=== PATIENT | female | born 1960 | race Caucasian/White ===

== ENCOUNTER 2020-07-03 08:28 | Outpatient (REF) | payer OTHER, SELFPAY ==
[2020-07-03 11:59] LABS: Alanine Aminotransferase 15 U/L (0-31); Albumin Level 4.5 g/dL (3.5-5.0); Alkaline Phosphatase 75 U/L (39-117); Anion Gap 15 (12-20); Aspartate Amino Transferase 17 U/L (5-31); Bilirubin Total 0.6 mg/dL (0.0-1.0); Blood Urea Nitrogen 16 mg/dL (9-16); Calcium 9.4 mg/dL (8.4-10.2); Carbon Dioxide 24 mmol/L (22-29); Chloride 107 mmol/L (96-108); Estimated Glomerular Filt Rate > 60; Glucose Random 138 mg/dL (60-115); Potassium 4.5 mmol/l (3.3-5.1); Sodium 141 mmol/L (135-145); Total Protein 6.8 g/dL (6.5-8.0)
[2020-07-03 12:03] LABS: Estimated Average Glucose 126 mg/dL
== END 2020-07-03 08:29 | disposition home or self-care (01) ==
LOC: HO.HMGCLDS 08:28
PROVIDERS: PCP Internal Medicine; Visit Provider Internal Medicine
DX: E78.5 Hyperlipidemia, unspecified (principal); E11.9 Type 2 diabetes mellitus without complications; I10 Essential (primary) hypertension; F41.9 Anxiety disorder, unspecified; R10.13 Epigastric pain
CPT/HCPCS: 80053; 83036

== ENCOUNTER 2020-07-06 10:01 | Outpatient (REF) | payer OTHER, SELFPAY ==
--- NOTE | 2020-07-06 11:17 | MHC.AU.P13 ---
Hearing Aid Evaluation- Binaural Date of Visit: 07/06/20 Description of Hearing: Right Ear - Mild to moderate low frequency, dropping to severe high frequency mixed hearing loss with a perforated tympanic membrane following removal of a pressure equalization tube. Left Ear - Mild sloping to moderately-severe high frequency sensorineural hearing loss. Summary: Lorraine had previously been to this office to discuss hearing aids in May 2020; however, her medical insurance shields snot cover hearing aids. She is now going through [facility] to obtain amplification. 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 The most water resistant hearing aid is recommended for her. Hearing Instrument Selection: Right Ear: Cco & President: Adept Cloud Model: AB [employer] M 70-R Battery Size: Rechargeable Color: Sand Beige Nurses' Registry Director: #1 Medium Type of Dome: Power or vented dome Left Ear: Cco & President: Phonak Model: AB [employer] M 70-R Battery Size: Rechargeable Color: Sand Beige Nurses' Registry Director: #1 Medium Type of Dome: Open Recommendations: Recommendations: Fitting will be scheduled when all materials have arrived. Quote will be sent to [facility]. Diagnosis Code(s): Primary Diagnosis: H90.3 Bilateral Sensorineural Hearing Loss Secondary Diagnosis: H69.91 Unspecified Eustachian Tube Dysfunction, Right Ear Services Performed: Hearing Aid Evaluation and Earmold: Hearing Aid Evaluation- Binaural Signature: Provider: Christopher Richardson, [facility]
== END 2020-07-06 10:02 | disposition home or self-care (01) ==
LOC: HO.HAP 10:01
PROVIDERS: PCP Internal Medicine; Referring Provider Internal Medicine; Visit Provider Internal Medicine
DX: Z46.1 Encounter for fitting and adjustment of hearing aid (principal)
CPT/HCPCS: 92591

== ENCOUNTER → 2020-08-09 12:02 | Outpatient (BNVA) | payer OTHER, SELFPAY | PROVIDERS: PCP Internal Medicine; Visit Provider Nurse Practitioner Family | DX: Z76.89 Persons encountering health services in other specified circumstances (principal) ==

== ENCOUNTER 2020-08-17 09:02 | Outpatient (REF) | payer OTHER, SELFPAY | END 2020-08-17 09:03 | disposition home or self-care (01) | LOC: HO.HAP 09:02 | PROVIDERS: PCP Internal Medicine; Referring Provider Internal Medicine; Visit Provider Internal Medicine | DX: Z46.1 Encounter for fitting and adjustment of hearing aid (principal); H90.3 Sensorineural hearing loss, bilateral; H69.91 Unspecified Eustachian tube disorder, right ear | CPT/HCPCS: 92595; V5011; V5020; V5160; V5261 ==

== ENCOUNTER 2020-09-12 15:28 | Outpatient (REF) | payer OTHER, SELFPAY | END 2020-09-12 15:29 | disposition home or self-care (01) | LOC: HO.LAB 15:28 | PROVIDERS: PCP Internal Medicine; Visit Provider Internal Medicine | DX: Z20.828 Contact with and (suspected) exposure to other viral communicable diseases (principal) | CPT/HCPCS: 36415; C9803; U0003 ==

== ENCOUNTER 2020-09-14 13:14 | Outpatient (REF) | payer OTHER, SELFPAY | END 2020-09-14 13:15 | disposition home or self-care (01) | LOC: HO.HAP 13:14 | PROVIDERS: Visit Provider Internal Medicine | DX: Z13.89 Encounter for screening for other disorder (principal) ==

== ENCOUNTER 2020-10-03 08:45 | Day surgery (SDC) | payer OTHER, SELFPAY ==
[2020-09-27 14:56] VITALS: BMI 35.0
--- NOTE | 2020-10-02 09:26 | P.CONAN_ITS ---
Documented by User: Shonna Ny 10/02/20 09:27 HPI - Anesthesia Eval Consult details Narrative: 60yo F for Colonoscopy PMFSH Past Medical History Medical History Anxiety, generalized Chronic otitis media of right ear Diabetes 1.5, managed as type 2 Difficulty sleeping Dyspepsia Hard of hearing Hypertension, essential Lipid disorder Obesity Family History Family History Father No problems noted. Mother Family history of high blood pressure Surgical History Surgical History History of appendectomy History of back surgery History of colonoscopy History of surgery History of tubal ligation Hx of endoscopy Social History Social History Alcohol intake: current Alcohol intake frequency: holidays/special occasions only Smoking Status: Never smoker Use of substances other than those prescribed or required for medical reasons: No Advance Directives: No Advance Directives Information Provided: No Advance Directives on File: No Meds Allergies Allergy/AdvReac Type Severity Reaction Status Date / Time No Known Allergies Allergy Verified 07/11/20 11:04 Home Medications Medication Instructions Recorded Confirmed Type amlodipine 5 mg tablet 5 mg PO DAILY 07/03/20 09/27/20 History flu vac [id number] 36mos up(PF) ml IM 07/03/20 07/11/20 History metoprolol succinate 50 mg 50 mg PO DAILY 07/03/20 09/27/20 History tablet,extended release 24 hr pneumococcal 23-kumar ps vaccine 25 IM 07/03/20 07/11/20 History mcg/0.5 mL injection syringe varicella-zoster glycoE [id number] IM 07/03/20 07/11/20 History adj(PF) 50 mcg/0.5 mL IM susp, kit Exam Exam Date and Time: October 02, 2020 0926 Height,Weight and Vital Signs: Height 5 ft 7 in Weight 101.605 kg Pertinent Lab Results Pertinent Lab Results: Laboratory Tests 01/11/19 07/03/20 10:09 08:35 WBC 6.8 Hgb 13.8 Hct 40.4 Plt Count 229 Sodium 141 Potassium 4.5 Chloride 107 Carbon Dioxide 24 BUN 16 Creatinine 0.82 Assessment and Plan Assessment Anesthesia Assessment: Chart Reviewed Documented by User: Chel Anderson 10/03/20 10:03 [facility] Past Medical History Medical History Anxiety, generalized Chronic otitis media of right ear Diabetes 1.5, managed as type 2 Difficulty sleeping Dyspepsia Hard of hearing Hypertension, essential Lipid disorder Obesity Family History Family History Father No problems noted. Mother Family history of high blood pressure Surgical History Surgical History History of appendectomy History of back surgery History of colonoscopy History of surgery History of tubal ligation Hx of endoscopy Social History Social History Alcohol intake: current Alcohol intake frequency: holidays/special occasions only Smoking Status: Never smoker Use of substances other than those prescribed or required for medical reasons: No Advance Directives: No Advance Directives Information Provided: No Advance Directives on File: No Meds Allergies Allergy/AdvReac Type Severity Reaction Status Date / Time No Known Allergies Allergy Verified 07/11/20 11:04 Home Medications Medication Instructions Recorded Confirmed Type amlodipine 5 mg tablet 5 mg PO DAILY 07/03/20 09/27/20 History flu vac [id number] 36mos up(PF) ml IM 07/03/20 07/11/20 History metoprolol succinate 50 mg 50 mg PO DAILY 07/03/20 09/27/20 History tablet,extended release 24 hr pneumococcal 23-kumar ps vaccine 25 IM 07/03/20 07/11/20 History mcg/0.5 mL injection syringe varicella-zoster glycoE [id number] IM 07/03/20 07/11/20 History adj(PF) 50 mcg/0.5 mL IM susp, kit Exam Airway Mallampati Class: I TM Dist: >3cm Heart: RRR Lungs: CTA Assessment and Plan Assessment Anesthesia Assessment: Anesthesia Plan Discussed and Chart Reviewed Final Anesthetic Review NPO: Yes ASA Class: II Final Preanesthetic Review: Meds/Allgs Chart Reviewed, Consent Obtained/Reviewed and Anes Risks/Benef Reviewed Patient Risk: Intermediate Procedure Risk: Low Anesthetic Plan Anesthetic Plan: MAC: Disposition: Standard PACU
--- NOTE | 2020-10-03 09:57 | MHC.SHP ---
Pre-Procedural Eval Section B Chief Complaint: screening Relevant Family History (Specify if Yes): No Relevant Social History: None Present Medications: see Short Stay Collaborative assessment Medical History: Significant History (Anxiety, generalized Chronic otitis media of right ear Diabetes 1.5, managed as type 2 Difficulty sleeping Dyspepsia Hard of hearing Hypertension, essential Lipid disorder Obesity) History of Previous Operations: Relevant previous surgery/procedure and date(s) (History of appendectomy History of back surgery History of colonoscopy History of surgery History of tubal ligation Hx of endoscopy) Allergies: Allergies Allergy/AdvReac Type Severity Reaction Status Date / Time No Known Allergies Allergy Verified 07/11/20 11:04 Review of Systems Sugical H&P ROS: Negative: Constitution, Cardiovascular, Respiratory, Neurological, Psychiatric, Hem-Onc, Allergic/Immunologic, Gastrointestinal, Genitourinary, Musculoskeletal, Integumentary, Endocrine and Eyes/Ears/Nose/Throat Exam Surgical H&P Exam: Normal: HEENT, Normal: Heart, Normal: Lungs, Normal: Extremities, Normal: Abdomen, Normal: Skin and Normal: Neurological Plan Diagnosis/Plan: Unchanged I have reviewed the history and physical and performed a pertinent physical examination on my patient. No changes have occurred unless specified.
--- NOTE | 2020-10-03 09:58 | PM.OP ---
Brief Operative Note Date of Service: 10/03/20 Pre-op diagnosis: colon screen Post-op diagnosis: same Procedure: see op note Surgeon: Gregorio Becker MD Anesthesia: MAC Estimated blood loss (mL): 0 Condition: stable Disposition: PACU
--- NOTE | 2020-10-03 09:58 | W.PM.OPN ---
Operative Note Operative Note Date of Service: 10/03/20 Narrative: Operative Information Procedure Description: Colonoscopy COLONOSCOPY Instrument: Olympus variable stiffness pediatric scope 190L Colonoscopy Monitoring: Vital signs and clinical assessment, continuous EKG monitoring, Pulse oximetry, Carbon Dioxide monitoring and blood pressure monitoring were done throughout the procedure. Colon withdrawal time was 20 minutes. Procedure: The patient was placed in the left lateral decubitis position and pre-procedure medications were administered. After a digital rectal examination of the ano-rectum, the video colonoscope was inserted into the rectum and advanced through the colon to the cecum/TI. The colonoscope was slowly withdrawn in a retrograde panoramic fashion and the colon mucosa was carefully examined including a retroflexed view of the rectum. Findings and interventions are described below. Procedure Difficulty: moderate Findings: Scattered diverticula in the colon Terminal Ileum-normal Over the ileocecal valve there was 1 8-10 mm sessile polyp removed with cold snare Cecum: prior tattoo michelle noted, there were x 2 sessile polyps measuring 5-10 mm, removed with cold snare. There was an adjacent sessile polyp 5 mm removed with forceps. In retroflexion another sessile polyp measuring 7-10 mm removed with cold snare Ascending Colon: normal Transverse Colon -normal Descending Colon:normal Sigmoid Colon: normal Rectum: Retroflexion with small internal hemorrhoids, grade I Anorectum - normal Colon preparation: [place] Bowel Preparation Scale Right colon; 3 Transverse colon: 3 Left colon; 3 (0 = Unprepared colon segment with mucosa not seen due to solid stool that cannot be cleared. 1 = Portion of mucosa of the colon segment seen, but other areas of the colon segment not well seen due to staining, residual stool and/or opaque liquid. 2 = Minor amount of residual staining, small fragments of stool and/or opaque liquid, but mucosa of colon segment seen well. 3 = Entire mucosa of colon segment seen well with no residual staining, small fragments of stool or opaque liquid) Impression and Post Procedure Diagnosis: polyps internal hemorrhoids diverticular disease Plan: High fiber diet leaflet Avoid straining at stool, epsom salts and sitz bath, anusol supps or cream Repeat Colonoscopy in 3-4 years or earlier if clinically indicated Above findings were reviewed with the patient and relevant handouts were provided if indicated.
[2020-10-03 10:00] VITALS: BP 136/62; PULSE 86; RESP 18; TEMP 36.6; O2SAT 95
[2020-10-03 10:26] LABS: Glucose, Whole Blood 145 mg/dL (60-115)
[2020-10-03 11:18] VITALS: BP 120/69; PULSE 86; RESP 16; TEMP 36.4; O2SAT 96
[2020-10-03 11:33] VITALS: BP 127/62; PULSE 92; RESP 16; TEMP 36.4; O2SAT 97
--- NOTE | 2020-10-03 11:46 | HO.POSTANES ---
Post Anesthesia Evaluation Post Anesthesia Evaluation Vital Signs: Vital Signs Temp Pulse Resp BP Pulse Ox 10/03/20 11:33 97.6 F 92 16 127/62 97 10/03/20 11:18 97.6 F 86 16 120/69 96 10/03/20 10:00 97.8 F 86 18 136/62 95 Anesthesia: Monitored Mental Status: Awake Pain Control: Satisfactory Nausea/Vomiting: None Hydration: Adequate Anesthesia-Related Issues: No Anes. Related Issues
== END 2020-10-03 11:54 | disposition home or self-care (01) ==
PROVIDERS: PCP Internal Medicine; Visit Provider Internal Medicine Gastroenterology
PROC: 0DJD8ZZ Inspection of Lower Intestinal Tract, Via Natural or Artificial Opening Endoscopic (ICD-10-PCS; CPT 45378; principal; 2020-10-03 10:20)
DX: Z12.11 Encounter for screening for malignant neoplasm of colon (principal); D12.0 Benign neoplasm of cecum; K57.30 Diverticulosis of large intestine without perforation or abscess without bleeding; K64.0 First degree hemorrhoids; E13.9 Other specified diabetes mellitus without complications; Z79.84 Long term (current) use of oral hypoglycemic drugs; Z79.899 Other long term (current) drug therapy
CPT/HCPCS: 45385; 45380; 82947; 88305

== ENCOUNTER → 2020-10-30 13:44 | Outpatient (BNVA) | payer OTHER, SELFPAY | PROVIDERS: PCP Internal Medicine; Visit Provider Nurse Practitioner Family ==

== ENCOUNTER → 2020-11-20 13:39 | Outpatient (BNVA) | payer OTHER, SELFPAY | PROVIDERS: PCP Internal Medicine; Visit Provider Advanced Practice Midwife | DX: Z01.419 Encounter for gynecological examination (general) (routine) without abnormal findings (principal); R82.90 Unspecified abnormal findings in urine | CPT/HCPCS: 81003 ==

== ENCOUNTER 2020-11-24 10:48 | Outpatient (REF) | payer OTHER, SELFPAY ==
--- NOTE | ~2020-11-24 | MM_ITS ---
EXAMINATION: MM SCREENING DIGITAL BREAST TOMOSYNTHESIS, BILATERAL CLINICAL INFORMATION: Screening. Asymptomatic. The lifetime risk of breast cancer based on the Tyrer-Cuzick Model is 5%. COMPARISON: Mammography: 03/07/2019, 01/14/2019, 12/29/2017 TECHNIQUE: Digital breast tomosynthesis is performed in both the craniocaudal and mediolateral oblique views along with computer-aided detection (CAD). Synthesized 2D images are generated from the tomosynthesis. FINDINGS: There are scattered areas of fibroglandular density (ACR BI-RADS breast composition Category b). There are no significant masses, abnormal calcifications, or other abnormalities. No developing density. Parenchymal pattern is similar to prior exams. The axilla and skin contours are unremarkable. MM/MM tomosynthesis screening BI IMPRESSION: No mammographic evidence of malignancy. ASSESSMENT: BI-RADS 1: Negative RECOMMENDATION: Routine annual mammography screening. This patient's information was entered into a reminder system with a target due date for their next mammogram.
== END 2020-11-24 10:49 | disposition home or self-care (01) ==
LOC: HO.MAMMO 10:48
PROVIDERS: PCP Internal Medicine; Visit Provider Internal Medicine
DX: Z12.31 Encounter for screening mammogram for malignant neoplasm of breast (principal)
CPT/HCPCS: 77063; 77067

== ENCOUNTER 2020-11-29 09:29 | Outpatient (REF) | payer OTHER, SELFPAY ==
[2020-11-29 11:32] LABS: Estimated Average Glucose 128 mg/dL; Hemoglobin A1c % 6.1 %
[2020-11-29 11:52] LABS: Creatinine Urine 128.39 mg/dL; Microalbum/Creatinine Ratio Ur 10.9 ug/mg cr
[2020-11-29 12:06] LABS: Alanine Aminotransferase 24 U/L (0-31); Albumin Level 4.4 g/dL (3.5-5.0); Alkaline Phosphatase 78 U/L (39-117); Anion Gap 17 (12-20); Aspartate Amino Transferase 23 U/L (5-31); Bilirubin Direct 0.2 mg/dL (0.0-0.5); Bilirubin Total 0.6 mg/dL (0.0-1.0); Blood Urea Nitrogen 16 mg/dL (9-16); Calcium 9.9 mg/dL (8.4-10.2); Carbon Dioxide 24 mmol/L (22-29); Chloride 106 mmol/L (96-108); Cholesterol 171 mg/dL; Estimated Glomerular Filt Rate > 60; Glucose Fasting 128 mg/dL (60-99); HDL Cholesterol 55 mg/dL; LDL Cholesterol Calculated 94 mg/dl; Sodium 142 mmol/L (135-145); Total Protein 6.8 g/dL (6.5-8.0); Triglycerides 114 mg/dL
== END 2020-11-29 09:30 | disposition home or self-care (01) ==
LOC: HO.HMGCLDS 09:29
PROVIDERS: PCP Internal Medicine; Visit Provider Internal Medicine
DX: E13.9 Other specified diabetes mellitus without complications (principal); R78.9 Finding of unspecified substance, not normally found in blood; R10.13 Epigastric pain; I10 Essential (primary) hypertension; F41.1 Generalized anxiety disorder; G47.9 Sleep disorder, unspecified
CPT/HCPCS: 36415; 80048; 80061; 80076; 82043; 83036

== ENCOUNTER 2021-04-26 15:08 | Outpatient (REF) | payer OTHER, SELFPAY ==
--- NOTE | ~2021-04-26 | XR_ITS ---
EXAMINATION: XR HAND, LEFT CLINICAL INFORMATION: Pain COMPARISON: None TECHNIQUE: PA, lateral, and oblique views of the left hand. FINDINGS: The bones and soft tissues are notable for an old appearing unfused ulnar styloid fracture. No definite acute fracture. Alignment is anatomic. Joint spaces are maintained. No erosions or soft tissue calcifications. XR/XR hand LT min 3V IMPRESSION: Older appearing ulnar styloid fracture. No definite acute deformity. No arthritic changes.
== END 2021-04-26 15:09 | disposition home or self-care (01) ==
LOC: HO.HMGCX 15:08
PROVIDERS: PCP Internal Medicine; Visit Provider Hospitalist
DX: M79.642 Pain in left hand (principal)
CPT/HCPCS: 73130

== ENCOUNTER 2021-05-21 10:07 | Outpatient (REF) | payer OTHER, SELFPAY ==
[2021-05-21 11:35] LABS: Hemoglobin 12.8 g/dl (12.0-16.0); Mean Corpuscular Hemoglobin 27.8 pg (27.0-33.0); Platelet Count 234 X10*3/uL (160-400); White Blood Count 5.8 X10*3/uL (4.8-10.8)
[2021-05-21 11:39] LABS: Alanine Aminotransferase 21 U/L (0-31); Albumin Level 4.4 g/dL (3.5-5.0); Alkaline Phosphatase 85 U/L (39-117); Anion Gap 13 (12-20); Aspartate Amino Transferase 20 U/L (5-31); Bilirubin Total 0.7 mg/dL (0.0-1.0); Blood Urea Nitrogen 13 mg/dL (9-16); Carbon Dioxide 25 mmol/L (22-29); Chloride 109 mmol/L (96-108); Estimated Glomerular Filt Rate > 60; Glucose Random 138 mg/dL (60-115); Sodium 142 mmol/L (135-145); Total Protein 6.7 g/dL (6.5-8.0)
[2021-05-21 11:42] LABS: Creatinine Urine 200.22 mg/dL; Microalbum/Creatinine Ratio Ur 6.9 ug/mg cr
[2021-05-21 11:56] LABS: Estimated Average Glucose 134 mg/dL; Hemoglobin A1c % 6.3 %
[2021-05-22 14:01] LABS: LDL Cholesterol Direct 97 mg/dL (<100)
== END 2021-05-21 10:08 | disposition home or self-care (01) ==
LOC: HO.HMGCLDS 10:07
PROVIDERS: Nurse Practitioner Family; PCP Internal Medicine; Visit Provider Internal Medicine
DX: R10.13 Epigastric pain (principal); I10 Essential (primary) hypertension; G47.9 Sleep disorder, unspecified; F41.1 Generalized anxiety disorder; E78.9 Disorder of lipoprotein metabolism, unspecified; E13.9 Other specified diabetes mellitus without complications
CPT/HCPCS: 36415; 80053; 82043; 83036; 83721; 85027

== ENCOUNTER 2021-08-21 09:29 | Outpatient (REF) | payer OTHER, SELFPAY ==
[2021-08-21 11:41] LABS: Hematocrit 40.3 % (37.0-47.0); Hemoglobin 12.9 g/dl (12.0-16.0)
[2021-08-21 11:55] LABS: Estimated Average Glucose 131 mg/dL; Hemoglobin A1c % 6.2 %
[2021-08-21 12:18] LABS: Alanine Aminotransferase 20 U/L (0-31); Albumin Level 4.4 g/dL (3.5-5.0); Alkaline Phosphatase 83 U/L (39-117); Anion Gap 13 (12-20); Aspartate Amino Transferase 22 U/L (5-31); Bilirubin Total 0.3 mg/dL (0.0-1.0); Blood Urea Nitrogen 16 mg/dL (9-16); Calcium 9.4 mg/dL (8.4-10.2); Carbon Dioxide 23 mmol/L (22-29); Chloride 110 mmol/L (96-108); Estimated Glomerular Filt Rate > 60; Glucose Random 144 mg/dL (60-115); Potassium 4.8 mmol/L (3.3-5.1); Sodium 141 mmol/L (135-145); Total Protein 6.8 g/dL (6.5-8.0)
[2021-08-23 04:36] LABS: LDL Cholesterol Direct 86 mg/dL (<100)
== END 2021-08-21 09:30 | disposition home or self-care (01) ==
LOC: HO.HMGCLDS 09:29
PROVIDERS: PCP Internal Medicine; Visit Provider Internal Medicine
DX: E13.9 Other specified diabetes mellitus without complications (principal); E78.9 Disorder of lipoprotein metabolism, unspecified; I10 Essential (primary) hypertension
CPT/HCPCS: 36415; 80053; 83036; 83721; 85014; 85018

== ENCOUNTER → 2021-11-06 15:49 | Outpatient (BNVA) | payer OTHER, SELFPAY | PROVIDERS: PCP Internal Medicine; Visit Provider Nurse Practitioner Family | DX: Z12.11 Encounter for screening for malignant neoplasm of colon (principal) | CPT/HCPCS: 99212 ==

== ENCOUNTER 2021-11-22 13:14 | Outpatient (REF) | payer OTHER, SELFPAY ==
[2021-11-27 01:27] LABS: HPV mRNA E6/E7 rflx Not Detected (Not Detected)
== END 2021-11-22 13:15 | disposition home or self-care (01) ==
LOC: HO.LAB 13:14
PROVIDERS: PCP Internal Medicine; Visit Provider Advanced Practice Midwife
DX: Z01.411 Encounter for gynecological examination (general) (routine) with abnormal findings (principal); Z11.51 Encounter for screening for human papillomavirus (HPV); N88.9 Noninflammatory disorder of cervix uteri, unspecified; D22.9 Melanocytic nevi, unspecified
CPT/HCPCS: 87624; 88142

== ENCOUNTER 2021-12-03 14:03 | Outpatient (REF) | payer OTHER, SELFPAY | END 2021-12-03 14:04 | disposition home or self-care (01) | LOC: HO.LAB 14:03 | PROVIDERS: PCP Internal Medicine; Visit Provider Obstetrics & Gynecology | DX: N84.1 Polyp of cervix uteri (principal) | CPT/HCPCS: 57500; 88305 ==

== ENCOUNTER 2021-12-14 09:53 | Outpatient (REF) | payer OTHER, SELFPAY ==
--- NOTE | ~2021-12-14 | MM_ITS ---
EXAMINATION: MM SCREENING DIGITAL BREAST TOMOSYNTHESIS, BILATERAL CLINICAL INFORMATION: Screening. Asymptomatic. The lifetime risk of breast cancer based on the Tyrer-Cuzick Model is 4%. COMPARISON: Mammography: 11/24/2020, 03/07/2019, 01/14/2019, 12/29/2017 TECHNIQUE: Digital breast tomosynthesis is performed in both the craniocaudal and mediolateral oblique views along with computer-aided detection (CAD). Synthesized 2D images are generated from the tomosynthesis. Additional right CC view is provided. FINDINGS: There are scattered areas of fibroglandular density (ACR BI-RADS breast composition Category b). There are no significant masses, abnormal calcifications, or other abnormalities. No significant change from prior studies. The axilla and skin contours are unremarkable. MM/MM tomosynthesis screening BI IMPRESSION: No mammographic evidence of malignancy. ASSESSMENT: BI-RADS 1: Negative RECOMMENDATION: Routine annual mammography screening. This patient's information was entered into a reminder system with a target due date for their next mammogram.
== END 2021-12-14 09:54 | disposition home or self-care (01) ==
LOC: HO.MAMMO 09:53
PROVIDERS: Visit Provider Internal Medicine
DX: Z12.31 Encounter for screening mammogram for malignant neoplasm of breast (principal)
CPT/HCPCS: 77063; 77067

== ENCOUNTER → 2021-12-17 16:17 | Outpatient (BNVA) | payer OTHER, SELFPAY | PROVIDERS: PCP Internal Medicine; Visit Provider Obstetrics & Gynecology | DX: Z13.89 Encounter for screening for other disorder (principal) ==

== ENCOUNTER 2021-12-25 09:05 | Outpatient (REF) | payer OTHER, SELFPAY ==
[2021-12-25 11:55] LABS: Estimated Average Glucose 134 mg/dL; Hemoglobin A1c % 6.3 %
[2021-12-25 12:06] LABS: Alanine Aminotransferase 21 U/L (0-31); Albumin Level 4.4 g/dL (3.5-5.0); Alkaline Phosphatase 79 U/L (39-117); Anion Gap 12 (12-20); Aspartate Amino Transferase 21 U/L (5-31); Bilirubin Total 0.3 mg/dL (0.0-1.0); Blood Urea Nitrogen 16 mg/dL (9-16); Calcium 10.3 mg/dL (8.4-10.2); Carbon Dioxide 28 mmol/L (22-29); Chloride 105 mmol/L (96-108); Estimated Glomerular Filt Rate > 60; Glucose Random 148 mg/dL (60-115); Potassium 5.2 mmol/L (3.3-5.1); Sodium 140 mmol/L (135-145); Total Protein 6.8 g/dL (6.5-8.0)
== END 2021-12-25 09:06 | disposition home or self-care (01) ==
LOC: HO.HMGCLDS 09:05
PROVIDERS: PCP Internal Medicine; Visit Provider Internal Medicine
DX: E13.9 Other specified diabetes mellitus without complications (principal); E78.9 Disorder of lipoprotein metabolism, unspecified; F41.1 Generalized anxiety disorder
CPT/HCPCS: 36415; 80053; 83036

== ENCOUNTER 2022-03-07 13:43 | Outpatient (REF) | payer SELFPAY | END 2022-03-07 13:44 | disposition home or self-care (01) | LOC: HO.HAP 13:43 | PROVIDERS: Visit Provider Internal Medicine | DX: Z46.1 Encounter for fitting and adjustment of hearing aid (principal); H90.3 Sensorineural hearing loss, bilateral | CPT/HCPCS: V5014; V5267 ==

== ENCOUNTER 2022-03-17 14:21 | Outpatient (REF) | payer OTHER, SELFPAY ==
[2022-03-20 06:42] LABS: HPV mRNA E6/E7 rflx Not Detected (Not Detected)
== END 2022-03-17 14:22 | disposition home or self-care (01) ==
LOC: HO.LAB 14:21
PROVIDERS: Visit Provider Advanced Practice Midwife
DX: Z01.419 Encounter for gynecological examination (general) (routine) without abnormal findings (principal); Z11.51 Encounter for screening for human papillomavirus (HPV); R87.615 Unsatisfactory cytologic smear of cervix
CPT/HCPCS: 87624; 88142; 99212

== ENCOUNTER 2022-05-08 07:57 | Outpatient (REF) | payer OTHER, SELFPAY ==
[2022-05-08 11:52] LABS: Estimated Average Glucose 134 mg/dL; Hemoglobin A1c % 6.3 %
[2022-05-08 12:02] LABS: Alanine Aminotransferase 21 U/L (0-31); Albumin Level 4.3 g/dL (3.5-5.0); Alkaline Phosphatase 81 U/L (39-117); Anion Gap 16 (12-20); Aspartate Amino Transferase 20 U/L (5-31); Bilirubin Total 0.4 mg/dL (0.0-1.0); Blood Urea Nitrogen 12 mg/dL (9-16); Calcium 9.3 mg/dL (8.4-10.2); Carbon Dioxide 24 mmol/L (22-29); Chloride 107 mmol/L (96-108); Cholesterol 192 mg/dL; Estimated Glomerular Filt Rate > 60; Glucose Fasting 151 mg/dL (60-99); HDL Cholesterol 52 mg/dL; LDL Cholesterol Calculated 97 mg/dl; Potassium 4.9 mmol/L (3.3-5.1); Sodium 142 mmol/L (135-145); Total Protein 6.6 g/dL (6.5-8.0); Triglycerides 216 mg/dL
[2022-05-08 12:41] LABS: Creatinine Urine 179.19 mg/dL; Microalbum/Creatinine Ratio Ur 16.7 ug/mg cr
== END 2022-05-08 07:58 | disposition home or self-care (01) ==
LOC: HO.HMGCLDS 07:57
PROVIDERS: PCP Internal Medicine; Visit Provider Internal Medicine
DX: E13.9 Other specified diabetes mellitus without complications (principal); I10 Essential (primary) hypertension; E78.9 Disorder of lipoprotein metabolism, unspecified; G47.9 Sleep disorder, unspecified; R10.13 Epigastric pain; F41.1 Generalized anxiety disorder
CPT/HCPCS: 36415; 80053; 80061; 82043; 83036

== ENCOUNTER 2022-07-18 14:00 | Outpatient (RCR) | payer OTHER, SELFPAY ==
--- NOTE | 2022-06-23 15:10 | MHC.PT.EP ---
[facility] [place] Office [place] Office [place] Office [address] [phone] F: [phone] F: [phone] F: [phone] F: [phone] Physical Therapy Plan of Care Date of Evaluation: Date of Surgery: Diagnosis: Pain in thoracic spine. Assessment: Pt is a 62 y/o female referred to PT for eval and treat of thoracic spine pain who presents with lumbopelvic dysfunction resulting in decreased tolerance and ability to perform ambulatory, standing and sitting tasks for duration as well as lifting objects of weight, and performing heavy HH and work tasks secondary to decreased hip and core strength, decreased trunk ROM as well as increased lumbar tissue tension, L LE referred symptoms, and pain. Pt is deemed an appropriate candidate to receive skilled PT in order to address her physical limitations to improve her functional ability. Frequency and Duration: The patient will be seen 2 x/ wk x 5 wks. Short Term Goals: initiate HEP. Improve baseline pain to < 3/10; initial 4-7/10. Religion Teacher Goals: I with HEP. Pt will be able to walk long distances with managed pain. Pt will be able to sit > 1 hour with managed Sx; initial: < 10 min. Referred L LE Sx abolished. Treatment Plan: Modalities to reduce pain, spasms and effusion. Manual therapy to restore motion and function. Therapeutic exercise to improve strength and flexibility. Neuromuscular re-education for posture and balance. Therapeutic activities to return to functional activities of daily living. Electronically signed by: Herbie Peralta PT. Please sign and return to therapist. Thank you for your referral.
--- NOTE | 2022-07-18 15:31 | MHC.PT.DC ---
[facility] [place] Office [place] Office [place] Office [address] [phone] F: [phone] F: [phone] F: [phone] F: [phone] Physical Therapy Discharge Report Diagnosis: Pain in thoracic spine. Date of Surgery: Date of Evaluation: 06/23/22 Date of Discharge: 07/18/22 Treatments to Date: 4 Cancellations to Date: No Shows to Date: Discharge Status: Achieved Goals Improved Function Independent with HEP Discharge Summary: Gemma has been an active participant in the clinic reporting resolution of her back pain after just a couple of visits, she is I with a gentle HEP and PT is in agreement with her request for DC today. Paulette outcome measure improved from 48% to 10%. Electronically signed by: Herbie Peralta PT. Please sign and return to therapist. Thank you for your referral.
== END 2022-07-18 15:32 | disposition home or self-care (01) ==
LOC: HO.PTCHIC 14:00
PROVIDERS: PCP Internal Medicine; Visit Provider Internal Medicine
DX: M54.6 Pain in thoracic spine (principal)
CPT/HCPCS: 97110; 97161

== ENCOUNTER 2022-08-02 15:18 | Outpatient (REF) | payer OTHER, SELFPAY ==
[2022-08-02 15:59] LABS: Influenza A PCR NEGATIVE (Negative); Influenza B PCR NEGATIVE (Negative); Resp Syncy Virus RNA Qual PCR NEGATIVE (Negative); SARS COV2 PCR INHOUSE POSITIVE (Negative)
== END 2022-08-02 15:19 | disposition home or self-care (01) ==
LOC: HO.LNP 15:18
PROVIDERS: Visit Provider Physician Assistant Medical
DX: R05.9 Cough, unspecified (principal); Z20.822 Contact with and (suspected) exposure to COVID-19
CPT/HCPCS: 0241U

== ENCOUNTER 2022-08-16 09:18 | Outpatient (REF) | payer OTHER, SELFPAY ==
[2022-08-16 11:48] LABS: Alanine Aminotransferase 20 U/L (0-31); Albumin Level 4.3 g/dL (3.5-5.0); Alkaline Phosphatase 76 U/L (39-117); Anion Gap 13 (12-20); Aspartate Amino Transferase 22 U/L (5-31); Bilirubin Total 0.3 mg/dL (0.0-1.0); Blood Urea Nitrogen 15 mg/dL (9-16); Calcium 9.6 mg/dL (8.4-10.2); Carbon Dioxide 27 mmol/L (22-29); Chloride 108 mmol/L (96-108); Estimated Glomerular Filt Rate > 60; Glucose Random 138 mg/dL (60-115); Potassium 4.8 mmol/L (3.3-5.1); Sodium 143 mmol/L (135-145); Total Protein 6.4 g/dL (6.5-8.0)
[2022-08-16 12:02] LABS: Estimated Average Glucose 148 mg/dL; Hemoglobin A1c % 6.8 %
== END 2022-08-16 09:19 | disposition home or self-care (01) ==
LOC: HO.HMGCLDS 09:18
PROVIDERS: PCP Internal Medicine; Visit Provider Internal Medicine
DX: E13.9 Other specified diabetes mellitus without complications (principal); E78.9 Disorder of lipoprotein metabolism, unspecified; I10 Essential (primary) hypertension
CPT/HCPCS: 36415; 80053; 83036

== ENCOUNTER 2022-09-30 08:17 | Day surgery (SDC) | payer OTHER, SELFPAY ==
[2022-09-24 14:46] VITALS: BMI 36.0
--- NOTE | 2022-09-29 12:01 | HO.ANESPROP2 ---
Documented by User: Shonna Ny NP 09/29/22 12:02 HPI - Anesthesia Eval Consult details Narrative: 62yo F for Colonoscopy PMFSH Active Problems Active Problems: All Active Problems (Updated 09/24/22 @ 14:44 by Vielka De Santiago, RN) Otitis media (Acute) Ruptured tympanic membrane (Acute) Neck pain (Acute) Left otitis media (Acute) Encounter for annual routine gynecological examination (Acute) Abnormal urine odor (Acute) Left hand pain (Acute) Obesity due to excess calories (Acute) Encounter for general adult medical examination with abnormal findings (Acute) Acute pain associated with herpes zoster (Acute) Shingles rash (Acute) Endocervical polyp (Acute) Post herpetic neuralgia (Acute) Sensation of fullness in right ear (Acute) Environmental allergies (Acute) Environmental allergies (Acute) Eustachian tube disorder (Acute) Lower thoracic back pain (Acute) Upper respiratory tract infection (Acute) Leg cramps (Acute) Tubular adenoma (Acute) Hard of hearing (Acute) Chronic otitis media of right ear (Acute) Lipid disorder (Acute) Dyspepsia (Acute) Hypertension, essential (Acute) Anxiety, generalized (Acute) Diabetes 1.5, managed as type 2 (Acute) Difficulty sleeping (Acute) Past Medical History Medical History (Updated 09/24/22 @ 14:44 by Vielka De Santiago, RN) Anxiety, generalized Chronic otitis media of right ear Diabetes 1.5, managed as type 2 Difficulty sleeping Dyspepsia GERD (gastroesophageal reflux disease) Hard of hearing Hypertension, essential Lipid disorder Obesity On beta michael at home Tubular adenoma Family History Family History Father No problems noted. 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 Cognitive needs: No Hearing needs: No Vision needs: Yes Meds Allergies Allergy/AdvReac Type Severity Reaction Status Date / Time No Known Allergies Allergy Verified 09/24/22 14:45 Home Medications Medication Instructions Recorded Confirmed Last Taken Type aspirin 81 mg tablet,delayed 81 mg PO DAILY 02/27/21 09/24/22 Unknown History release (Adult Low Dose Aspirin) Exam Exam Date and Time: September 29, 2022 1201 Height,Weight and Vital Signs: Height 5 ft 7 in Weight 104.326 kg Pertinent Lab Results Pertinent Lab Results: Laboratory Tests 08/16/22 09:22 Sodium 143 Potassium 4.8 Chloride 108 Carbon Dioxide 27 BUN 15 Creatinine 0.89 Assessment and Plan Assessment Anesthesia Assessment: Chart Reviewed Documented by User: Ankush Saenz MD 09/30/22 16:40 HPI - Anesthesia Eval Consult details Narrative: 62yo F for Colonoscopy bells palsy , right side PMFSH Past Medical History Medical History (Updated 09/24/22 @ 14:44 by Vielka De Santiago RN) Anxiety, generalized Chronic otitis media of right ear Diabetes 1.5, managed as type 2 Difficulty sleeping Dyspepsia GERD (gastroesophageal reflux disease) Hard of hearing Hypertension, essential Lipid disorder Obesity On beta michael at home Tubular adenoma Functional capacity: independent ambulation Family History Family History Father No problems noted. Mother Family history of high blood pressure Maternal Grandfather Colon cancer Family history of problems with anesthesia: No Surgical History Surgical History History of appendectomy History of back surgery History of colonoscopy History of surgery History of tubal ligation Hx of endoscopy History of Problems with Anesthesia: No Social History Social History Household Members: Children Housing: Apartment Alcohol intake: current Alcohol intake frequency: holidays/special occasions only Patient Tobacco Use Status: Former Tobacco user Quit Date: 1999 e-Cigarette/Vaping Use: Never Used Second Hand Smoke Exposure: No Current occupational status: employed 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 Cognitive needs: No Hearing needs: No Vision needs: Yes Meds Allergies Allergy/AdvReac Type Severity Reaction Status Date / Time No Known Allergies Allergy Verified 09/24/22 14:45 Home Medications Medication Instructions Recorded Confirmed Last Taken Type aspirin 81 mg tablet,delayed 81 mg PO DAILY 02/27/21 09/24/22 Unknown History release (Adult Low Dose Aspirin) Exam Airway Mallampati Class: III TM Dist: >3cm Loose/Missing/Broken Teeth: Yes Heart: S1,S2 Lungs: b/l breath sounds Assessment and Plan Assessment Anesthesia Assessment: Anesthesia Plan Discussed Final Anesthetic Review Family History of Problems with Anesthesia: No History of Problems with Anesthesia: No NPO: Yes ASA Class: III Final Preanesthetic Review: Meds/Allgs Chart Reviewed, Consent Obtained/Reviewed and Anes Risks/Benef Reviewed Patient Risk: Intermediate Procedure Risk: Intermediate Anesthetic Plan Anesthetic Plan: MAC: Disposition: Standard PACU
[2022-09-30 08:29] VITALS: BP 169/74; PULSE 71; RESP 16; TEMP 36.5; O2SAT 96; BMI 34.4
[2022-09-30 08:42] LABS: Glucose, Whole Blood 146 mg/dL (60-115)
[2022-09-30] MEDS: Lactated Ringers 1,000 ML 100 ML IVCONT (08:48)
--- NOTE | 2022-09-30 09:29 | MHC.SHP ---
Pre-Procedural Eval Section A Date of Service: 09/30/22 The patient is an INPATIENT: No The History & Physical has been completed within 30 days and I have reviewed it.: No Section B Chief Complaint: screening Details of Present Illness: Colon cancer screening Relevant Family History (Specify if Yes): Yes Relevant Social History: Tobacco Use (Past smoker) Present Medications: see Short Stay Collaborative assessment Medical History: Significant History (Anxiety, generalized Chronic otitis media of right ear Diabetes 1.5, managed as type 2 Difficulty sleeping Dyspepsia Hard of hearing Hypertension, essential Lipid disorder Obesity Tubular adenoma) History of Previous Operations: Relevant previous surgery/procedure and date(s) (History of appendectomy History of back surgery History of colonoscopy History of surgery History of tubal ligation Hx of endoscopy) Allergies: Allergies Allergy/AdvReac Type Severity Reaction Status Date / Time No Known Allergies Allergy Verified 09/24/22 14:45 Review of Systems Sugical H&P ROS: Negative: Constitution, Cardiovascular, Respiratory and Gastrointestinal Exam Surgical H&P Exam: Normal: Heart, Normal: Lungs, Normal: Extremities and Normal: Abdomen Plan Diagnosis/Plan: Unchanged I have reviewed the history and physical and performed a pertinent physical examination on my patient. No changes have occurred unless specified. Time Spent With Patient Time: Total time managing care of this patient today ____ minutes.
--- NOTE | 2022-09-30 09:36 | P.OP_ITS ---
Operative Note Operative Note Date of Service: 09/30/22 Narrative: Pre-op diagnosis: Colon cancer screening, follow-up of multiple colon polyps Post-op diagnosis:?other (Colon polyps, diverticulosis, hemorrhoids) Surgeon: Nona Yao MD Anesthesia:?MAC COLONOSCOPY TILL CECUM WITH BIOPSIES, SNARE POLYPECTOMY AND SUBMUCOSAL INJECTION Consent: Indications for the procedure and potential complications of bleeding, perforation, reaction to medications and missed diagnosis were discussed with the patient and informed consent was obtained. Instrument: Olympus PCF H 190 L variable stiffness pediatric colonoscope Monitoring: Vital signs and clinical assessment, intermittent blood pressure monitoring, continuous EKG monitoring, Pulse oximetry and Carbon Dioxide monitoring were done throughout the procedure. Colon withdrawl time was 23 minutes. Procedure: The patient was placed in the left lateral decubitis position and pre-procedure medications were administered. After a digital rectal examination of the ano-rectum, the video colonoscope was inserted into the rectum and advanced through the colon to the cecum. The colonoscope was slowly withdrawn in a retrograde panoramic fashion and the colon mucosa was carefully examined including a retroflexed view of the rectum. Findings and interventions are described below. Procedure Difficulty: Without difficulty Findings: Terminal Ileum: Not evaluated Cecum: A 10-12 mm sessile polyp removed with a cold snare. Presence of umberto ink noted in the cecum without recurrent polyp in the area of umberto ink Ascending Colon: A 12-15 mm flat polyp raised with 2 cc of normal saline and removed with a hot snare. 4-5 mm sessile polyp removed with a cold biopsy Transverse Colon: Normal Descending Colon: Moderate diverticulosis Sigmoid Colon: Moderate diverticulosis Rectum: Normal Ano-rectum: Small internal hemorrhoids Colon preparation: Good after some irrigation Impression and Post Procedure Diagnosis: Colonoscopy Findings: Three small to medium sized polyps removed Moderate diverticulosis seen in the left colon Small hemorrhoids on retroflexed exam. Plan: Await pathology results Patient has an appointment on 10/14/22 in the [facility] with Mera Smith FNP- BC . Repeat Colonoscopy interval based on path results - in 3 years if polyps are adenomatous and 5 years if polyps are hyperplastic. Above findings were reviewed with the patient and colon polyps and diverticulosis handouts were given in the discharge area
--- NOTE | 2022-09-30 09:36 | PM.OP ---
Brief Operative Note Date of Service: 09/30/22 Pre-op diagnosis: Colon cancer screening, follow-up of multiple colon polyps Post-op diagnosis: other (Colon polyps, diverticulosis, hemorrhoids) Procedure: COLONOSCOPY TO CECUM WITH BIOPSIES, SNARE POLYPECTOMY AND SUBMUCOSAL INJECTION Surgeon: Nona Yao MD Anesthesia: MAC Was an Calender Roll Operator used for this Procedure?: Yes Calender Roll Operator: Mallika Hi Estimated blood loss (mL): 0 Pathology: other (A: polyp cecum B: ascending colon polyp) Condition: stable Disposition: PACU
[2022-09-30 10:19] VITALS: BP 111/49; PULSE 63; RESP 16; TEMP 36.4; O2SAT 100
[2022-09-30 10:34] VITALS: BP 138/58; PULSE 65; RESP 16; TEMP 36.6; O2SAT 95
== END 2022-09-30 11:29 | disposition home or self-care (01) ==
PROVIDERS: PCP Internal Medicine; Visit Provider Internal Medicine Gastroenterology
PROC: 0DJD8ZZ Inspection of Lower Intestinal Tract, Via Natural or Artificial Opening Endoscopic (ICD-10-PCS; CPT 45378; principal; 2022-09-30 09:30)
DX: Z12.11 Encounter for screening for malignant neoplasm of colon (principal); Z86.010 Personal history of colon polyps; D12.0 Benign neoplasm of cecum; D12.2 Benign neoplasm of ascending colon; K57.30 Diverticulosis of large intestine without perforation or abscess without bleeding; K64.8 Other hemorrhoids; I10 Essential (primary) hypertension; E75.6 Lipid storage disorder, unspecified; E13.8 Other specified diabetes mellitus with unspecified complications; E66.9 Obesity, unspecified; Z68.36 Body mass index [BMI] 36.0-36.9, adult; Z79.84 Long term (current) use of oral hypoglycemic drugs; Z79.899 Other long term (current) drug therapy; Z87.891 Personal history of nicotine dependence
CPT/HCPCS: 45385; 45380; 45381; 82947; 88305

== ENCOUNTER → 2022-10-17 15:00 | Outpatient (BNVA) | payer OTHER, SELFPAY | PROVIDERS: PCP Internal Medicine; Visit Provider Nurse Practitioner Family | DX: K58.2 Mixed irritable bowel syndrome (principal); K57.90 Diverticulosis of intestine, part unspecified, without perforation or abscess without bleeding; D36.9 Benign neoplasm, unspecified site | CPT/HCPCS: 99212 ==

== ENCOUNTER 2022-12-04 09:26 | Outpatient (REF) | payer OTHER, SELFPAY ==
[2022-12-04 11:14] LABS: MANUAL DIFF FLAG NO
[2022-12-04 11:24] LABS: Basophils Absolute Auto 0.1 X10*3/uL (0.0-0.2); Eosinophils Absolute Auto 0.1 X10*3/uL (0.0-0.4); Eosinophils Percent Auto 1.7 % (0-4); Hematocrit 40.9 % (37.0-47.0); Hemoglobin 12.9 g/dl (12.0-16.0); Imm Gran Abs Auto 0.02 X10*3/uL (0.00-0.03); Imm Gran Pct Auto 0.3 % (0.0-0.4); Lymphocytes Absolute Auto 1.8 X10*3/uL (1.2-4.9); Lymphocytes Percent Auto 29.7 % (20-40); Mean Corpuscular HGB Conc 31.5 g/dl (31.0-35.0); Mean Corpuscular Hemoglobin 27.4 pg (27.0-33.0); Monocytes Absolute Auto 0.5 X10*3/uL (0.1-1.2); Monocytes Percent Auto 7.6 % (2-11); Neutrophils Absolute Auto 3.6 x10*3/uL (2.0-8.3); Neutrophils Percent Auto 59.7 % (45-73); Platelet Count 241 X10*3/uL (160-400); Red Cell Distribution Width 13.1 % (11.0-16.0)
[2022-12-04 11:27] LABS: Estimated Average Glucose 143 mg/dL; Hemoglobin A1c % 6.6 %
[2022-12-04 11:55] LABS: Alanine Aminotransferase 18 U/L (0-31); Albumin Level 4.1 g/dL (3.5-5.0); Alkaline Phosphatase 76 U/L (39-117); Anion Gap 13 (12-20); Aspartate Amino Transferase 17 U/L (5-31); Bilirubin Total 0.7 mg/dL (0.0-1.0); Blood Urea Nitrogen 16 mg/dL (9-16); Calcium 9.2 mg/dL (8.4-10.2); Carbon Dioxide 26 mmol/L (22-29); Chloride 110 mmol/L (96-108); Cholesterol 179 mg/dL; Estimated Glomerular Filt Rate > 60; Glucose Fasting 131 mg/dL (60-99); HDL Cholesterol 46 mg/dL; LDL Cholesterol Calculated 100 mg/dl; Sodium 144 mmol/L (135-145); Total Protein 6.3 g/dL (6.5-8.0); Triglycerides 169 mg/dL
[2022-12-04 11:57] LABS: TSH reflex Free T4 3.46 uIU/mL (0.32-4.0)
== END 2022-12-04 09:27 | disposition home or self-care (01) ==
LOC: HO.HMGCLDS 09:26
PROVIDERS: PCP Internal Medicine; Visit Provider Internal Medicine
DX: E13.9 Other specified diabetes mellitus without complications (principal); G47.9 Sleep disorder, unspecified; I10 Essential (primary) hypertension; E78.9 Disorder of lipoprotein metabolism, unspecified
CPT/HCPCS: 36415; 80053; 80061; 83036; 84443; 85025

== ENCOUNTER → 2023-01-09 13:53 | Outpatient (BNVA) | payer OTHER, SELFPAY | PROVIDERS: PCP Internal Medicine; Visit Provider Advanced Practice Midwife ==

== ENCOUNTER 2023-01-10 10:27 | Outpatient (REF) | payer OTHER, SELFPAY ==
--- NOTE | ~2023-01-10 | MM_ITS ---
EXAMINATION: MM SCREENING DIGITAL BREAST TOMOSYNTHESIS, BILATERAL CLINICAL INFORMATION: Screening. Asymptomatic. The lifetime risk of breast cancer based on the Tyrer-Cuzick Model is 4%. COMPARISON: Mammography: 12/14/2021, 11/24/2020, 03/07/2019, 01/14/2019, 12/29/2017 TECHNIQUE: Digital breast tomosynthesis is performed in both the craniocaudal and mediolateral oblique views along with computer-aided detection (CAD). Synthesized 2D images are generated from the tomosynthesis. FINDINGS: There are scattered areas of fibroglandular density (ACR BI-RADS breast composition Category b). Parenchymal pattern is similar to prior exams and there is no developing density or architectural abnormality. There are no significant masses, abnormal calcifications, or other abnormalities. The axilla and skin contours are unremarkable. No significant changes. MM/MM tomosynthesis screening BI IMPRESSION: No mammographic evidence of malignancy. ASSESSMENT: BI-RADS 1: Negative RECOMMENDATION: Routine annual mammography screening. This patient's information was entered into a reminder system with a target due date for their next mammogram.
== END 2023-01-10 10:28 | disposition home or self-care (01) ==
LOC: HO.MAMMO 10:27
PROVIDERS: PCP Internal Medicine; Visit Provider Internal Medicine
DX: Z12.31 Encounter for screening mammogram for malignant neoplasm of breast (principal)
CPT/HCPCS: 77063; 77067

== ENCOUNTER 2023-04-17 14:53 | Outpatient (AMB) | payer OTHER, SELFPAY ==
[2023-04-17 15:02] VITALS: BP 139/64; PULSE 73; BMI 36.0
--- NOTE | 2023-04-17 15:02 | A.OFFVIS_ITS ---
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 Patient should go for colorectal screening in 2 years. Previously to this colonoscopy patient had a colonoscopy in September of 2020 she had 3 large polyps removed from cecum. Patient has a very strong family history of colorectal cancer. Patient's father had colon cancer and her paternal uncle also had colon cancer. Diverticulosis Diverticulosis to left side of her colon. Discussed with patient high-fiber diet. Patient also reports occasional postprandial risk stools. Will give her Citrucel rib patient was encouraged to increase fluid intake and activity to promote better bowel motility. IBS (irritable bowel syndrome) Patient reports to have postprandial loose stools than constipation. Occasional abdominal bloating and discomfort. Will put patient on Citrucel to help her bulk her stools. Patient will also be given script for Senokot for her eliminate her bowels better. I will see her in 6 months, sooner on as needed basis. Patient is agreeable to this plan and verbalizes understanding of instructions. She was given the opportunity to ask questions and all questions answered. ? Thank you for allowing me to participate in her care Plan Medications New methylcellulose (laxative) (Citrucel) take it with full glass of water 500 mg PO DAILY 90 tabs 2RF K59.00 sennosides (Natural Senna Laxative) 8.6 mg PO BEDTIME 90 tabs 3RF constipation K59.00 TODAY'S VISIT: Patient is here today for follow-up. Patient reports that she has been feeling well, moving her bowels without any issues. Patient denies any melena, hematochezia, unintentional weight loss or ribbon like stools. Patient denies any dyspepsia, dysphagia or odynophagia. Patient reports that she has been feeling well. Denies any GI concerning symptoms. Patient states that she is eating plenty fiber. Patient had colonoscopy in September of 2022 tubular adenoma found and patient was recommended to repeat colonoscopy in 3 years. [facility] Medical History Anxiety, generalized Chronic otitis media of right ear Diabetes 1.5, managed as type 2 Difficulty sleeping Diverticulosis Dyspepsia GERD (gastroesophageal reflux disease) Hard of hearing Hypertension, essential Lipid disorder Obesity On beta michael at home Tubular adenoma Tubular adenoma Surgical History History of appendectomy History of back surgery History of colonoscopy History of surgery History of tubal ligation Hx of endoscopy Family History Father No problems noted. 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 Cognitive needs: No Hearing needs: No Vision needs: Yes Female Reproductive History Menstrual Age of Menarche: 15 Review of Systems Const Denies weight gain and Denies weight loss ENT Reports no additional complaints, Denies dysphagia and Denies odynophagia Card Reports no additional complaints Resp Reports no additional complaints GI Denies abdominal pain, Denies belching, Denies melena, Denies bloating, Denies change in bowel habits, Denies dysphagia, Denies excessive flatus, Denies dyspepsia, Denies heartburn, Denies diarrhea, Denies loose stools, Denies nausea, Denies odynophagia and Denies vomiting Musc Reports no additional complaints Neuro Reports no additional complaints Psych Reports no additional complaints Endo Reports no additional complaints Physical Exam Vital Signs: Last Vital Signs Pulse 73 04/17/23 15:02 BP 139/64 04/17/23 15:02 BMI result Body Mass Index 36.0 Const General: healthy appearing, no acute distress and well developed Nutritional Appearance: obese Orientation/consciousness: patient oriented x3 HEENT Head: Yes normal to inspection, Yes normocephalic and Yes atraumatic Face and sinus: Yes normal facial exam Mouth: Normal oral and palatal mucosa present Throat: Yes posterior oropharynx normal, Yes tonsils normal and Yes uvula midline Eyes General: appearance normal, both eyes and all related structures Neck Neck: Yes normal visual inspection, Yes full ROM and Yes trachea midline Thyroid: Thyroid normal Resp Effort & Inspection: normal respiratory effort, able to speak in complete sentences, no tracheal deviation and symmetric chest movement Auscultation: clear to auscultation bilaterally Cardio Rate: regular rate Heart sounds: S1 normal heart sound present and S2 normal heart sound present GI Inspection: Yes normal to inspection, No distended and Yes obesity Palpation (GI): Soft to palpation, not firm, nontender and No hepatosplenomegaly present Auscultation: normal bowel sounds General: Yes no CVA tenderness Back/Spine/Pelvis Back: no CVA tenderness Skin General skin exam: elasticity normal, turgor normal and dry skin Neuro General: patient oriented x3 Psych Appearance: grossly normal Mental Status: mental status grossly normal Speech and movement: Normal speech and movement present Assessment & Plan Assessment & Plan (1) Diverticulosis: Code(s): K57.90 - Diverticulosis of intestine, part unspecified, without perforation or abscess without bleeding Plan: Continue high-fiber diet. Patient may take probiotic. She will follow-up with us in 1 year, sooner on as needed basis. Patient is agreeable to this plan and verbalizes understanding of instructions. She was given the opportunity to ask questions and all questions answered. Thank you for allowing me to participate in her care Coding Level of Care Code Est Pt Level 3 (26603) Diagnoses Diverticulosis K57.90 Time Spent (min) 25 Comment 15 minutes spent with patient and additional 10 minutes spent reviewing her records
== END 2023-04-17 15:41 | disposition home or self-care (01) ==
PROVIDERS: Visit Provider Nurse Practitioner Family
DX: K57.90 Diverticulosis of intestine, part unspecified, without perforation or abscess without bleeding (principal)
CPT/HCPCS: 99213

== ENCOUNTER → 2023-04-17 14:53 | Outpatient (BNVA) | payer OTHER, SELFPAY | PROVIDERS: Visit Provider Nurse Practitioner Family | DX: K57.90 Diverticulosis of intestine, part unspecified, without perforation or abscess without bleeding (principal); Z86.010 Personal history of colon polyps | CPT/HCPCS: 99212 ==

== ENCOUNTER 2023-05-29 15:01 | Outpatient (AMB) | payer OTHER, SELFPAY ==
[2023-05-29 15:02] VITALS: BP 136/82; PULSE 76; O2SAT 96; BMI 35.9
--- NOTE | 2023-05-29 15:02 | A.OFFPC_ITS ---
Vital Signs 05/29/23 15:02 Height 5 ft 7 in Weight 229 lb 2 oz BMI 35.9 BP 136/82 Blood Pressure Location Rt brachial Position Sitting Pulse 76 Pulse Source Pulse Oximeter Pulse Oximetry (%) 96 Oxygen Delivery Method Room Air Intake Visit Reasons: 3 month follow up Allergies No Known Allergies Allergy (Verified 05/29/23 15:03) Medication List - Last Reconciled 05/29/23 by Florence Leonardo MD aspirin (Adult Low Dose Aspirin) 81 mg PO DAILY fluticasone propionate 50 mcg/actuation (Allergy Relief (fluticasone)) 1 spray intranasal DAILY 30 days lorazepam 1 mg PO DAILY PRN 30 days losartan 50 mg PO DAILY 90 days metformin 500 mg PO BID metoprolol succinate ER 50 mg PO DAILY omeprazole 20 mg PO QAM 90 days pravastatin 80 mg PO DAILY 90 days Tobacco use date assessed: 05/29/23 Last assessed Fall Risk: 05/29/23 Dental Screening Dental Screen Date: 05/29/23 Did you have a dental visit in the last 12 months?: Yes Did you have a dental problem in the last 6 months where you did not have access to dental care?: No Was dental information given to patient?: Patient has dentist HPI 3 month follow up HPI Details Patient is a 63-year-old female came in today for her regular follow-up appointment. Patient is having lot of guests over feeling tired She is stable offered no new complaints today Allergies: Controlled with Flonase nasal spray . cetirizine and montelukast Diabetes: patient is on metformin b.i.d. hemoglobin A1c stable, she is due for labs next month order is already in the system patient was reminded Hypertension: Patient is on losartan 50 mg blood pressure is stable no side effects Continue metoprolol 50 mg as well. Blood pressure is stable Lipids controlled with pravastatin 80 mg daily GERD stable with omeprazole and diet-controlled. Patient takes lorazepam 1 mg at bedtime complying with the treatment plan no signs of abuse medications sent for another 3 month. BMI is elevated need to lose weight. Follow-up 3 months [facility] Medical History Diverticulosis Tubular adenoma GERD (gastroesophageal reflux disease) On beta michael at home Tubular adenoma Obesity Hard of hearing Chronic otitis media of right ear Lipid disorder Dyspepsia Hypertension, essential Anxiety, generalized Diabetes 1.5, managed as type 2 Difficulty sleeping Surgical History Hx of endoscopy History of surgery History of back surgery History of colonoscopy History of appendectomy History of tubal ligation Family History Father No problems noted. 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 1. Little interest or pleasure in doing things: several days 2. Feeling down, depressed, or hopeless: several days 3. Trouble falling or staying asleep, or sleeping too much: not at all 4. Feeling tired or having little energy: several days 5. Poor appetite or overeating: several days 6. Feeling bad about yourself - or that you are a failure or have let yourself or your family down: not at all 7. Trouble concentrating on things, such as reading the newspaper or watching television: not at all 8. Moving or speaking so slowly that other people could have noticed. Or the opposite - being so fidgety or restless that you have been moving around a lot more than usual: not at all 9. Thoughts that you would be better off or of hurting yourself in some way: not at all Total score: 4 Depression Screening Interpretation: Negative 47929 - PHQ-9 Billing: Yes Source: Developed by Drs. Bethel Caceres, Paige Russ, Kye Foy and colleagues, with an educational shaunna from [employer]. Thrive Questionnaire Date Thrive assessed: 10/04/21 AUDIT C Alcohol Use Questionnaire (AUDIT-C) 1. How often do you have a drink containing alcohol?: Never 3. How often do you have six or more drinks on one occasion?: Never Total Score: 0 Score Reviewed/Action Taken: Yes YISEL-7 AMB Questionnaire YISEL-7 Date YISEL - 7 assessed: 10/04/21 Source: Developed by Drs. Bethel Caceres, Paige Russ, Kye Foy and colleagues, with an educational shaunna from [employer]. Review of Systems Const Denies chills and Denies fever(s) ENT Denies epistaxis and Denies nasal discharge Card Denies chest pain Resp Denies chest congestion, Denies cough and Denies hemoptysis GI Denies diarrhea and Denies nausea Skin/Breast Denies rash Neuro Reports no additional complaints Psych Reports no additional complaints Endo Reports no additional complaints Physical exam (Primary Care) Vital Signs: Last Vital Signs Pulse 76 05/29/23 15:02 BP 136/82 05/29/23 15:02 Pulse Ox 96 05/29/23 15:02 Oxygen Delivery Method Room Air 05/29/23 15:02 BMI result Body Mass Index 35.9 Tobacco/Smoking Status: Tobacco use Status Tobacco use date assessed 05/29/23 05/29/23 15:03 Patient Tobacco Use Status Former Tobacco user 05/29/23 15:03 e-Cigarette/Vaping Use Never Used 05/29/23 15:03 Depression Screening Interpretation: Negative Thrive Assessment: Date of Thrive Assessment Date Thrive assessed 10/04/21 05/29/23 15:03 Const General: cooperative, comfortable and no acute distress Orientation/consciousness: patient oriented x3 HENMT Head: Yes normocephalic Eyes General: appearance normal, both eyes and all related structures Neck Neck: Yes supple Resp Effort & Inspection: normal respiratory effort, no cough and no stridor Cardio Rhythm: regular rhythm Heart sounds: S1 normal heart sound present and S2 normal heart sound present Skin General skin exam: turgor normal Neuro General: patient oriented x3, tone normal and moves all extremities Extrem Right lower extremity: no edema Left lower extremity: no edema Assessment and Plan Assessment & Plan (1) Hypertension, essential: Code(s): I10 - Essential (primary) hypertension (2) Diabetes 1.5, managed as type 2: Code(s): E13.9 - Other specified diabetes mellitus without complications (3) Anxiety, generalized: Code(s): F41.1 - Generalized anxiety disorder (4) Difficulty sleeping: Code(s): G47.9 - Sleep disorder, unspecified (5) Dyspepsia: Code(s): R10.13 - Epigastric pain (6) Lipid disorder: Code(s): E78.9 - Disorder of lipoprotein metabolism, unspecified (7) Environmental allergies: Code(s): Z91.09 - Other allergy status, other than to drugs and biological substances Plan Patient is a 63-year-old female came in today for her regular follow-up appointment. Patient is having lot of guests over feeling tired She is stable offered no new complaints today Allergies: Controlled with Flonase nasal spray . cetirizine and montelukast Diabetes: patient is on metformin b.i.d. hemoglobin A1c stable, she is due for labs next month order is already in the system patient was reminded Hypertension: Patient is on losartan 50 mg blood pressure is stable no side effects Continue metoprolol 50 mg as well. Blood pressure is stable Lipids controlled with pravastatin 80 mg daily GERD stable with omeprazole and diet-controlled. Patient takes lorazepam 1 mg at bedtime complying with the treatment plan no signs of abuse medications sent for another 3 month. BMI is elevated need to lose weight. Follow-up 3 months Medications: Refilled lorazepam 1 mg PO DAILY PRN 30 tabs 2RF anxiety 30 days F41.1 - Generalized anxiety disorder, G47.9 - Sleep disorder, unspecified Coding Level of Care Code Est Pt Level 4 (57924) Diagnoses Hypertension, essential I10 Diabetes 1.5, managed as type 2 E13.9 Anxiety, generalized F41.1 Difficulty sleeping G47.9 Dyspepsia R10.13 Lipid disorder E78.9 Environmental allergies Z91.09
== END 2023-05-29 16:43 | disposition home or self-care (01) ==
PROVIDERS: PCP Internal Medicine; Visit Provider Internal Medicine
DX: I10 Essential (primary) hypertension (principal); E13.9 Other specified diabetes mellitus without complications; Z91.09 Other allergy status, other than to drugs and biological substances; F41.1 Generalized anxiety disorder; G47.9 Sleep disorder, unspecified; R10.13 Epigastric pain; E78.9 Disorder of lipoprotein metabolism, unspecified
CPT/HCPCS: 99214

== ENCOUNTER → 2023-07-28 09:04 | Outpatient (BNVA) | payer OTHER, SELFPAY | PROVIDERS: PCP Internal Medicine; Visit Provider Physician Assistant | DX: S39.012A Strain of muscle, fascia and tendon of lower back, initial encounter (principal); X50.1XXA Overexertion from prolonged static or awkward postures, initial encounter | CPT/HCPCS: 99203 ==

== ENCOUNTER → 2023-08-03 09:43 | Outpatient (BNVA) | payer OTHER, SELFPAY | PROVIDERS: PCP Internal Medicine; Visit Provider Physician Assistant Medical | DX: S39.012A Strain of muscle, fascia and tendon of lower back, initial encounter (principal); X50.1XXA Overexertion from prolonged static or awkward postures, initial encounter | CPT/HCPCS: 99213 ==

== ENCOUNTER 2023-08-05 10:26 | Outpatient (AMB) | payer OTHER, SELFPAY ==
[2023-08-05 10:27] VITALS: BP 140/80; PULSE 88; TEMP 36.3; O2SAT 98; BMI 35.9
--- NOTE | 2023-08-05 10:27 | MHC.OFFWIV ---
Intake Vital Signs 08/05/23 10:27 Height 5 ft 7 in Weight 229 lb BMI 35.9 BP 140/80 H Blood Pressure Location Rt brachial Position Sitting Pulse 88 Pulse Source Pulse Oximeter Temp 97.3 F Temp Source Temporal Artery Scan Pulse Oximetry (%) 98 Intake Visit Reasons: EP twisted Lft ankle Intake Note: pt is here for c.o left ankle pain due to twisting it last night at home stepping off couch Patient Tobacco Use Status: Former Tobacco user Quit Date: 1999 Allergies No Known Allergies Allergy (Verified 08/05/23 10:44) Medication List - Last Reconciled 08/05/23 by Alex Vee MD aspirin (Adult Low Dose Aspirin) 81 mg PO DAILY dexamethasone 4 mg PO TID 6 days fluticasone propionate 50 mcg/actuation (Allergy Relief (fluticasone)) 1 spray intranasal DAILY 30 days lorazepam 1 mg PO DAILY PRN 30 days losartan 50 mg PO DAILY 90 days metformin 500 mg PO BID metoprolol succinate ER 50 mg PO DAILY omeprazole 20 mg PO QAM 90 days pravastatin 80 mg PO DAILY 90 days Do you need a note to return to daycare/school/sports/work: Yes HPI EP twisted Lft ankle HPI Details 63-year-old female presents to the office for a sick visit. Patient twisted her ankle yesterday while walking to the kitchen. The ankle swelled up. She has difficulty walking. [facility] Medical History (Updated 08/05/23 @ 10:47 by Alex Vee MD) Sprain of left ankle Diverticulosis Tubular adenoma GERD (gastroesophageal reflux disease) On beta michael at home Tubular adenoma Obesity Hard of hearing Chronic otitis media of right ear Lipid disorder Dyspepsia Hypertension, essential Anxiety, generalized Diabetes 1.5, managed as type 2 Difficulty sleeping Surgical History Hx of endoscopy History of surgery History of back surgery History of colonoscopy History of appendectomy History of tubal ligation Family History Father No problems noted. 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 Pain on flexion and extension. She is not able to bear complete weight on her left lower extremity. Assessment & Plan Assessment & Plan (1) Sprain of left ankle: Code(s): S93.402A - Sprain of unspecified ligament of left ankle, initial encounter Plan: X-ray images personally reviewed by me. No fractures seen. Anti-inflammatories called in. Aircast provided. If symptoms not better to follow-up here. Orders: Orders XR ankle LT min 3V Today S93.402A - Sprain of unspecified ligament of left ankle, initial encounter Coding Level of Care Code Est Pt Level 4 (61229) Diagnoses Sprain of left ankle S93.402A
== END 2023-08-05 11:01 | disposition home or self-care (01) ==
PROVIDERS: PCP Internal Medicine; Visit Provider Internal Medicine
DX: S93.402A Sprain of unspecified ligament of left ankle, initial encounter (principal); Z90.49 Acquired absence of other specified parts of digestive tract
CPT/HCPCS: 99214

== ENCOUNTER 2023-08-05 10:37 | Outpatient (REF) | payer OTHER, SELFPAY ==
--- NOTE | ~2023-08-05 | XR_ITS ---
EXAMINATION: XR ANKLE, LEFT CLINICAL INFORMATION: Left ankle sprain COMPARISON: None available. TECHNIQUE: AP, lateral, and mortise views of the left ankle. FINDINGS: Moderate soft tissue swelling is present laterally. No fracture. Alignment is anatomic. No erosions. Joint spaces are maintained. XR/XR ankle LT min 3V IMPRESSION: Soft tissue swelling without fracture.
== END 2023-08-05 10:38 | disposition home or self-care (01) ==
LOC: HO.HMGCX 10:37
PROVIDERS: PCP Internal Medicine; Visit Provider Internal Medicine
DX: S93.402A Sprain of unspecified ligament of left ankle, initial encounter (principal)
CPT/HCPCS: 73610

== ENCOUNTER → 2023-08-06 13:17 | Outpatient (BNVA) | payer OTHER, SELFPAY | PROVIDERS: PCP Internal Medicine; Visit Provider Physician Assistant Medical | DX: S39.012A Strain of muscle, fascia and tendon of lower back, initial encounter (principal); X50.1XXA Overexertion from prolonged static or awkward postures, initial encounter | CPT/HCPCS: 99213 ==

== ENCOUNTER → 2023-08-20 12:52 | Outpatient (BNVA) | payer OTHER, SELFPAY | PROVIDERS: PCP Internal Medicine; Visit Provider Physician Assistant Medical | DX: S39.012D Strain of muscle, fascia and tendon of lower back, subsequent encounter (principal); X50.1XXD Overexertion from prolonged static or awkward postures, subsequent encounter | CPT/HCPCS: 99213 ==

== ENCOUNTER 2023-08-24 08:59 | Outpatient (REF) | payer OTHER, SELFPAY ==
[2023-08-24 11:32] LABS: MANUAL DIFF FLAG NO
[2023-08-24 11:43] LABS: Basophils Absolute Auto 0.1 X10*3/uL (0.0-0.2); Basophils Percent Auto 0.8 % (0-2); Eosinophils Absolute Auto 0.1 X10*3/uL (0.0-0.4); Eosinophils Percent Auto 1.5 % (0-4); Hemoglobin 11.8 g/dl (12.0-16.0); Imm Gran Abs Auto 0.02 X10*3/uL (0.00-0.03); Imm Gran Pct Auto 0.3 % (0.0-0.4); Lymphocytes Absolute Auto 1.5 X10*3/uL (1.2-4.9); Lymphocytes Percent Auto 23.3 % (20-40); Mean Corpuscular HGB Conc 31.1 g/dl (31.0-35.0); Mean Corpuscular Hemoglobin 27.3 pg (27.0-33.0); Mean Corpuscular Volume 87.8 fL (80.0-98.0); Mean Platelet Volume 10.9 fL (9.4-12.3); Monocytes Absolute Auto 0.5 X10*3/uL (0.1-1.2); Neutrophils Absolute Auto 4.3 x10*3/uL (2.0-8.3); Neutrophils Percent Auto 66.1 % (45-73); Platelet Count 249 X10*3/uL (160-400); Red Blood Count 4.33 X10*6/uL (4.20-5.50); Red Cell Distribution Width 13.5 % (11.0-16.0); White Blood Count 6.5 X10*3/uL (4.8-10.8)
[2023-08-24 11:55] LABS: Estimated Average Glucose 146 mg/dL; Hemoglobin A1c % 6.7 % (<6.0); Total Hemoglobin (HGBA1C) 3126.9727 umol/L
[2023-08-24 12:08] LABS: Creatinine Urine 289.59 mg/dL; Microalbum/Creatinine Ratio Ur 9.3 ug/mg cr (<30)
[2023-08-24 12:15] LABS: Cholesterol 167 mg/dL (<200); HDL Cholesterol 50 mg/dL (>40); LDL Cholesterol Calculated 89 mg/dL (<100); Triglycerides 144 mg/dL (<150)
== END 2023-08-24 09:00 | disposition home or self-care (01) ==
LOC: HO.HMGCLDS 08:59
PROVIDERS: PCP Internal Medicine; Visit Provider Internal Medicine
DX: E13.9 Other specified diabetes mellitus without complications (principal); F41.1 Generalized anxiety disorder; I10 Essential (primary) hypertension; E78.9 Disorder of lipoprotein metabolism, unspecified; H66.91 Otitis media, unspecified, right ear; R10.13 Epigastric pain
CPT/HCPCS: 36415; 80061; 82043; 82570; 83036; 85025

== ENCOUNTER 2023-08-26 14:01 | Outpatient (AMB) | payer OTHER, SELFPAY ==
--- NOTE | 2023-08-26 14:07 | MHC.PC.OV ---
Vital Signs 08/26/23 14:08 Height 5 ft 7 in Weight 230 lb BMI 36.0 BP 132/78 Blood Pressure Location Rt brachial Position Sitting Pulse 75 Pulse Source Pulse Oximeter Pulse Oximetry (%) 99 Oxygen Delivery Method Room Air Intake Visit Reasons: 3 month follow up Allergies No Known Allergies Allergy (Verified 08/26/23 14:09) Medication List - Last Reconciled 08/26/23 by Florence Leonardo MD aspirin (Adult Low Dose Aspirin) 81 mg PO DAILY fluticasone propionate 50 mcg/actuation (Allergy Relief (fluticasone)) 1 spray intranasal DAILY 30 days lorazepam 1 mg PO DAILY PRN 30 days losartan 50 mg PO DAILY 90 days metformin 500 mg PO BID metoprolol succinate ER 50 mg PO DAILY montelukast 10 mg PO DAILY 90 days omeprazole 20 mg PO QAM 90 days pravastatin 80 mg PO DAILY 90 days Tobacco use date assessed: 08/26/23 Fall risk assessment: No Falls in past year Last assessed Fall Risk: 08/26/23 Dental Screening Dental Screen Date: 08/26/23 Did you have a dental visit in the last 12 months?: Yes Did you have a dental problem in the last 6 months where you did not have access to dental care?: No Was dental information given to patient?: Patient has dentist HPI 3 month follow up HPI Details Patient is a 63-year-old female came in today for her regular follow-up appointment. August 05 patient has sprained her left ankle which is still painful and swollen Patient says that she stand 8-10 hours at work which is not helping I have placed a referral for her to be evaluated by Orthopedic Allergies: Controlled with Flonase nasal spray . cetirizine and montelukast Diabetes: patient is on metformin b.i.d. hemoglobin A1c stable, Hypertension: Patient is on losartan 50 mg blood pressure is stable no side effects Continue metoprolol 50 mg as well. Blood pressure is stable Lipids controlled with pravastatin 80 mg daily GERD stable with omeprazole and diet-controlled. Patient takes lorazepam 1 mg at bedtime complying with the treatment plan no signs of abuse medications sent for another 3 month. BMI is elevated need to lose weight. Follow-up 3 months [facility] Medical History (Updated 08/26/23 @ 15:32 by Florence Leonardo MD) Sprain of left ankle Diverticulosis Tubular adenoma GERD (gastroesophageal reflux disease) On beta michael at home Tubular adenoma Obesity Hard of hearing Chronic otitis media of right ear Lipid disorder Dyspepsia Hypertension, essential Anxiety, generalized Diabetes 1.5, managed as type 2 Difficulty sleeping Surgical History Hx of endoscopy History of surgery History of back surgery History of colonoscopy History of appendectomy History of tubal ligation Family History Father No problems noted. 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 How often do you have a drink containing alcohol?: Never 3. How often do you have six or more drinks on one occasion?: Never Total Score: 0 Score Reviewed/Action Taken: Yes YISEL-7 AMB Questionnaire YISEL-7 Date YISEL - 7 assessed: 10/04/21 Source: Developed by Drs. Bethel Caceres, Paige Russ, Kye Foy and colleagues, with an educational shaunna from [employer]. Review of Systems Const Denies chills and Denies fever(s) ENT Denies epistaxis and Denies nasal discharge Card Denies chest pain Resp Denies chest congestion, Denies cough and Denies hemoptysis GI Denies diarrhea and Denies nausea Skin/Breast Denies rash Neuro Reports no additional complaints Psych Reports no additional complaints Endo Reports no additional complaints Physical exam (Primary Care) Vital Signs: Last Vital Signs Pulse 75 08/26/23 14:08 BP 132/78 08/26/23 14:08 Pulse Ox 99 08/26/23 14:08 Oxygen Delivery Method Room Air 08/26/23 14:08 BMI result Body Mass Index 20.4 Tobacco/Smoking Status: Tobacco use Status Tobacco use date assessed 08/26/23 08/26/23 14:10 Patient Tobacco Use Status Former Tobacco user 08/26/23 14:10 e-Cigarette/Vaping Use Never Used 08/26/23 14:10 Thrive Assessment: Date of Thrive Assessment Date Thrive assessed 10/04/21 08/26/23 14:10 Const General: cooperative, comfortable and no acute distress Orientation/consciousness: patient oriented x3 HENMT Head: Yes normocephalic Eyes General: appearance normal, both eyes and all related structures Neck Neck: Yes supple Resp Effort & Inspection: normal respiratory effort, no cough and no stridor Cardio Rhythm: regular rhythm Heart sounds: S1 normal heart sound present and S2 normal heart sound present Skin General skin exam: turgor normal Neuro General: patient oriented x3, tone normal and moves all extremities Extrem Ankle/foot/toe images: 1. Swollen with limited range of motion in plantar flexion and internal rotation, tender anterior to lateral malleolus left side Assessment and Plan Assessment & Plan (1) Sprain of left ankle: Code(s): S93.402A - Sprain of unspecified ligament of left ankle, initial encounter Qualifiers: Encounter type: initial encounter Involved ligament of ankle: other ligament Qualified Code(s): S93.492A - Sprain of other ligament of left ankle, initial encounter (2) Difficulty sleeping: Code(s): G47.9 - Sleep disorder, unspecified (3) Diabetes 1.5, managed as type 2: Code(s): E13.9 - Other specified diabetes mellitus without complications (4) Anxiety, generalized: Code(s): F41.1 - Generalized anxiety disorder (5) Hypertension, essential: Code(s): I10 - Essential (primary) hypertension (6) Lipid disorder: Code(s): E78.9 - Disorder of lipoprotein metabolism, unspecified (7) Dyspepsia: Code(s): R10.13 - Epigastric pain (8) Environmental allergies: Code(s): Z91.09 - Other allergy status, other than to drugs and biological substances Plan Patient is a 63-year-old female came in today for her regular follow-up appointment. August 05 patient has sprained her left ankle which is still painful and swollen Patient says that she stand 8-10 hours at work which is not helping I have placed a referral for her to be evaluated by Orthopedic Allergies: Controlled with Flonase nasal spray . cetirizine and montelukast Diabetes: patient is on metformin b.i.d. hemoglobin A1c stable, Hypertension: Patient is on losartan 50 mg blood pressure is stable no side effects Continue metoprolol 50 mg as well. Blood pressure is stable Lipids controlled with pravastatin 80 mg daily GERD stable with omeprazole and diet-controlled. Patient takes lorazepam 1 mg at bedtime complying with the treatment plan no signs of abuse medications sent for another 3 month. BMI is elevated need to lose weight. Follow-up 3 months Orders: Orders LDL Cholesterol Direct 3 Months E13.9 - Other specified diabetes mellitus without complications, E78.9 - Disorder of lipoprotein metabolism, unspecified, F41.1 - Generalized anxiety disorder, G47.9 - Sleep disorder, unspecified, I10 - Essential (primary) hypertension Hemoglobin A1c 3 Months E13.9 - Other specified diabetes mellitus without complications, E78.9 - Disorder of lipoprotein metabolism, unspecified, F41.1 - Generalized anxiety disorder, G47.9 - Sleep disorder, unspecified, I10 - Essential (primary) hypertension Complete Blood Count Auto Diff 3 Months E13.9 - Other specified diabetes mellitus without complications, E78.9 - Disorder of lipoprotein metabolism, unspecified, F41.1 - Generalized anxiety disorder, G47.9 - Sleep disorder, unspecified, I10 - Essential (primary) hypertension Comprehensive Jackson. Panel Fast 3 Months E13.9 - Other specified diabetes mellitus without complications, E78.9 - Disorder of lipoprotein metabolism, unspecified, F41.1 - Generalized anxiety disorder, G47.9 - Sleep disorder, unspecified, I10 - Essential (primary) hypertension Microalbumin, Random (w Creat) 3 Months E13.9 - Other specified diabetes mellitus without complications, E78.9 - Disorder of lipoprotein metabolism, unspecified, F41.1 - Generalized anxiety disorder, G47.9 - Sleep disorder, unspecified, I10 - Essential (primary) hypertension Referrals Orthopedics Referral S93.402A - Sprain of unspecified ligament of left ankle, initial encounter Medications: Refilled lorazepam 1 mg PO DAILY PRN 30 tabs 2RF anxiety 30 days F41.1 - Generalized anxiety disorder, G47.9 - Sleep disorder, unspecified Coding Level of Care Code Est Pt Level 4 (47670) Diagnoses Sprain of other ligament of left ankle, initial encounter S93.492A Encounter type: initial encounter Involved ligament of ankle: other ligament Difficulty sleeping G47.9 Diabetes 1.5, managed as type 2 E13.9 Anxiety, generalized F41.1 Hypertension, essential I10 Lipid disorder E78.9 Dyspepsia R10.13 Environmental allergies Z91.09
[2023-08-26 14:08] VITALS: BP 132/78; PULSE 75; O2SAT 99; BMI 36.0
== END 2023-08-26 17:00 | disposition home or self-care (01) ==
PROVIDERS: PCP Internal Medicine; Visit Provider Internal Medicine
DX: S93.492A Sprain of other ligament of left ankle, initial encounter (principal); G47.9 Sleep disorder, unspecified; E13.9 Other specified diabetes mellitus without complications; F41.1 Generalized anxiety disorder; I10 Essential (primary) hypertension; E78.9 Disorder of lipoprotein metabolism, unspecified; R10.13 Epigastric pain; Z91.09 Other allergy status, other than to drugs and biological substances
CPT/HCPCS: 99214

== ENCOUNTER 2023-09-02 14:00 | Outpatient (RCR) | payer OTHER, SELFPAY ==
--- NOTE | 2023-08-19 11:54 | MHC.PT.EP ---
[facility] [place] [facility] [place] [facility] [place] [facility] [address] [phone] F: [phone] F: [phone] F: [phone] F: [phone] Physical Therapy Plan of Care Date of Evaluation: 08/19/23 Date of Surgery: Diagnosis: lumbar strain Assessment: Patient is a 63 year old R handed female who presents with s/s consistent with lumbar strain, low back pain. 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 Patient past medical history includes bordering DM, HTN and high cholesterol, all controlled. Current impairments include pain, posture, ROM, strength, activity tolerance and functional mobility. 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 Patient is motivated with good rehab potential. Skilled PT will address impairments and functional limitations in order to achieve goals. Frequency and Duration: The patient will be seen 2x/week for 5 weeks Short Term Goals: I with HEP - 2 weeks AROM rotation 75% and pain free - 3 weeks Flexion 75% and pain free - 3 weeks Avionics Systems Technician Goals: Pain free return to work - 5 weeks Resolved radicular s/s - 4 weeks Oswestry 10% or better - 5 weeks Treatment Plan: Modalities to reduce pain, spasms and effusion. Manual therapy to restore motion and function. Therapeutic exercise to improve strength and flexibility. Neuromuscular re-education for posture and balance. Therapeutic activities to return to functional activities of daily living. Electronically signed by: Sourav Oliva, PT Please sign and return to therapist. Thank you for your referral.
--- NOTE | 2024-05-19 10:54 | MHC.PT.DC ---
[facility] Office [place] Office [place] Office [address] Reynaldo Aelxandre [address] [phone] F: [phone] F: [phone] F: [phone] F: [phone] Physical Therapy Discharge Report Diagnosis: lumbar strain Date of Surgery: Date of Evaluation: 08/19/23 Date of Discharge: 11/02/23 Treatments to Date: 3 Cancellations to Date: No Shows to Date: Discharge Status: Patient Elected to Stop Discharge Summary: 08/27/23: continued to attempt to reduce tissue tension of piriformis. good results after last visit. pt complaining of ankle > back. 09/02/23: pt has been feeling better overall with skilled PT for back. ankle limiting at times. follow up 09/18/23 with MD about ankle. continue to progress as tolerated with core strength and body mechanics. 08/21/23: pt progressing well with skilled PT. added manual intervention. going back to work today. assess response to manual intervention and return to work and progress as tolerated. Patient is a 63 year old R handed female who presents with s/s consistent with lumbar strain, low back pain. 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 Patient past medical history includes bordering DM, HTN and high cholesterol, all controlled. Current impairments include pain, posture, ROM, strength, activity tolerance and functional mobility. 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 Patient is motivated with good rehab potential. Skilled PT will address impairments and functional limitations in order to achieve goals. Electronically signed by: Sourav Oliva, PT Please sign and return to therapist. Thank you for your referral.
== END 2024-05-19 10:54 | disposition home or self-care (01) ==
LOC: HO.PTCHIC 14:00
PROVIDERS: PCP Internal Medicine; Visit Provider Physician Assistant Medical
DX: S39.012D Strain of muscle, fascia and tendon of lower back, subsequent encounter (principal)
CPT/HCPCS: 97110; 97140; 97162

== ENCOUNTER 2023-09-25 09:21 | Outpatient (AMB) | payer OTHER, SELFPAY ==
[2023-09-25 10:11] VITALS: BP 138/80; PULSE 73; O2SAT 96; BMI 36.4
--- NOTE | 2023-09-25 10:11 | MHC.OFFWIV ---
Intake Vital Signs 09/25/23 10:11 Height 5 ft 7 in Weight 232 lb 8 oz BMI 36.4 BP 138/80 Blood Pressure Location Rt brachial Position Sitting Pulse 73 Pulse Source Pulse Oximeter Pulse Oximetry (%) 96 Oxygen Delivery Method Room Air Intake Visit Reasons: Est/congestion and ear pain ([phone]) Intake Note: Pt is here today for congestion and Rt ear pain, started wk and half ago Patient Tobacco Use Status: Former Tobacco user Quit Date: 1999 Allergies No Known Allergies Allergy (Verified 08/26/23 14:09) Do you need a note to return to daycare/school/sports/work: No HPI HPI Comments History of Present Illness Details This is a 63-year-old female who presented to the walk-in clinic complaining of persistent/worsening sinus/nasal congestion with green yellow rhinorrhea and bilateral otalgia (right greater than left). She denies any fevers or chills. She states her symptoms have been ongoing for approximately 10 days. 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 She tested negative for COVID at home. ON LICENSE OF [facility] Medical History (Updated 08/26/23 @ 15:32 by Florence Leonardo MD) Sprain of left ankle Diverticulosis Tubular adenoma GERD (gastroesophageal reflux disease) On beta michael at home Tubular adenoma Obesity Hard of hearing Chronic otitis media of right ear Lipid disorder Dyspepsia Hypertension, essential Anxiety, generalized Diabetes 1.5, managed as type 2 Difficulty sleeping Surgical History Hx of endoscopy History of surgery History of back surgery History of colonoscopy History of appendectomy History of tubal ligation Family History Father No problems noted. 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 Cognitive needs: No Hearing needs: No Vision needs: Yes Female Reproductive History Menstrual Age of Menarche: 15 Review of Systems Const All systems reviewed & are unremarkable except as noted in HPI and below Reports no additional complaints Eyes Reports no additional complaints ENT Reports no additional complaints Card Reports no additional complaints Resp Reports no additional complaints GI Reports no additional complaints Reports no additional complaints Musc Reports no additional complaints Skin/Breast Reports system reviewed and no additional complaints, except as documented Neuro Reports no additional complaints Psych Reports no additional complaints Endo Reports no additional complaints Herberth/Lymph Reports no additional complaints Aller/Immun Reports no additional complaints Physical Exam Vital Signs: Last Vital Signs Pulse 73 09/25/23 10:11 BP 138/80 09/25/23 10:11 Pulse Ox 96 09/25/23 10:11 Oxygen Delivery Method Room Air 09/25/23 10:11 BMI result Body Mass Index 36.4 Const Other: Vital signs reviewed. Constitutional: Non-toxic appearing. No acute distress. Well-developed and well-nourished. HEENT: There is bulging, erythema, and edema of her bilateral tympanic membranes. There is mild tenderness to palpation of her maxillary sinuses. Skin: Warm and dry. No rashes or lesions noted. Neck: Full and painless range of motion. No cervical lymphadenopathy. Cardio: Regular rate and rhythm. No murmurs, gallops, or rubs. No lower extremity edema. No JVD. Pulmonary: No respiratory distress. No accessory muscle usage. Clear to auscultation bilaterally without wheezing, crackles, or rhonchi. Gastrointestinal: Soft, nontender, and nondistended in all 4 quadrants. Musculoskeletal: Normal range of motion in joints throughout the body. No deformity or other signs of injury. Neuro: Alert and oriented x4. Cranial nerves 2-12 grossly intact. No focal deficits appreciated. Psych: Normal mood and affect. Assessment & Plan Assessment & Plan (1) Acute otitis media, bilateral: Code(s): H66.93 - Otitis media, unspecified, bilateral (2) Acute bacterial rhinosinusitis: Code(s): J01.90 - Acute sinusitis, unspecified; B96.89 - Other specified bacterial agents as the cause of diseases classified elsewhere Plan This is a 63-year-old female presenting to the office complaining of persistent/worsening congestion/rhinorrhea and bilateral otalgia times 10 days. On physical examination, the patient has erythema, bulging, and edema bilateral tympanic membranes. Patient very likely has acute bacterial rhinosinusitis as well as bilateral acute otitis media. Patient was discharged home on p.o. amoxicillin/clavulanate 875/125 mg twice daily x7 days. Recommended symptomatic management including rest, increased fluids, advil/tylenol for pain/fever, and over the counter throat lozenges/decongestants. Patient advised to follow up here or go to the emergency room for worsening/persistent symptoms. Patient verbalized understanding and is agreeable with the plan. Medications: New amoxicillin-pot clavulanate 875-125 mg 1 tab PO BID 14 tabs 0RF Coding Level of Care Code Est Pt Level 3 (67302) Diagnoses Acute otitis media, bilateral H66.93 Acute bacterial rhinosinusitis J01.90; B96.89
== END 2023-09-25 10:39 | disposition home or self-care (01) ==
PROVIDERS: PCP Internal Medicine; Visit Provider Physician Assistant Medical
DX: H66.93 Otitis media, unspecified, bilateral (principal); J01.90 Acute sinusitis, unspecified; B96.89 Other specified bacterial agents as the cause of diseases classified elsewhere
CPT/HCPCS: 99213

== ENCOUNTER 2023-10-05 09:46 | Outpatient (AMB) | payer OTHER, SELFPAY ==
--- NOTE | 2023-10-05 09:47 | A.OFFVIS_ITS ---
Intake Vital Signs 10/05/23 09:48 Height 5 ft 7 in Weight 232 lb BMI 36.3 Intake Visit Reasons: obstetrician/gynecologist- Sprain of unspecified ligament of left ankle Intake Note: Lorraine is a 63 year old female who presents today as a new patient for a evaluation for her left ankle pain, DOI 08/04/23. Patient reports twisting her ankle at home stepping off couch. At the times she had severe swelling and was seen wit her PP who ordered Xrays. Explains she was told it was a sprain. She missed her 1st appt with Orthopedic due to conflict with timing. Currently sta jeanette she still has mild swelling and pain with plantar extension. Reports numbness and tingling in toes also on lateral aspect of ankle. Hx of DM. Allergies No Known Allergies Allergy (Verified 10/05/23 09:48) HPI obstetrician/gynecologist- Sprain of unspecified ligament of left ankle HPI Details 63-year-old female who presents to the o ffice today for evaluation of left ankle pain s/p twisting her ankle while stepping off the couch at home, 1 10/04/22. She was seen with her PCP for her severe pain who ordered x-rays of her foot. She currently states she has mild swelling and pain in her ankle with plantar extension. She also c/o numbness and tingling in her toes and lateral aspect of her ankle. She also experiences difficulty with standing for prolonged time at work. She has a history of diabetes. [facility] Medical History (Updated 08/26/23 @ 15:32 by Florence Leonardo MD) Sprain of left ankle Diverticulosis Tubular adenoma GERD (gastroesophageal reflux disease) On beta michael at home Tubular adenoma Obesity Hard of hearing Chronic otitis media of right ear Lipid disorder Dyspepsia Hypertension, essential Anxiety, generalized Diabetes 1.5, managed as type 2 Difficulty sleeping Surgical History Hx of endoscopy History of surgery History of back surgery History of colonoscopy History of appendectomy History of tubal ligation Family History Father No problems noted. 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[employer] Cognitive needs: No Hearing needs: No Vision needs: Yes Female Reproductive History Menstrual Age of Menarche: 15 Review of Systems Const All systems reviewed & are unremarkable except as noted in HPI and below Physical Exam Vital Signs: BMI result Body Mass Index 36.3 Const General: cooperative, healthy appearing, comfortable, no acute distress, well developed and alert Orientation/consciousness: patient oriented x3 HEENT Head: Yes normal to inspection, Yes normocephalic and Yes atraumatic Eyes General: appearance normal, both eyes and all related structures Resp Effort & Inspection: normal respiratory effort and able to speak in complete sentences Cardio Rate: regular rate Peripheral pulses: Peripheral pulses 2+ throughout GI Palpation (GI): Soft to palpation Skin Lesions: no lesions Rashes: no rashes Neuro General: patient oriented x3 Extrem Other: Left ankle: Normal to inspection with trace swelling over the medial and lateral malleolus with tenderness along the soft tissues. No tenderness to palpation along the posterior aspect of the ankle, no deformity along the Achilles tendon, negative So?s. No pain along the syndesmosis or anterior tibia. No laxity, NVI. Results Reviewed Results Reviewed: xrays of the left ankle obtained on 08/05/23 are negative for acute fracture or dislocations Assessment & Plan Assessment & Plan (1) Sprain of left ankle: Code(s): S93.402A - Sprain of unspecified ligament of left ankle, initial encounter Qualifiers: Encounter type: initial encounter Involved ligament of ankle: other ligament Qualified Code(s): S93.492A - Sprain of other ligament of left ankle, initial encounter Plan We discussed options which include PT, NSAIDs and bracing. The patient was fit for a lace up ankle brace and will proceed with PT. She cannot take NSAIDs due to her HTN, I did offer her a compound cream which she declined at this time. If symptoms persist, the patient will contact me, otherwise, PRN. Orders: Orders PT Evaluation and Treatment Today S93.402A - Sprain of unspecified ligament of left ankle, initial encounter Patient Instructions: Scribed for Lea Bravo PA-C, by Dong Smith, medical observer, on 10/05/2023 at 9:45 AM EST. I, Lea Bravo PA-C, have personally reviewed and agree with the information entered by the scribe. Coding Level of Care Code New Pt Level 3 (81018) Diagnoses Sprain of other ligament of left ankle, initial encounter S93.492A Encounter type: initial encounter Involved ligament of ankle: other ligament
[2023-10-05 09:48] VITALS: BMI 36.3
== END 2023-10-05 10:22 | disposition home or self-care (01) ==
PROVIDERS: PCP Internal Medicine; Visit Provider Physician Assistant
DX: S93.492A Sprain of other ligament of left ankle, initial encounter (principal)
CPT/HCPCS: 99203

== ENCOUNTER → 2023-10-05 09:46 | Outpatient (BNVA) | payer OTHER, SELFPAY | PROVIDERS: PCP Internal Medicine; Visit Provider Physician Assistant | DX: S93.492A Sprain of other ligament of left ankle, initial encounter (principal) | CPT/HCPCS: 99202 ==

== ENCOUNTER 2023-10-12 10:03 | Outpatient (AMB) | payer OTHER, SELFPAY ==
--- NOTE | 2023-10-12 11:43 | MHC.OFFWIV ---
Intake Vital Signs 10/12/23 11:44 Height 5 ft 7 in Weight 230 lb BMI 36.0 BP 120/74 Blood Pressure Location Lt brachial Position Sitting Pulse 70 Pulse Source Pulse Oximeter Temp 97.6 F Temp Source Temporal Artery Scan Pulse Oximetry (%) 98 Oxygen Delivery Method Room Air Intake Visit Reasons: EP congestion tight chest pain [id number] Intake Note: pt is here today for congestion tight chest pain started thursday Patient Tobacco Use Status: Former Tobacco user Quit Date: 1999 Allergies No Known Allergies Allergy (Verified 10/12/23 11:45) Do you need a note to return to daycare/school/sports/work: No HPI HPI Comments History of Present Illness Details Patient presents to the walk in for 3 days of cough Cough is dry, nonproductive. Denies sinus congestion, fevers, body aches, chills, nausea, vomiting, diarrhea. 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 Patient recently treated with one-week course of antibiotics for ear infection sinusitis. Completed the antibiotics approximately 1 week ago. Patient requesting to be tested for viral illness panel, concern for transmission to her patients. [facility] Medical History (Updated 08/26/23 @ 15:32 by Florence Leonardo MD) Sprain of left ankle Diverticulosis Tubular adenoma GERD (gastroesophageal reflux disease) On beta michael at home Tubular adenoma Obesity Hard of hearing Chronic otitis media of right ear Lipid disorder Dyspepsia Hypertension, essential Anxiety, generalized Diabetes 1.5, managed as type 2 Difficulty sleeping Surgical History Hx of endoscopy History of surgery History of back surgery History of colonoscopy History of appendectomy History of tubal ligation Family History Father No problems noted. 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 Answers questions appropriately. Fully engaged in examination. Skin: warm, dry, intact HEENT: TMs intact bilaterally, without erythema or exudate. Posterior pharynx without erythema or exudate. Sclera without icterus or injection. Cardiac: External chest normal in appearance. RRR Respiratory: + dry, nonproductive cough. LSCTAB. Abdomen: without gross distension. Neurological: Oriented to person, place, time and situation. Thought process intact. Psychiatric: Appropriate mood and affect. Good judgment and insight. Assessment & Plan Assessment & Plan (1) Upper respiratory tract infection: Code(s): J06.9 - Acute upper respiratory infection, unspecified Plan URI, no abx warranted. SARS-CoV2/FLU/RSV swab collected, results pending. Patient aware she will be called with results. She declines a work note today Benzonatate 100mg po bid as needed Prednisone 40 mg p.o. daily x5 days Rest, drink plenty of fluids, tylenol or motrin as needed. Follow up with pcp or in clinic for any new or worsening symptoms. Go to ER for shortness of breath, chest pain, palpitations, weakness, dizziness. Orders: Orders SARS-CoV2/FLU/RSV Today J06.9 - Acute upper respiratory infection, unspecified Medications: New benzonatate 100 mg PO BID PRN 20 caps 0RF cough prednisone 40 mg (2 x 20 mg) PO DAILY 5 days 10 tabs 0RF Coding Level of Care Code Est Pt Level 4 (88251) Diagnoses Upper respiratory tract infection J06.9
[2023-10-12 11:44] VITALS: BP 120/74; PULSE 70; TEMP 36.4; O2SAT 98; BMI 36.0
== END 2023-10-12 12:44 | disposition home or self-care (01) ==
PROVIDERS: PCP Internal Medicine; Visit Provider Registered Nurse Emergency
DX: J06.9 Acute upper respiratory infection, unspecified (principal)
CPT/HCPCS: 99213

== ENCOUNTER 2023-10-12 12:39 | Outpatient (REF) | payer OTHER, SELFPAY ==
[2023-10-12 20:42] LABS: Influenza A PCR NEGATIVE (Negative); Influenza B PCR NEGATIVE (Negative); Resp Syncy Virus RNA Qual PCR NEGATIVE (Negative); SARS COV2 PCR INHOUSE NEGATIVE (Negative)
== END 2023-10-12 12:40 | disposition home or self-care (01) ==
LOC: HO.LAB 12:39
PROVIDERS: Visit Provider Registered Nurse Emergency
DX: J06.9 Acute upper respiratory infection, unspecified (principal); Z11.52 Encounter for screening for COVID-19; Z20.828 Contact with and (suspected) exposure to other viral communicable diseases
CPT/HCPCS: 0241U

== ENCOUNTER 2023-11-25 09:21 | Outpatient (REF) | payer OTHER, SELFPAY ==
[2023-11-25 11:11] LABS: MANUAL DIFF FLAG NO
[2023-11-25 11:42] LABS: Basophils Absolute Auto 0.1 X10*3/uL (0.0-0.2); Eosinophils Absolute Auto 0.1 X10*3/uL (0.0-0.4); Eosinophils Percent Auto 1.6 % (0-4); Hematocrit 39.9 % (37.0-47.0); Hemoglobin 12.7 g/dl (12.0-16.0); Imm Gran Abs Auto 0.02 X10*3/uL (0.00-0.03); Imm Gran Pct Auto 0.3 % (0.0-0.4); Lymphocytes Absolute Auto 1.6 X10*3/uL (1.2-4.9); Lymphocytes Percent Auto 27.3 % (20-40); Mean Corpuscular HGB Conc 31.8 g/dl (31.0-35.0); Mean Corpuscular Hemoglobin 27.2 pg (27.0-33.0); Mean Corpuscular Volume 85.4 fL (80.0-98.0); Monocytes Absolute Auto 0.4 X10*3/uL (0.1-1.2); Monocytes Percent Auto 7.1 % (2-11); Neutrophils Absolute Auto 3.6 x10*3/uL (2.0-8.3); Neutrophils Percent Auto 62.7 % (45-73); Platelet Count 222 X10*3/uL (160-400); Red Blood Count 4.67 X10*6/uL (4.20-5.50); Red Cell Distribution Width 13.1 % (11.0-16.0); White Blood Count 5.8 X10*3/uL (4.8-10.8)
[2023-11-25 11:51] LABS: Estimated Average Glucose 140 mg/dL; Hemoglobin A1C 152.7035 umol/L; Hemoglobin A1c % 6.5 % (<6.0)
[2023-11-25 12:05] LABS: Alanine Aminotransferase 13 U/L (0-31); Albumin Level 4.1 g/dL (3.5-5.0); Alkaline Phosphatase 70 U/L (39-117); Anion Gap 11 (12-20); Aspartate Amino Transferase 15 U/L (5-31); Bilirubin Total 0.6 mg/dL (0.0-1.0); Blood Urea Nitrogen 16 mg/dL (9-16); Calcium 9.5 mg/dL (8.4-10.2); Carbon Dioxide 27 mmol/L (22-29); Chloride 109 mmol/L (96-108); Estimated Glomerular Filt Rate > 60; Glucose Fasting 158 mg/dL (60-99); Potassium 4.8 mmol/L (3.3-5.1); Sodium 142 mmol/L (135-145); Total Protein 6.7 g/dL (6.5-8.0)
[2023-11-25 12:34] LABS: Creatinine Urine 212.75 mg/dL; Microalbum/Creatinine Ratio Ur 21.1 ug/mg cr (<30)
[2023-11-27 13:48] LABS: LDL Cholesterol Direct 101 mg/dL (<100)
== END 2023-11-25 09:22 | disposition home or self-care (01) ==
LOC: HO.HMGCLDS 09:21
PROVIDERS: PCP Internal Medicine; Visit Provider Internal Medicine
DX: E13.9 Other specified diabetes mellitus without complications (principal); G47.9 Sleep disorder, unspecified; F41.1 Generalized anxiety disorder; E78.9 Disorder of lipoprotein metabolism, unspecified; I10 Essential (primary) hypertension
CPT/HCPCS: 36415; 80053; 82043; 82570; 83036; 83721; 85025

== ENCOUNTER 2023-11-27 15:02 | Outpatient (AMB) | payer MEDICAID, SELFPAY ==
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
[2023-11-27 15:19] VITALS: BP 130/86; PULSE 71; O2SAT 98; BMI 37.3
== END 2023-11-27 16:40 | disposition home or self-care (01) ==
PROVIDERS: PCP Internal Medicine; Visit Provider Internal Medicine
DX: E13.9 Other specified diabetes mellitus without complications (principal); G47.9 Sleep disorder, unspecified; F41.1 Generalized anxiety disorder; I10 Essential (primary) hypertension; E78.9 Disorder of lipoprotein metabolism, unspecified; R10.13 Epigastric pain; Z91.09 Other allergy status, other than to drugs and biological substances
CPT/HCPCS: 99214

== ENCOUNTER 2024-01-15 15:01 | Outpatient (REF) | payer OTHER, SELFPAY ==
[2024-01-16 14:34] LABS: BV Int Neg Control Negative (Negative); BV Int Pos Control Positive (Positive)
== END 2024-01-15 15:02 | disposition home or self-care (01) ==
LOC: HO.LNP 15:01
PROVIDERS: PCP Internal Medicine; Visit Provider Advanced Practice Midwife
DX: Z01.419 Encounter for gynecological examination (general) (routine) without abnormal findings (principal); N89.8 Other specified noninflammatory disorders of vagina
CPT/HCPCS: 87480; 87510; 87660; 99396

== ENCOUNTER 2024-01-15 15:01 | Outpatient (AMB) | payer OTHER, SELFPAY ==
[2024-01-15 15:04] VITALS: BP 126/80; BMI 36.2
--- NOTE | 2024-01-15 15:04 | MHC.OFFVIS ---
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 She is doing well with no concerns. Sees derm for her skin eval yearly. Attempting to eat a healthy diet with calcium, and stays active with exercise. Currently not sexually active. Reports an occasional odor. No itching or irritation, declines STD screening. Last pap smear; 2021 Last mammogram; 2022. Colonoscopy follow up this year. Denies any family history of breast or ovarian. FH colon cancer. [facility] Medical History Sprain of left ankle Diverticulosis Tubular adenoma GERD (gastroesophageal reflux disease) On beta michael at home Tubular adenoma Obesity Hard of hearing Chronic otitis media of right ear Lipid disorder Dyspepsia Hypertension, essential Anxiety, generalized Diabetes 1.5, managed as type 2 Difficulty sleeping Surgical History Hx of endoscopy History of surgery History of back surgery History of colonoscopy History of appendectomy History of tubal ligation Family History (Updated 01/15/24 @ 15:07 by CARMEL Rosenberg) Father No problems noted. 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 Cognitive needs: No Hearing needs: No Vision needs: Yes Female Reproductive History Menstrual Age of Menarche: 15 control method: permanent sterilization Total pregnancies: 6 Full term: 3 Number of Living Children: 3 Ab induced: 3 Date of last pap smear: 03/18/22 (negative) History of abnormal pap smear: No Date of Mammogram: 01/10/23 Review of Systems Const All systems reviewed & are unremarkable except as noted in HPI and below Reports as per HPI Eyes Reports no additional complaints ENT Reports no additional complaints Card Reports no additional complaints Resp Reports no additional complaints GI Reports as per HPI and Reports no additional complaints Reports as per HPI Musc Reports no additional complaints Skin/Breast Reports as per HPI Neuro Reports no additional complaints Psych Reports no additional complaints Endo Reports no additional complaints Herberth/Lymph Reports no additional complaints Aller/Immun Reports no additional complaints Physical Exam Vital Signs: Last Vital Signs BP 126/80 01/15/24 15:04 BMI result Body Mass Index 36.2 Const General: cooperative, healthy appearing, no acute distress, well developed and alert Orientation/consciousness: patient oriented x3 HEENT Head: Yes normal to inspection Eyes General: appearance normal, both eyes and all related structures Neck Neck: Yes normal visual inspection Thyroid: Thyroid normal Chest Chest palpation & inspection: normal inspection of the chest and other (no puckering, dimpling, peau de orange, retraction, discharge, masses) Breast/axilla inspection: normal inspection of the breasts Breast/axilla palpation: normal palpation of the breasts Resp Effort & Inspection: normal respiratory effort GI Inspection: Yes normal to inspection Palpation (GI): Soft to palpation Rectal Exam - Female: deferred General: Yes bladder normal to palpation External Female Exam: normal external appearance and normal appearance of the urethra Speculum Exam - Vagina: normal appearance of the vagina, normal palpation, normal vaginal discharge and vagina atrophic Speculum Exam - Cervix: normal appearance of the cervix and normal palpation Bimanual exam- vagina & uterus: normal bimanual exam, normal palpation, uterine size normal, bladder normal to palpation, normal palpation and non-tender Bimanual Exam- Adnexa, other: no masses Skin General skin exam: no rashes or lesions noted Rashes: no rashes Neuro General: patient oriented x3 Cognition (Neuro): normal cognition Extrem General: Yes normal to inspection Psych Attitude: cooperative Thought process: Normal thought process present Assessment & Plan Assessment & Plan (1) Encounter for well woman exam with routine gynecological exam: Code(s): Z01.419 - Encounter for gynecological examination (general) (routine) without abnormal findings Plan Discussed: Current recommendations for pap smears per ASCCP guidelines. Breast awareness, periodic self breast exams and yearly mammogram. Maintain a healthy lifestyle, well balanced diet including Calcium 1,200 mg and Vitamin D 600 IU daily, and routine exercise. Use of condoms for STI if indicated. Contact the office with any postmenopausal bleeding. Patient verbalizes understanding and agrees to the plan of care. She was given opportunity to ask questions and all questions were answered to the best of my ability. 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 This note is constructed using voice recognition software. While every effort has been made to ensure accuracy, consultant errors may have been included. Coding Level of Care Code Est Pt Prev Care 40-64y(43185) Diagnoses Encounter for well woman exam with routine gynecological exam Z01.419
== END 2024-01-15 15:42 | disposition home or self-care (01) ==
LOC: HO.HWS 15:01
PROVIDERS: PCP Internal Medicine; Visit Provider Advanced Practice Midwife
DX: Z01.419 Encounter for gynecological examination (general) (routine) without abnormal findings (principal)
CPT/HCPCS: 99396

== ENCOUNTER 2024-01-16 10:23 | Outpatient (REF) | payer OTHER, SELFPAY ==
--- NOTE | ~2024-01-16 | MM_ITS ---
EXAMINATION: MM SCREENING DIGITAL BREAST TOMOSYNTHESIS, BILATERAL CLINICAL INFORMATION: Screening. Asymptomatic. COMPARISON: Mammography: This study is compared with prior exams dating back to 2019. TECHNIQUE: Digital breast tomosynthesis is performed in both the craniocaudal and mediolateral oblique views along with computer-aided detection (CAD). Synthesized 2D images are generated from the tomosynthesis. FINDINGS: There are scattered areas of fibroglandular density (ACR BI-RADS breast composition Category b). There is a focal asymmetry in the subareolar 9:00 position of the right breast for which additional mammographic and targeted sonographic imaging is advised. In the left breast, there are no significant masses, abnormal calcifications, or other abnormalities. MM/MM tomosynthesis screening BI IMPRESSION: Focal asymmetry of the right breast warrants additional mammographic and targeted sonographic imaging. No mammographic signs of malignancy left breast. ASSESSMENT: BI-RADS BI-RADS 0 - Incomplete: Needs additional Imaging. RECOMMENDATION: 1. Additional views of the right breast. 2. Targeted ultrasound if warranted after review of the additional views. 3. Radiology department staff will contact the patient for additional imaging. Additional Imaging required This examination should not preclude the clinical evaluation of a suspicious palpable abnormality. This patient's information was entered into a reminder system with a target due date for their next mammogram.
== END 2024-01-16 10:24 | disposition home or self-care (01) ==
LOC: HO.MAMMO 10:23
PROVIDERS: PCP Internal Medicine; Visit Provider Internal Medicine
DX: Z12.31 Encounter for screening mammogram for malignant neoplasm of breast (principal)
CPT/HCPCS: 77063; 77067

== ENCOUNTER → 2024-01-16 10:30 | Outpatient (BNV) | payer OTHER, SELFPAY | PROVIDERS: PCP Internal Medicine; Visit Provider Radiology Diagnostic Radiology | DX: Z12.31 Encounter for screening mammogram for malignant neoplasm of breast (principal) | CPT/HCPCS: 77063; 77067 ==

== ENCOUNTER 2024-02-10 10:43 | Outpatient (AMB) | payer OTHER, SELFPAY ==
--- NOTE | 2024-02-10 11:05 | MHC.PC.OV ---
Intake Visit Reasons: 3M F/U Allergies No Known Allergies Allergy (Verified 02/10/24 11:05) Medication List - Last Reconciled 02/10/24 by Florence Leonardo MD aspirin (Adult Low Dose Aspirin) 81 mg PO DAILY lorazepam 1 mg PO DAILY PRN 30 days losartan 50 mg PO DAILY 90 days metformin 500 mg PO BID metoprolol succinate ER 50 mg PO DAILY montelukast 10 mg PO DAILY 90 days omeprazole 20 mg PO QAM 90 days pravastatin 80 mg PO DAILY 90 days Tobacco use date assessed: 02/10/24 Fall risk assessment: No Falls in past year Last assessed Fall Risk: 02/10/24 Dental Screening Dental Screen Date: 02/10/24 Did you have a dental visit in the last 12 months?: Yes Did you have a dental problem in the last 6 months where you did not have access to dental care?: No Was dental information given to patient?: Patient has dentist HPI 3M F/U HPI Details Patient is a 63-year-old female this is telemed visit she had mammogram and now need extra views which is causing some anxiety Allergies: Controlled with Flonase nasal spray . cetirizine and montelukast Diabetes: patient is on metformin b.i.d. hemoglobin A1c stable, Hypertension: Patient is on losartan 50 mg blood pressure is stable no side effects Continue metoprolol 50 mg as well. Blood pressure is stable Lipids controlled with pravastatin 80 mg daily GERD stable with omeprazole and diet-controlled. Patient takes lorazepam 1 mg at bedtime complying with the treatment plan no signs of abuse medications sent for another 3 month. BMI is elevated need to lose weight. Follow-up 3 months PENDING SALE TO [facility] Medical History Sprain of left ankle Diverticulosis Tubular adenoma GERD (gastroesophageal reflux disease) On beta michael at home Tubular adenoma Obesity Hard of hearing Chronic otitis media of right ear Lipid disorder Dyspepsia Hypertension, essential Anxiety, generalized Diabetes 1.5, managed as type 2 Difficulty sleeping Surgical History Hx of endoscopy History of surgery History of back surgery History of colonoscopy History of appendectomy History of tubal ligation Family History Father No problems noted. 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 How often do you have a drink containing alcohol?: Monthly or less 2. How many drinks containing alcohol do you have on a typical day when you are drinking?: 1 or 2 3. How often do you have six or more drinks on one occasion?: Never Total Score: 1 Score Reviewed/Action Taken: Yes YISEL-7 AMB Questionnaire YISEL-7 Date YISEL - 7 assessed: 10/04/21 Source: Developed by Drs. Bethel Caceres, Paige Russ, Kye Foy and colleagues, with an educational shaunna from [employer]. Review of Systems Const Denies chills and Denies fever(s) ENT Denies epistaxis and Denies nasal discharge Card Denies chest pain Resp Denies chest congestion, Denies cough and Denies hemoptysis GI Denies diarrhea and Denies nausea Skin/Breast Denies rash Neuro Reports no additional complaints Psych Reports no additional complaints Endo Reports no additional complaints Physical exam (Primary Care) Tobacco/Smoking Status: Tobacco use Status Tobacco use date assessed 02/10/24 02/10/24 11:06 Patient Tobacco Use Status Former Tobacco user 02/10/24 11:06 e-Cigarette/Vaping Use Never Used 02/10/24 11:06 Thrive Assessment: Date of Thrive Assessment Date Thrive assessed 11/27/23 02/10/24 11:06 Const General: cooperative, comfortable and no acute distress Orientation/consciousness: patient oriented x3 HENMT Head: Yes normocephalic Eyes General: appearance normal, both eyes and all related structures Neck Neck: Yes supple Resp Effort & Inspection: normal respiratory effort, no cough and no stridor Cardio Rhythm: regular rhythm Heart sounds: S1 normal heart sound present and S2 normal heart sound present Skin General skin exam: turgor normal Neuro General: patient oriented x3, tone normal and moves all extremities Extrem Right lower extremity: no edema Left lower extremity: no edema Telehealth Telehealth Telehealth Platform: [employer] Location of provider rendering services: practice address Location of patient: address on file Patient Identification confirmed using: Name, : Yes Telehealth method: video (attempted) Patient verbally consented to treatment: Yes Patient verbally consented to billing insurance company: Yes Patient informed of any privacy concerns related to visit: Yes Assessment and Plan Assessment & Plan (1) Diabetes 1.5, managed as type 2: Code(s): E13.9 - Other specified diabetes mellitus without complications (2) Difficulty sleeping: Code(s): G47.9 - Sleep disorder, unspecified (3) Hypertension, essential: Code(s): I10 - Essential (primary) hypertension (4) Anxiety, generalized: Code(s): F41.1 - Generalized anxiety disorder (5) Dyspepsia: Code(s): R10.13 - Epigastric pain (6) Lipid disorder: Code(s): E78.9 - Disorder of lipoprotein metabolism, unspecified (7) Environmental allergies: Code(s): Z91.09 - Other allergy status, other than to drugs and biological substances Plan Patient is a 63-year-old female this is telemed visit she had mammogram and now need extra views which is causing some anxiety Allergies: Controlled with Flonase nasal spray . cetirizine and montelukast Diabetes: patient is on metformin b.i.d. hemoglobin A1c stable, Hypertension: Patient is on losartan 50 mg blood pressure is stable no side effects Continue metoprolol 50 mg as well. Blood pressure is stable Lipids controlled with pravastatin 80 mg daily GERD stable with omeprazole and diet-controlled. Patient takes lorazepam 1 mg at bedtime complying with the treatment plan no signs of abuse medications sent for another 3 month. BMI is elevated need to lose weight. Follow-up 3 months Orders: Orders Complete Blood Count Auto Diff 2 Months E13.9 - Other specified diabetes mellitus without complications, E78.9 - Disorder of lipoprotein metabolism, unspecified, F41.1 - Generalized anxiety disorder, G47.9 - Sleep disorder, unspecified, I10 - Essential (primary) hypertension, R10.13 - Epigastric pain Hemoglobin A1c 2 Months E13.9 - Other specified diabetes mellitus without complications, E78.9 - Disorder of lipoprotein metabolism, unspecified, F41.1 - Generalized anxiety disorder, G47.9 - Sleep disorder, unspecified, I10 - Essential (primary) hypertension, R10.13 - Epigastric pain Comprehensive Met. Panel 2 Months E13.9 - Other specified diabetes mellitus without complications, E78.9 - Disorder of lipoprotein metabolism, unspecified, F41.1 - Generalized anxiety disorder, G47.9 - Sleep disorder, unspecified, I10 - Essential (primary) hypertension, R10.13 - Epigastric pain LDL Cholesterol Direct 2 Months E13.9 - Other specified diabetes mellitus without complications, E78.9 - Disorder of lipoprotein metabolism, unspecified, F41.1 - Generalized anxiety disorder, G47.9 - Sleep disorder, unspecified, I10 - Essential (primary) hypertension, R10.13 - Epigastric pain Medications: Refilled omeprazole 20 mg PO QAM 90 days 90 caps 1RF lorazepam 1 mg PO DAILY 30 days PRN 30 tabs 2RF anxiety F41.1 - Generalized anxiety disorder, G47.9 - Sleep disorder, unspecified Coding Level of Care Code Tele Est Pt Level 4 (53713) Complex EM visit Add On G2211 Diagnoses Diabetes 1.5, managed as type 2 E13.9 Difficulty sleeping G47.9 Hypertension, essential I10 Anxiety, generalized F41.1 Dyspepsia R10.13 Lipid disorder E78.9 Environmental allergies Z91.09 Time Spent (min) 30
== END 2024-02-10 12:17 | disposition home or self-care (01) ==
LOC: HO.HMGC 10:43
PROVIDERS: PCP Internal Medicine; Visit Provider Internal Medicine
DX: I10 Essential (primary) hypertension (principal); E13.9 Other specified diabetes mellitus without complications; G47.9 Sleep disorder, unspecified; F41.1 Generalized anxiety disorder; R10.13 Epigastric pain; E78.9 Disorder of lipoprotein metabolism, unspecified; Z91.09 Other allergy status, other than to drugs and biological substances
CPT/HCPCS: 99214; G2211

== ENCOUNTER 2024-02-18 14:16 | Outpatient (REF) | payer OTHER, SELFPAY ==
--- NOTE | ~2024-02-18 | MM_ITS ---
EXAMINATION: MM DIAGNOSTIC DIGITAL BREAST TOMOSYNTHESIS, RIGHT CLINICAL INFORMATION: Callback from screening for focal asymmetry in the subareolar 9:00 position of the right breast. COMPARISON: Mammography: Screening mammography 01/16/2024, and dating back to 07/21/2009. TECHNIQUE: Digital breast tomosynthesis is performed. 2D images are generated from the tomosynthesis. The following views are obtained: Full-field 3-D right mediolateral view, as well as 3-D spot compression right CC views x2, and right MLO view x1. FINDINGS: There are scattered areas of fibroglandular density (ACR BI-RADS breast composition Category b). Additional views demonstrate no persistent suspicious mass or focal asymmetry in the retroareolar region. Abnormality appears related to superimposition artifact of focally dense overlapping tissues. In comparison with more remote exams, the appearance of this asymmetry has not significantly changed in either view since 2008. This finding is benign and no further follow-up is necessary. Otherwise, no additional abnormalities are noted in the right breast. No skin or axillary abnormality. MM/MM tomosynthesis added views R IMPRESSION: No persistent findings right breast suspicious for malignancy. Recommend the patient return to routine annual screening to include both breasts. ASSESSMENT: BI-RADS BI-RADS 2 - Benign Findings RECOMMENDATION: 1 year F/U Results were provided to the patient at time of visit by the technologist. This patient's information was entered into a reminder system with a target due date for their next mammogram.
== END 2024-02-18 14:17 | disposition home or self-care (01) ==
LOC: HO.MAMMO 14:16
PROVIDERS: PCP Internal Medicine; Visit Provider Internal Medicine
DX: N64.89 Other specified disorders of breast (principal)
CPT/HCPCS: 77061; 77065

== ENCOUNTER → 2024-02-18 14:30 | Outpatient (BNV) | payer OTHER, SELFPAY | PROVIDERS: PCP Internal Medicine; Visit Provider Radiology Diagnostic Radiology | DX: R92.8 Other abnormal and inconclusive findings on diagnostic imaging of breast (principal) | CPT/HCPCS: 77061; 77065 ==

== ENCOUNTER 2024-04-15 14:54 | Outpatient (AMB) | payer MEDICARE, MEDICAID, SELFPAY ==
--- NOTE | 2024-04-15 14:57 | A.OFFVIS_ITS ---
Vital Signs 04/15/24 14:58 Height 5 ft 7 in Weight 229 lb 11.547 oz BMI 36.0 BP 134/62 Blood Pressure Location Lt brachial Position Sitting Pulse 68 Pulse Source Pulse Oximeter Pulse Oximetry (%) 96 Oxygen Delivery Method Room Air Intake Visit Reasons: 1 yr follow up Intake Note: Lorraine presents in office today for a scheduled 1 year FUV. CC; Pt denies any new concerns or sx since their previous visit. Pt is still compliant with the care plan and reports a positive therapeutic response. Pot[employer] Required: No Allergies No Known Allergies Allergy (Verified 04/15/24 14:57) HPI HPI 1 yr follow up: Details: LAST VISIT: Diverticulosis Continue high-fiber diet. Patient may take probiotic. She will follow-up with us in 1 year, sooner on as needed basis. Patient is agreeable to this plan and verbalizes understanding of instructions. She was given the opportunity to ask questions and all questions answered. TODAY'S VISIT Patient is here today for follow-up. Patient reports that she has been feeling well. Denies any abdominal pain or discomfort. Patient is trying to eat healthy. Denies any GI concerning symptoms today. Colonoscopy due in September of 2025. Patient denies any melena, hematochezia, unintentional weight loss or ribbon like stools. Patient denies any dyspepsia, dysphagia or odynophagia. [facility] Medical History Sprain of left ankle Diverticulosis Tubular adenoma GERD (gastroesophageal reflux disease) On beta michael at home Tubular adenoma Obesity Hard of hearing Chronic otitis media of right ear Lipid disorder Dyspepsia Hypertension, essential Anxiety, generalized Diabetes 1.5, managed as type 2 Difficulty sleeping Surgical History Hx of endoscopy History of surgery History of back surgery History of colonoscopy History of appendectomy History of tubal ligation Family History Father No problems noted. 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 Cognitive needs: No Hearing needs: No Vision needs: Yes Female Reproductive History Menstrual Age of Menarche: 15 Review of Systems Const Denies weight gain and Denies weight loss ENT Reports no additional complaints, Denies dysphagia and Denies odynophagia Card Reports no additional complaints Resp Reports no additional complaints GI Denies abdominal pain, Denies belching, Denies melena, Denies bloating, Denies change in bowel habits, Denies dysphagia, Denies excessive flatus, Denies dyspepsia, Denies heartburn, Denies diarrhea, Denies loose stools, Denies nausea, Denies odynophagia and Denies vomiting Reports no additional complaints Musc Reports no additional complaints Neuro Reports no additional complaints Psych Reports no additional complaints Endo Reports no additional complaints Physical Exam Vital Signs: Last Vital Signs Pulse 68 04/15/24 14:58 BP 134/62 04/15/24 14:58 Pulse Ox 96 04/15/24 14:58 Oxygen Delivery Method Room Air 04/15/24 14:58 BMI result Body Mass Index 36.0 Const General: healthy appearing and no acute distress Nutritional Appearance: obese Orientation/consciousness: patient oriented x3 Resp Effort & Inspection: normal respiratory effort, able to speak in complete sentences, no tracheal deviation and symmetric chest movement Auscultation: clear to auscultation bilaterally Cardio Rate: regular rate GI Inspection: Yes normal to inspection, No distended and Yes obesity Palpation (GI): Soft to palpation, not firm, nontender and No hepatosplenomegaly present Auscultation: normal bowel sounds General: Yes no CVA tenderness Back/Spine/Pelvis Back: no CVA tenderness Skin General skin exam: elasticity normal, turgor normal and dry skin Neuro General: patient oriented x3 Psych Appearance: grossly normal Mental Status: mental status grossly normal Assessment & Plan Assessment & Plan (1) Diverticulosis: Code(s): K57.90 - Diverticulosis of intestine, part unspecified, without perforation or abscess without bleeding Category: Medical Plan Continue high-fiber diet. Increase fluid intake and activity to promote better bowel motility. Colonoscopy will be due in September of 2025. Patient will follow-up with us on as-needed basis. She is agreeable to this plan and verbalizes understanding of instructions. She was given the opportunity to ask questions and all questions answered. Thank you for allowing me to participate in her care Coding Level of Care Code Est Pt Level 2 (37685) Diagnoses Diverticulosis K57.90 Time Spent (min) 25 Comment 15 minutes spent with patient and additional 10 minutes spent reviewing her records
[2024-04-15 14:58] VITALS: BP 134/62; PULSE 68; O2SAT 96; BMI 36.0
== END 2024-04-15 15:27 | disposition home or self-care (01) ==
PROVIDERS: PCP Internal Medicine; Visit Provider Nurse Practitioner Family
DX: K57.90 Diverticulosis of intestine, part unspecified, without perforation or abscess without bleeding (principal)
CPT/HCPCS: 99212

== ENCOUNTER → 2024-04-15 14:54 | Outpatient (BNVA) | payer MEDICARE, MEDICAID, SELFPAY | PROVIDERS: PCP Internal Medicine; Visit Provider Nurse Practitioner Family | DX: K57.90 Diverticulosis of intestine, part unspecified, without perforation or abscess without bleeding (principal) | CPT/HCPCS: 99212 ==

== ENCOUNTER 2024-04-27 08:55 | Outpatient (REF) | payer MEDICARE, MEDICAID, SELFPAY ==
[2024-04-27 11:09] LABS: MANUAL DIFF FLAG NO
[2024-04-27 11:15] LABS: Basophils Absolute Auto 0.1 X10*3/uL (0.0-0.2); Basophils Percent Auto 1.3 % (0-2); Eosinophils Absolute Auto 0.1 X10*3/uL (0.0-0.4); Eosinophils Percent Auto 1.6 % (0-4); Hematocrit 39.6 % (37.0-47.0); Hemoglobin 12.2 g/dl (12.0-16.0); Imm Gran Abs Auto 0.02 X10*3/uL (0.00-0.03); Imm Gran Pct Auto 0.3 % (0.0-0.4); Lymphocytes Absolute Auto 1.7 X10*3/uL (1.2-4.9); Mean Corpuscular HGB Conc 30.8 g/dl (31.0-35.0); Mean Corpuscular Volume 87.6 fL (80.0-98.0); Monocytes Absolute Auto 0.4 X10*3/uL (0.1-1.2); Monocytes Percent Auto 7.1 % (2-11); Neutrophils Absolute Auto 3.7 x10*3/uL (2.0-8.3); Neutrophils Percent Auto 61.7 % (45-73); Platelet Count 232 X10*3/uL (160-400); Red Blood Count 4.52 X10*6/uL (4.20-5.50); Red Cell Distribution Width 13.2 % (11.0-16.0); White Blood Count 6.1 X10*3/uL (4.8-10.8)
[2024-04-27 11:31] LABS: Estimated Average Glucose 140 mg/dL; Hemoglobin A1C 152.3027 umol/L; Hemoglobin A1c % 6.5 % (<6.0)
[2024-04-27 11:42] LABS: Alanine Aminotransferase 15 U/L (0-31); Albumin Level 4.2 g/dL (3.5-5.0); Alkaline Phosphatase 64 U/L (39-117); Anion Gap 9 (12-20); Aspartate Amino Transferase 17 U/L (5-31); Bilirubin Total 0.4 mg/dL (0.0-1.0); Blood Urea Nitrogen 15 mg/dL (9-16); Calcium 9.4 mg/dL (8.4-10.2); Carbon Dioxide 27 mmol/L (22-29); Chloride 110 mmol/L (96-108); Estimated Glomerular Filt Rate > 60; Glucose Random 135 mg/dL (60-115); Potassium 5.1 mmol/L (3.3-5.1); Sodium 141 mmol/L (135-145); Total Protein 6.5 g/dL (6.5-8.0)
[2024-04-28 09:58] LABS: LDL Cholesterol Direct 88 mg/dL (<100)
== END 2024-04-27 08:56 | disposition home or self-care (01) ==
LOC: HO.HMGCLDS 08:55
PROVIDERS: PCP Internal Medicine; Visit Provider Internal Medicine
DX: E13.9 Other specified diabetes mellitus without complications (principal); F41.1 Generalized anxiety disorder; I10 Essential (primary) hypertension; R10.13 Epigastric pain; E78.9 Disorder of lipoprotein metabolism, unspecified; G47.9 Sleep disorder, unspecified
CPT/HCPCS: 36415; 80053; 83036; 83721; 85025

== ENCOUNTER 2024-04-29 15:03 | Outpatient (AMB) | payer MEDICARE, MEDICAID, SELFPAY ==
[2024-04-29 15:05] VITALS: BP 130/82; PULSE 74; O2SAT 95; BMI 36.2
--- NOTE | 2024-04-29 15:05 | A.OFFPC_ITS ---
Vital Signs 04/29/24 15:05 Height 5 ft 7 in Weight 231 lb BMI 36.2 BP 130/82 Blood Pressure Location Lt brachial Position Sitting Pulse 74 Pulse Source Pulse Oximeter Pulse Oximetry (%) 95 Oxygen Delivery Method Room Air Intake Visit Reasons: 11Wk F/u~ Allergies No Known Allergies Allergy (Verified 04/29/24 15:05) Medication List - Last Reconciled 04/29/24 by Florence Leonardo MD aspirin (Adult Low Dose Aspirin) 81 mg PO DAILY lorazepam 1 mg PO DAILY PRN 30 days losartan 50 mg PO DAILY 90 days metformin 500 mg PO BID metoprolol succinate ER 50 mg PO DAILY montelukast 10 mg PO DAILY 90 days omeprazole 20 mg PO QAM 90 days pravastatin 80 mg PO DAILY 90 days Tobacco use date assessed: 04/29/24 Fall risk assessment: No Falls in past year Last assessed Fall Risk: 04/29/24 Dental Screening Dental Screen Date: 04/29/24 Did you have a dental visit in the last 12 months?: Yes Did you have a dental problem in the last 6 months where you did not have access to dental care?: No Was dental information given to patient?: Patient has dentist HPI 11Wk F/u~ HPI Details Patient is a 63-year-old female came in for her three-month follow-up appointment and medication refill She is in her usual state of health Left foot continued to cause pain, she has appointment coming up with logistics assistant We briefly talked about proper foot wear Allergies: Controlled with Flonase nasal spray . cetirizine and montelukast Diabetes: patient is on metformin b.i.d. hemoglobin A1c stable, Hypertension: Patient is on losartan 50 mg blood pressure is stable no side effects Continue metoprolol 50 mg as well. Blood pressure is stable Lipids controlled with pravastatin 80 mg daily GERD stable with omeprazole and diet-controlled. Patient takes lorazepam 1 mg at bedtime complying with the treatment plan no signs of abuse medications sent for another 3 month. BMI is elevated need to lose weight. Follow-up 3 months [facility] Medical History Sprain of left ankle Diverticulosis Tubular adenoma GERD (gastroesophageal reflux disease) On beta michael at home Tubular adenoma Obesity Hard of hearing Chronic otitis media of right ear Lipid disorder Dyspepsia Hypertension, essential Anxiety, generalized Diabetes 1.5, managed as type 2 Difficulty sleeping Surgical History Hx of endoscopy History of surgery History of back surgery History of colonoscopy History of appendectomy History of tubal ligation Family History Father No problems noted. 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 1. Little interest or pleasure in doing things: not at all 2. Feeling down, depressed, or hopeless: not at all 3. Trouble falling or staying asleep, or sleeping too much: not at all 4. Feeling tired or having little energy: several days 5. Poor appetite or overeating: several days 6. Feeling bad about yourself - or that you are a failure or have let yourself or your family down: several days 7. Trouble concentrating on things, such as reading the newspaper or watching television: not at all 8. Moving or speaking so slowly that other people could have noticed. Or the opposite - being so fidgety or restless that you have been moving around a lot more than usual: not at all 9. Thoughts that you would be better off or of hurting yourself in some way: not at all Total score: 3 Depression Screening Interpretation: Negative Depression Screening Done: Yes 48868 - PHQ-9 Billing: Yes Source: Developed by Drs. Bethel Caceres, Paige Russ, Kye Foy and colleagues, with an educational shaunna from [email or web address]. Thrive Questionnaire Date Thrive assessed: 04/29/24 I am a: Patient What is your living situation today?: I have a steady place to live Within the past 12 months, did the food you bought not last and you didn't have the money to get more?: Never true Within the past 12 months, did you worry whether your food would run out before you got money to buy more?: Never true Do you have trouble paying for medicines?: No Do you have trouble getting transportation to medical appointments?: No Do you have trouble paying your heating and electricity bill?: No Do you have trouble taking care of your child, family member or friend?: No Do you have trouble with day-to-day activities such as bathing, preparing meals, shopping, managing finances, etc.?: No Are you currently unemployed and looking for a job?: No Are you interested in more education?: No Please select the resources that you would like help with: None Currently or been in a relationship where the following occur: No concerns reported THRIVE Score: 0 AUDIT C Alcohol Use Questionnaire (AUDIT-C) 1. How often do you have a drink containing alcohol?: 2-4 times a month 2. How many drinks containing alcohol do you have on a typical day when you are drinking?: 1 or 2 3. How often do you have six or more drinks on one occasion?: Never Total Score: 2 Score Reviewed/Action Taken: Yes YISEL-7 AMB Questionnaire YISEL-7 Date YISEL - 7 assessed: 04/29/24 Feeling nervous, anxious, or on edge: 0 = Not at all Not being able to stop or control worryin = Not at all Worrying too much about different things: 1 = Several days Trouble relaxin = Not at all Being so restless that it is hard to sit still: 0 = Not at all Becoming easily annoyed or irritable: 1 = Several days Feeling afraid as if something awful might happen: 0 = Not at all Total YISEL-7 score (0-4 normal; 5-9 mild; 10-14 moderate; 15-21 severe): 2 Source: Developed by Drs. Bethel Caceres, Paige Russ, Kye Foy and colleagues, with an educational shaunna from [email or web address]. YISEL-7 Assessment Billing YISEL-7 Assessment Tool: YISEL-7 Assessment 25074 Review of Systems Const Denies chills and Denies fever(s) ENT Denies epistaxis and Denies nasal discharge Card Denies chest pain Resp Denies chest congestion, Denies cough and Denies hemoptysis GI Denies diarrhea and Denies nausea Skin/Breast Denies rash Neuro Reports no additional complaints Psych Reports no additional complaints Endo Reports no additional complaints Physical exam (Primary Care) Vital Signs: Last Vital Signs Pulse 74 04/29/24 15:05 BP 130/82 04/29/24 15:05 Pulse Ox 95 04/29/24 15:05 Oxygen Delivery Method Room Air 04/29/24 15:05 BMI result Body Mass Index 36.2 Tobacco/Smoking Status: Tobacco use Status Tobacco use date assessed 04/29/24 04/29/24 15:09 Patient Tobacco Use Status Former Tobacco user 04/29/24 15:09 e-Cigarette/Vaping Use Never Used 04/29/24 15:09 PHQ-9: PHQ-9 Score PHQ-9: Total score 3 04/29/24 15:09 Depression Screening Interpretation: Negative Thrive Assessment: Date of Thrive Assessment Date Thrive assessed 04/29/24 04/29/24 15:09 Currently or been in a relationship where the following occur: No concerns reported Const General: cooperative, comfortable and no acute distress Orientation/consciousness: patient oriented x3 HENMT Head: Yes normocephalic Eyes General: appearance normal, both eyes and all related structures Neck Neck: Yes supple Resp Effort & Inspection: normal respiratory effort, no cough and no stridor Cardio Rhythm: regular rhythm Heart sounds: S1 normal heart sound present and S2 normal heart sound present Skin General skin exam: turgor normal Neuro General: patient oriented x3, tone normal and moves all extremities Extrem Right lower extremity: no edema Left lower extremity: no edema Assessment and Plan Assessment & Plan (1) Diabetes 1.5, managed as type 2: Code(s): E13.9 - Other specified diabetes mellitus without complications (2) Difficulty sleeping: Code(s): G47.9 - Sleep disorder, unspecified (3) Hypertension, essential: Code(s): I10 - Essential (primary) hypertension (4) Anxiety, generalized: Code(s): F41.1 - Generalized anxiety disorder (5) Dyspepsia: Code(s): R10.13 - Epigastric pain (6) Lipid disorder: Code(s): E78.9 - Disorder of lipoprotein metabolism, unspecified (7) Environmental allergies: Code(s): Z91.09 - Other allergy status, other than to drugs and biological substances Plan Patient is a 63-year-old female came in for her three-month follow-up appointment and medication refill She is in her usual state of health Left foot continued to cause pain, she has appointment coming up with logistics assistant We briefly talked about proper foot wear Allergies: Controlled with Flonase nasal spray . cetirizine and montelukast Diabetes: patient is on metformin b.i.d. hemoglobin A1c stable, Hypertension: Patient is on losartan 50 mg blood pressure is stable no side effects Continue metoprolol 50 mg as well. Blood pressure is stable Lipids controlled with pravastatin 80 mg daily GERD stable with omeprazole and diet-controlled. Patient takes lorazepam 1 mg at bedtime complying with the treatment plan no signs of abuse medications sent for another 3 month. BMI is elevated need to lose weight. Follow-up 3 months Medications: Refilled lorazepam 1 mg PO DAILY PRN 30 tabs 2RF anxiety 30 days F41.1 - Generalized anxiety disorder, G47.9 - Sleep disorder, unspecified Coding Level of Care Code Est Pt Level 4 (15424) Complex EM visit Add On G2211 Diagnoses Diabetes 1.5, managed as type 2 E13.9 Difficulty sleeping G47.9 Hypertension, essential I10 Anxiety, generalized F41.1 Dyspepsia R10.13 Lipid disorder E78.9 Environmental allergies Z91.09 Additional Codes YISEL-7 Assessment Billing - YISEL-7 Assessment Tool: YISEL-7 Assessment 30972 ([id number])
== END 2024-04-29 15:26 | disposition home or self-care (01) ==
PROVIDERS: PCP Internal Medicine; Visit Provider Internal Medicine
DX: E13.9 Other specified diabetes mellitus without complications (principal); G47.9 Sleep disorder, unspecified; I10 Essential (primary) hypertension; F41.1 Generalized anxiety disorder; R10.13 Epigastric pain; E78.9 Disorder of lipoprotein metabolism, unspecified; Z91.09 Other allergy status, other than to drugs and biological substances
CPT/HCPCS: 99214; G2211

== ENCOUNTER 2024-08-10 09:51 | Outpatient (AMB) | payer MEDICARE, MEDICAID, SELFPAY ==
--- NOTE | 2024-08-10 09:52 | A.OFFPC_ITS ---
Vital Signs 08/10/24 09:53 Height 5 ft 7 in Weight 235 lb 4 oz BMI 36.8 BP 134/76 Blood Pressure Location Rt brachial Position Sitting Pulse 88 Pulse Source Pulse Oximeter Pulse Oximetry (%) 96 Oxygen Delivery Method Room Air Intake Visit Reasons: Med Review Follow Up Allergies No Known Allergies Allergy (Verified 08/10/24 09:53) Medication List - Last Reconciled 08/10/24 by Florence Leonardo MD aspirin (Adult Low Dose Aspirin) 81 mg PO DAILY lorazepam 1 mg PO DAILY PRN 30 days losartan 50 mg PO DAILY 90 days metformin 500 mg PO BID metoprolol succinate ER 50 mg PO DAILY montelukast 10 mg PO DAILY 90 days omeprazole 20 mg PO QAM 90 days pravastatin 80 mg PO DAILY 90 days Tobacco use date assessed: 08/10/24 Fall risk assessment: No Falls in past year Last assessed Fall Risk: 08/10/24 Dental Screening Dental Screen Date: 08/10/24 Did you have a dental visit in the last 12 months?: Yes Did you have a dental problem in the last 6 months where you did not have access to dental care?: No Was dental information given to patient?: Patient has dentist HPI Med Review Follow Up HPI Details Chief Complaint Patient experiencing sinus congestion and headaches. due for regular follow-up Assessment and Plan 64-year-old female with a history of anx iety, essential hypertension, type 2 diabetes mellitus, allergic rhinitis, GERD, and hyperlipidemia presenting with sinus congestion causing headaches. The patient's blood pressure is well- controlled, and recent laboratory results indicated stable kidney function, appropriate diabetes management with hemoglobin A1c at 6.5%, and well-managed lipid levels with LDL at 88. The patient reports ongoing sinus congestion potentially due to allergic rhinitis, exacerbated by the incorrect use of diphenhydramine during daytime, which is leading to drowsiness and fatigue. The conversation suggests that switching to loratadine or cetirizine and the use of a nasal spray may provide better symptom control and prevent persistent headaches. 1. Essential Hypertension Continue with current antihypertensive regimen including losartan and metoprolol. Recent blood pressure readings show adequate control, requiring no alterations. 2. Allergic Rhinitis Discontinue daytime use of diphenhydramine due to its sedative effects. Initiate cetirizine 10 mg for every night. Recommend using a nasal spray (such as Flonase) at bedtime for better management of symptoms. 3. Type 2 Diabetes Mellitus Maintain the current regimen of metformin. Recent hemoglobin A1c is at 6.5%, indicating satisfactory glycemic control. No adjustments are required in current management. 4. Gastroesophageal Reflux Disease Gerd Continue current regimen with omeprazole. No current adjustments noted or required. 5. Hyperlipidemia Continue with current use of pravastatin 80 mg. Lipid levels are within target range based on LDL reading of 88. 6. Anxiety Continue current prescription of lorazepam. No notable changes in anxiety management needed at this time. 7- obesity, patient is trying to lose we ight Problem List - Anxiety - Essential Hypertension - Type 2 Diabetes Mellitus - Allergic Rhinitis - Gastroesophageal Reflux Disease (GERD) - Hyperlipidemia Patient Instructions - Discontinue the use of Benadryl during the day to prevent drowsiness; begin taking cetirizine 10 mg nightly for allergy symptoms. - Utilize a nasal spray, like Flonase, e ach night to alleviate sinus congestion. - Continue current medication regimen fo r hypertension, diabetes, and hyperlipidemia. - Monitor sinus and allergy symptoms, an d adjust as necessary following instructions provided. - Schedule routine labs before the next visit to monitor ongoing conditions. - Contact the office if you experience a new or worsening of current symptoms. Follow-up 3 months Lorazepam prescription sent [facility] Medical History Sprain of left ankle Diverticulosis Tubular adenoma GERD (gastroesophageal reflux disease) On beta michael at home Tubular adenoma Obesity Hard of hearing Chronic otitis media of right ear Lipid disorder Dyspepsia Hypertension, essential Anxiety, generalized Diabetes 1.5, managed as type 2 Difficulty sleeping Surgical History Hx of endoscopy History of surgery History of back surgery History of colonoscopy History of appendectomy History of tubal ligation Family History Father No problems noted. 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 1. Little interest or pleasure in doing things: several days 2. Feeling down, depressed, or hopeless: not at all Source: Developed by Drs. Bethel Caceres, Paige Russ, Kye Foy and colleagues, with an educational shaunna from [employer]. Thrive Questionnaire Date Thrive assessed: 04/29/24 I am a: Patient What is your living situation today?: I have a steady place to live Within the past 12 months, did the food you bought not last and you didn't have the money to get more?: Never true Within the past 12 months, did you worry whether your food would run out before you got money to buy more?: Never true Do you have trouble paying for medicines?: No Do you have trouble getting transportation to medical appointments?: No Do you have trouble paying your heating and electricity bill?: No Do you have trouble taking care of your child, family member or friend?: No Do you have trouble with day-to-day activities such as bathing, preparing meals, shopping, managing finances, etc.?: No Are you currently unemployed and looking for a job?: No Are you interested in more education?: No Please select the resources that you would like help with: None Currently or been in a relationship where the following occur: No concerns reported THRIVE Score: 0 AUDIT C Alcohol Use Questionnaire (AUDIT-C) 1. How often do you have a drink containing alcohol?: 2-4 times a month 2. How many drinks containing alcohol do you have on a typical day when you are drinking?: 1 or 2 3. How often do you have six or more drinks on one occasion?: Never Total Score: 2 Score Reviewed/Action Taken: Yes YISEL-7 AMB Questionnaire YISEL-7 Date YISEL - 7 assessed: 04/29/24 Source: Developed by Drs. Bethel Caceres, Paige Russ, Kye Foy and colleagues, with an educational shaunna from [employer]. Review of Systems Const Denies chills and Denies fever(s) ENT Denies epistaxis Card Denies chest pain Resp Denies chest congestion, Denies cough and Denies hemoptysis GI Denies diarrhea and Denies nausea Skin/Breast Denies rash Neuro Reports no additional complaints Psych Reports no additional complaints Endo Reports no additional complaints Physical exam (Primary Care) Vital Signs: Last Vital Signs Pulse 88 08/10/24 09:53 BP 134/76 08/10/24 09:53 Pulse Ox 96 08/10/24 09:53 Oxygen Delivery Method Room Air 08/10/24 09:53 BMI result Body Mass Index 36.8 Tobacco/Smoking Status: Tobacco use Status Tobacco use date assessed 08/10/24 08/10/24 09:56 Patient Tobacco Use Status Former Tobacco user 08/10/24 09:56 e-Cigarette/Vaping Use Never Used 08/10/24 09:56 Thrive Assessment: Date of Thrive Assessment Date Thrive assessed 04/29/24 08/10/24 09:56 Currently or been in a relationship where the following occur: No concerns reported Const General: cooperative, comfortable and no acute distress Orientation/consciousness: patient oriented x3 HENMT Head: Yes normocephalic Eyes General: appearance normal, both eyes and all related structures Neck Neck: Yes supple Resp Effort & Inspection: normal respiratory effort, no cough and no stridor Cardio Rhythm: regular rhythm Heart sounds: S1 normal heart sound present and S2 normal heart sound present Skin General skin exam: turgor normal Neuro General: patient oriented x3, tone normal and moves all extremities Extrem Right lower extremity: no edema Left lower extremity: no edema Coding Level of Care Code Est Pt Level 5 (03524) Complex EM visit Add On G2211 Diagnoses Diabetes 1.5, managed as type 2 E13.9 Anxiety, generalized F41.1 Chronic nasal congestion R09.81 Hypertension, essential I10 Stress F43.9 Lipid disorder E78.9 Dyspepsia R10.13 Environmental allergies Z91.09 Disorder of Eustachian tube, unspecified laterality H69.90 Laterality: unspecified laterality Class 2 severe obesity due to excess calories with serious comorbidity and body mass index (BMI) of 36.0 to 36.9 in adult E66.812; E66.01; Z68.36 Body mass index: BMI 36.0-36.9 Obesity classification: adult class 2 (BMI 35 - 39.9) Serious obesity comorbidity presence: with serious comorbidity Assessment & Plan Assessment & Plan (1) Diabetes 1.5, managed as type 2: Code(s): E13.9 - Other specified diabetes mellitus without complications Category: Medical (2) Anxiety, generalized: Code(s): F41.1 - Generalized anxiety disorder Category: Medical (3) Chronic nasal congestion: Code(s): R09.81 - Nasal congestion Category: Medical (4) Hypertension, essential: Code(s): I10 - Essential (primary) hypertension Category: Medical (5) Stress: Code(s): F43.9 - Reaction to severe stress, unspecified Category: Medical (6) Lipid disorder: Code(s): E78.9 - Disorder of lipoprotein metabolism, unspecified Category: Medical (7) Dyspepsia: Code(s): R10.13 - Epigastric pain Category: Medical (8) Environmental allergies: Code(s): Z91.09 - Other allergy status, other than to drugs and biological substances Category: Medical (9) Eustachian tube disorder: Code(s): H69.90 - Unspecified Eustachian tube disorder, unspecified ear Category: Medical Qualifiers: Laterality: unspecified laterality Qualified Code(s): H69.90 - Unspecified Eustachian tube disorder, unspecified ear (10) Obesity due to excess calories: Code(s): E66.09 - Other obesity due to excess calories Category: Medical Qualifiers: Body mass index: BMI 36.0-36.9 Obesity classification: adult class 2 (BMI 35 - 39.9) Serious obesity comorbidity presence: with serious comorbidity Qualified Code(s): E66.812 - Obesity, class 2; E66.01 - Morbid (severe) obesity due to excess calories; Z68.36 - Body mass index [BMI] 36.0-36.9, adult Plan Chief Complaint Patient experiencing sinus congestion and headaches. due for regular follow-up Assessment and Plan 64-year-old female with a history of anxiety, essential hypertension, type 2 diabetes mellitus, allergic rhinitis, GERD, and hyperlipidemia presenting with sinus congestion causing headaches. The patient's blood pressure is well- controlled, and recent laboratory results indicated stable kidney function, appropriate diabetes management with hemoglobin A1c at 6.5%, and well-managed lipid levels with LDL at 88. The patient reports ongoing sinus congestion poten tially due to allergic rhinitis, exacerbated by the incorrect use of diphenhydramine during daytime, which is leading to drowsiness and fatigue. The conversation suggests that switching to loratadine or cetirizine and the use of a nasal spray may provide better symptom control and prevent persistent headaches. 1. Essential Hypertension Continue with current antihypertensive regimen including losartan and metoprolol. Recent blood pressure readings show adequate control, requiring no alterations. 2. Allergic Rhinitis Discontinue daytime use of diphenhydramine due to its sedative effects. Initiate cetirizine 10 mg for every night. Recommend using a nasal spray (such as Flonase) at bedtime for better management of symptoms. 3. Type 2 Diabetes Mellitus Maintain the current regimen of metformin. Recent hemoglobin A1c is at 6.5%, indicating satisfactory glycemic control. No adjustments are required in current management. 4. Gastroesophageal Reflux Disease Gerd Continue current regimen with omeprazole. No current adjustments noted or required. 5. Hyperlipidemia Continue with current use of pravastatin 80 mg. Lipid levels are within target range based on LDL reading of 88. 6. Anxiety Continue current prescription of lorazepam. No notable changes in anxiety management needed at this time. 7- obesity, patient is trying to lose weight Problem List - Anxiety - Essential Hypertension - Type 2 Diabetes Mellitus - Allergic Rhinitis - Gastroesophageal Reflux Disease (GERD) - Hyperlipidemia Patient Instructions - Discontinue the use of Benadryl during the day to prevent drowsiness; begin taking cetirizine 10 mg nightly for allergy symptoms. - Utilize a nasal spray, like Flonase, each night to alleviate sinus congestion. - Continue current medication regimen for hypertension, diabetes, and hyperlipidemia. - Monitor sinus and allergy symptoms, and adjust as necessary following instructions provided. - Schedule routine labs before the next visit to monitor ongoing conditions. - Contact the office if you experience a new or worsening of current symptoms. Follow-up 3 months Lorazepam prescription sent 45 minutes spent in care of this patient Orders: Orders Microalbumin, Random (w Creat) Today E13.9 - Other specified diabetes mellitus without complications, E66.09 - Other obesity due to excess calories, E78.9 - Disorder of lipoprotein metabolism, unspecified, F41.1 - Generalized anxiety disorder, F43.9 - Reaction to severe stress, unspecified, H69.90 - Unspecified Eustachian tube disorder, unspecified ear, I10 - Essential (primary) hypertension, R09.81 - Nasal congestion, R10.13 - Epigastric pain, Z91.09 - Oth er allergy status, other than to drugs and biological substances Comprehensive [place]. Panel Fast Today E13.9 - Other specified diabetes mellitus without complications, E66.09 - Other obesity due to excess calories, E78.9 - Disorder of lipoprotein metabolism, unspecified, F41.1 - Generalized anxiety disorder, F43.9 - Reaction to severe stress, unspecified, H69.90 - Unspecified Eustachian tube disorder, unspecified ear, I10 - Essential (primary) hypertension, R09.81 - Nasal congestion, R10.13 - Epigastric pain, Z91.09 - Other allergy status, other than to drugs and biological substances Hemoglobin A1c Today E13.9 - Other specified diabetes mellitus without complications, E66.09 - Other obesity due to excess calories, E78.9 - Disorder of lipoprotein metabolism, unspecified, F41.1 - Generalized anxiety disorder, F43.9 - Reaction to severe stress, unspecified, H69.90 - Unspecified Eustachian tube disorder, unspecified ear, I10 - Essential (primary) hypertension, R09.81 - Nasal congestion, R10.13 - Epigastric pain, Z91.09 - Other allergy status, other than to drugs and biological substances Complete Blood Count Auto Diff Today E13.9 - Other specified diabetes mellitus without complications, E66.09 - Other obesity due to excess calories, E78.9 - Disorder of lipoprotein metabolism, unspecified, F41.1 - Generalized anxiety disorder, F43.9 - Reaction to severe stress, unspecified, H69.90 - Unspecified Eustachian tube disorder, unspecified ear, I10 - Essential (primary) hypertension, R09.81 - Nasal congestion, R10.13 - Epigastric pain, Z91.09 - Other allergy status, other than to drugs and biological substances Lipid Panel Today E13.9 - Other specified diabetes mellitus without complications, E66.09 - Other obesity due to excess calories, E78.9 - Disorder of lipoprotein metabolism, unspecified, F41.1 - Generalized anxiety disorder, F43.9 - Reaction to severe stress, unspecified, H69.90 - Unspecified Eustachian tube disorder, unspecified ear, I10 - Essential (primary) hypertension, R09.81 - Nasal congestion, R10.13 - Epigastric pain, Z91.09 - Other allergy status, othe r than to drugs and biological substances Medications: Refilled lorazepam 1 mg PO DAILY PRN 30 tabs 2RF anxiety 30 days F41.1 - Generalized anxiety disorder, G47.9 - Sleep disorder, unspecified
[2024-08-10 09:53] VITALS: BP 134/76; PULSE 88; O2SAT 96; BMI 36.8
--- OUTSIDE RECORDS SUMMARY | 2024-08-16 17:20 | XMS_ITS | Data Portability ---
Author Organization [facility] [address] Address [address] [place] [address] Assessment No assessment recorded. Plan of Treatment Reminders Order Date Submit Date Provider Last Modified By Organization Details Last Modified Time Details Appointments None recorded. Lab rapid strep group A, throat 2022 023 [email or web address] [facility], [address] [place] [address], [place], [address], 12:58:02 streptococc us group A, culture, throat 2022 023 JARRELL [facility], [address] [place] [address], [place], [address], 06:08:10 Referral None recorded. Procedures None recorded. Surgeries None recorded. Imaging None recorded. Medication Orders amoxicillin 875 mg-potassiu m clavulanate 125 mg tablet 2022 023 [facility]/Pharmacy #[id number], [address] [facility], [place], [address], 3 12:58:05 Patient TargetsNo targets recorded. Patient Instructions Encounter Date Encounter Id Patient Instructions Last Modified By Organization Details Last Modified Time 02/11/2023 [id number] cough: care instructions [email or web address] Not available 02/11/2023 12:58:02 Sinusitis is an infection of the lining of the sinus cavities in your head. Sinusitis often follows a cold. It causes pain and pressure in your head and face. In most cases, sinusitis gets better on its own in 1 to 2 weeks. But some mild symptoms may last for several weeks. Sometimes antibiotics are needed. if you are having problems. It's also a good idea to know your test results and keep a list of the medicines you take. How can you care for yourself at home? Take an agea-jqu-kcygsmb pain medicine. Avoid Ibuprofen, Aleve and Aspirin if . If the doctor prescribed antibiotics, take them as directed. Do not stop taking them just because you feel better. You need to take the full course of antibiotics. Be careful when taking huni-qkx-zajmgvl cold or influenza (flu) medicines and Tylenol at the same time. Many of these medicines have acetaminophen, which is Tylenol. Read the labels to make sure that you are not taking more than the recommended dose. Too much acetaminophen (Tylenol) can be harmful. Breathe warm, moist air from a steamy shower, a hot bath, or a sink filled with hot water. Avoid cold, dry air. Using a humidifier in your home may help. Follow the directions for cleaning the machine. Use saline (saltwater) nasal washes. This can help keep your nasal passages open and wash out mucus and bacteria. You can buy saline nose drops at a grocery store or drugstore. Or you can make your own at home by adding 1 teaspoon (5 millilitres) of salt and 1 teaspoon (5 millilitres) of baking soda to 2 cups (500 mL) of distilled water. If you make your own, fill a bulb syringe with the solution, insert the tip into your nostril, and squeeze gently. Blow your nose. Put a hot, wet towel or a warm gel pack on your face 3 or 4 times a day for 5 to 10 minutes each time. Try a decongestant nasal spray like oxymetazoline (Drixoral). Do not use it for more than 3 days in a row. Using it for more than 3 days can make your congestion worse. [email or web address] Not available 02/11/2023 12:57:52 Reason for Referral None Reported. Results Created Date Observation Date Name Description Value Unit Range Abnormal Flag Note LastModifiedBy Organization Detail LastModifiedTime 02/12/20 23 02/14/2023 BETA STREP GP A CULTU RE beta strep gp A culture NEGATI VE Refer ence Range : Negat mari Not Available [facility] ([facility]) [address] [facility], [place], [address], 02/14/2023 06:08:10 02/12/2002/11/2023 rapid strep group A, throa t Unknown Analyte Normal = Negati ve Not Available [address] [facility] [address] [place], [address], 02/11/2023 12:46:41 02/12/2002/11/2023 rapid strep group A, throa t Unknown Analyte negati ve Not Available [address] [address] [facility], [place], [address], 02/11/2023 12:46:41 Result Notes None recorded. Problems Name Problem SNOMED Code Status Onset Date Resolution Date Notes Provider Name and Address Organization Details Recorded Time Hyperlipidemia 84529614 Active 2022 JUDY grey PA - [facility] 3 12:16:38 Hypertensive disorder 57576224 Active 2022 JUDY grey, PA - [facility] 3 12:16:45 Diabetes mellitus 86092126 Active 2022 JUDY grey, PA - [facility] 3 12:16:50 Gastroesophage al reflux disease 764296127 Active 2022 JUDY grey, PA - [facility] 3 12:16:55 Problem Notes None recorded. Procedures Surgical History Date Name Laterality Status Provider Name and Address Organization Details Recorded Time Appendectomy completed JUDY CARREON PA - [facility] 02/11/2023 12:17:34 procedure on back completed JUDY CARREON PA - [facility] 02/11/2023 12:17:48 excision of varicose vein completed JUDY CARREON PA - [facility] 02/11/2023 12:17:54 ligation of fallopian tube completed JUDY CARREON PA - [facility] 02/11/2023 12:18:18 Imaging Results None recorded. Procedure Notes None recorded. Medical Equipment None Reported. Allergies No known drug allergies Medications Name Sig Start Date Stop Date Status Note LastModified by Organization Details LastModified Time amoxicillin 875 mg-potassium clavulanate 125 mg tablet Take 1 tablet every 12 hours by oral route with meals for 10 days. 023 active Not Available Not Available Not Avai lable lorazepam active Not Available Not Tricia ilable Not Available losartan active Not Available Not Avai lable Not Available pravastatin active Not Available Not A vailable Not Available metoprolol succinate active Not Available Not Available No t Available metformin active Not Available Not Tricia ilable Not Available Vitals Date Recorded Body height Body mass index (BMI) Body weight Oxygen saturation Oxygen saturation in Arterial blood by Pulse oximetry Heart rate Respiratory rate Body temperature Systolic blood pressure Diastolic blood pressure Provider Name and Address Organization Details Last Updated DateTime 170.18 cm 34.5 kg/m2 76668.3 2 g 97 % 97 % 85 /min 18 /min 97.7 [degF] 166 mm[Hg] 97 mm[Hg] JUDY DIANE [employer] 12:20:05 Social History Question Answer Notes LastModified by Organizat ion Details LastModified Time Tobacco Smoking Status Never Smoker JUDY grey [employer] 02/11/2023 12:17:17 What Is Your Level Of Alcohol Consumption? Occasional Information not available 02/11/2023 Are You Currently Employed? No Information not available 02/11/2023 Have You Had Direct Contact, Or Contact During Intimacy, With Monkeypox Rash, Scabs, Or Body Fluids From A Person With Monkeypox? No Information not available 02/11/2023 Do You Use Any Illicit Or Recreational Drugs? No Information not available 02/11/2023 Have You Recently Traveled Abroad? No Information not available 02/11/2023 Are You Currently In School? No Information not available 02/11/2023 Do You Or Have You Ever Used Any Other Forms Of Tobacco Or Nicotine? No Information not available 02/11/2023 Sex: Unknown Functional Status None recorded. Mental Status None recorded. Family History Relationship Description Onset Age of this Age Resolved Age Notes LastModified by Organization Details LastModified Time Father No current problems or disability Not available 03/2023 12:17:04 Mother No current problems or disability Not available 03/2023 12:17:04 Medical History No medical history recorded. Gynecological HistoryNo gynecological history recorded. Obstetrics History GPAL:G 0 P 0 0 0 0 Immunizations Vaccine Type Date Status Provider Name and Address Organization Details Recorded Time Influenza, MDCK, quadrivalent, PF 05/18/2019 completed JUDY GOODHIND null, PA - [facility] 02/11/2023 12:13:28 Influenza, MDCK, quadrivalent, PF 05/28/2018 completed JUDY GOODHIND null, PA - [facility] 02/11/2023 12:13:28 Influenza, MDCK, quadrivalent, PF 05/28/2022 completed JUDY GOODHIND null, PA - [facility] 02/11/2023 12:13:28 zoster recombinant 06/06/2020 completed JUDY GOODHIND null, PA - [facility] 02/11/2023 12:13:28 zoster recombinant 07/11/2019 completed JUYD GOODHIND null, PA - [facility] 02/11/2023 12:13:28 COVID-19, mRNA, LNP-S, PF, 30 mcg/0.3 mL dose 10/06/2020 completed JUDY GOODHIND null, PA - [facility] 02/11/2023 12:13:28 COVID-19, mRNA, LNP-S, PF, 30 mcg/0.3 mL dose 10/27/2020 completed JUDY GOODHIND null, PA - [facility] 02/11/2023 12:13:28 COVID-19, mRNA, LNP-S, PF, 30 mcg/0.3 mL dose 07/10/2021 completed JUDY GOODHIND null, PA - [facility] 02/11/2023 12:13:28 COVID-19, mRNA, LNP-S, PF, 30 mcg/0.3 mL dose, flori-sucrose 03/24/2022 completed JUDY GOODHIND null, PA - [facility] 02/11/2023 12:13:28 COVID-19, mRNA, LNP-S, bivalent, PF, 30 mcg/0.3 mL dose 05/28/2022 completed JUDY CARREON null, PA - [facility] 02/11/2023 12:13:28 pneumococcal polysaccharide PPV23 04/30/2012 completed JUDY CARREON null, PA - [facility] 02/11/2023 12:13:28 pneumococcal polysaccharide PPV23 07/11/2019 completed JUDY CARREON null, PA - [facility] 02/11/2023 12:13:28 Influenza, split virus, trivalent, preservative 05/24/2011 completed JUDY CARREON null, PA - [facility] 02/11/2023 12:13:28 Influenza, split virus, trivalent, preservative 06/15/2013 completed JUDY CARREON null, PA - [facility] 02/11/2023 12:13:28 Influenza, split virus, trivalent, PF 05/08/2015 completed JUDY CARREON null, PA - [facility] 02/11/2023 12:13:28 Influenza, split virus, quadrivalent, PF 04/18/2017 completed JUDY CARREON null, PA - [facility] 02/11/2023 12:13:28 Influenza, split virus, quadrivalent, PF 05/09/2020 completed JUDY CARREON null, PA - [facility] 02/11/2023 12:13:28 Influenza, split virus, quadrivalent, PF 06/07/2021 completed JUDY CARREON null, PA - [facility] 02/11/2023 12:13:28 Influenza, split virus, quadrivalent, PF 06/13/2016 completed JUDY CARREON null, PA - [facility] 02/11/2023 12:13:28 Past Encounters Encounter ID Performer Location Encounter Start Date Encounter Closed Date Diagnosis/Indication Diagnosis SNOMED-CT Code Diagnosis ICD10 Code [id number] [address] [address] 08/28/2017 13:58:11 08/28/2017 14:19:59 [id number] [address] [place] [address] 08/24/2015 11:15:16 08/24/2015 12:01:26 [id number] [address] [place] [address] 01/11/2018 17:22:59 01/11/2018 18:40:48 [id number] Teddy Lockhart NP [address] [place] [address] 02/11/2023 09:58:10 02/11/2023 13:02:23 Acute sinusitis 82297360 J01.90 Health Concerns Section Related Observation LastModified by Organization Detai ls LastModified Time None Recorded Concern Status LastModified by Organization Details LastModified Time None Recorded Advance Directives Directive None Recorded Payers Encounter Date Sequence Insurance Name Policy Number Policy Melton Covered Member ID Melton Member ID Guarantor Name 08/28/2017 1 [place] Lorraine E Eleonora [id number] Lorraine E Eleonora 01/11/2018 1 [place] Lorraine E Eleonora [id number] Lorraine E Eleonora 02/11/2023 1 [facility] NET PLAN (MEDICAID HMO) [place] Lorraine E Eleonora [id number] Lorraine E Eleonora Notes Date Note Type Note Provider Name and Address Organization Details Recorded Time 3 text/html Sore throatReported bypatient.Source of patient informationInformation obtained from patient; Patient arrived at Urgent Care ambulatory; learning styles: auditory Location:throat Severity:mild Quality:sharp; burning Onset/Timin days Associated Symptoms:no sputum production; no shortness of breath; no wheezing; no vomiting; no nausea;sore throat;hoarseness;coughing; sinus pain/ congestion Context:no foreign travel; non-smoker;sick contact Modifying Factors:exposed to Strep non household Teddy Lockhart NP [address] [place], [address], PA - [facility] 02/11/2023 12:58:40 OBGyn Episode No OBEpisode recorded.
== END 2024-08-10 13:55 | disposition home or self-care (01) ==
PROVIDERS: PCP Internal Medicine; Visit Provider Internal Medicine
DX: E13.9 Other specified diabetes mellitus without complications (principal); F41.1 Generalized anxiety disorder; E66.01 Morbid (severe) obesity due to excess calories; Z68.36 Body mass index [BMI] 36.0-36.9, adult; R09.81 Nasal congestion; I10 Essential (primary) hypertension; Z91.09 Other allergy status, other than to drugs and biological substances; F43.9 Reaction to severe stress, unspecified; E78.9 Disorder of lipoprotein metabolism, unspecified; R10.13 Epigastric pain; H69.91 Unspecified Eustachian tube disorder, right ear

== ENCOUNTER → 2024-08-10 09:51 | Outpatient (BNVA) | payer MEDICARE, MEDICAID, SELFPAY | PROVIDERS: PCP Internal Medicine; Visit Provider Internal Medicine | DX: E13.9 Other specified diabetes mellitus without complications (principal); F41.1 Generalized anxiety disorder; R09.81 Nasal congestion; I10 Essential (primary) hypertension; F43.9 Reaction to severe stress, unspecified; E78.9 Disorder of lipoprotein metabolism, unspecified; R10.13 Epigastric pain; H69.90 Unspecified Eustachian tube disorder, unspecified ear; E66.01 Morbid (severe) obesity due to excess calories; Z68.36 Body mass index [BMI] 36.0-36.9, adult; Z91.09 Other allergy status, other than to drugs and biological substances; Z71.3 Dietary counseling and surveillance | CPT/HCPCS: 99212 ==

== ENCOUNTER → 2024-09-21 15:09 | Outpatient (BNVA) | payer MEDICARE, MEDICAID, SELFPAY | PROVIDERS: PCP Internal Medicine | DX: M75.51 Bursitis of right shoulder (principal) | CPT/HCPCS: 99212 ==

== ENCOUNTER → 2024-09-21 15:09 | Outpatient (AMB) | payer MEDICARE, MEDICAID, SELFPAY ==
[2024-09-21 15:16] VITALS: BP 126/88; PULSE 77; O2SAT 97
--- NOTE | 2024-09-21 15:16 | MHC.OFFWIV ---
Intake Vital Signs 09/21/24 15:16 Weight 232 lb BP 126/88 Blood Pressure Location Lt brachial Position Sitting Pulse 77 Pulse Source Pulse Oximeter Pulse Oximetry (%) 97 Oxygen Delivery Method Room Air Intake Visit Reasons: EP-rt arm pain Intake Note: Patient here for right arm pain, limited ROM that started about 1 week ago. no known injuries. Patient Tobacco Use Status: Former Tobacco user Allergies No Known Allergies Allergy (Verified 09/21/24 15:22) Do you need a note to return to daycare/school/sports/work: No HPI HPI Comments History of Present Illness Details She presents to office with R arm pain Biceps muscle pain into R shoulder Ongoing x 1.5 weeks and getting worse No direct trauma or injury; thought due to groceries Pain only with abducting arm away from body R hand dominant Pain at rest is noticible, 2/10 She hasnt tried anything for it No CP or SOB No parethesias PFSH Medical History Sprain of left ankle Diverticulosis Tubular adenoma GERD (gastroesophageal reflux disease) On beta michael at home Tubular adenoma Obesity Hard of hearing Chronic otitis media of right ear Lipid disorder Dyspepsia Hypertension, essential Anxiety, generalized Diabetes 1.5, managed as type 2 Difficulty sleeping Surgical History Hx of endoscopy History of surgery History of back surgery History of colonoscopy History of appendectomy History of tubal ligation Family History Father No problems noted. 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 Speaking full sentences. Skin: Warm dry throughout Arms equal in size and shape bilaterally. No skin discoloration along clavicular region RUE Eye: EOMI Respiratory: CTA bilaterally. No wheezes, rales or rhonchi Cardiac: RRR. No murmur MSK: No R clavicular ttp. No pain to palpation R biceps tendon, elbow or AC joint + full ROM in directions aside from abduction of arm from body when elbow held in 90 degree flexion. Pain to palpation during this movement to R subacromial region. Full ROM Left upper extremity.. Neurology: Alert. No aphasia or facial droop. Gait without abnormality Psych: Good mood and affect Assessment & Plan Assessment & Plan (1) Subacromial bursitis: Code(s): M75.50 - Bursitis of unspecified shoulder Qualifiers: Laterality: right Qualified Code(s): M75.51 - Bursitis of right shoulder Plan: Pt declined xray at this time No concern for fx or dislocation Discussed MLD of subacromial busritis Discussed ice, Naproxen and tylenol PT referral given Any CP or SOB go to ER Pt expressed verbal understanding and had no questions at time of discharge Orders: Orders PT Evaluation and Treatment Today M75.50 - Bursitis of unspecified shoulder Medications: New naproxen 500 mg PO BID PRN 14 tabs 0RF pain Coding Level of Care Code Est Pt Level 3 (29303) Diagnoses Subacromial bursitis of right shoulder joint M75.51 Laterality: right
--- OUTSIDE RECORDS SUMMARY | 2024-09-21 17:52 | XMS_ITS | Data Portability ---
Author Organization [facility] [address] Address [address] [place] [address] Assessment No assessment recorded. Plan of Treatment Reminders Order Date Submit Date Provider Last Modified By Organization Details Last Modified Time Details Appointments None recorded. Lab rapid strep group A, throat 2022 023 [email or web address] [facility], [address] [place] [address], [place], [address], 12:58:02 streptococc us group A, culture, throat 2022 023 [place] [facility], [address] [place] [address], [place], [address], 06:08:10 Referral None recorded. Procedures None recorded. Surgeries None recorded. Imaging None recorded. Medication Orders amoxicillin 875 mg-potassiu m clavulanate 125 mg tablet 2022 023 [facility]/Pharmacy #[id number], [address] [facility], [place], [address], 12:58:05 Patient TargetsNo targets recorded. Patient Instructions Encounter Date Encounter Id Patient Instructions Last Modified By Organization Details Last Modified Time 02/11/2023 [id number] cough: care instructions [email or web address] Not available 02/11/2023 [...] care for yourself at home? Take an oerw-qia-vpkqfhe pain medicine. Avoid Ibuprofen, Aleve and Aspirin if . If the doctor prescribed antibiotics, take them as directed. Do not stop taking them just because you feel better. You need to take the full course of antibiotics. Be careful when taking aljp-zez-yvpzdjh cold or influenza (flu) medicines and Tylenol [...] Range : Negat mari Not Available [facility] ([facility]) [address] [facility], [place], [address], 02/14/2023 06:08:10 02/12/2002/11/2023 rapid strep group A, throa t Unknown Analyte Normal = Negati ve Not Available [address] [facility] [address] [place], [address], 02/11/2023 12:46:41 02/12/2002/11/2023 rapid strep group A, throa t Unknown Analyte negati ve Not Available [facility] [address] [facility], [place], [address], 02/11/2023 12:46:41 Result Notes None recorded. Problems Name Problem SNOMED Code Status Onset Date Resolution Date Notes Provider Name and Address Organization Details Recorded Time Hyperlipidemia 68073906 Active 2022 JUDY grey PA - [facility] 3 12:16:38 Hypertensive disorder 76075107 Active 2022 JUDY grey, PA - [facility] 3 12:16:45 Diabetes mellitus 71486143 Active 2022 JUDY grey, PA - [facility] 3 12:16:50 Gastroesophage al reflux disease 895928595 Active 2022 JUDY grey, [facility] - [facility] [...] Last Updated DateTime 170.18 cm 34.5 kg/m2 15738.3 2 g 97 % 97 % 85 /min 18 /min 97.7 [degF] 166 mm[Hg] 97 mm[Hg] JUDY DIANE [employer] 12:20:05 Social History Question Answer Notes LastModified by Organizat ion Details LastModified Time Tobacco Smoking Status Never Smoker JUDY grey [employer] 02/11/2023 12:17:17 What Is Your Level Of [...] 0 0 Immunizations Vaccine Type Date Status Note Provider Nam e and Address Organization Details Recorded Time Influenza, MDCK, quadrivalent, PF 9 completed JUDY GOODHIND null, PA - [facility] 02/11/2023 12:13:28 Influenza, MDCK, quadrivalent, PF 8 completed JUDY GOODHIND null, PA - [facility] 02/11/2023 12:13:28 Influenza, MDCK, quadrivalent, PF 2 completed JUDY GOODHIND null, PA - [facility] 02/11/2023 12:13:28 zoster recombinant 0 completed JUDY GOODHIND null, PA - [facility] 02/11/2023 12:13:28 zoster recombinant 9 completed JUDY JAINHIND null, PA - [facility] 02/11/2023 12:13:28 COVID-19, mRNA, LNP-S, PF, 30 mcg/0.3 mL dose 1 completed JUDY ROBBINSND null, PA - [facility] 02/11/2023 12:13:28 COVID-19, mRNA, LNP-S, PF, 30 mcg/0.3 mL dose 1 completed JUDYMARIA TERESA JAINHIND null, PA - [facility] 02/11/2023 12:13:28 COVID-19, mRNA, LNP-S, PF, 30 mcg/0.3 mL dose 1 completed JUDY ROBBINSND null, PA - [facility] 02/11/2023 12:13:28 COVID-19, mRNA, LNP-S, PF, 30 mcg/0.3 mL dose, flori-sucrose 2 completed JUDY GOODHIND null, PA - [facility] 02/11/2023 12:13:28 COVID-19, mRNA, LNP-S, bivalent, PF, 30 mcg/0.3 mL dose 2 completed JUDY GOODHIND null, PA - [facility] 02/11/2023 12:13:28 pneumococcal polysaccharide PPV23 2 completed JUDY GOODHIND null, PA - [facility] 02/11/2023 12:13:28 pneumococcal polysaccharide PPV23 9 completed JUDY GOODHIND null, PA - [facility] 02/11/2023 12:13:28 Influenza, split virus, trivalent, preservative 1 completed JUDYMARIA TERESA JAINHIND null, PA - [facility] 02/11/2023 12:13:28 Influenza, split virus, trivalent, preservative 3 completed JUDY GOODHIND null, PA - [facility] 02/11/2023 12:13:28 Influenza, split virus, trivalent, PF 5 completed JUDY GOODHIND null, PA - [facility] 02/11/2023 12:13:28 Influenza, split virus, quadrivalent, PF 7 completed JUDY GOODHIND null, PA - [facility] 02/11/2023 12:13:28 Influenza, split virus, quadrivalent, PF 0 completed JUDY GOODHIND null, PA - [facility] 02/11/2023 12:13:28 Influenza, split virus, quadrivalent, PF 1 completed JUDY GOODHIND null, PA - [facility] 02/11/2023 12:13:28 Influenza, split virus, quadrivalent, PF 6 completed JUDY GOODHIND null, PA - [facility] 02/11/2023 12:13:28 Past Encounters Encounter ID Performer Location Encounter Start Date Encounter Closed Date Diagnosis/Indication Diagnosis SNOMED-CT Code Diagnosis ICD10 Code Diagnosis Note [id number] [address] [address] 08/28/2017 13:58:11 08/28/2017 14:19:59 [id number] [address] [address] [facility] [place] [address] 08/24/2015 11:15:16 08/24/2015 12:01:26 [id number] [address] [facility] [address] [facility] [place] [address] 01/11/2018 17:22:59 01/11/2018 18:40:48 [id number] Teddy Lockhart NP [address] [facility] [place] [address] 02/11/2023 09:58:10 02/11/2023 13:02:23 Acute sinusitis 68418104 J01.90 Health Concerns Section Related Observation LastModified by Organization Detai ls LastModified Time None Recorded Concern Status LastModified by Organization Details LastModified Time None Recorded Advance Directives Directive None Recorded Payers Encounter Date Sequence Insurance Name Policy Number Policy Melton Covered Member ID Melton Member ID Guarantor Name 08/28/2017 1 [place] Lorraine E Eleonora [id number] Lorraine E Eleonora 01/11/2018 1 [place] Lorraine E Eleonora [id number] Lorraine E Eleonora 02/11/2023 1 [facility] NET PLAN (MEDICAID HMO) [place] Lorraine E Eleonora [id number] Lorraine E Eleonora Notes Date Note Type [...] Modifying Factors:exposed to Strep non household Teddy Lockhrat NP [address] [place], [address], [place] - [facility] 02/11/2023 12:58:40 OBGyn Episode No OBEpisode recorded.
== END ==
PROVIDERS: PCP Internal Medicine; Visit Provider Physician Assistant
DX: M75.51 Bursitis of right shoulder (principal)

== ENCOUNTER 2024-10-11 09:32 | Outpatient (AMB) | payer MEDICARE, MEDICAID, SELFPAY ==
--- OUTSIDE RECORDS SUMMARY | 2024-10-11 10:04 | XMS_ITS | Data Portability ---
Author Organization [facility] [address] Address [address] [place] [address] Assessment No assessment recorded. Plan of Treatment Reminders Order Date Submit Date Provider Last Modified By Organization Details Last Modified Time Details Appointments None recorded. Lab rapid strep group A, throat 2022 023 [email or web address] [facility], [address] [place] [address], [place], [address], 12:58:02 streptococc us group A, culture, throat 2022 023 [place] [facility], [address] [place] [address], [place], [address], 06:08:10 Referral None recorded. Procedures None recorded. Surgeries None recorded. Imaging None recorded. Medication Orders amoxicillin 875 mg-potassiu m clavulanate 125 mg tablet 2022 023 [facility] #[id number], [address] [facility], [place], [address], 12:58:05 Patient TargetsNo targets recorded. Patient Instructions Encounter Date Encounter Id Patient Instructions Last Modified By Organization Details Last Modified Time 02/11/2023 [id number] cough: care instructions [email or web address] Not available 02/11/2023 [...] care for yourself at home? Take an ubvw-jca-mzvuhkw pain medicine. Avoid Ibuprofen, Aleve and Aspirin if . If the doctor prescribed antibiotics, take them as directed. Do not stop taking them just because you feel better. You need to take the full course of antibiotics. Be careful when taking aags-bkl-rhxthzm cold or influenza (flu) medicines and Tylenol [...] Range : Negat mari Not Available [facility] ([place] [facility]) [address] [facility], [place], [address], 02/14/2023 06:08:10 02/12/2002/11/2023 rapid strep group A, throa t Unknown Analyte Normal = Negati ve Not Available [address] [facility] [address] [place], [address], 02/11/2023 12:46:41 02/12/2002/11/2023 rapid strep group A, throa t Unknown Analyte negati ve Not Available [facility] [address] [facility], [place], [address], 02/11/2023 12:46:41 Result Notes None recorded. Problems Name Problem SNOMED Code Status Onset Date Resolution Date Notes Provider Name and Address Organization Details Recorded Time Hyperlipidemia 52460047 Active 2022 JUDY grey PA - [facility] 3 12:16:38 Hypertensive disorder 69162614 Active 2022 JUDY grey, PA - [facility] 12:16:45 Diabetes mellitus 47662951 Active 2022 JUDY grey, PA - [facility] 3 12:16:50 Gastroesophage al reflux disease 852850519 Active 2022 JUDY grey, [facility] - [facility] [...] Last Updated DateTime 170.18 cm 34.5 kg/m2 48384.3 2 g 97 % 97 % 85 /min 18 /min 97.7 [degF] 166 mm[Hg] 97 mm[Hg] JUDY DIANE [employer] 12:20:05 Social History Question Answer Notes LastModified by Organizat ion Details LastModified Time Tobacco Smoking Status Never Smoker JUDY grey [facility] 02/11/2023 12:17:17 What Is Your Level Of [...] SNOMED-CT Code Diagnosis ICD10 Code Diagnosis Note [id number] [address] [address] 08/28/2017 13:58:11 08/28/2017 14:19:59 [id number] [address] [address] [place] [address] 08/24/2015 11:15:16 08/24/2015 12:01:26 [id number] [address] Josh [address] [place] [address] 01/11/2018 17:22:59 01/11/2018 18:40:48 [id number] Teddy Lockhart NP [address] [place] [address] 02/11/2023 09:58:10 02/11/2023 13:02:23 Acute sinusitis 24577855 J01.90 Health Concerns Section Related Observation LastModified by Organization Detai ls LastModified Time None Recorded Concern Status LastModified by Organization Details LastModified Time None Recorded Advance Directives Directive None Recorded Payers Encounter Date Sequence Insurance Name Policy Number Policy Melton Covered Member ID Melton Member ID Guarantor Name 08/28/2017 1 [place] Lorraine E Eleonora [id number] Lorraine E Eleonora 01/11/2018 1 [place] Lorraine E Eleonora [id number] Lorraine E Eleonora 02/11/2023 1 [facility] NET PLAN (MEDICAID HMO) [place] Lorraine E Eleonora [id number] Lorraine E Eleonora Notes Date Note Type [...] Lockhart NP [address] [place], [address], [place] - [facility] 02/11/2023 12:58:40 OBGyn Episode No OBEpisode recorded.
--- NOTE | 2024-10-11 10:44 | MHC.OFFWIV ---
Intake Vital Signs 10/11/24 10:46 Weight 235 lb BP 140/90 H Blood Pressure Location Rt brachial Position Sitting Pulse 76 Pulse Source Pulse Oximeter Temp 97.9 F Temp Source Oral Pulse Oximetry (%) 99 Oxygen Delivery Method Room Air Intake Visit Reasons: EP-sore throat, b/l ear pain Intake Note: Patient here for sore throat and bilat ear pain that started Thursday night. Patient Tobacco Use Status: Former Tobacco user Allergies No Known Allergies Allergy (Verified 10/11/24 10:46) Do you need a note to return to daycare/school/sports/work: No HPI HPI Comments History of Present Illness Details This is a 64-year-old female with a past medical history of oon-okznlgt-awfschaop diabetes, hypertension and anxiety presenting for evaluation of a sore throat and ear pain that she has had since Thursday. Patient reports having a ?scratchy throat? for which she has not taken any yxhi-jnf-kjflfkf medications. She denies having any fevers, chills, cough or shortness for breath. 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 [facility] Medical History Sprain of left ankle Diverticulosis Tubular adenoma GERD (gastroesophageal reflux disease) On beta michael at home Tubular adenoma Obesity Hard of hearing Chronic otitis media of right ear Lipid disorder Dyspepsia Hypertension, essential Anxiety, generalized Diabetes 1.5, managed as type 2 Difficulty sleeping Surgical History Hx of endoscopy History of surgery History of back surgery History of colonoscopy History of appendectomy History of tubal ligation Family History Father No problems noted. 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 Cognitive needs: No Hearing needs: No Vision needs: Yes Female Reproductive History Menstrual Age of Menarche: 15 Review of Systems Const All systems reviewed & are unremarkable except as noted in HPI and below Denies chills, Denies fatigue and Denies fever(s) Eyes Reports no additional complaints ENT Reports no additional complaints, Reports otalgia, Denies post nasal drip, Denies sinus pain and Reports sore throat Card Reports no additional complaints Resp Reports no additional complaints, Denies cough, Denies stridor and Denies wheezing GI Reports as per HPI Reports as per HPI Musc Reports as per HPI Skin/Breast Reports system reviewed and no additional complaints, except as documented Neuro Reports no additional complaints Psych Reports no additional complaints Endo Reports no additional complaints and Denies fatigue Aller/Immun Reports no additional complaints and Denies wheezing Physical Exam Const General: cooperative, comfortable, no acute distress, alert and awake Nutritional Appearance: overweight Orientation/consciousness: patient oriented x3 Limitations: no limitations HEENT Head: Yes normal to inspection and Yes normocephalic Ears: hearing grossly normal bilaterally, external ears normal, TM's normal bilaterally and EAC's normal General nose exam: Normal external nose present Face and sinus: Yes normal facial exam and Yes sinuses nontender Mouth: Normal oral and palatal mucosa present and moist mucous membranes Throat: Yes posterior oropharynx normal (There is no edema, erythema or exudates of the posterior oropharynx) and Yes postnasal drainage Neck Lymphatic: no lymphadenopathy noted Resp Effort & Inspection: normal respiratory effort and able to speak in complete sentences Auscultation: clear to auscultation bilaterally Cardio Rate: regular rate Rhythm: regular rhythm Neuro General: patient oriented x3 Extrem General: Yes normal to inspection Psych Appearance: grossly normal Mental Status: mental status grossly normal Insight: Good insight present (Psych) Judgement: Good judgement present (Psych) Results Reviewed Results Reviewed: Rapid strep is negative Assessment & Plan Assessment & Plan (1) Acute pharyngitis: Comment: Rapid strep test is negative. SARS panel is ordered and results are pending. Code(s): J02.9 - Acute pharyngitis, unspecified Qualifiers: Pharyngitis/tonsillitis etiology: unspecified etiology Qualified Code(s): J02.9 - Acute pharyngitis, unspecified Plan: Alternate ibuprofen and Tylenol as needed for pharyngitis. Increase clear fluids daily. (2) RSV exposure: Code(s): Z20.828 - Contact with and (suspected) exposure to other viral communicable diseases Plan: RSV tesing is pending. Work note is provided. Orders: Orders SARS-CoV2/FLU/RSV Today J06.9 - Acute upper respiratory infection, unspecified Coding Level of Care Code Est Pt Level 3 (62768) Diagnoses Acute pharyngitis, unspecified etiology J02.9 Pharyngitis/tonsillitis etiology: unspecified etiology RSV exposure Z20.828 Time Spent (min) 20
[2024-10-11 10:46] VITALS: BP 140/90; PULSE 76; TEMP 36.6; O2SAT 99
== END 2024-10-11 11:01 | disposition home or self-care (01) ==
PROVIDERS: PCP Internal Medicine; Visit Provider Physician Assistant
DX: J02.9 Acute pharyngitis, unspecified (principal); Z20.828 Contact with and (suspected) exposure to other viral communicable diseases; Z13.9 Encounter for screening, unspecified

== ENCOUNTER 2024-10-11 09:32 | Outpatient (REF) | payer MEDICARE, MEDICAID, SELFPAY ==
[2024-10-11 15:01] LABS: Influenza A PCR NEGATIVE (Negative); Influenza B PCR NEGATIVE (Negative); Resp Syncy Virus RNA Qual PCR NEGATIVE (Negative); SARS COV2 PCR INHOUSE NEGATIVE (Negative)
== END 2024-10-11 09:33 | disposition home or self-care (01) ==
LOC: HO.LNP 09:32
PROVIDERS: PCP Internal Medicine; Visit Provider Physician Assistant
DX: J06.9 Acute upper respiratory infection, unspecified (principal); J02.9 Acute pharyngitis, unspecified; Z20.828 Contact with and (suspected) exposure to other viral communicable diseases
CPT/HCPCS: 0241U; 87880; 99212

== ENCOUNTER 2024-10-25 08:46 | Outpatient (REF) | payer MEDICARE, MEDICAID, SELFPAY ==
--- OUTSIDE RECORDS SUMMARY | 2024-10-25 09:16 | XMS_ITS | Data Portability ---
Author Organization [facility] [address] Address [address] [place] [address] Assessment No assessment recorded. Plan of Treatment Reminders Order Date Submit Date Provider Last Modified By Organization Details Last Modified Time Details Appointments None recorded. Lab rapid strep group A, throat 2022 023 [email or web address] [facility], [address] [place] [address], [place], [address], 12:58:02 streptococc us group A, culture, throat 2022 023 [place] [facility], [address] [place] [address], [place], [address], 06:08:10 Referral None recorded. Procedures None recorded. Surgeries None recorded. Imaging None recorded. Medication Orders amoxicillin 875 mg-potassiu m clavulanate [address] [facility] #[id number], [address] [facility], [place], [address], 12:58:05 Patient TargetsNo targets recorded. Patient Instructions Encounter Date Encounter Id Patient Instructions Last Modified By Organization Details Last Modified Time 02/11/2023 [id number] cough: care instructions [email or web address] Not available 02/11/2023 [...] care for yourself at home? Take an nvyj-phr-pyjmdgk pain medicine. Avoid Ibuprofen, Aleve and Aspirin if . If the doctor prescribed antibiotics, take them as directed. Do not stop taking them just because you feel better. You need to take the full course of antibiotics. Be careful when taking mgew-pir-daaezlw cold or influenza (flu) medicines and Tylenol [...] Range : Negat mari Not Available [facility] ([facility]) [address] [facility], [place], [address], 02/14/2023 06:08:10 02/12/2002/11/2023 rapid strep group A, throa t Unknown Analyte Normal = Negati ve Not Available [address] [facility] [address] [place], [address], 02/11/2023 12:46:41 02/12/2002/11/2023 rapid strep group A, throa t Unknown Analyte negati ve Not Available [facility] [address] [facility], [place], [address], 02/11/2023 12:46:41 Result Notes None recorded. Problems Name Problem SNOMED Code Status Onset Date Resolution Date Notes Provider Name and Address Organization Details Recorded Time Hyperlipidemia 49215828 Active 2022 JUDY grey PA - [facility] 3 12:16:38 Hypertensive disorder 45559904 Active 2022 JUDY grey, PA - [facility] 12:16:45 Diabetes mellitus 50593328 Active 2022 JUDY grey, PA - [facility] 3 12:16:50 Gastroesophage al reflux disease 046504483 Active 2022 JUDY grey, [facility] - [facility] [...] Last Updated DateTime 170.18 cm 34.5 kg/m2 42400.3 2 g 97 % 97 % 85 /min 18 /min 97.7 [degF] 166 mm[Hg] 97 mm[Hg] JUDY DIANE [employer] 12:20:05 Social History Question Answer Notes LastModified by Organizat ion Details LastModified Time Tobacco Smoking Status Never Smoker JUDY grey [facility] 02/11/2023 12:17:17 What Is Your Level Of [...] 12:13:28 Influenza, MDCK, quadrivalent, PF 8 completed JDUY GOODHIND null, PA - [facility] 02/11/2023 [...] Influenza, split virus, quadrivalent, PF 0 completed UJDY GOODHIND null, PA - [facility] 02/11/2023 12:13:28 Influenza, split virus, quadrivalent, PF 1 completed JUDY GOODHIND null, PA - [facility] 02/11/2023 12:13:28 Influenza, split virus, quadrivalent, PF 6 completed JUDY GOODHIND null, PA - [facility] 02/11/2023 12:13:28 Past Encounters Encounter ID Performer Location Encounter Start Date Encounter Closed Date Diagnosis/Indication Diagnosis SNOMED-CT Code Diagnosis ICD10 Code Diagnosis Note [id number] [address] [address] 08/28/2017 13:58:11 08/28/2017 14:19:59 [id number] [address] [address] [facility] [place] [address] 08/24/2015 11:15:16 08/24/2015 12:01:26 [id number] [address] Josh Pathak[address] [facility] [place] [address] 01/11/2018 17:22:59 01/11/2018 18:40:48 [id number] Teddy Lockhart NP [address] [facility] [place] [address] 02/11/2023 09:58:10 02/11/2023 13:02:23 Acute sinusitis 75849451 J01.90 Health Concerns Section Related Observation LastModified by Organization Detai ls LastModified Time None Recorded Concern Status LastModified by Organization Details LastModified Time None Recorded Advance Directives Directive None Recorded Payers Encounter Date Sequence Insurance Name Policy Number Policy Melton Covered Member ID Melton Member ID Guarantor Name 08/28/2017 1 [place] Lorraine E Eleonora [id number] Lorraine E Eleonora 01/11/2018 1 [place] Lorraine E Eleonora [id number] Lorraine E Eleonora 02/11/2023 1 [facility] NET PLAN (MEDICAID HMO) [place] Lorraine E Eleonora [id number] Lorraine E Eleonora Notes Date Note Type [...] Lockhart NP [address] [place], [address], [place] - [facility] 02/11/2023 12:58:40 OBGyn Episode No OBEpisode recorded.
[2024-10-25 09:54] LABS: MANUAL DIFF FLAG NO
[2024-10-25 09:57] LABS: Basophils Absolute Auto 0.1 X10*3/uL (0.0-0.2); Basophils Percent Auto 1.3 % (0-2); Eosinophils Absolute Auto 0.1 X10*3/uL (0.0-0.4); Eosinophils Percent Auto 2.2 % (0-4); Hemoglobin 12.6 g/dl (12.0-16.0); Imm Gran Abs Auto 0.02 X10*3/uL (0.00-0.03); Imm Gran Pct Auto 0.3 % (0.0-0.4); Lymphocytes Absolute Auto 1.9 X10*3/uL (1.2-4.9); Mean Corpuscular HGB Conc 31.5 g/dl (31.0-35.0); Mean Corpuscular Hemoglobin 27.3 pg (27.0-33.0); Mean Corpuscular Volume 86.6 fL (80.0-98.0); Monocytes Absolute Auto 0.5 X10*3/uL (0.1-1.2); Monocytes Percent Auto 7.8 % (2-11); Neutrophils Absolute Auto 3.5 x10*3/uL (2.0-8.3); Neutrophils Percent Auto 57.4 % (45-73); Platelet Count 228 X10*3/uL (160-400); Red Blood Count 4.62 X10*6/uL (4.20-5.50); Red Cell Distribution Width 13.1 % (11.0-16.0)
[2024-10-25 10:07] LABS: Estimated Average Glucose 154 mg/dL; Hemoglobin A1C 168.1992 umol/L; Total Hemoglobin (HGBA1C) 3206.0937 umol/L
[2024-10-25 10:23] LABS: Alanine Aminotransferase 19 U/L (0-31); Albumin Level 4.1 g/dL (3.5-5.0); Alkaline Phosphatase 64 U/L (39-117); Anion Gap 13 (12-20); Aspartate Amino Transferase 24 U/L (5-31); Bilirubin Total 0.4 mg/dL (0.0-1.0); Blood Urea Nitrogen 15 mg/dL (9-16); Calcium 9.6 mg/dL (8.4-10.2); Carbon Dioxide 24 mmol/L (22-29); Chloride 109 mmol/L (96-108); Cholesterol 181 mg/dL (<200); Estimated Glomerular Filt Rate > 60; Glucose Fasting 170 mg/dL (60-99); HDL Cholesterol 46 mg/dL (>40); LDL Cholesterol Calculated 89 mg/dL (<100); Potassium 4.8 mmol/L (3.3-5.1); Sodium 141 mmol/L (135-145); Total Protein 6.8 g/dL (6.5-8.0); Triglycerides 232 mg/dL (<150)
[2024-10-25 10:43] LABS: Creatinine Urine 381.38 mg/dL; Microalbum/Creatinine Ratio Ur 10.2 ug/mg cr (<30)
== END 2024-10-25 08:47 | disposition home or self-care (01) ==
LOC: HO.HMGCLDS 08:46
PROVIDERS: PCP Internal Medicine; Visit Provider Internal Medicine
DX: E13.9 Other specified diabetes mellitus without complications (principal); F41.1 Generalized anxiety disorder; I10 Essential (primary) hypertension; E78.9 Disorder of lipoprotein metabolism, unspecified; R10.13 Epigastric pain; Z91.09 Other allergy status, other than to drugs and biological substances; H66.90 Otitis media, unspecified, unspecified ear; E66.09 Other obesity due to excess calories; F43.9 Reaction to severe stress, unspecified; R09.81 Nasal congestion
CPT/HCPCS: 36415; 80053; 80061; 82043; 82570; 83036; 85025

== ENCOUNTER 2024-10-26 13:02 | Outpatient (AMB) | payer MEDICARE, MEDICAID, SELFPAY ==
--- NOTE | 2024-10-26 13:04 | MHC.PC.OV ---
Vital Signs 10/26/24 13:05 Height 5 ft 7 in Weight 236 lb 8 oz BMI 37.0 BP 126/72 Blood Pressure Location Lt brachial Position Sitting Respiration 16 Pulse 72 Pulse Source Pulse Oximeter Temp 98 F Temp Source Oral Pulse Oximetry (%) 96 Oxygen Delivery Method Room Air Intake Visit Reasons: 11 weeks f/u Allergies No Known Allergies Allergy (Verified 10/26/24 13:05) Medication List - Last Reconciled 10/26/24 by Florence Leonardo MD aspirin (Adult Low Dose Aspirin) 81 mg PO DAILY lorazepam 1 mg PO DAILY PRN 30 days losartan 50 mg PO DAILY 90 days metformin 500 mg PO BID metoprolol succinate ER 50 mg PO DAILY montelukast 10 mg PO DAILY 90 days naproxen 500 mg PO BID PRN omeprazole 20 mg PO QAM 90 days pravastatin 80 mg PO DAILY 90 days Tobacco use date assessed: 10/26/24 Fall risk assessment: No Falls in past year Last assessed Fall Risk: 10/26/24 Dental Screening Dental Screen Date: 10/26/24 Did you have a dental visit in the last 12 months?: Yes Did you have a dental problem in the last 6 months where you did not have access to dental care?: No Was dental information given to patient?: Patient has dentist HPI 11 weeks f/u HPI Details 64-year-old female with a history of anxiety, essential hypertension, type 2 diabetes mellitus, allergic rhinitis, GERD, and hyperlipidemia Came in today for regular follow-up appointment and medication refill - The patient?s HbA1c has increased from 6.5% to 7.0%, suggesting suboptimal glycemic control secondary to decreased adherence to Metformin dosage. Metformin 500 mg should be taken twice daily as originally prescribed. - Hypertension and gastroesophageal reflux are stable under current therapeutic management with Losartan, Metoprolol, and Omeprazole. - An episode of acute otitis media right side with notable hearing loss, exacerbated by recent upper respiratory infection, has prompted a prescription for Augmentin. - Chronic use of hearing aid has been noted to insufficiently improve hearing due to persistent inflammation and scarring seen on examination. - anxiety stable with lorazepam, script sent next three-month - we will repeat hemoglobin A1c when she will return in 3 months with increasing dose of metformin b.i.d. Problem List - Type 2 Diabetes Mellitus - Hypertension - Gastroesophageal Reflux Disease - Acute Otitis Media right - Hearing Loss - lipid disorder - chronic GERD - chronic allergies Patient Instructions - Increase Metformin intake to 500 mg twice daily to manage blood sugar levels better. - Begin the course of Augmentin as prescribed for resolution of ear infection, with potential discontinuation after 7 days if the condition improves. - Improve dietary management to aid in reaching target HbA1c levels. - Plan to follow up in three months for reevaluation of blood glucose control with an in-office fingerstick test. - Contact the office for any worsening symptoms or concerns with medication side effects. Review of Systems - General: No fever no chills - Neurological: No headaches no dizziness - Ear nose throat: No sore throat - Cardiovascular: No syncope, no chest pain, no palpitations - Gastrointestinal: No nausea vomiting or diarrhea - Endocrine: No polyuria polydipsia no heat intolerance - Genitourinary: No dysuria , no blood in urine Physical Exam General: No acute distress HEENT: Right ear with erythema around tympanic membrane compared to left Neck: Supple Respiratory system: Able to talk in full sentences, no audible wheeze cardiovascular: S1-S2 regular in rate and rhythm Gastrointestinal: No pain Extremities: No new findings 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: Alert awake oriented x3 motor sensory intact Skin: Normal turgor [facility] Medical History Sprain of left ankle Diverticulosis Tubular adenoma GERD (gastroesophageal reflux disease) On beta michael at home Tubular adenoma Obesity Hard of hearing Chronic otitis media of right ear Lipid disorder Dyspepsia Hypertension, essential Anxiety, generalized Diabetes 1.5, managed as type 2 Difficulty sleeping Surgical History Hx of endoscopy History of surgery History of back surgery History of colonoscopy History of appendectomy History of tubal ligation Family History Father No problems noted. 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 1. Little interest or pleasure in doing things: several days 2. Feeling down, depressed, or hopeless: several days 3. Trouble falling or staying asleep, or sleeping too much: not at all 4. Feeling tired or having little energy: several days 5. Poor appetite or overeating: several days 6. Feeling bad about yourself - or that you are a failure or have let yourself or your family down: several days 7. Trouble concentrating on things, such as reading the newspaper or watching television: not at all 8. Moving or speaking so slowly that other people could have noticed. Or the opposite - being so fidgety or restless that you have been moving around a lot more than usual: not at all 9. Thoughts that you would be better off or of hurting yourself in some way: not at all Total score: 5 Depression Screening Interpretation: Negative Depression Screening Done: Yes 37141 - PHQ-9 Billing: Yes Source: Developed by Drs. Bethel Caceres, Paige Russ, Kye Foy and colleagues, with an educational shaunna from [employer]. Thrive Questionnaire Date Thrive assessed: 10/26/24 I am a: Patient What is your living situation today?: I have a steady place to live Within the past 12 months, did the food you bought not last and you didn't have the money to get more?: Never true Within the past 12 months, did you worry whether your food would run out before you got money to buy more?: Never true Do you have trouble paying for medicines?: No Do you have trouble getting transportation to medical appointments?: No Do you have trouble paying your heating and electricity bill?: No Do you have trouble taking care of your child, family member or friend?: No Do you have trouble with day-to-day activities such as bathing, preparing meals, shopping, managing finances, etc.?: No Are you currently unemployed and looking for a job?: No Are you interested in more education?: No Please select the resources that you would like help with: None Currently or been in a relationship where the following occur: No concerns reported THRIVE Score: 0 AUDIT C Alcohol Use Questionnaire (AUDIT-C) 1. How often do you have a drink containing alcohol?: 2-4 times a month 2. How many drinks containing alcohol do you have on a typical day when you are drinking?: 1 or 2 3. How often do you have six or more drinks on one occasion?: Never Total Score: 2 Score Reviewed/Action Taken: Yes YISEL-7 AMB Questionnaire YISEL-7 Date YISEL - 7 assessed: 10/26/24 Feeling nervous, anxious, or on edge: 0 = Not at all Not being able to stop or control worryin = Not at all Worrying too much about different things: 1 = Several days Trouble relaxin = Not at all Being so restless that it is hard to sit still: 0 = Not at all Becoming easily annoyed or irritable: 1 = Several days Feeling afraid as if something awful might happen: 0 = Not at all Total YISEL-7 score (0-4 normal; 5-9 mild; 10-14 moderate; 15-21 severe): 2 Source: Developed by Drs. Bethel Caceres, Paige Russ, Kye Foy and colleagues, with an educational shaunna from [employer]. YISEL-7 Assessment Billing YISEL-7 Assessment Tool: YISEL-7 Assessment 09660 Physical exam (Primary Care) Vital Signs: Last Vital Signs Temp 98 F 10/26/24 13:05 Pulse 72 10/26/24 13:05 Resp 16 10/26/24 13:05 BP 126/72 10/26/24 13:05 Pulse Ox 96 10/26/24 13:05 Oxygen Delivery Method Room Air 10/26/24 13:05 BMI result Body Mass Index 37.0 Tobacco/Smoking Status: Tobacco use Status Tobacco use date assessed 10/26/24 10/26/24 13:08 Patient Tobacco Use Status Former Tobacco user 10/26/24 13:08 e-Cigarette/Vaping Use Never Used 10/26/24 13:08 PHQ-9: PHQ-9 Score PHQ-9: Total score 5 10/26/24 13:27 Depression Screening Interpretation: Negative Thrive Assessment: Date of Thrive Assessment Date Thrive assessed 10/26/24 10/26/24 13:08 Currently or been in a relationship where the following occur: No concerns reported Coding Level of Care Code Est Pt Level 4 (86246) Complex EM visit Add On G2211 Diagnoses Diabetes 1.5, managed as type 2 E13.9 Right otitis media, unspecified otitis media type H66.91 Otitis media type: unspecified Anxiety, generalized F41.1 Hypertension, essential I10 Lipid disorder E78.9 Dyspepsia R10.13 Environmental allergies Z91.09 Class 2 severe obesity due to excess calories with serious comorbidity and body mass index (BMI) of 36.0 to 36.9 in adult E66.812; E66.01; Z68.36 Obesity classification: adult class 2 (BMI 35 - 39.9) Serious obesity comorbidity presence: with serious comorbidity Body mass index: BMI 36.0-36.9 Additional Codes YISEL-7 Assessment Billing - YISEL-7 Assessment Tool: YISEL-7 Assessment 23050 ([id number]) PHQ-9 - 78203 - PHQ-9 Billing: Yes ([id number]) Assessment & Plan Assessment & Plan (1) Diabetes 1.5, managed as type 2: Code(s): E13.9 - Other specified diabetes mellitus without complications Category: Medical (2) Otitis media of right ear: Code(s): H66.91 - Otitis media, unspecified, right ear Category: Medical Qualifiers: Otitis media type: unspecified Qualified Code(s): H66.91 - Otitis media, unspecified, right ear (3) Anxiety, generalized: Code(s): F41.1 - Generalized anxiety disorder Category: Medical (4) Hypertension, essential: Code(s): I10 - Essential (primary) hypertension Category: Medical (5) Lipid disorder: Code(s): E78.9 - Disorder of lipoprotein metabolism, unspecified Category: Medical (6) Dyspepsia: Code(s): R10.13 - Epigastric pain Category: Medical (7) Environmental allergies: Code(s): Z91.09 - Other allergy status, other than to drugs and biological substances Category: Medical (8) Obesity due to excess calories: Code(s): E66.09 - Other obesity due to excess calories Category: Medical Qualifiers: Obesity classification: adult class 2 (BMI 35 - 39.9) Serious obesity comorbidity presence: with serious comorbidity Body mass index: BMI 36.0-36.9 Qualified Code(s): E66.812 - Obesity, class 2; E66.01 - Morbid (severe) obesity due to excess calories; Z68.36 - Body mass index [BMI] 36.0-36.9, adult Plan 64-year-old female with a history of anxiety, essential hypertension, type 2 diabetes mellitus, allergic rhinitis, GERD, and hyperlipidemia Came in today for regular follow-up appointment and medication refill - The patient?s HbA1c has increased from 6.5% to 7.0%, suggesting suboptimal glycemic control secondary to decreased adherence to Metformin dosage. Metformin 500 mg should be taken twice daily as originally prescribed. - Hypertension and gastroesophageal reflux are stable under current therapeutic management with Losartan, Metoprolol, and Omeprazole. - An episode of acute otitis media right side with notable hearing loss, exacerbated by recent upper respiratory infection, has prompted a prescription for Augmentin. - Chronic use of hearing aid has been noted to insufficiently improve hearing due to persistent inflammation and scarring seen on examination. - anxiety stable with lorazepam, script sent next three-month - we will repeat hemoglobin A1c when she will return in 3 months with increasing dose of metformin b.i.d. Problem List - Type 2 Diabetes Mellitus - Hypertension - Gastroesophageal Reflux Disease - Acute Otitis Media right - Hearing Loss - lipid disorder - chronic GERD - chronic allergies Patient Instructions - Increase Metformin intake to 500 mg twice daily to manage blood sugar levels better. - Begin the course of Augmentin as prescribed for resolution of ear infection, with potential discontinuation after 7 days if the condition improves. - Improve dietary management to aid in reaching target HbA1c levels. - Plan to follow up in three months for reevaluation of blood glucose control with an in-office fingerstick test. - Contact the office for any worsening symptoms or concerns with medication side effects. Medications: New amoxicillin-pot clavulanate 875-125 mg 1 tab PO BID 10 days 20 tabs 0RF Refilled lorazepam 1 mg PO DAILY 30 days PRN 30 tabs 2RF anxiety F41.1 - Generalized anxiety disorder, G47.9 - Sleep disorder, unspecified
[2024-10-26 13:05] VITALS: BP 126/72; PULSE 72; RESP 16; TEMP 36.6; O2SAT 96; BMI 37.0
--- OUTSIDE RECORDS SUMMARY | 2024-10-26 13:14 | XMS_ITS | Data Portability ---
Author Organization [facility] [address] Address [address] [place] [address] Assessment No assessment recorded. Plan of Treatment Reminders Order Date Submit Date Provider Last Modified By Organization Details Last Modified Time Details Appointments None recorded. Lab rapid strep group A, throat 2022 023 [email or web address] [facility], [address] [place] [address], [place], [address], 12:58:02 streptococc us group A, culture, throat 2022 023 [place] [facility], [address] [place] [address], [place], [address], 06:08:10 Referral None recorded. Procedures None recorded. Surgeries None recorded. Imaging None recorded. Medication Orders amoxicillin 875 mg-potassiu m clavulanate 125 mg tablet 2022 023 [id number], [address] [facility], [place], [address], 12:58:05 Patient TargetsNo targets recorded. Patient Instructions Encounter Date Encounter Id Patient Instructions Last Modified By Organization Details Last Modified Time 02/11/2023 [id number] cough: care instructions [email or web address] Not available 02/11/2023 [...] care for yourself at home? Take an rvjk-tbg-pltqoey pain medicine. Avoid Ibuprofen, Aleve and Aspirin if . If the doctor prescribed antibiotics, take them as directed. Do not stop taking them just because you feel better. You need to take the full course of antibiotics. Be careful when taking ykrn-lcs-uowolhz cold or influenza (flu) medicines and Tylenol [...] Range : Negat mari Not Available [facility] ([facility]) [address] [facility], [place], [address], 02/14/2023 06:08:10 02/12/2002/11/2023 rapid strep group A, throa t Unknown Analyte Normal = Negati ve Not Available [address] [facility] [address] [place], [address], 02/11/2023 12:46:41 02/12/2002/11/2023 rapid strep group A, throa t Unknown Analyte negati ve Not Available [address] [address] [facility], [place], [address], 02/11/2023 12:46:41 Result Notes None recorded. Problems Name Problem SNOMED Code Status Onset Date Resolution Date Notes Provider Name and Address Organization Details Recorded Time Hyperlipidemia 36359124 Active 2022 JUDY grey PA - [facility] 12:16:38 Hypertensive disorder 03213753 Active 2022 JUDY grey, PA - [facility] 12:16:45 Diabetes mellitus 54930728 Active 2022 JUDY grey, PA - [facility] 12:16:50 Gastroesophage al reflux disease 630708775 Active 2022 JUDY grey, [facility] - [facility] [...] Last Updated DateTime 170.18 cm 34.5 kg/m2 82044.3 2 g 97 % 97 % 85 /min 18 /min 97.7 [degF] 166 mm[Hg] 97 mm[Hg] JUDY DIANE [employer] 12:20:05 Social History Question Answer Notes LastModified by Organizat ion Details LastModified Time Tobacco Smoking Status Never Smoker JUDY grey [facility] 02/11/2023 12:17:17 What Is Your Level Of [...] SNOMED-CT Code Diagnosis ICD10 Code Diagnosis Note [id number] [address] [address] 08/28/2017 13:58:11 08/28/2017 14:19:59 [id number] [facility] [address] [facility] [place] [address] 08/24/2015 11:15:16 08/24/2015 12:01:26 [id number] [facility] Josh Pathakr [address] [facility] [place] [address] 01/11/2018 17:22:59 01/11/2018 18:40:48 [id number] Teddy Lockhart NP [address] [address] [facility] [place] [address] 02/11/2023 09:58:10 02/11/2023 13:02:23 Acute sinusitis 32164070 J01.90 Health Concerns Section Related Observation LastModified by Organization Detai ls LastModified Time None Recorded Concern Status LastModified by Organization Details LastModified Time None Recorded Advance Directives Directive None Recorded Payers Encounter Date Sequence Insurance Name Policy Number Policy Melton Covered Member ID Melton Member ID Guarantor Name 08/28/2017 1 [place] Lorraine E Eleonora [id number] Lorraine E Eleonora 01/11/2018 1 [place] Lorraine E Eleonora [id number] Lorraine E Eleonora 02/11/2023 1 [facility] NET PLAN (MEDICAID HMO) [place] Lorraine E Eleonora [id number] Lorraine E Eleonora Notes Date Note Type [...] Lockhart NP [address] [place], [address], [place] - [facility] 02/11/2023 12:58:40 OBGyn Episode No OBEpisode recorded.
== END 2024-10-26 13:31 | disposition home or self-care (01) ==
PROVIDERS: PCP Internal Medicine; Visit Provider Internal Medicine
DX: E13.9 Other specified diabetes mellitus without complications (principal); H66.91 Otitis media, unspecified, right ear; F41.1 Generalized anxiety disorder; I10 Essential (primary) hypertension; E78.9 Disorder of lipoprotein metabolism, unspecified; R10.13 Epigastric pain; Z91.09 Other allergy status, other than to drugs and biological substances; E66.812 Obesity, class 2; E66.01 Morbid (severe) obesity due to excess calories; Z68.36 Body mass index [BMI] 36.0-36.9, adult

== ENCOUNTER → 2024-10-26 13:02 | Outpatient (BNVA) | payer MEDICARE, MEDICAID, SELFPAY | PROVIDERS: PCP Internal Medicine; Visit Provider Internal Medicine | DX: E13.9 Other specified diabetes mellitus without complications (principal); H66.91 Otitis media, unspecified, right ear; F41.1 Generalized anxiety disorder; I10 Essential (primary) hypertension; E78.9 Disorder of lipoprotein metabolism, unspecified; R10.13 Epigastric pain; Z91.09 Other allergy status, other than to drugs and biological substances; E66.01 Morbid (severe) obesity due to excess calories; Z68.36 Body mass index [BMI] 36.0-36.9, adult; Z71.3 Dietary counseling and surveillance | CPT/HCPCS: 96127; 99212 ==

== ENCOUNTER 2024-11-04 14:00 | Outpatient (RCR) | payer MEDICARE, MEDICAID, SELFPAY ==
--- NOTE | 2024-09-30 14:53 | MHC.PT.EP ---
[facility] [place] [facility] [place] [facility] [place] [facility] [address] [phone] F: [phone] F: [phone] F: [phone] F: [phone] Physical Therapy Plan of Care Date of Evaluation: 09/30/24 Date of Surgery: Diagnosis: This is a 64 yo RHD female presenting to skilled PT with a script for subacromial bursitis (R). Assessment: This is a 64 yo RHD female presenting to skilled PT with a script for subacromial bursitis. Patient presents to office with R shoulder/bicep pain ongoing for about a month now without improvements, no injury or trauma noted but may be due to carrying groceries. Pain is located at the UT, ACJ, and into the bicep. Pain increases with abducting, reaching behind herself and her pain can be at rest and with movement. She has seen her PCP for his, denied x-ray, ice and was prescribed naproxen. Assessment reveals pain that ranges from up to a 8/10 at the worst. Patient demos decreased R shoulder and cervical ROM, strength of B shoulder's, TTP at the anterior GHJ joint line, ACJ, UT and impaired posture with forward head and rounded shoulders. Based on functional limitations, impaired QOL and pain tolerance patient is a good candidate for skilled PT 2x/wk for 4wks. Frequency and Duration: The patient will be seen 2x/wk for 4wks Short Term Goals: (In 2 weeks) Demo I with HEP Improve shoulder AROM by at least 10 degs Demo proper scapular recruitment with appropriate shoulder strengthening exercises Stock Control Supervisor Goals: (in 4 wks) Improve shoulder nonpainful AROM to almost near equal B Demo at least 1 grade improvement in MMT for shoulder Improve SPADI by at least 10 points Improve overall functional QOL by at least 50% Treatment Plan: Modalities to reduce pain, spasms and effusion. Manual therapy to restore motion and function. Therapeutic exercise to improve strength and flexibility. Neuromuscular re-education for posture and balance. Therapeutic activities to return to functional activities of daily living. Electronically signed by: Ashely Santiago PT Please sign and return to therapist. Thank you for your referral.
--- NOTE | 2024-12-05 11:03 | MHC.PT.DC ---
[facility] [place] Office [place] Office [place] Office [address] [phone] F: [phone] F: [phone] F: [phone] F: [phone] Physical Therapy Discharge Report Diagnosis: This is a 64 yo RHD female presenting to skilled PT with a script for subacromial bursitis (R). Date of Surgery: Date of Evaluation: 09/30/24 Date of Discharge: 12/05/24 Treatments to Date: 9 Cancellations to Date: 0 No Shows to Date: 0 Discharge Status: Achieved Goals Improved Function Independent with HEP Patient Elected to Stop Discharge Summary: 11/04: Pt has come to 9 sessions of PT with improvement in ROM, pain and strength, At this time she has met her PT goals and is appropriate for DC. Occasionally, she has a twinge in the bicep with certain movements however this is not all the time. Recommended continuing HEP and following back up with MD as needed if symptoms don't fully resolve or get worse. Close chart after 30 days of patient not being at the facility. Electronically signed by: Ashely Santiago PT Please sign and return to therapist. Thank you for your referral.
== END 2024-12-05 11:04 | disposition home or self-care (01) ==
LOC: HO.PTCHIC 14:00
PROVIDERS: PCP Internal Medicine; Visit Provider Physician Assistant
DX: M75.51 Bursitis of right shoulder (principal)
CPT/HCPCS: 97110; 97140; 97162

== ENCOUNTER 2025-01-21 10:40 | Outpatient (REF) | payer MEDICARE, MEDICAID, SELFPAY ==
--- OUTSIDE RECORDS SUMMARY | 2025-01-21 10:41 | XMS_ITS | Clinical Summary ---
Author Organization [address] [facility] Address [address] [place] [address] Phone Care Team Providers Care Finance Manager Name Role Phone Florence Leonardo MD Primary Care Provider [phone] Allergies No known active allergies Medications clotrimazole (LOTRIMIN) 1 % external solution Apply topically 2 (two) times a day. 30 mL 01/07/20 25 Encounters Date Type Department Care Team Description 12/07/2024 3:45 PM EDT Consult Orthopedic Surgery [facility] [address] [address] Yandel Pritchett DPM Dermatophytosis of nail (Primary Dx); Type 2 diabetes mellitus without complications (CMS/HCC V24, CMS/HCC V28); Pain in toe of right foot; Pain in toe of left foot; Diabetic mononeuropathy simplex (CMS/HCC V24, CMS/HCC V28); Type II diabetes mellitus with peripheral circulatory disorder (CMS/HCC V24, CMS/HCC V28); Metatarsalgia of both feet; Hammer toe of left foot; Acquired hammer toe of right foot 11/16/2024 Telephone Orthopedic Surgery [facility] [address] [address] Yandel Pritchett DPM 10/31/2024 Telephone Orthopedic Surgery [facility] [address] [address] Yandel Pritchett DPM from Last 3 Months Surgical History Surgery Date Site/Laterality Comments BACK SURGERY PROCEDURE: HISTORICAL BACK SURGERY APPENDECTOMY PROCEDURE: HISTORICAL APPENDECTOMY TUBAL LIGATION PROCEDURE: HISTORICAL TUBAL LIGATION Social History Tobacco Use Types Packs/Day Years Used Date Smoking Tobacco: Never Assessed Comments Unknown Sex and Gender Information Value Date Recorded Sex Assigned at Not on file Legal Sex Female 8:18 PM EST Gender Identity Not on file Sexual Orientation Not on file Obstetrics History Last Filed Vital Signs Vital Sign Reading Time Taken Comments Blood Pressure - - Pulse - - Temperature - - Respiratory Rate - - Oxygen Saturation - - Inhaled Oxygen Concentration - - Weight 105 kg (231 lb) 12/07/2024 3:55 PM EDT Height 170.2 cm (5' 7.01 ) 12/07/2024 3:55 PM ED T Body Mass Index 36.17 12/07/2024 3:55 PM EDT Plan of Treatment Health Maintenance Due Date Last Done Comments Breast Cancer Screening 1959 Diabetes: Annual GFR (Glomerular Filtration Rate) 1959 Diabetes: Annual Foot Exam 1969 Diabetes: Annual Retina Eye Exam 1969 DTaP,Tdap,and Td Vaccines (1 - Tdap) 1978 Cervical Cancer Screening: Pap Smear 1980 RSV Immunization Adult Patients (1 - Risk 60-74 years 1-dose series) 2019 Pneumococcal Vaccine: 50+ Years (2 of 2 - PCV) 07/11/2020 07/11/2019, 04/30/2012 Pneumococcal Vaccine: Pediatrics (0 to 5 Years) and At-Risk Patients (6 to 64 Years) (2 of 2 - PCV) 07/11/2020 07/11/2019, 04/30/2012 Cholesterol Screening (Lipid Panel) 10/01/2023 Colorectal Cancer Screening: Colonoscopy 10/01/2023 Depression Screening 10/01/2023 Hepatitis C Screening 10/01/2023 Medicare Annual Wellness Visit 10/01/2023 Osteoporosis Screening (Bone Density Screening) 10/01/2023 Social Influencers of Health Screening 10/01/2023 Falls Risk Assessment 2024 COVID-19 Vaccine ( season) 2024 06/05/2023, 05/28/2022, 03/24/2022, Additional history exists Diabetes: Annual Urine Albumin-Creatinine Ratio (uACR) 06/17/2024 Diabetes: Blood Sugar Control Test (HGBA1C) 06/17/2024 Hypertension/CHF/CAD Annual BMP Blood Test 06/17/2024 Zoster Vaccines Completed 06/06/2020, 07/11/2019 Influenza Vaccine Completed 05/14/2024, , 05/28/2022, Additional history exists HIB Vaccines Aged Out No longer eligi ble based on patient's age to complete this topic HPV Vaccines Aged Out No longer eligi ble based on patient's age to complete this topic Hepatitis A Vaccines Aged Out No long er eligible based on patient's age to complete this topic Hepatitis B Vaccines Aged Out No long er eligible based on patient's age to complete this topic IPV Vaccines Aged Out No longer eligi ble based on patient's age to complete this topic MMR Vaccines Aged Out No longer eligi ble based on patient's age to complete this topic Meningococcal ACWY Vaccine Aged Out N o longer eligible based on patient's age to complete this topic Meningococcal B Vaccine Aged Out No l onger eligible based on patient's age to complete this topic RSV Immunization Patients Under 20 months Aged Out No longer eligible based on patient's age to complete this topic Varicella Vaccines Aged Out No longer eligible based on patient's age to complete this topic Insurance MEDICARE MEDICAID - [place] Care Teams Finance Manager Relationship Specialty Start Date End Date Florence Leonardo MD [address] [place] [address] PCP - General 05/04/24
--- OUTSIDE RECORDS SUMMARY | 2025-01-21 10:41 | XMS_ITS | Data Portability ---
Author Organization ROXI Schmitt [facility] [address] Address [address] [place] [address] Assessment No assessment recorded. Plan of Treatment Reminders Order Date Submit Date Provider Last Modified By Organization Details Last Modified Time Details Appointments None recorded. Lab rapid strep group A, throat 2022 023 [email or web address] [facility], [address] [place] [address], [place], [address], 12:58:02 streptococc us group A, culture, throat [address] [facility], [address] [place] [address], [place], [address], 06:08:10 Referral None recorded. Procedures None recorded. Surgeries None recorded. Imaging None recorded. Medication Orders amoxicillin 875 mg-potassiu m clavulanate 125 mg tablet 2022 023 [facility] #[id number], [address] [facility], [place], [address], 12:58:05 Patient TargetsNo targets recorded. Patient Instructions Encounter Date Encounter Id Patient Instructions Last Modified By Organization Details Last Modified Time 02/11/2023 [id number] cough: care instructions [email or web address] Not available 02/11/2023 [...] care for yourself at home? Take an myfx-yzf-xperyyj pain medicine. Avoid Ibuprofen, Aleve and Aspirin if . If the doctor prescribed antibiotics, take them as directed. Do not stop taking them just because you feel better. You need to take the full course of antibiotics. Be careful when taking mshw-pqa-hoykqdh cold or influenza (flu) medicines and Tylenol [...] Range : Negat mari Not Available [facility] ([facility]) [address] [facility], , [address], 02/14/2023 06:08:10 02/12/2002/11/2023 rapid strep group A, throa t Unknown Analyte Normal = Negati ve Not Available [address] [facility] [address] [place], [address], 02/11/2023 12:46:41 02/12/2002/11/2023 rapid strep group A, throa t Unknown Analyte negati ve Not Available [address] [address] [facility], [place], [address], 02/11/2023 12:46:41 Result Notes None recorded. Problems Name Problem SNOMED Code Status Onset Date Resolution Date Notes Provider Name and Address Organization Details Recorded Time Hyperlipidemia 50735053 Active 2022 JUDY grey PA - [facility] 3 12:16:38 Hypertensive disorder 39066670 Active 2022 JUDY grey, PA - [facility] 3 12:16:45 Diabetes mellitus 79974735 Active 2022 JUDY grey, PA - [facility] 3 12:16:50 Gastroesophage al reflux disease 810914536 Active 2022 [facility], [facility] - [facility] [...] and Address Organization Details Last Updated DateTime 3 170.18 cm 34.5 kg/m2 42787.3 2 g 97 % 97 % 85 /min 18 /min 97.7 [degF] 166 mm[Hg] 97 mm[Hg] JUDY DIANE Sarbari 12:20:05 Social History Question Answer Notes LastModified by [employer] Details LastModified Time Tobacco Smoking Status Never Smoker JUDY grey [employer] 02/11/2023 12:17:17 Have You Had Direct Contact, Or Contact During Intimacy, With Monkeypox Rash, Scabs, Or Body Fluids From A Person With Monkeypox? No Information not available 02/11/2023 Have You Recently Traveled Abroad? No Information not available 02/11/2023 Are You Currently In School? No Information not available 02/11/2023 Sex: Unknown Functional Status Question Answer Note LastModified by [employer] Details LastModified Time Do you use any illicit or recreational drugs? No Information not available 02/11/2023 Do you or have you ever used any other forms of tobacco or nicotine? No Information not available 02/11/2023 What is your level of alcohol consumption? Occasional Information not available 02/11/2023 Are you currently employed? No Information not available 02/11/2023 Mental Status None recorded. Family History Relationship [...] 02/11/2023 12:13:28 zoster recombinant 9 completed JUDY GOODHIND null, PA - [facility] 02/11/2023 12:13:28 COVID-19, mRNA, LNP-S, PF, 30 mcg/0.3 mL dose 1 completed JUDY GOODHIND null, PA - [facility] 02/11/2023 12:13:28 COVID-19, mRNA, LNP-S, PF, 30 mcg/0.3 mL dose 1 completed JUDY GOODHIND null, PA - [facility] 02/11/2023 12:13:28 COVID-19, mRNA, LNP-S, PF, 30 mcg/0.3 mL dose 1 completed JUDY GOODHIND null, PA - [...] Influenza, split virus, trivalent, preservative 1 completed JUDY GOODHIND null, PA - [...] SNOMED-CT Code Diagnosis ICD10 Code Diagnosis Note [id number] [address] [place] [address] 08/28/2017 13:58:11 08/28/2017 14:19:59 [id number] [address] [place] [address] 08/24/2015 11:15:16 08/24/2015 12:01:26 [id number] [address] [place] [address] 01/11/2018 17:22:59 01/11/2018 18:40:48 [id number] Teddy Lockhart NP [address] [place] [address] 02/11/2023 09:58:10 02/11/2023 13:02:23 Acute sinusitis 30768439 J01.90 Health Concerns Section Related Observation LastModified by Organization Detai ls LastModified Time None Recorded Concern Status LastModified by Organization Details LastModified Time None Recorded Advance Directives Directive None Recorded Payers Insurance Date Sequence Insurance Name Policy Number Policy Melton Covered Member ID Melton Member ID Guarantor Name 02/11/2023 1 [place]: [facility] Lorraine Crews [id number] Lorraine Crews 02/18/2023 1 [facility] - HEALTH NET PLAN (MEDICAID HMO) CHENCHO Crews [id number] Lorraine Crews Notes Date Note Type Note Provider Name and Address Organization Details Recorded Time text/html Sore throatReported bypatient.Source of patient informationInformation obtained from patient; Patient arrived at Urgent Care ambulatory; learning styles: auditory Location:throat Severity:mild Quality:sharp; burning Onset/Timin days Associated Symptoms:no sputum production; no shortness of breath; no wheezing; no vomiting; no nausea;sore throat;hoarseness;coughing; sinus pain/ congestion Context:no foreign travel; non-smoker;sick contact Modifying Factors:exposed to Strep non household Teddy Lockhart NP [facility] [place], [address], PA - [facility] 02/11/2023 12:58:40 OBGyn Episode No OBEpisode recorded.
== END 2025-01-21 10:41 | disposition home or self-care (01) ==
LOC: HO.MAMMO 10:40
PROVIDERS: PCP Internal Medicine; Visit Provider Internal Medicine
DX: Z12.31 Encounter for screening mammogram for malignant neoplasm of breast (principal)
CPT/HCPCS: 77063; 77067

== ENCOUNTER → 2025-01-21 10:45 | Outpatient (BNV) | payer MEDICARE, MEDICAID, SELFPAY | PROVIDERS: PCP Internal Medicine; Visit Provider Internal Medicine | DX: Z12.31 Encounter for screening mammogram for malignant neoplasm of breast (principal) | CPT/HCPCS: 77063; 77067 ==

== ENCOUNTER 2025-01-27 15:13 | Outpatient (AMB) | payer MEDICARE, MEDICAID, SELFPAY ==
[2025-01-27 15:14] VITALS: BP 122/80; PULSE 78; O2SAT 98; BMI 37.0
--- NOTE | 2025-01-27 15:14 | A.OFFPC_ITS ---
Vital Signs 01/27/25 15:14 Height 5 ft 7 in Weight 236 lb BMI 37.0 BP 122/80 Blood Pressure Location Lt brachial Position Sitting Pulse 78 Pulse Source Pulse Oximeter Pulse Oximetry (%) 98 Oxygen Delivery Method Room Air Intake Visit Reasons: 3m follow up Induction Machine Setter Required: No Accompanied by: Self / Same As Patient Allergies No Known Allergies Allergy (Verified 10/26/24 13:05) Medication List - Last Reconciled 01/27/25 by Florence Leonardo MD aspirin (Adult Low Dose Aspirin) 81 mg PO DAILY lorazepam 1 mg PO DAILY PRN 30 days losartan 50 mg PO DAILY 90 days metformin 500 mg PO BID metoprolol succinate ER 50 mg PO DAILY montelukast 10 mg PO DAILY 90 days omeprazole 20 mg PO QAM 90 days pravastatin 80 mg PO DAILY 90 days Tobacco use date assessed: 10/26/24 Fall risk assessment: No Falls in past year Last assessed Fall Risk: 01/27/25 Dental Screening Dental Screen Date: 10/26/24 HPI 3m follow up HPI Details History - The patient is a 64-year-old female pr esenting with a follow-up for Type 2 Diabetes Mellitus and obesity management. - The patient reports her last A1c measu rement was 7.0, taken in October. And today it is 6.7 - Previous lab results indicated stable kidney function and normal liver enzyme levels. - She has been on metformin 500 mg twice daily for diabetes management. - The patient has expressed concerns abo ut obesity, noting discomfort and foot pain. - BMI is reported at 37, implicating sig nificant challenges with weight management. - She mentions emotional eating, particu larly when feeling bored or depressed, contributing to her weight management issues. - She has tried new sneakers to alleviat e foot discomfort but finds standing all day problematic. - The patient is considering medication assistance with weight loss and inquires about potential treatment options for obesity. - Current medications include metoprolol , montelukast, losartan 50 mg, and lorazepam. Problem List - Type 2 Diabetes Mellitus - Essential Hypertension - obesity with BMI of 37.0 - bilateral foot pain - lipid disorder - anxiety and depression awaiting therap ist appointment Patient Instructions - Continue taking metformin, metoprolol, montelukast, losartan, and lorazepam as prescribed. - Use Vizine allergy eye drops as needed for allergic symptoms. - If you medicinal plant picker the Wegovy prescription , contact our office to schedule a session with a nurse for injection instructions. - Monitor for nausea and report any unus ual symptoms, such as bloating or pancreatic symptoms. If injection started - Schedule labs in three months, labs ar e needed fasting before next visit. - Keep track of eating habits and attemp t to distinguish between hunger and emotional eating. - Consider lifestyle modifications, such as joining a gym to facilitate non- weight bearing activities. Review of Systems - General: No fever no chills - Neurological: No headaches no dizziness - Ear nose throat: No sore throat no hearing difficulty no ear pain - Cardiovascular: No syncope, no chest pain, no palpitations - Gastrointestinal: No nausea vomiting or diarrhea - Endocrine: No polyuria polydipsia no heat intolerance - Genitourinary: No dysuria , no blood in urine Physical Exam General: No acute distress HEENT: No acute findings Neck: Supple Respiratory system: Able to talk in full sentences, no audible wheeze Cardiovascular: S1-S2 regular in rate and rhythm Gastrointestinal: No pain Extremities: No new findings, patient reports foot discomfort WORM GROWER: Alert awake oriented x3 motor sensory intact Skin: Normal turgor [facility] Medical History Sprain of left ankle Diverticulosis Tubular adenoma GERD (gastroesophageal reflux disease) On beta michael at home Tubular adenoma Obesity Hard of hearing Chronic otitis media of right ear Lipid disorder Dyspepsia Hypertension, essential Anxiety, generalized Diabetes 1.5, managed as type 2 Difficulty sleeping Surgical History Hx of endoscopy History of surgery History of back surgery History of colonoscopy History of appendectomy History of tubal ligation Family History Father No problems noted. 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 Cognitive needs: No Hearing needs: No Vision needs: Yes Female Reproductive History Menstrual Age of Menarche: 15 Questionnaire Thrive Questionnaire Date Thrive assessed: 01/27/25 I am a: Patient What is your living situation today?: I have a steady place to live Within the past 12 months, did the food you bought not last and you didn't have the money to get more?: Never true Within the past 12 months, did you worry whether your food would run out before you got money to buy more?: Never true Do you have trouble paying for medicines?: No Do you have trouble getting transportation to medical appointments?: No Do you have trouble paying your heating and electricity bill?: No Do you have trouble taking care of your child, family member or friend?: No Do you have trouble with day-to-day activities such as bathing, preparing meals, shopping, managing finances, etc.?: No Are you currently unemployed and looking for a job?: No Are you interested in more education?: No Please select the resources that you would like help with: None Currently or been in a relationship where the following occur: No concerns reported THRIVE Score: 0 YISEL-7 AMB Questionnaire YISEL-7 Date YISEL - 7 assessed: 10/26/24 Source: Developed by Drs. Bethel Caceres, Paige Russ, Kye Foy and colleagues, with an educational shaunna from [employer]. Physical exam (Primary Care) Vital Signs: Last Vital Signs Pulse 78 01/27/25 15:14 BP 122/80 01/27/25 15:14 Pulse Ox 98 01/27/25 15:14 Oxygen Delivery Method Room Air 01/27/25 15:14 BMI result Body Mass Index 37.0 Tobacco/Smoking Status: Tobacco use Status Tobacco use date assessed 10/26/24 01/27/25 15:16 Patient Tobacco Use Status Former Tobacco user 01/27/25 15:16 e-Cigarette/Vaping Use Never Used 01/27/25 15:16 Thrive Assessment: Date of Thrive Assessment Date Thrive assessed 01/27/25 01/27/25 15:16 Currently or been in a relationship where the following occur: No concerns reported Results AMB Hemoglobin A1c AMB Hemoglobin A1c 6.7 % Last Edit by Sang Ribeiro CMA on 05/23/25 15: 28 Results Reviewed Results Reviewed: Laboratory Last Values Hgb A1c (Clinic) 6.7 % (4.0-6.0) H 01/27/25 15:21 Coding Level of Care Code Est Pt Level 4 (10068) Complex EM visit Add On G2211 Diagnoses Diabetes 1.5, managed as type 2 E13.9 Anxiety, generalized F41.1 Difficulty sleeping G47.9 Hypertension, essential I10 Lipid disorder E78.9 Dyspepsia R10.13 Class 2 severe obesity due to excess calories with serious comorbidity and body mass index (BMI) of 36.0 to 36.9 in adult E66.812; E66.01; Z68.36 Body mass index: BMI 36.0-36.9 Obesity classification: adult class 2 (BMI 35 - 39.9) Serious obesity comorbidity presence: with serious comorbidity Assessment & Plan Assessment & Plan (1) Diabetes 1.5, managed as type 2: Code(s): E13.9 - Other specified diabetes mellitus without complications Category: Medical (2) Anxiety, generalized: Code(s): F41.1 - Generalized anxiety disorder Category: Medical (3) Difficulty sleeping: Code(s): G47.9 - Sleep disorder, unspecified Category: Medical (4) Hypertension, essential: Code(s): I10 - Essential (primary) hypertension Category: Medical (5) Lipid disorder: Code(s): E78.9 - Disorder of lipoprotein metabolism, unspecified Category: Medical (6) Dyspepsia: Code(s): R10.13 - Epigastric pain Category: Medical (7) Obesity due to excess calories: Code(s): E66.09 - Other obesity due to excess calories Category: Medical Qualifiers: Body mass index: BMI 36.0-36.9 Obesity classification: adult class 2 (BMI 35 - 39.9) Serious obesity comorbidity presence: with serious comorbidity Qualified Code(s): E66.812 - Obesity, class 2; E66.01 - Morbid (severe) obesity due to excess calories; Z68.36 - Body mass index [BMI] 36.0-36.9, adult Plan History - The patient is a 64-year-old female presenting with a follow-up for Type 2 Diabetes Mellitus and obesity management. - The patient reports her last A1c measurement was 7.0, taken in October. And today it is 6.7 - Previous lab results indicated stable kidney function and normal liver enzyme levels. - She has been on metformin 500 mg twice daily for diabetes management. - The patient has expressed concerns about obesity, noting discomfort and foot pain. - BMI is reported at 37, implicating significant challenges with weight management. - She mentions emotional eating, particularly when feeling bored or depressed, contributing to her weight management issues. - She has tried new sneakers to alleviate foot discomfort but finds standing all day problematic. - The patient is considering medication assistance with weight loss and inquires about potential treatment options for obesity. - Current medications include metoprolol, montelukast, losartan 50 mg, and lorazepam. Problem List - Type 2 Diabetes Mellitus - Essential Hypertension - obesity with BMI of 37.0 - bilateral foot pain - lipid disorder - anxiety and depression awaiting therapist appointment Patient Instructions - Continue taking metformin, metoprolol, montelukast, losartan, and lorazepam as prescribed. - Use Vizine allergy eye drops as needed for allergic symptoms. - If you medicinal plant picker the Wegovy prescription, contact our office to schedule a session with a nurse for injection instructions. - Monitor for nausea and report any unusual symptoms, such as bloating or pancreatic symptoms. If injection started - Schedule labs in three months, labs are needed fasting before next visit. - Keep track of eating habits and attempt to distinguish between hunger and emotional eating. - Consider lifestyle modifications, such as joining a gym to facilitate non- weight bearing activities. Orders: Orders AMB Hemoglobin A1c Today Z13.9 - Encounter for screening, unspecified Hemoglobin A1c Today E13.9 - Other specified diabetes mellitus without complications, E66.01 - Morbid (severe) obesity due to excess calories, E66.812 - Obesity, class 2, E78.9 - Disorder of lipoprotein metabolism, unspecified, F41.1 - Generalized anxiety disorder, G47.9 - Sleep disorder, unspecified, I10 - Essential (primary) hypertension, R10.13 - Epigastric pain, Z68.36 - Body mass index [BMI] 36.0-36.9, adult Comprehensive Sasabe. Panel Fast Today E13.9 - Other specified diabetes mellitus without complications, E66.01 - Morbid (severe) obesity due to excess calories, E66.812 - Obesity, class 2, E78.9 - Disorder of lipoprotein metabolism, unspecified, F41.1 - Generalized anxiety disorder, G47.9 - Sleep disorder, unspecified, I10 - Essential (primary) hypertension, R10.13 - Epigastric pain, Z68.36 - Body mass index [BMI] 36.0-36.9, adult Lipid Panel Today E13.9 - Other specified diabetes mellitus without complications, E66.01 - Morbid (severe) obesity due to excess calories, E66.812 - Obesity, class 2, E78.9 - Disorder of lipoprotein metabolism, unspecified, F41.1 - Generalized anxiety disorder, G47.9 - Sleep disorder, unspecified, I10 - Essential (primary) hypertension, R10.13 - Epigastric pain, Z68.36 - Body mass index [BMI] 36.0-36.9, adult TSH reflex Free T4 Today E13.9 - Other specified diabetes mellitus without complications, E66.01 - Morbid (severe) obesity due to excess calories, E66.812 - Obesity, class 2, E78.9 - Disorder of lipoprotein metabolism, unspecified, F41.1 - Generalized anxiety disorder, G47.9 - Sleep disorder, unspecified, I10 - Essential (primary) hypertension, R10.13 - Epigastric pain, Z68.36 - Body mass index [BMI] 36.0-36.9, adult Complete Blood Count Auto Diff Today E13.9 - Other specified diabetes mellitus without complications, E66.01 - Morbid (severe) obesity due to excess calories, E66.812 - Obesity, class 2, E78.9 - Disorder of lipoprotein metabolism, unspecified, F41.1 - Generalized anxiety disorder, G47.9 - Sleep disorder, unspecified, I10 - Essential (primary) hypertension, R10.13 - Epigastric pain, Z68.36 - Body mass index [BMI] 36.0-36.9, adult Medications: New Abrahamgocece (semaglutide (weight loss)) administer weeks 1 through 4 of therapy 0.25 mg (0.5 mL) subcut QWEEK 2 mL 0RF NS Refilled lorazepam 1 mg PO DAILY 30 days PRN 30 tabs 2RF anxiety F41.1 - Generalized anxiety disorder, G47.9 - Sleep disorder, unspecified
--- OUTSIDE RECORDS SUMMARY | 2025-01-27 15:17 | XMS_ITS | Data Portability ---
Author Organization [facility]I [facility] [address] Address [address] [place] [address] Assessment No assessment recorded. Plan of Treatment Reminders Order Date Submit Date Provider Last Modified By Organization Details Last Modified Time Details Appointments None recorded. Lab rapid strep group A, throat 2022 023 [email or web address] [facility], [address] [place] [address], [place], [address], 12:58:02 streptococc us group A, culture, throat 2022 023 [facility], [address] [place] [address], [place], [address], 06:08:10 Referral None recorded. Procedures None recorded. Surgeries None recorded. Imaging None recorded. Medication Orders amoxicillin 875 mg-potassiu m clavulanate 125 mg tablet 2022 023 [facility] #[id number], [address] [facility], [place], [address], 12:58:05 Patient TargetsNo targets recorded. Patient Instructions Encounter Date Encounter Id Patient Instructions Last Modified By Organization Details Last Modified Time 02/11/2023 [id number] cough: care instructions [email or web address] Not available 02/11/2023 [...] care for yourself at home? Take an wfal-khm-ryartui pain medicine. Avoid Ibuprofen, Aleve and Aspirin if . If the doctor prescribed antibiotics, take them as directed. Do not stop taking them just because you feel better. You need to take the full course of antibiotics. Be careful when taking gzos-utx-nqrkvnd cold or influenza (flu) medicines and Tylenol [...] Range : Negat mari Not Available [facility] ([facility]) [address] [facility], [place], [address], 02/14/2023 06:08:10 02/12/2002/11/2023 rapid strep group A, throa t Unknown Analyte Normal = Negati ve Not Available [address] [facility] [address] [place], [address], 02/11/2023 12:46:41 02/12/2002/11/2023 rapid strep group A, throa t Unknown Analyte negati ve Not Available [address] [address] [facility], [place], [address], 02/11/2023 12:46:41 Result Notes None recorded. Problems Name Problem SNOMED Code Status Onset Date Resolution Date Notes Provider Name and Address Organization Details Recorded Time Hyperlipidemia 90335303 Active 2022 JUDY grey PA - [facility] 3 12:16:38 Hypertensive disorder 67259050 Active 2022 JUDY grey, PA - [facility] 12:16:45 Diabetes mellitus 09102035 Active 2022 JUDY grey, PA - [facility] 3 12:16:50 Gastroesophage al reflux disease 471645620 Active 2022 JUDY grey, [facility] - [facility] [...] Updated DateTime 3 170.18 cm 34.5 kg/m2 61914.3 2 g 97 % 97 % 85 /min 18 /min 97.7 [degF] 166 mm[Hg] 97 mm[Hg] JUDY DIANE [employer] 12:20:05 Social History Question Answer Notes LastModified by [employer] Details LastModified Time Tobacco Smoking Status Never Smoker JUDY grey [employer] 02/11/2023 12:17:17 Have You Had Direct Contact, Or Contact During Intimacy, With Monkeypox Rash, Scabs, Or Body Fluids From A Person With Monkeypox? No Information not available 02/11/2023 Have You Recently Traveled Abroad? No Information not available 02/11/2023 Are You Currently In School? No Information not available 02/11/2023 Sex: Unknown Functional Status Question Answer Note LastModified by [employer] Details LastModified Time Do you use any [...] SNOMED-CT Code Diagnosis ICD10 Code Diagnosis Note [id number] [address] [place] [address] 08/28/2017 13:58:11 08/28/2017 14:19:59 [id number] [address] [place] [address] 08/24/2015 11:15:16 08/24/2015 12:01:26 [id number] [address] [place] [address] 01/11/2018 17:22:59 01/11/2018 18:40:48 [id number] Teddy Lockhart NP [address] [place] [address] 02/11/2023 09:58:10 02/11/2023 13:02:23 Acute sinusitis 88862876 J01.90 Health Concerns Section Related Observation LastModified by Organization Detai ls LastModified Time None Recorded Concern Status LastModified by Organization Details LastModified Time None Recorded Advance Directives Directive None Recorded Payers Insurance Date Sequence Insurance Name Policy Number Policy Melton Covered Member ID Melton Member ID Guarantor Name 02/11/2023 1 [place]: [facility] Lorraine Crews [id number] Lorraine Crews 02/18/2023 1 [facility] - HEALTH NET PLAN (MEDICAID HMO) CHENCHO Crews [id number] Lorraine Crews Notes Date Note Type Note [...] to Strep non household Teddy Lockhart NP [facility] [place], [address], [place] - [facility] 02/11/2023 12:58:40 OBGyn Episode No OBEpisode recorded.
== END 2025-01-27 15:32 | disposition home or self-care (01) ==
LOC: HO.HMCC 15:14
PROVIDERS: PCP Internal Medicine; Visit Provider Internal Medicine
DX: E13.9 Other specified diabetes mellitus without complications (principal); E66.812 Obesity, class 2; E66.01 Morbid (severe) obesity due to excess calories; Z68.36 Body mass index [BMI] 36.0-36.9, adult; F41.1 Generalized anxiety disorder; G47.9 Sleep disorder, unspecified; I10 Essential (primary) hypertension; E78.9 Disorder of lipoprotein metabolism, unspecified; R10.13 Epigastric pain

== ENCOUNTER → 2025-01-27 15:13 | Outpatient (BNVA) | payer MEDICARE, MEDICAID, SELFPAY | PROVIDERS: PCP Internal Medicine; Visit Provider Internal Medicine | DX: E13.9 Other specified diabetes mellitus without complications (principal); F41.1 Generalized anxiety disorder; G47.9 Sleep disorder, unspecified; I10 Essential (primary) hypertension; E78.9 Disorder of lipoprotein metabolism, unspecified; R10.13 Epigastric pain; E66.812 Obesity, class 2; E66.01 Morbid (severe) obesity due to excess calories; Z68.36 Body mass index [BMI] 36.0-36.9, adult; Z71.3 Dietary counseling and surveillance | CPT/HCPCS: 83036; 99212 ==

== ENCOUNTER 2025-03-01 14:28 | Outpatient (AMB) | payer MEDICARE, MEDICAID, SELFPAY ==
--- NOTE | 2025-03-01 14:55 | MHC.OFFVIS ---
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 She is doing well with protective services case worker concerns: skin bumps external vulva left side. Currently sexually active. Denies any vaginal dryness or irritation. STI testing offered; she accepts. Attempting to eat a healthy diet with calcium and vitamin D and stays active limited exercise w/foot pain. Last pap smear; 2021, negative. Last mammogram; 2024. Colonoscopy is UTD. Denies any family history of breast or ovarian. FHcolon cancer. [facility] Medical History (Updated 03/01/25 @ 16:19 by Marcella Tovar CNM) Sprain of left ankle Diverticulosis Tubular adenoma GERD (gastroesophageal reflux disease) On beta michael at home Tubular adenoma Obesity Hard of hearing Chronic otitis media of right ear Lipid disorder Dyspepsia Hypertension, essential Anxiety, generalized Diabetes 1.5, managed as type 2 Difficulty sleeping Surgical History Hx of endoscopy History of surgery History of back surgery History of colonoscopy History of appendectomy History of tubal ligation Family History Father No problems noted. 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 Cognitive needs: No Hearing needs: No Vision needs: Yes Female Reproductive History Menstrual Age of Menarche: 15 control method: permanent sterilization Permanent Sterilization: BTL Menopause type: natural Total pregnancies: 6 Full term: 3 Number of Living Children: 3 Ab induced: 3 Date of last pap smear: 03/17/22 (neg pap and hpv) Date of Mammogram: 01/21/25 (Birad 1) Review of Systems Const All systems reviewed & are unremarkable except as noted in HPI and below Reports as per HPI Eyes Reports no additional complaints ENT Reports no additional complaints Card Reports no additional complaints Resp Reports no additional complaints GI Reports as per HPI and Reports no additional complaints Reports as per HPI Musc Reports no additional complaints Skin/Breast Reports as per HPI Neuro Reports no additional complaints Psych Reports no additional complaints Endo Reports no additional complaints Herberth/Lymph Reports no additional complaints Aller/Immun Reports no additional complaints Physical Exam Vital Signs: Last Vital Signs BP 150/78 H 03/01/25 14:58 BMI result Body Mass Index 37.1 Const General: cooperative, healthy appearing, no acute distress, well developed and alert Orientation/consciousness: patient oriented x3 HEENT Head: Yes normal to inspection Eyes General: appearance normal, both eyes and all related structures Neck Neck: Yes normal visual inspection Thyroid: Thyroid normal Chest Chest palpation & inspection: normal inspection of the chest and other (no puckering, dimpling, peau de orange, retraction, discharge, masses) Breast/axilla inspection: normal inspection of the breasts Breast/axilla palpation: normal palpation of the breasts Resp Effort & Inspection: normal respiratory effort GI Inspection: Yes normal to inspection Palpation (GI): Soft to palpation Rectal Exam - Female: deferred General: Yes bladder normal to palpation External Female Exam: normal external appearance and normal appearance of the urethra Speculum Exam - Vagina: normal appearance of the vagina, normal palpation and normal vaginal discharge Speculum Exam - Cervix: normal appearance of the cervix and normal palpation Bimanual exam- vagina & uterus: normal bimanual exam, normal palpation, uterine size normal, bladder normal to palpation, normal palpation and non-tender Bimanual Exam- Adnexa, other: no masses Female genitals images:  1. brown firm lesion 2. brown firm lesion Skin General skin exam: no rashes or lesions noted Rashes: no rashes Neuro General: patient oriented x3 Cognition (Neuro): normal cognition Extrem General: Yes normal to inspection Psych Attitude: cooperative Thought process: Normal thought process present Assessment & Plan Assessment & Plan (1) Encounter for annual routine gynecological examination: Code(s): Z01.419 - Encounter for gynecological examination (general) (routine) without abnormal findings Category: Medical Plan: Discussed: Current recommendations for pap smears per ASCCP guidelines. Breast awareness, periodic self breast exams and yearly mammogram. Maintain a healthy lifestyle, well balanced diet including Calcium 1,200 mg and Vitamin D 600 IU daily, and routine exercise. Contact the office with any postmenopausal bleeding. Patient verbalizes understanding and agrees to the plan of care. She was given opportunity to ask questions and all questions were answered to the best of my ability. RTO in 1 year for annual protective services case worker exam. This note is constructed using voice recognition software. While every effort has been made to ensure accuracy, home lighting adviser errors may have been included. (2) Vulvar lesion: Code(s): N90.89 - Other specified noninflammatory disorders of vulva and perineum Plan Counseled regarding findings of lesions and recommended a skin biopsy to evaluate further. The patient expressed understanding and agreement with the plan of care. All of her questions and concerns were addressed to the best of my ability. Patient agrees to schedule for a skin biopsy. Preprocedure anticipatory guidance reviewed. This note is constructed using voice recognition software. While every effort has been made to ensure accuracy, home lighting adviser errors may have been included. Coding Level of Care Code Est Pt Prev Care >65y(20557) Diagnoses Encounter for annual routine gynecological examination Z01.419 Vulvar lesion N90.89
[2025-03-01 14:58] VITALS: BP 150/78; BMI 37.1
--- OUTSIDE RECORDS SUMMARY | 2025-03-01 17:17 | XMS_ITS | Data Portability ---
Author Organization [facility], [address] Address [address] [place] [address] Assessment No assessment recorded. Plan of Treatment Reminders Order Date Submit Date Provider Last Modified By Organization Details Last Modified Time Details Appointments None recorded. Lab rapid strep group A, throat 2022 023 [email or web address] [facility], [address] [place] [address], [place], [address], 3 12:58:02 streptococc us group A, culture, throat 2022 023 [place] [facility], [address] [place] [address], [place], [address], 3 06:08:10 Referral None recorded. Procedures None recorded. Surgeries None recorded. Imaging None recorded. Medication Orders amoxicillin 875 mg-potassiu m clavulanate 125 mg tablet 2022 023 [facility][id number], [address] [facility], [place], [address], 3 12:58:05 Patient TargetsNo targets recorded. Patient Instructions Encounter Date Encounter Id Patient Instructions Last Modified By Organization Details Last Modified Time 02/11/2023 [id number] cough: care instructions [email or web address] Not available 02/11/2023 [...] care for yourself at home? Take an dqkn-vyl-ownfbqw pain medicine. Avoid Ibuprofen, Aleve and Aspirin if . If the doctor prescribed antibiotics, take them as directed. Do not stop taking them just because you feel better. You need to take the full course of antibiotics. Be careful when taking eqwo-wlc-zyyqppy cold or influenza (flu) medicines and Tylenol [...] Range : Negat mari Not Available [facility] ([facility]) [address] [facility], [place], [address], 02/14/2023 06:08:10 02/12/2002/11/2023 rapid strep group A, throa t Unknown Analyte Normal = Negati ve Not Available [address] [place], [address], 02/11/2023 12:46:41 02/12/2002/11/2023 rapid strep group A, throa t Unknown Analyte negati ve Not Available [address] [address] [facility], [place], [address], 02/11/2023 12:46:41 Result Notes None recorded. Problems Name Problem SNOMED Code Status Onset Date Resolution Date Notes Provider Name and Address Organization Details Recorded Time Hyperlipidemia 68426319 Active 2022 JUDY grey PA - [facility] 3 12:16:38 Hypertensive disorder 13201097 Active 2022 JUDY grey, PA - [facility] 3 12:16:45 Diabetes mellitus 30071262 Active 2022 JUDY grey, PA - [facility] 3 12:16:50 Gastroesophage al reflux disease 351451202 Active 2022 JUDY grey, [facility] - [facility] [...] Last Updated DateTime 170.18 cm 34.5 kg/m2 29431.3 2 g 97 % 97 % 85 /min 18 /min 97.7 [degF] 166 mm[Hg] 97 mm[Hg] JUDY DIANE [employer] 12:20:05 Social History Question Answer Notes LastModified by [employer] Details LastModified Time Tobacco Smoking Status Never Smoker JUDY grey [employer] 02/11/2023 12:17:17 Have You Had Direct Contact, Or Contact During Intimacy, With Monkeypox Rash, Scabs, Or Body Fluids From A Person With Monkeypox? No Information not available 02/11/2023 Have You Recently Traveled Abroad? No Information not available 02/11/2023 Are You Currently In School? No Information not available 02/11/2023 Sex: Unknown Functional Status Question Answer Note LastModified by [employer] Details LastModified Time Do you use any [...] SNOMED-CT Code Diagnosis ICD10 Code Diagnosis Note [id number] [address] [place] [address] 08/28/2017 13:58:11 08/28/2017 14:19:59 [id number] [address] [place] [address] 08/24/2015 11:15:16 08/24/2015 12:01:26 [id number] [address] [place] [address] 01/11/2018 17:22:59 01/11/2018 18:40:48 [id number] Teddy Lockhart NP [address] [place] [address] 02/11/2023 09:58:10 02/11/2023 13:02:23 Acute sinusitis 74560183 J01.90 Health Concerns Section Related Observation LastModified by Organization Detai ls LastModified Time None Recorded Concern Status LastModified by Organization Details LastModified Time None Recorded Advance Directives Directive None Recorded Payers Insurance Date Sequence Insurance Name Policy Number Policy Melton Covered Member ID Melton Member ID Guarantor Name 02/11/2023 1 [place]: [facility] Lorraine Crews [id number] Lorraine Crews 02/18/2023 1 [facility] NET PLAN (MEDICAID HMO) CHENCHO Crews [id number] Lorraine Crews Notes Date Note Type Note [...] Strep non household Teddy Lockhart NP [address] [place], [address], [place] - [facility] 02/11/2023 12:58:40 OBGyn Episode No OBEpisode recorded.
== END 2025-03-02 07:08 | disposition home or self-care (01) ==
LOC: HO.HWS 14:29
PROVIDERS: PCP Internal Medicine; Visit Provider Advanced Practice Midwife
DX: Z01.419 Encounter for gynecological examination (general) (routine) without abnormal findings (principal); N90.89 Other specified noninflammatory disorders of vulva and perineum
CPT/HCPCS: 99213; G0101

== ENCOUNTER → 2025-03-01 14:28 | Outpatient (BNVA) | payer MEDICARE, MEDICAID, SELFPAY | PROVIDERS: PCP Internal Medicine; Visit Provider Advanced Practice Midwife | DX: Z01.419 Encounter for gynecological examination (general) (routine) without abnormal findings (principal); N90.89 Other specified noninflammatory disorders of vulva and perineum | CPT/HCPCS: 99212; G0101 ==

== ENCOUNTER 2025-03-30 10:55 | Outpatient (REF) | payer MEDICARE, MEDICAID, SELFPAY | END 2025-03-30 10:56 | disposition home or self-care (01) | LOC: HO.LNP 10:55 | PROVIDERS: PCP Internal Medicine; Visit Provider Advanced Practice Midwife | DX: N90.89 Other specified noninflammatory disorders of vulva and perineum (principal); Z79.82 Long term (current) use of aspirin; Z79.899 Other long term (current) drug therapy | CPT/HCPCS: 56605; 56606; 88305; 88312 ==

== ENCOUNTER 2025-03-30 10:55 | Outpatient (AMB) | payer MEDICARE, MEDICAID, SELFPAY ==
[2025-03-30 11:33] VITALS: BP 144/84; BMI 37.1
--- NOTE | 2025-03-30 11:33 | MHC.OFFVIS ---
Vital Signs 03/30/25 11:33 Height 5 ft 7 in Weight 237 lb BMI 37.1 BP 144/84 H Blood Pressure Location Rt brachial Position Sitting Intake Visit Reasons: skin biopsy Intake Note: skin biopsy on vulva Global Marketing Manager Required: No Information Interpreted: non-clinical & clinical Circle Beveler: Circle Beveler Present (Citlaly) Accompanied by: Self / Same As Patient Allergies No Known Allergies Allergy (Verified 03/30/25 11:35) Medication List - Last Reconciled 03/30/25 by Lorena Salguero LPN aspirin (Adult Low Dose Aspirin) 81 mg PO DAILY lorazepam 1 mg PO DAILY PRN 30 days losartan 50 mg PO DAILY 90 days metformin 500 mg PO BID metoprolol succinate ER 50 mg PO DAILY montelukast 10 mg PO DAILY 90 days omeprazole 20 mg PO QAM 90 days pravastatin 80 mg PO DAILY 90 days Do you need a note to return to daycare/school/sports/work: No HPI Comments Details: Patient is here today for a skin biopsy of the vulva she reports 2 lesions that are itchy on the left side. [facility] Medical History Vulvar lesion Sprain of left ankle Diverticulosis Tubular adenoma GERD (gastroesophageal reflux disease) On beta michael at home Tubular adenoma Obesity Hard of hearing Chronic otitis media of right ear Lipid disorder Dyspepsia Hypertension, essential Anxiety, generalized Diabetes 1.5, managed as type 2 Difficulty sleeping Surgical History Hx of endoscopy History of surgery History of back surgery History of colonoscopy History of appendectomy History of tubal ligation Family History Father No problems noted. 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 lower lesion 2. Upper lesion Office Procedures Skin Biopsy Details: Vulvar Biopsy: Preop Diagnosis: Vulvar biopsy. The patient was consented for a vulvar skin biopsy procedure today. The purpose of the procedure is to rule out any skin abnormalities in the area of concern(s) including: PRIYA, or skin conditions such as lichen sclerosis. All the risks and benefits were reviewed. The risk of the procedure including: pain, bleeding, swelling, bruising, injury to nerves blood supply, and surrounding tissue, scarring, and permanent skin discoloration. All of her questions and concerns were addressed to the best of my ability and shared decision making. She is agreeable to the plan of care. The patient was placed in the dosal lithotomy position. Using aseptic technique for the procedure the biopsy area was cleansed and prepped with Betadine solution. The skin area was anesthetized with Lidocaine 1% using a 3cc syringe and a 25g needle, 0.5cc was injected perpendicular into the dermis at the biopsy site until elevation was noted. A Shave biopsy technique was utilized to both areas identified . The bleeding site was minimal and controlled by direct pressure for several seconds. Vaseline ointment and guaze dressing was applied to the biopsy site. The patient tolerated the procedure well and left the department in good condition. Post biopsies skin care: Keep the area clean and dry. Apply Vaseline to the area as directed for the 1st week. Wear loose clothing and avoid intimacy until well healed. Report any signs of infection: Fever flu-like symptom, increased pain, redness, any foul odor or pus discharge. Return to the office in 2 weeks for biopsy results. Call sooner if any concerns. All of her questions and concerns were addressed to the best of my ability and shared decision making. She is agreeable to the plan of care. This note is constructed using voice recognition software. While every effort has been made to ensure accuracy, manager outreach errors may have been included. Skin biopsy performed by: Marcella Tovar Informed consent given: Yes Consent signed: Yes Type of Biopsy: shave Anesthesia: local Hemostasis: pressure Wound closure: secondary intention Patient tolerated procedure: well Complications: No Assessment & Plan Assessment & Plan (1) Vulvar lesion: Code(s): N90.89 - Other specified noninflammatory disorders of vulva and perineum Category: Medical Plan Vulvar skin biopsy completed 2 samples obtained sent to pathology for processing. Patient to receive an appointment for 2 week follow up to discuss results. Complete instructions for skin care were reviewed and patient was given a care package with supplies to take home. The patient expressed understanding and agreement with the plan of care. All of her questions and concerns were addressed to the best of my ability. This note is constructed using voice recognition software. While every effort has been made to ensure accuracy, manager outreach errors may have been included. Orders: Orders Surgical Today N90.89 - Other specified noninflammatory disorders of vulva and perineum Coding Level of Care Code Procedure Only Diagnoses Vulvar lesion N90.89
--- OUTSIDE RECORDS SUMMARY | 2025-03-30 11:44 | XMS_ITS | Data Portability ---
Author Organization [facility], [address] Address [address] [place] [address] Assessment No assessment recorded. Plan of Treatment Reminders Order Date Submit Date Provider Last Modified By Organization Details Last Modified Time Details Appointments None recorded. Lab rapid strep group A, throat 2022 023 [email or web address] [facility], [address] [place] [address], [place], [address], 3 12:58:02 streptococc us group A, culture, throat 2022 023 [place] [facility], [address] [place] [address], [place], [address], 3 06:08:10 Referral None recorded. Procedures None recorded. Surgeries None recorded. Imaging None recorded. Medication Orders amoxicillin 875 mg-potassiu m clavulanate 125 mg tablet 2022 023 [facility] #[id number], [address] [facility], [place], [address], 3 12:58:05 Patient TargetsNo targets recorded. Patient Instructions Encounter Date Encounter Id Patient Instructions Last Modified By Organization Details Last Modified Time 02/11/2023 [id number] cough: care instructions [email or web address] Not available 02/11/2023 [...] care for yourself at home? Take an rylw-yii-soxliom pain medicine. Avoid Ibuprofen, Aleve and Aspirin if . If the doctor prescribed antibiotics, take them as directed. Do not stop taking them just because you feel better. You need to take the full course of antibiotics. Be careful when taking snyc-vzz-fnaleet cold or influenza (flu) medicines and Tylenol [...] Range : Negat mari Not Available [facility] ([facility]) [address] [facility], [place], [address], 02/14/2023 06:08:10 02/12/2002/11/2023 rapid strep group A, throa t Unknown Analyte Normal = Negati ve Not Available [address] [place], [address], 02/11/2023 12:46:41 02/12/2002/11/2023 rapid strep group A, throa t Unknown Analyte negati ve Not Available [address] [address] [facility], [place], [address], 02/11/2023 12:46:41 Result Notes None recorded. Problems Name Problem SNOMED Code Status Onset Date Resolution Date Notes Provider Name and Address Organization Details Recorded Time Hyperlipidemia 99242689 Active 2022 JUDY grey PA - [facility] 3 12:16:38 Hypertensive disorder 30399847 Active 2022 JUDY grey, PA - [facility] 3 12:16:45 Diabetes mellitus 70954652 Active 2022 JUDY grey, PA - [facility] 3 12:16:50 Gastroesophage al reflux disease 514210773 Active 2022 JUDY grey, [facility] - [facility] [...] Heart rate Respiratory rate Body temperature Systolic And Diastolic Provider Name and Address Organization Details Last Updated DateTime 3 170.18 cm 34.5 kg/m2 31032.3 2 g 97 % 97 % 85 /min 18 /min 97.7 [degF] 166/97 mm[Hg] JUDY DIANE [facility] 12:20:05 Social History Question Answer Notes LastModified by [employer] Details LastModified Time Tobacco Smoking Status Never Smoker [facility] [employer] 02/11/2023 12:17:17 Have You Had Direct Contact, Or Contact During Intimacy, With Monkeypox Rash, Scabs, Or Body Fluids From A Person With Monkeypox? No Information not available 02/11/2023 Have You Recently Traveled Abroad? No Information not available 02/11/2023 Are You Currently In School? No Information not available 02/11/2023 Sex: Unknown Functional Status Question Answer Note LastModified by [employer] Details LastModified Time Do you use any [...] SNOMED-CT Code Diagnosis ICD10 Code Diagnosis Note [id number] [address] [place] [address] 08/28/2017 13:58:11 08/28/2017 14:19:59 [id number] [address] [place] [address] 08/24/2015 11:15:16 08/24/2015 12:01:26 [id number] [address] [place] [address] 01/11/2018 17:22:59 01/11/2018 18:40:48 [id number] Teddy Lockhart NP [address] [place] [address] 02/11/2023 09:58:10 02/11/2023 13:02:23 Acute sinusitis 95979727 J01.90 Health Concerns Section Related Observation LastModified by Organization Detai ls LastModified Time None Recorded Concern Status LastModified by Organization Details LastModified Time None Recorded Advance Directives Directive None Recorded Payers Insurance Date Sequence Insurance Name Policy Number Policy Melton Covered Member ID Melton Member ID Guarantor Name 02/11/2023 1 MEDICAID-[place]: [facility] Lorraine Crews [id number] Lorraine Crews 02/18/2023 1 [facility] NET PLAN (MEDICAID HMO) CHENCHO Crews [id number] Lorraine Crews Notes Date Note Type Note Provider Name and Address Organization Details Recorded Time 02/11/2023 text/html Sore throatRepor yue by PatientSore ThroatFor associated symptoms, patient reportssore throat,hoarseness,cough ing, andsinus pain/ congestionbut reportsno sputum production,no shortness of breath,no wheezing,no vomiting, andno nausea. For context, patient reportssick contactbut reportsno foreign travelandnon-smoker. For modifying factors, patient reportsexposed to strep non household. For source of patient information, patient reportsinformation obtained from patient,patient arrived at urgent care ambulatory, andlearning styles: auditory. For location, patient reportsthroat. For severity, patient reportsmild. For quality, patient reportssharpandburning. For onset/timing, patient reports3 days. CoughReported by Patient Teddy Lockhart NP [address] [place], [address], PA - [facility] 02/11/2023 12:58:40 OBGyn Episode No OBEpisode recorded.
--- OUTSIDE RECORDS SUMMARY | 2025-03-30 11:44 | XMS_ITS | Clinical Summary ---
Author Organization [address] [facility] Address [address] [place] [address] Phone Care Team Providers Care Business Analyst Ecommerce Name Role Phone Florence Leonardo MD Primary Care Provider [phone] Allergies No known active allergies Medications No known medications Surgical History Surgery Date Site/Laterality Comments BACK [...] Panel) 10/01/2023 Colorectal Cancer Screening: Colonoscopy 10/01/2023 Hepatitis C Screening 10/01/2023 Medicare Annual Wellness Visit 10/01/2023 Osteoporosis Screening (Bone Density Screening) 10/01/2023 Social Influencers of Health Screening 10/01/2023 Falls Risk Assessment 2024 COVID-19 Vaccine ( season) 2024 06/05/2023, 05/28/2022, 03/24/2022, Additional history exists Diabetes: Annual Urine Albumin-Creatinine Ratio (uACR) 06/17/2024 Diabetes: Blood Sugar Control Test (HGBA1C) 06/17/2024 Hypertension/CHF/CAD Annual BMP Blood Test 06/17/2024 Depression Screening 09/07/2024 Influenza Vaccine (#1) 2025 , 07/14/2023, 05/28/2022, Additional history exists Zoster Vaccines Completed 06/06/2020, 07/11/2019 HIB Vaccines Aged Out No longer eligi [...] Insurance MEDICARE MEDICAID - [place] Care Teams Business Analyst Ecommerce Relationship Specialty Start Date End Date Florence Leonardo MD [address] [place] [id number] PCP - General 05/04/24
== END 2025-03-30 12:11 | disposition home or self-care (01) ==
LOC: HO.HWS 10:56
PROVIDERS: PCP Internal Medicine; Visit Provider Advanced Practice Midwife
DX: N90.89 Other specified noninflammatory disorders of vulva and perineum (principal)
CPT/HCPCS: 56605; 56606

== ENCOUNTER 2025-05-02 09:20 | Outpatient (REF) | payer MEDICARE, MEDICAID, SELFPAY ==
--- OUTSIDE RECORDS SUMMARY | 2025-05-02 09:46 | XMS_ITS | Clinical Summary ---
Author Organization 175 [facility] Address [address] [place] [address] Phone Care Team Providers Care Exhaust Machine Operator Name Role Phone Florence Leonardo MD Primary Care Provider [phone] Allergies No known active allergies Medications No [...] Insurance MEDICARE MEDICAID - [place] Care Teams Exhaust Machine Operator Relationship Specialty Start Date End Date Florence Leonardo MD [address] [place] [id number] PCP - General 05/04/24
[2025-05-02 13:26] LABS: MANUAL DIFF FLAG NO
[2025-05-02 13:39] LABS: Hematocrit 40.3 % (37.0-47.0); Hemoglobin 12.7 g/dl (12.0-16.0); Imm Gran Abs Auto 0.02 X10*3/uL (0.00-0.03); Imm Gran Pct Auto 0.3 % (0.0-0.4); Lymphocytes Absolute Auto 1.9 X10*3/uL (1.2-4.9); Mean Corpuscular HGB Conc 31.5 g/dl (31.0-35.0); Mean Corpuscular Hemoglobin 27.1 pg (27.0-33.0); Mean Corpuscular Volume 86.1 fL (80.0-98.0); NRBC Abs Auto 0.000 X10*3/uL (0.0-0.012); NRBC Pct Auto 0.0 /100WBC (0.0-0.2); Platelet Count 257 X10*3/uL (160-400); Red Blood Count 4.68 X10*6/uL (4.20-5.50); White Blood Count 6.5 X10*3/uL (4.8-10.8)
[2025-05-02 13:55] LABS: Hemoglobin A1C 176.6976 umol/L; Total Hemoglobin (HGBA1C) 3335.7832 umol/L
[2025-05-02 14:19] LABS: Alanine Aminotransferase 20 U/L (0-31); Albumin Level 4.6 g/dL (3.5-5.0); Alkaline Phosphatase 65 U/L (39-117); Anion Gap 13 (12-20); Aspartate Amino Transferase 26 U/L (5-31); Blood Urea Nitrogen 17 mg/dL (9-16); Calcium 9.6 mg/dL (8.4-10.2); Carbon Dioxide 25 mmol/L (22-29); Chloride 107 mmol/L (96-108); Cholesterol 190 mg/dL (<200); Estimated Glomerular Filt Rate > 60; HDL Cholesterol 47 mg/dL (>40); Potassium 4.7 mmol/L (3.3-5.1); Sodium 140 mmol/L (135-145); Total Protein 6.9 g/dL (6.5-8.0); Triglycerides 186 mg/dL (<150)
[2025-05-02 15:26] LABS: Free T4 (Free Thyroxine) 0.91 ng/dL (0.71-1.85)
== END 2025-05-02 09:21 | disposition home or self-care (01) ==
LOC: HO.HMGCLDS 09:20
PROVIDERS: PCP Internal Medicine; Visit Provider Internal Medicine
DX: E13.9 Other specified diabetes mellitus without complications (principal); F41.1 Generalized anxiety disorder; G47.9 Sleep disorder, unspecified; I10 Essential (primary) hypertension; E78.9 Disorder of lipoprotein metabolism, unspecified; R10.13 Epigastric pain; E66.01 Morbid (severe) obesity due to excess calories; E66.812 Obesity, class 2; Z68.36 Body mass index [BMI] 36.0-36.9, adult
CPT/HCPCS: 36415; 80053; 80061; 83036; 84439; 84443; 85025

== ENCOUNTER 2025-05-03 15:24 | Outpatient (AMB) | payer MEDICARE, MEDICAID, SELFPAY ==
--- NOTE | 2025-05-03 15:29 | A.OFFPC_ITS ---
Vital Signs 05/03/25 15:30 Height 5 ft 7 in Weight 236 lb BMI 37.0 BP 130/84 Blood Pressure Location Lt brachial Position Sitting Respiration 16 Pulse 79 Pulse Source Pulse Oximeter Pulse Oximetry (%) 95 Oxygen Delivery Method Room Air Intake Visit Reasons: 3 months f/up Pickle Pumper Required: No Accompanied by: Self / Same As Patient Allergies No Known Allergies Allergy (Verified 05/03/25 15:33) Medication List - Last Reconciled 05/03/25 by Florence Leonardo MD aspirin (Adult Low Dose Aspirin) 81 mg PO DAILY lorazepam 1 mg PO DAILY PRN 30 days losartan 50 mg PO DAILY 90 days metformin 500 mg PO BID metoprolol succinate ER 50 mg PO DAILY montelukast 10 mg PO DAILY 90 days omeprazole 20 mg PO QAM 90 days pravastatin 80 mg PO DAILY 90 days Tobacco use date assessed: 05/03/25 Fall risk assessment: No Falls in past year Last assessed Fall Risk: 05/03/25 Dental Screening Dental Screen Date: 05/03/25 Did you have a dental visit in the last 12 months?: Yes Did you have a dental problem in the last 6 months where you did not have access to dental care?: No Was dental information given to patient?: Patient has dentist HPI 3 months f/up HPI Details History The patient is a 64-year-old female presenting with chest pain. And regular follow-up Chest Pain: - Symptoms began approximately a week an d a half ago. - Described as substernal pain more pron ounced on the right side. - Episodes of pain occurred intermittent ly throughout the day, lasting several hours. - Aggravating factors such as deep breat maci or movement were not identified. - No correlation with food intake was re ported. - Pain spontaneously resolved two days p rior to the visit. - Associated with anxiety about potentia l cardiac issues. - Denies respiratory symptoms or changes in chest pain with activities. 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 - No reported tobacco, alcohol, or drug use Family History: - Family history of thyroid disorders re ported in siblings Problem List - Hypertension - Diabetes Mellitus - Generalized Anxiety Disorder - Dyspepsia - Lipid Disorder - Obesity - Possible Hypothyroidism (pending furth er evaluation) - abnormal EKG Diagnostic results - Labs: CBC normal, electrolytes normal, kidney function normal, liver enzymes normal - A1c: 17 (potential miscommunication or requires clarification as it seems unusually high) - Thyroid function abnormal (details not specified for extent of deviation) - Cholesterol: LDL levels good Patient Instructions - Undergo an EKG as ordered. - Follow up and repeat thyroid function tests in three months. - Continue with current medications and lifestyle routine. - Monitor for symptoms such as chest koffi n and seek care if symptoms recur. - undergo echocardiogram - see Cardiology for further workup Follow-up 3 months Review of Systems General: No fever no chills neurological: No headaches no dizziness ear nose throat: No sore throat no hearing difficulty no ear pain cardiovascular: No syncope no palpitations gastrointestinal: No nausea vomiting or diarrhea endocrine: No polyuria polydipsia no heat intolerance genitourinary: No dysuria skin: No new complaints Physical Exam general: No acute distress HEENT: No acute findings neck: Supple respiratory system: Able to talk in full sentences, no audible wheeze no stridor cardiovascular: S1-S2 RRR gastrointestinal: No pain extremities: No new findings SHOW CARD LETTERER: Alert awake oriented x3 motor sensory intact skin: Normal turgor PFSH Medical History Vulvar lesion Sprain of left ankle Diverticulosis Tubular adenoma GERD (gastroesophageal reflux disease) On beta michael at home Tubular adenoma Obesity Hard of hearing Chronic otitis media of right ear Lipid disorder Dyspepsia Hypertension, essential Anxiety, generalized Diabetes 1.5, managed as type 2 Difficulty sleeping Surgical History Hx of endoscopy History of surgery History of back surgery History of colonoscopy History of appendectomy History of tubal ligation Family History Father No problems noted. 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 1. Little interest or pleasure in doing things: not at all 2. Feeling down, depressed, or hopeless: not at all 3. Trouble falling or staying asleep, or sleeping too much: not at all 4. Feeling tired or having little energy: not at all 5. Poor appetite or overeating: not at all 6. Feeling bad about yourself - or that you are a failure or have let yourself or your family down: not at all 7. Trouble concentrating on things, such as reading the newspaper or watching television: not at all 8. Moving or speaking so slowly that other people could have noticed. Or the opposite - being so fidgety or restless that you have been moving around a lot more than usual: not at all 9. Thoughts that you would be better off or of hurting yourself in some way: not at all Total score: 0 Depression Screening Interpretation: Negative Depression Screening Done: Yes 92677 - PHQ-9 Billing: Yes Source: Developed by Drs. Bethel Caceres, Paige Russ, Kye Foy and colleagues, with an educational shaunna from [employer]. Thrive Questionnaire Date Thrive assessed: 10/26/24 I am a: Patient What is your living situation today?: I have a steady place to live Within the past 12 months, did the food you bought not last and you didn't have the money to get more?: Never true Within the past 12 months, did you worry whether your food would run out before you got money to buy more?: Never true Do you have trouble paying for medicines?: No Do you have trouble getting transportation to medical appointments?: No Do you have trouble paying your heating and electricity bill?: No Do you have trouble taking care of your child, family member or friend?: No Do you have trouble with day-to-day activities such as bathing, preparing meals, shopping, managing finances, etc.?: No Are you currently unemployed and looking for a job?: No Are you interested in more education?: No Please select the resources that you would like help with: None Currently or been in a relationship where the following occur: No concerns reported THRIVE Score: 0 YISEL-7 AMB Questionnaire YISEL-7 Date YISEL - 7 assessed: 05/03/25 Feeling nervous, anxious, or on edge: 0 = Not at all Not being able to stop or control worryin = Not at all Worrying too much about different things: 0 = Not at all Trouble relaxin = Not at all Being so restless that it is hard to sit still: 0 = Not at all Becoming easily annoyed or irritable: 0 = Not at all Feeling afraid as if something awful might happen: 0 = Not at all Total YISEL-7 score (0-4 normal; 5-9 mild; 10-14 moderate; 15-21 severe): 0 Source: Developed by Drs. Bethel Caceres, Paige Russ, Kye Foy and colleagues, with an educational shaunna from [employer]. YISEL-7 Assessment Billing YISEL-7 Assessment Tool: YISEL-7 Assessment 75506 Physical exam (Primary Care) Vital Signs: Last Vital Signs Pulse 79 05/03/25 15:30 Resp 16 05/03/25 15:30 BP 130/84 05/03/25 15:30 Pulse Ox 95 05/03/25 15:30 Oxygen Delivery Method Room Air 05/03/25 15:30 BMI result Body Mass Index 37.0 Tobacco/Smoking Status: Tobacco use Status Tobacco use date assessed 05/03/25 05/03/25 15:34 Patient Tobacco Use Status Former Tobacco user 05/03/25 15:33 e-Cigarette/Vaping Use Never Used 05/03/25 15:33 PHQ-9: PHQ-9 Score PHQ-9: Total score 0 05/03/25 16:01 Depression Screening Interpretation: Negative Thrive Assessment: Date of Thrive Assessment Date Thrive assessed 10/26/24 05/03/25 15:33 Currently or been in a relationship where the following occur: No concerns reported Office Procedures EKG 12540-Unmjrxsmflmzbnhty, Complete Coding Level of Care Code Est Pt Level 5 (97844) Diagnoses Other chest pain R07.89 Chest pain type: other chest pain Right bundle branch block I45.10 Hypertension, essential I10 Diabetes 1.5, managed as type 2 E13.9 Lipid disorder E78.9 Class 2 severe obesity due to excess calories with serious comorbidity and body mass index (BMI) of 36.0 to 36.9 in adult E66.812; E66.01; Z68.36 Body mass index: BMI 36.0-36.9 Obesity classification: adult class 2 (BMI 35 - 39.9) Serious obesity comorbidity presence: with serious comorbidity Gastroesophageal reflux disease without esophagitis K21.9 Esophagitis presence: without esophagitis CPT Codes EKG - CPT: 75389-Yvkjbeexxookzdzxs, Complete ([id number]) Additional Codes YISEL-7 Assessment Billing - YISEL-7 Assessment Tool: YISEL-7 Assessment 15208 ([id number]) PHQ-9 - 93562 - PHQ-9 Billing: Yes ([id number]) Time Spent (min) 40 Comment Reviewing chart/labs/oltl-ux-cxzq/EKG/coordination of care Assessment & Plan Assessment & Plan (1) Chest pain: Code(s): R07.9 - Chest pain, unspecified Category: Medical Qualifiers: Chest pain type: other chest pain Qualified Code(s): R07.89 - Other chest pain (2) Right bundle branch block: Code(s): I45.10 - Unspecified right bundle-branch block Category: Medical (3) Hypertension, essential: Code(s): I10 - Essential (primary) hypertension Category: Medical (4) Diabetes 1.5, managed as type 2: Code(s): E13.9 - Other specified diabetes mellitus without complications Category: Medical (5) Lipid disorder: Code(s): E78.9 - Disorder of lipoprotein metabolism, unspecified Category: Medical (6) Obesity due to excess calories: Code(s): E66.09 - Other obesity due to excess calories Category: Medical Qualifiers: Body mass index: BMI 36.0-36.9 Obesity classification: adult class 2 (BMI 35 - 39.9) Serious obesity comorbidity presence: with serious comorbidity Qualified Code(s): E66.812 - Obesity, class 2; E66.01 - Morbid (severe) obesity due to excess calories; Z68.36 - Body mass index [BMI] 36.0-36.9, adult (7) GERD (gastroesophageal reflux disease): Code(s): K21.9 - Gastro-esophageal reflux disease without esophagitis Category: Medical Qualifiers: Esophagitis presence: without esophagitis Qualified Code(s): K21.9 - Gastro-esophageal reflux disease without esophagitis Plan History The patient is a 64-year-old female presenting with chest pain. And regular follow-up Chest Pain: - Symptoms began approximately a week and a half ago. - Described as substernal pain more pronounced on the right side. - Episodes of pain occurred intermittently throughout the day, lasting several hours. - Aggravating factors such as deep breathing or movement were not identified. - No correlation with food intake was reported. - Pain spontaneously resolved two days prior to the visit. - Associated with anxiety about potential cardiac issues. - Denies respiratory symptoms or changes in chest pain with activities. 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 - No reported tobacco, alcohol, or drug use Family History: - Family history of thyroid disorders reported in siblings Problem List - Hypertension - Diabetes Mellitus - Generalized Anxiety Disorder - Dyspepsia - Lipid Disorder - Obesity - Possible Hypothyroidism (pending further evaluation) - abnormal EKG Diagnostic results - Labs: CBC normal, electrolytes normal, kidney function normal, liver enzymes normal - A1c: 17 (potential miscommunication or requires clarification as it seems un usually high) - Thyroid function abnormal (details not specified for extent of deviation) - Cholesterol: LDL levels good Patient Instructions - Undergo an EKG as ordered. - Follow up and repeat thyroid function tests in three months. - Continue with current medications and lifestyle routine. - Monitor for symptoms such as chest pain and seek care if symptoms recur. - undergo echocardiogram - see Cardiology for further workup Follow-up 3 months Orders: Orders TSH reflex Free T4 3 Months E13.9 - Other specified diabetes mellitus without complications, E66.01 - Morbid (severe) obesity due to excess calories, E66.812 - Obesity, class 2, E78.9 - Disorder of lipoprotein metabolism, unspecified, I10 - Essential (primary) hypertension, K21.9 - Gastro-esophageal reflux disease without esophagitis, R07.9 - Chest pain, unspecified, Z68.36 - Body mass index [BMI] 36.0-36.9, adult Comprehensive Met. Panel 3 Months E13.9 - Other specified diabetes mellitus without complications, E66.01 - Morbid (severe) obesity due to excess calories, E66.812 - Obesity, class 2, E78.9 - Disorder of lipoprotein metabolism, unspecified, I10 - Essential (primary) hypertension, K21.9 - Gastro-esophageal reflux disease without esophagitis, R07.9 - Chest pain, unspecified, Z68.36 - Body mass index [BMI] 36.0-36.9, adult Microalbumin, Random (w Creat) 3 Months E13.9 - Other specified diabetes mellitus without complications, E66.01 - Morbid (severe) obesity due to excess calories, E66.812 - Obesity, class 2, E78.9 - Disorder of lipoprotein metabolism, unspecified, I10 - Essential (primary) hypertension, K21.9 - Gastro- esophageal reflux disease without esophagitis, R07.9 - Chest pain, unspecified, Z68.36 - Body mass index [BMI] 36.0-36.9, adult Thyroglobulin Antibodies 3 Months E13.9 - Other specified diabetes mellitus without complications, E66.01 - Morbid (severe) obesity due to excess calories, E66.812 - Obesity, class 2, E78.9 - Disorder of lipoprotein metabolism, unspecified, I10 - Essential (primary) hypertension, K21.9 - Gastro-esophageal reflux disease without esophagitis, R07.9 - Chest pain, unspecified, Z68.36 - Body mass index [BMI] 36.0-36.9, adult Hemoglobin A1c 3 Months E13.9 - Other specified diabetes mellitus without complications, E66.01 - Morbid (severe) obesity due to excess calories, E66.812 - Obesity, class 2, E78.9 - Disorder of lipoprotein metabolism, unspecified, I10 - Essential (primary) hypertension, K21.9 - Gastro-esophageal reflux disease without esophagitis, R07.9 - Chest pain, unspecified, Z68.36 - Body mass index [BMI] 36.0-36.9, adult CA echo transthoracic complete 05/03/25 E78.9 - Disorder of lipoprotein metabolism, unspecified, I10 - Essential (primary) hypertension, I45.10 - Unspecified right bundle-branch block, R07.89 - Other chest pain Referrals Cardiology Referral E78.9 - Disorder of lipoprotein metabolism, unspecified, I10 - Essential (primary) hypertension, I45.10 - Unspecified right bundle-branch block, R07.89 - Other chest pain
[2025-05-03 15:30] VITALS: BP 130/84; PULSE 79; RESP 16; O2SAT 95; BMI 37.0
--- OUTSIDE RECORDS SUMMARY | 2025-05-03 16:38 | XMS_ITS | Clinical Summary ---
Author Organization 175 [facility] Address [address] [place] [address] Phone Care Team Providers Care Bulk Sealer Name Role Phone Florence Leonardo MD Primary Care Provider [phone] Allergies No known active allergies Medications No [...] Insurance MEDICARE MEDICAID - [place] Care Teams Bulk Sealer Relationship Specialty Start Date End Date Florence Leonardo MD [address] [place] [phone] PCP - General 05/04/24
== END 2025-05-03 15:58 | disposition home or self-care (01) ==
LOC: HO.HMCC 15:25
PROVIDERS: PCP Internal Medicine; Visit Provider Internal Medicine
DX: R07.89 Other chest pain (principal); E13.9 Other specified diabetes mellitus without complications; E66.01 Morbid (severe) obesity due to excess calories; Z68.36 Body mass index [BMI] 36.0-36.9, adult; I45.10 Unspecified right bundle-branch block; I10 Essential (primary) hypertension; E78.9 Disorder of lipoprotein metabolism, unspecified; E66.812 Obesity, class 2; K21.9 Gastro-esophageal reflux disease without esophagitis

== ENCOUNTER → 2025-05-03 15:24 | Outpatient (BNVA) | payer MEDICARE, MEDICAID, SELFPAY | PROVIDERS: PCP Internal Medicine; Visit Provider Internal Medicine | DX: R07.89 Other chest pain (principal); I45.10 Unspecified right bundle-branch block; I10 Essential (primary) hypertension; E78.9 Disorder of lipoprotein metabolism, unspecified; E13.9 Other specified diabetes mellitus without complications; E66.812 Obesity, class 2; E66.01 Morbid (severe) obesity due to excess calories; Z68.36 Body mass index [BMI] 36.0-36.9, adult; K21.9 Gastro-esophageal reflux disease without esophagitis; Z71.3 Dietary counseling and surveillance; Z87.891 Personal history of nicotine dependence | CPT/HCPCS: 93005; 96127; 99212 ==

== ENCOUNTER → 2025-06-16 14:41 | Outpatient (REF) | payer MEDICARE, MEDICAID, SELFPAY ==
--- NOTE | 2025-06-16 14:43 | CA_ITS ---
Transthoracic Echocardiogram Patient (Last, First, Middle): Lorraine Crews E Gender: F Date of : 1960 Age: 65 Procedure Date: 06/16/2025 Procedure Type: Transthoracic Echocardiogram Location: OP Height: 170.18 cm Weight: 104.33 kg BSA: 2.15 m2 Heart Rate: bpm BP: 128 / 70 mmHg Catering And Events Manager: TO Referring MD: Florence Leonardo MD Symptoms: I10 - Essential (primary) hypertension Study Quality: Fair/Contrast Conclusions: - 1. Normal LV ejection fraction of 60 65% 2. Mild calcific aortic valve changes noted with normal cardiac valvular Dopplers 3. No gross pericardial effusion Findings Procedure Information Contrast agent, definity, is being given per protocol without apparent complications. Left Ventricle Normal left ventricular size, thickness, and systolic function. The visually estimated ejection fraction is between 60-65%. Spectral Doppler is indicative of a normal filling pattern. Right Ventricle Normal right ventricular cavity size and systolic function. Atria Both atria are normal in size. There is no evidence of interatrial shunt. Aortic Valve There is mild calcification of the aortic valve. There is mild thickening of the aortic valve. There is no aortic valve stenosis. There is no aortic valve regurgitation. Mitral Valve Normal mitral valve structure and function. There is trace mitral valve regurgitation. There is no mitral valve stenosis. Pulmonic Valve The pulmonic valve is likely normal. Tricuspid Valve Normal tricuspid valve structure. There is trace tricuspid valve regurgitation. Great Vessels All visible segments of the aorta are normal in size. The pulmonary artery was not well visualized. Venous The inferior vena cava is normal in size and collapses greater than 50% with inspiration. Pericardium/Pleural There is no evidence of pericardial effusion. Prior Study Comparison No prior study available for comparison. Measurements 2D Linear Measurements IVSd: 1.01 0.6-0.9/0.6-1.0 cm LVIDd: 4.22 3.9-5.3/4.2-5.9 cm LVIDd Index: 1.96 2.4-3.2/2.2-3.1 cm/m2 LVIDs: 3.02 2.0-3.6 cm LVPWd: 0.81 0.7-1.1 cm LA Diam: 3.50 2.7-3.8/3.0-4.0 cm LAIDs Index: 1.63 1.5-2.3 cm/m2 LV Mass: 150.89 67-162/88-224 g LV Mass Index: 70.18 43-95/49-115 g/m2 LVOT Diam: 2.20 3.0+(-)1.3 cm 2D Systolic Function EF 4C: 63.50 >55% EF 2C: 61.40 >55% EF BiP: 61.50 >55% Mitral Valve MV Pk E: 0.76 MV PK A: 0.43 MV Decel Time: 239.00 E/A: 1.80 E'Lateral: 9.14 E'Medial: 6.20 E/E' Med: 12.30 E/E' Lat: 8.30 PHT: 70.00 MVA PHT: 3.14 Decel Gonzales: 3.19 Aortic Valve AoV Pk Conner: 1.26 AoV Mn Conner: 0.85 AoV VTI: 0.29 AoV Pk Grad: 6.00 Aov Mn Grad: 3.00 ROSI Cont.VTI: 2.53 LVOT LVOT Pk Conner: 0.85 LVOT Mn Conner: 0.58 LVOT VTI: 0.19 LVOT Pk Grad: 3.00 LVOT Mn Grad: 2.00 LVOT Diam: 2.20 LVOT Area: 3.80 Diastolic Function MV Pk E: 0.76 MV Pk A: 0.43 E/A: 1.80 E'Medial: 6.20 E/E' Med: 12.30 E' Laterial: 9.14 E/E' Lat: 8.30 Right Ventricle TAPSE (mm): 25.80 TVS' Conner: 11.20 Tricuspid Valve RA Press: 8.00 Great Vessels Aorta Sinus of Valsalva: 3.12 2.0-3.5 cm Ao Asc: 3.30 2.1-3.4 cm Ao Arch: 3.10 Updated in Other Vendor System with Status of Final Guilherme Rausch MD electronically signed on 06/16/2025 5:11:36 PM with status of Final
== END ==
LOC: HO.CARD 14:41
PROVIDERS: PCP Internal Medicine; Visit Provider Internal Medicine
DX: R07.89 Other chest pain (principal); I10 Essential (primary) hypertension; I45.10 Unspecified right bundle-branch block
CPT/HCPCS: 93306; Q9957

== ENCOUNTER → 2025-06-16 14:43 | Outpatient (BNV) | payer MEDICARE, MEDICAID, SELFPAY | PROVIDERS: PCP Internal Medicine; Visit Provider Internal Medicine Cardiovascular Disease | DX: I35.8 Other nonrheumatic aortic valve disorders (principal) | CPT/HCPCS: 93306 ==

== ENCOUNTER 2025-07-10 08:48 | Outpatient (AMB) | payer MEDICARE, MEDICAID, SELFPAY ==
--- OUTSIDE RECORDS SUMMARY | 2025-07-06 14:30 | XMS_ITS | Encounter Summary ---
Author Organization [facility] Address [id number] [place] [phone] Care Team Providers Care Music Promoter Name Role Phone Florence Leonardo MD Primary Care Provider [phone] Reason for Visit * Reason Comments DM Foot Care Encounter Details Date Type Department Care Team ([facility] st Contact Info) Description 07/06/2025 3:30 PM EDT Office Visit Orthopedic Surgery [address] [phone] Yandel Pritchett DPM [address] [place] [phone] Acquired hammer toe of right foot (Primary Dx); Dermatophytosis of nail; Metatarsalgia of both feet; Hammer toe of left foot; Diabetic mononeuropathy simplex (CMS/HCC V24, CMS/HCC V28); Pain in toe of left foot; Pain in toe of right foot; Type II diabetes mellitus with peripheral circulatory disorder (CMS/HCC V24, CMS/HCC V28); Ingrowing nail Social History Tobacco Use Types Packs/Day Years Used Date Smoking Tobacco: Never Assessed Comments Unknown Sex and Gender Information Value Date Recorded Sex Assigned at Not on file Legal Sex Female 8:18 PM EST Gender Identity Not on file Sexual Orientation Not on file documented as of this encounter Ordered Prescriptions Prescription Sig Dispense Quantity Refills Last Filled Start Date End Date clotrimazole (LOTRIMIN) 1 % cream Apply topically 2 (two) times a day. 30 g 3 07/06/2025 documented in this encounter Progress Notes * Yandel Pritchett DPM - 07/06/2025 3:30 PM EDT S Patient does have evaluation of patient as she is getting numbness burning tingling both feet is ongabapentin with some improvement notes her nails are long and painful thickened of both great toes and stenosed to grow in her skin she is wonder what her treatment options are for that this her toesbeen curling occasionally bother is a 5 out of 10 visual analog scale Last PCP visit Florence Leonardo MD 04/28/25 ROS: GENERAL: Pt denies nausea, fever, vomiting, chills, or shortness of breath. Pt in NAD. CARDIOLOGY: pt denies chest pain, palpitations LUNGS: pt denies shortness of breath MUSCULOSKELETAL: See HPI, otherwise no joint pain or swelling, back pain, or muscle pain. 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 ACTIVE MEDICATIONS: Current Outpatient Medications Medication Sig Dispense Refill Diclofenac Sodium 1 % Gel Apply 4 g topically 2 times daily. 100 g 2 aspirin 81 MG chewable tablet Take 1 Tablet by mouth daily. fluticasone 50 MCG/ACT nasal spray 2 Sprays by Each Nare route daily. lorazepam (ATIVAN) 1 MG tablet Take 1 Tablet by mouth every 6 hours as needed. losartan (COZAAR) 50 MG tablet Take 1 Tablet by mouth daily. metformin (GLUCOPHAGE) 500 MG tablet Take 1 Tablet by mouth 2 times daily (with meals). metoprolol (TOPROL-XL) 50 MG 24 hr tablet Take 1 Tablet by mouth daily. OMEPRAZOLE OR Take 20 mg by mouth daily. pravastatin (PRAVACHOL) 80 MG tablet Take 1 Tablet by mouth daily. No current facility-administered medications for this visit. ALLERGIES: Patient has no known allergies. PHYSICAL EXAM: Height 5' 7 (1.702 m), weight 231 lb (104.8 kg). Estimated body mass index is 36.18 kg/m?? as calculated from the following: Height as of this encounter: 5' 7 (1.702 m). Weight as of this encounter: 231 lb (104.8 kg). BMI PLAN PODIATRIC EXAMINATION: GENERAL: Patient appears well nourished, with NAD. VASCULAR: Dorsalis pedis pulses are 2/4 bilaterally and Posterior tibial pulses are 2/4 bilaterally. Capillary filling time within normal limits the digits. No pallor on elevation or rubor on dependency. Diminished hair growth. No varicosities. Denies rest pain or claudication pain. NEUROLOGICAL: Sharp/dull sensation diminished, protective sensation intact 10/10 with 5.07 semmes deena bilaterally, vibratory sensation with tuning fork intact to the tibial tuberosity. ORTHOPEDIC: Good muscle strength 5/5 of all flexors and extensors. Dorsi flexion of ankle ,10 degrees, plantar flexion WNL. No muscle atrophy. DERMATOLOGICAL:.Diffuse hyperkeratoses balls of both feet Toenails: Left Toenail(s) 1 subungual debris, discoloration, hypertrophic, elongation, mycotic appearance, onychomycosis, pain and thickening. Right Toenail(s) 1: subungual debris, discoloration, hypertrophic, elongation, mycotic appearance, onychomycosis, pain and thickening. BIOMECHANICS: STJ ROM wnl, MTJ ROM wnl, 1st MPJ ROM wnl. Fat pad atrophy bilateral fat pad with palpation of the first second third fourth and fifth metatarsals bilaterally mild hammertoe contractures reducible 2 through 5 bilateral IMAGING: IMPRESSION: 1. Dermatophytosis of nail 2. Metatarsalgia of both feet 3. Hammer toe of left foot 4. Acquired hammer toe of right foot 5. Diabetic mononeuropathy simplex (CMS/HCC V24, CMS/HCC V28) 6. Pain in toe of left foot 7. Pain in toe of right foot 8. Type II diabetes mellitus with peripheral circulatory disorder (CMS/HCC V24, CMS/HCC V28) PLAN: Pt was seen and examined, history reviewed. Treatment options for chronic recurring ingrowing nails were discussed reviewed include nail removal matrixectomy patient that she would like to hold off on my surgical procedure at this time - Discussed in detail anti-inflammatory medications, resting icing stretching, prefabricated insoles versus custom insoles, New rx sent for Clotrimazole prescribed Discussed and reviewed supportive shoe gear recommend patient follow-up with diabetic shoes insoles. Prescribed new prescription offered Discussed and reviewed silicone toe sleeve to because wider shoe gear for accommodative hammertoe contractural deformities progression of hammertoes were discussed and reviewed Discussed with patient regarding proper glucose control, exercise, and diet. Explained to patient proper shoe gear, and importance of daily foot checks. I reviewed neuropathy and why it occurs in diabetics. I educated the patient on proper blood sugar control and the importance of an HgBA1c of less than 7.0%. I reviewed the signs and symptoms of neuropathy with the patient Pt to return for another evaluation in 1-3 months. Debridement of mycotic toenails 2: Verbal informed consent was obtained from the patient. less than6 nails were aseptically debrided in thickness and length with nail nippers Yandel Pritchett DPM documented in this encounter Plan of Treatment Upcoming Encounters Date Type Department Care Team (Late st Contact Info) Description 10/09/2025 3:00 PM EST Office Visit Orthopedic Surgery - [address] [phone] Yandel Pritchett DPM [address] [place] [phone] documented as of this encounter Visit Diagnoses Diagnosis Acquired hammer toe of right foot- Primary Dermatophytosis of nail Metatarsalgia of both feet Hammer toe of left foot Diabetic mononeuropathy simplex (CMS/HCC V24, CMS/[facility] V28) Type II or unspecified type diabetes mellitus with neurological manifestations, not stated as uncontrolled Pain in toe of left foot Pain in soft tissues of limb Pain in toe of right foot Pain in soft tissues of limb Type II diabetes mellitus with peripheral circulatory disorder (CMS/HCC V24, CMS/HCC V28) Type II or unspecified type diabetes mellitus with peripheral circulatory disorders, not stated as uncontrolled Ingrowing nail documented in this encounter Historical Medications * This list may reflect changes made after this encounter. naproxen (NAPROSYN) 500 mg tablet Take 1 tablet (500 mg total) by mouth 2 (two) times a day if needed. for pain 09/21/2024 pravastatin (PRAVACHOL) 80 mg tablet Take 1 tablet (80 mg total) by mouth 1 (one) time each day. omeprazole (PriLOSEC) [address] capsule Take 1 capsule (20 mg total) by mouth 1 (one) time each day in the morning. 04/16/2025 montelukast (SINGULAIR) 10 mg tablet Take 1 tablet (10 mg total) by mouth 1 (one) time each day. 06/23/2025 metoprolol succinate (TOPROL-XL) 50 mg 24 hr tablet Take 1 tablet (50 mg total) by mouth 1 (one) time each day. metFORMIN (GLUCOPHAGE) 500 mg tablet Take 1 tablet (500 mg total) by mouth 2 (two) times a day. losartan (COZAAR) 50 mg tablet Take 1 tablet (50 mg total) by mouth 1 (one) time each day. LORazepam (ATIVAN) 1 mg tablet TAKE 1 TABLET BY MOUTH DAILY NEEDED FOR ANXIETY FOR 30 DAYS added in this encounter Care Teams Music Promoter Relationship Specialty Start Date End Date Florence Leonardo MD [address] [place] [phone] PCP - General 05/04/24 documented as of this encounter
--- NOTE | 2025-07-10 08:49 | MHC.OFFWIV ---
Intake Vital Signs 07/10/25 08:50 Height 5 ft 7 in Weight 234 lb BMI 36.6 BP 130/80 Blood Pressure Location Lt brachial Position Sitting Pulse 84 Pulse Source Pulse Oximeter Pulse Oximetry (%) 98 Oxygen Delivery Method Room Air Intake Visit Reasons: ep pain in lower back radiating down left leg Intake Note: Patient presents c/o left sided low back pain that radiates through left buttock & left lower leg (does not radiate into thigh) x3 weeks Patient Tobacco Use Status: Former Tobacco user Allergies No Known Allergies Allergy (Verified 07/10/25 08:53) HPI HPI Comments History of Present Illness Details History - The patient is a 65-year-old female presenting with worsening sciatica over the past three weeks. - The pain originates in the left buttock and hip and radiates to the left foot, with associated tingling and numbness in the left foot. - The patient has a history of back pain and underwent surgery for a herniated disc. - She has been cautious with her activities to avoid exacerbating the pain. - Current interventions include taking Tylenol for pain management. - The patient reports difficulty finding a comfortable position in bed due to the pain. - She has previously attended physical therapy and back school for her herniated disc. - She has no history of trauma or fall. - She denies back pain, saddle anesthesia, incontinence, numbness, or tingling. Physical Exam General: cooperative, healthy appearing and comfortable, patient oriented x3 Head: Normal to inspection, normocephalic/atraumatic Effort & Inspection: Normal respiratory effort and able to speak in complete sentences. Cardiac: RRR, no M/R/G noted. Normal S1 and S2. Respiratory: Clear to auscultation bilaterally. No w/r/r noted. Back/spine: No CVA tenderness bilaterally. Cervical, thoracic and lumbar spine normal to inspection. Cervical ROM normal, no midline spinous tenderness noted. Thoracic ROM normal, lumbar ROM normal. No midline vertebral spinous tenderness noted. No step offs noted. No TTP of the thoracic or lumbar paraspinous or paravertebral muscles.TTP of the left SI joint. DTR are 2+ on the lower extremities noted. Ambulates with a steady gait. Extremities: Straight leg raise test negative on right; Straight leg raise test negative on left; motor strength normal 5/5 bilaterally. Neuro: Sensation intact. Patient was informed and verbally consented to the use of an ambient scribe for clinic note documentation during this visit. [facility] Medical History Vulvar lesion Sprain of left ankle Diverticulosis Tubular adenoma GERD (gastroesophageal reflux disease) On beta michael at home Tubular adenoma Obesity Hard of hearing Chronic otitis media of right ear Lipid disorder Dyspepsia Hypertension, essential Anxiety, generalized Diabetes 1.5, managed as type 2 Difficulty sleeping Surgical History Hx of endoscopy History of surgery History of back surgery History of colonoscopy History of appendectomy History of tubal ligation Family History Father No problems noted. 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 Cognitive needs: No Hearing needs: No Vision needs: Yes Female Reproductive History Menstrual Age of Menarche: 15 Review of Systems Const All systems reviewed & are unremarkable except as noted in HPI and below Physical Exam Vital Signs: Last Vital Signs Pulse 84 07/10/25 08:50 BP 130/80 07/10/25 08:50 Pulse Ox 98 07/10/25 08:50 Oxygen Delivery Method Room Air 07/10/25 08:50 BMI result Body Mass Index 36.6 Assessment & Plan Assessment & Plan (1) Sciatica: Code(s): M54.30 - Sciatica, unspecified side Qualifiers: Laterality: left Qualified Code(s): M54.32 - Sciatica, left side Plan Most likely sciatica Plan - rest and heat to the area - activities as tolerated - Prescribe a muscle relaxant, Flexeril, to be taken three times a day as needed for pain. - Prescribe a short course of prednisone to reduce inflammation. - Continue current use of Tylenol for pain management. - Refer the patient to physical therapy for further management of sciatica. Orders: Orders PT Evaluation and Treatment Today M54.30 - Sciatica, unspecified side Medications: New prednisone 40 mg (2 x 20 mg) PO DAILY 10 tabs 0RF 5 days cyclobenzaprine 5 mg PO Q8H PRN 20 tabs 0RF Muscle Spasm Coding Level of Care Code Est Pt Level 3 (19503) Diagnoses Sciatica of left side M54.32 Laterality: left
[2025-07-10 08:50] VITALS: BP 130/80; PULSE 84; O2SAT 98; BMI 36.6
--- OUTSIDE RECORDS SUMMARY | 2025-07-10 09:25 | XMS_ITS | Clinical Summary ---
Author Organization [address] [facility] Address [address] [place] [address] Phone Care Team Providers Care Donation Worker Name Role Phone Florence Leonardo MD Primary Care Provider [phone] Allergies No known active allergies Medications LORazepam (ATIVAN) 1 mg tablet TAKE 1 TABLET BY MOUTH DAILY NEEDED FOR ANXIETY FOR 30 DAYS Active losartan (COZAAR) 50 mg tablet Take 1 tablet (50 mg total) by mouth 1 (one) time each day. Active metFORMIN (GLUCOPHAGE) 500 mg tablet Take 1 tablet (500 mg total) by mouth 2 (two) times a day. Active metoprolol succinate (TOPROL-XL) 50 mg 24 hr tablet Take 1 tablet (50 mg total) by mouth 1 (one) time each day. Active montelukast (SINGULAIR) 10 mg tablet Take 1 tablet (10 mg total) by mouth 1 (one) time each day. 5 Active omeprazole (PriLOSEC) [address] capsule Take 1 capsule (20 mg total) by mouth 1 (one) time each day in the morning. 5 Active pravastatin (PRAVACHOL) 80 mg tablet Take 1 tablet (80 mg total) by mouth 1 (one) time each day. Active naproxen (NAPROSYN) 500 mg tablet Take 1 tablet (500 mg total) by mouth 2 (two) times a day if needed. for pain 5 Active clotrimazole (LOTRIMIN) 1 % cream Apply topically 2 (two) times a day. 30 g 3 5 08/05/20 25 Active Encounters Date Type Department Care Team Description 07/06/2025 3:30 PM EDT Office Visit Orthopedic Surgery [facility] [address] [facility] [address] [place] [phone] Yandel Pritchett DPM Acquired hammer toe of right foot (Primary Dx); Dermatophytosis of nail; Metatarsalgia of both feet; Hammer toe of left foot; Diabetic mononeuropathy simplex ([facility] V24, [facility] V28); Pain in toe of left foot; Pain in toe of right foot; Type II diabetes mellitus with peripheral circulatory disorder ([facility] V24, [facility] V28); Ingrowing nail from Last 3 Months Surgical History Surgery [...] 12/07/2024 3:55 PM EDT Plan of Treatment Upcoming Encounters Date Type Department Care Team (Late st Contact Info) Description 10/09/2025 3:00 PM EST Office Visit Orthopedic Surgery [facility] [address] [phone] Yandel Pritchett DPM [address] [place] [phone] Health Maintenance Due Date Last Done Comments Breast Cancer Screening 1959 Colorectal Cancer Screening: Colonoscopy 1959 Diabetes: Annual GFR (Glomerular Filtration Rate) 1959 Diabetes: Annual Foot Exam 1969 Diabetes: Annual Retina Eye Exam 1969 Pneumococcal Vaccine: 50+ Years (2 of 2 - PCV) 07/11/2020 07/11/2019, 04/30/2012 Cholesterol Screening (Lipid Panel) 10/01/2023 Hepatitis C Screening 10/01/2023 Medicare Annual Wellness Visit 10/01/2023 Osteoporosis Screening (Bone Density Screening) 10/01/2023 Social Influencers of Health Screening 10/01/2023 Falls Risk Assessment 2024 Diabetes: Annual Urine Albumin-Creatinine Ratio (uACR) 06/17/2024 Diabetes: Blood Sugar Control Test (HGBA1C) 06/17/2024 Hypertension/CHF/CAD Annual BMP Blood Test 06/17/2024 Depression Screening 09/07/2024 COVID-19 Vaccine ( season) 2025 06/14/2025, 06/05/2023, 05/28/2022, Additional history exists DTaP,Tdap,and Td Vaccines (2 - Td or Tdap) 06/14/2035 06/14/2025 Zoster Vaccines Completed 06/06/2020, 07/11/2019 Influenza Vaccine Completed 06/14/2025, , 07/14/2023, Additional history exists RSV Immunization Adult Patients Completed 06/14/2025 HIB Vaccines Aged Out No longer eligi [...] Insurance MEDICARE MEDICAID - [place] Care Teams Donation Worker Relationship Specialty Start Date End Date Florence Leonardo MD [address] [place] [phone] PCP - General 05/04/24
== END 2025-07-10 09:22 | disposition home or self-care (01) ==
PROVIDERS: PCP Internal Medicine; Visit Provider Physician Assistant Medical
DX: M54.32 Sciatica, left side (principal)

== ENCOUNTER → 2025-07-10 08:48 | Outpatient (BNVA) | payer MEDICARE, MEDICAID, SELFPAY | PROVIDERS: PCP Internal Medicine; Visit Provider Physician Assistant Medical | DX: M54.32 Sciatica, left side (principal) | CPT/HCPCS: 99212 ==

== ENCOUNTER 2025-07-13 14:52 | Outpatient (AMB) | payer MEDICARE, MEDICAID, SELFPAY ==
[2025-07-13 14:58] VITALS: BP 120/80; PULSE 72; BMI 37.3
--- NOTE | 2025-07-13 14:58 | MHC.OFFVIS ---
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 Patient is 65 year female with prior history of hypertension, anxiety, diabetes, hyperlipidemia. Patient has been worked up many years ago in the past for coronary artery disease has been negative. Patient says about few weeks ago she developed precordial chest pain below her left arm. Radiating around her breast into the precordial area and the right side of the sternum. The pain felt like pressure-like symptoms. The pain was on and off. Pain happen throughout the day for about 4-5 days and since then has not a current again. She does not exercise much but she is concerned of the discomfort. She says she has not got any recurrent chest pain with her usual activity. She was referred here for further evaluation. EKGs done at that time had shown [facility] Medical History Vulvar lesion Sprain of left ankle Diverticulosis Tubular adenoma GERD (gastroesophageal reflux disease) On beta michael at home Tubular adenoma Obesity Hard of hearing Chronic otitis media of right ear Lipid disorder Dyspepsia Hypertension, essential Anxiety, generalized Diabetes 1.5, managed as type 2 Difficulty sleeping Surgical History Hx of endoscopy History of surgery History of back surgery History of colonoscopy History of appendectomy History of tubal ligation Family History Father No problems noted. 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 Cognitive needs: No Hearing needs: No Vision needs: Yes Female Reproductive History Menstrual Age of Menarche: 15 Review of Systems Const Denies chills, Denies daytime sleepiness, Denies fatigue, Denies fever(s), Denies frequent falls, Denies poor appetite, Denies snoring, Denies stops breathing during sleep, Denies weakness, Denies weight gain and Denies weight loss Eyes Denies loss of vision ENT Denies dizziness and Denies hearing loss Card Denies chest pain, Denies claudication, Denies leg edema, Denies lightheadedness, Denies palpitations, Denies dyspnea, Denies dyspnea on exertion and Denies orthopnea Resp Denies cough, Denies excessive phlegm production, Denies dyspnea, Denies dyspnea on exertion, Denies snoring and Denies wheezing GI Denies abdominal pain, Denies hematochezia, Denies change in bowel habits, Denies nausea and Denies vomiting Denies urinary frequency and Denies dysuria Musc Denies arthralgias, Denies muscle weakness and Denies numbness Skin/Breast Denies nail changes and Denies rash Neuro Denies Abnormal speech present, Denies dizziness, Denies frequent falls, Denies loss of vision, Denies memory loss, Denies numbness and Denies weakness Psych Denies depression and Denies memory loss Endo Denies fatigue and Denies palpitations Herberth/Lymph Reports easy bruising and Reports other (anemia) Aller/Immun Denies wheezing Physical Exam Vital Signs: Last Vital Signs Pulse 72 07/13/25 14:58 BP 120/80 07/13/25 14:58 BMI result Body Mass Index 37.3 Const General: cooperative, comfortable, no acute distress, alert and awake Nutritional Appearance: obese Orientation/consciousness: patient oriented x3 HEENT Head: Yes normocephalic and Yes atraumatic Neck Neck: Yes trachea midline, Yes supple and Yes no JVD Resp Effort & Inspection: normal respiratory effort Auscultation: clear to auscultation bilaterally Cardio Jugular venous distension: no JVD Rate: regular rate Rhythm: regular rhythm Heart sounds: S1 normal heart sound present, S2 normal heart sound present, no click, no gallops, no murmurs and no rubs GI Auscultation: normal bowel sounds Skin General skin exam: no rashes or lesions noted Neuro General: patient oriented x3 and no focal motor deficits Speech: No Abnormal speech present Extrem General: Yes no clubbing, cyanosis or edema Psych Appearance: grossly normal Office Procedures EKG Details: EKG shows normal sinus rhythm normal EKGs 47734-Zqdtojhbeosltadpp, Complete Assessment & Plan Assessment & Plan (1) Chest pain: Code(s): R07.9 - Chest pain, unspecified Category: Medical Qualifiers: Chest pain type: other chest pain Qualified Code(s): R07.89 - Other chest pain Plan: Atypical chest pain in his elderly woman with multiple risk factors for coronary artery disease. Symptoms have dissipated now. She had incomplete right bundle-branch block during the chest pain syndrome. Today's EKGs shows normal EKGs. She is not having any longer chest pain. However given her risk factors and age, myocardial ischemia needs to be ruled out. Will suggest exercise treadmill stress test to evaluate for myocardial ischemia given her baseline normal EKGs. Also suggest an echocardiogram to evaluate LV systolic and diastolic function to evaluate for hypertensive heart disease. Further treatment based on the findings. On today's exam her blood pressure is well optimized. He had an encouraged to continue current medical therapy to control blood pressure. Target goal blood pressure less than 130/84. Also aggressive management diabetes goal hemoglobin A1c less than 7%. She is on low intensity statin therapy. Consider more aggressive statin therapy with target goal LDL less than 70 mg/dL. She is encouraged once a stress testing is normal to participate in graduated aerobic physical exercise. Will follow up in the clinic if need be. Thank you for allowing me to partake in her care Orders: Orders CA stress test Today R07.89 - Other chest pain CA echo transthoracic complete Today R07.89 - Other chest pain Coding Level of Care Code New Pt Level 4 (06906) Complex EM visit Add On G2211 Diagnoses Other chest pain R07.89 Chest pain type: other chest pain CPT Codes EKG - CPT: 97479-Hqyrbcjghaxpqxdhw, Complete ([id number])
--- OUTSIDE RECORDS SUMMARY | 2025-07-13 17:58 | XMS_ITS | Data Portability ---
Author Organization [facility], [address] Address [address] [place] [address] Assessment No assessment recorded. Plan of Treatment Reminders Order Date Submit Date Provider Last Modified By Organization Details Last Modified Time Details Appointments None recorded. Lab rapid strep group A, throat 2022 023 [email or web address], [address] [place] [address], [place], [address], 3 12:58:02 streptococc us group A, culture, throat 2022 023 [place] [facility], [address] [place] [address], [place], [address], 3 06:08:10 Referral None recorded. Procedures None recorded. Surgeries None recorded. Imaging None recorded. Medication Orders amoxicillin 875 mg-potassiu m clavulanate 125 mg tablet 2022 023 [facility]/Pharmacy #[id number], [address] [facility], [place], [address], 3 12:58:05 Patient TargetsNo targets recorded. Patient Instructions Encounter Date Encounter Id Patient Instructions Last Modified By Organization Details Last Modified Time 02/11/2023 [id number] cough: care instructions [email or web address] Not available 02/11/2023 [...] care for yourself at home? Take an pwjy-szs-gfzsmqt pain medicine. Avoid Ibuprofen, Aleve and Aspirin if . If the doctor prescribed antibiotics, take them as directed. Do not stop taking them just because you feel better. You need to take the full course of antibiotics. Be careful when taking tnpa-cpw-kjgpapw cold or influenza (flu) medicines and Tylenol [...] : Negat mari Not Available [facility] ([facility]) [address] [facility], [place], [address], 02/14/2023 06:08:10 02/12/2002/11/2023 rapid strep group A, throa t Unknown Analyte Normal = Negati ve Not Available [address] [place], [address], 02/11/2023 12:46:41 02/12/2002/11/2023 rapid strep group A, throa t Unknown Analyte negati ve Not Available [address] [address] [facility], [place], [address], 02/11/2023 12:46:41 Result Notes None recorded. Problems Name Problem SNOMED Code Status Onset Date Resolution Date Notes Provider Name and Address Organization Details Recorded Time Hyperlipidemia 93061755 Active 2022 JUDY grey PA - [facility] 3 12:16:38 Hypertensive disorder 00193434 Active 2022 JUDY grey, PA - [facility] 3 12:16:45 Diabetes mellitus 03717240 Active 2022 JUDY grey, PA - [facility] 3 12:16:50 Gastroesophage al reflux disease 362199148 Active 2022 JUDY grey, [facility] - [facility] [...] Updated DateTime 3 170.18 cm 34.5 kg/m2 34368.3 2 g 97 % 97 % 85 /min 18 /min 97.7 [degF] 166/97 mm[Hg] JUDY DIANE [facility] 12:20:05 Social History Question Answer Notes LastModified by Nautal Details LastModified Time Tobacco Smoking Status Never Smoker [facility]I Duncan [facility] 02/11/2023 12:17:17 Have You Had Direct Contact, Or Contact During Intimacy, With Monkeypox Rash, Scabs, Or Body Fluids From A Person With Monkeypox? No Information not available 02/11/2023 Have You Recently Traveled Abroad? No Information not available 02/11/2023 Are You Currently In School? No Information not available 02/11/2023 Sex: Unknown Functional Status Question Answer Note LastModified by [facility] Details LastModified Time Do you use any [...] Diagnosis SNOMED-CT Code Diagnosis ICD10 Code Diagnosis IMO Codes Diagnosis Note [id number] [address] [place] [address] 08/28/2017 13:58:11 08/28/2017 14:19:59 [id number] [address] [place] [address] 08/24/2015 11:15:16 08/24/2015 12:01:26 [id number] [address] [place] [address] 01/11/2018 17:22:59 01/11/2018 18:40:48 [id number] Teddy Lockhart NP [address] [place] [address] 02/11/2023 09:58:10 02/11/2023 13:02:23 Acute sinusitis 23266853 J01.90 Health Concerns Section Related Observation LastModified by Organization Detai ls LastModified Time None Recorded Concern Status LastModified by Organization Details LastModified Time None Recorded Advance Directives Directive None Recorded Payers Insurance Date Sequence Insurance Name Policy Number Policy Melton Covered Member ID Melton Member ID Guarantor Name 02/11/2023 1 [place] [facility] Lorraine Crews [id number] Lorraine Crews 02/18/2023 1 [facility] - HEALTH NET PLAN (MEDICAID HMO) CHENCHO Crews [id number] Lorraine Crews Notes Date Note Type Note [...] Lockhart NP [address] [place], [address], [place] - [facility] 02/11/2023 12:58:40 OBGyn Episode No OBEpisode recorded.
--- OUTSIDE RECORDS SUMMARY | 2025-07-13 17:58 | XMS_ITS | Clinical Summary ---
Author Organization [address] [facility] Address [address] [place] [address] Phone Care Team Providers Care Professional Security Officer Name Role Phone Florence Leonardo MD Primary Care Provider [phone] Allergies No known active allergies Medications LORazepam [...] 3:30 PM EDT Office Visit Orthopedic Surgery [facility] [address] [address] Yandel Pritchett DPM Acquired hammer toe of right foot (Primary Dx); Dermatophytosis of nail; Metatarsalgia of both feet; Hammer toe of left foot; Diabetic mononeuropathy simplex ([facility] V24, [facility] V28); Pain in toe of left foot; Pain in toe of right foot; Type II diabetes mellitus with peripheral circulatory disorder ([facility] V24, [facility] V28); Ingrowing nail from Last [...] 3:00 PM EST Office Visit Orthopedic Surgery [place] [address] [address] Yandel Pritchett DPM [address] [address] Health Maintenance Due Date Last Done Comments [...] Insurance MEDICARE [place]ICAID - [place] Care Teams Professional Security Officer Relationship Specialty Start Date End Date Florence Leonardo MD [address] [place] [phone] PCP - General 05/04/24
== END 2025-07-13 15:22 | disposition home or self-care (01) ==
LOC: HO.HCS 14:52
PROVIDERS: PCP Internal Medicine; Visit Provider Internal Medicine Cardiovascular Disease
DX: R07.89 Other chest pain (principal)
CPT/HCPCS: 93010; 99214; G2211

== ENCOUNTER → 2025-07-13 14:52 | Outpatient (BNVA) | payer MEDICARE, MEDICAID, SELFPAY | PROVIDERS: PCP Internal Medicine; Visit Provider Internal Medicine Cardiovascular Disease | DX: E11.9 Type 2 diabetes mellitus without complications (principal); R07.89 Other chest pain | CPT/HCPCS: 93005; 99212 ==

== ENCOUNTER 2025-07-21 14:15 | Outpatient (AMB) | payer MEDICARE, MEDICAID, SELFPAY ==
--- NOTE | 2025-07-21 14:22 | AM.OFFWIN_ITS ---
Intake Vital Signs 07/21/25 14:23 Height 5 ft 7 in Weight 238 lb BMI 37.3 BP 144/80 H Blood Pressure Location Lt brachial Position Sitting Pulse 77 Pulse Source Pulse Oximeter Temp 98.2 F Temp Source Oral Pulse Oximetry (%) 97 Oxygen Delivery Method Room Air Intake Visit Reasons: eP left side pain Intake Note: EP complains of pain in her left leg in two points; the gluteus area and back of her knee (calf) to foot for almost a month. Patient Tobacco Use Status: Former Tobacco user Allergies No Known Allergies Allergy (Verified 07/21/25 14:33) Do you need a note to return to daycare/school/sports/work: No HPI HPI Comments History of Present Illness Details History of Present Illness - The patient is a 65-year-old female pr esenting with pain radiating from the buttock to the foot, suspected to be related to sciatica. - The pain started approximately one mon th ago and has been persistent. - The pain is described as sharp and tristen oting, particularly severe in the morning when attempting to get out of bed. - Previous interventions included predni sone 40mg x 5 days which was ineffective. Her ins co didn't cover the cyclobenzaprine so she did not pick it up. - it does feel better temporarily with m uscle relaxers - The patient has a history of back surg kenia in 1996 and has experienced similar symptoms in the past, which resolved with physical therapy and heating pads. - She did not go to PT yet Review of Systems - Musculoskeletal: Reports sharp, shooti ng pain from buttock to foot, denies pain in thigh. - Neurological: Denies worsening pain wi th foot flexion or leg lifting. - General: Denies leg swelling. All systems reviewed and are unremarkable except as noted in HPI Physical Exam General: Cooperative, healthy appearing, comfortable, no acute distress and well developed Orientation: Patient oriented x3 Limitations: No limitations Head: Normal to inspection Ears: Hearing grossly normal bilaterally Nose: Normal External nose present Face and sinus: Normal facial exam Eyes: Appearance normal, both eyes and all related structures Neck: Normal visual inspection and Yes full ROM Respiratory: Normal respiratory effort and able to speak in complete sentences. Skin: No rashes or lesions noted Neuro: Patient oriented x3 Extremities: Normal to inspection, left leg with no edema, full ROM, negative straight leg test. [facility] Medical History Vulvar lesion Sprain of left ankle Diverticulosis Tubular adenoma GERD (gastroesophageal reflux disease) On beta michael at home Tubular adenoma Obesity Hard of hearing Chronic otitis media of right ear Lipid disorder Dyspepsia Hypertension, essential Anxiety, generalized Diabetes 1.5, managed as type 2 Difficulty sleeping Surgical History Hx of endoscopy History of surgery History of back surgery History of colonoscopy History of appendectomy History of tubal ligation Family History Father No problems noted. 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 Cognitive needs: No Hearing needs: No Vision needs: Yes Female Reproductive History Menstrual Age of Menarche: 15 Physical Exam Vital Signs: Last Vital Signs Temp 98.2 F 07/21/25 14:23 Pulse 77 07/21/25 14:23 BP 144/80 H 07/21/25 14:23 Pulse Ox 97 07/21/25 14:23 Oxygen Delivery Method Room Air 07/21/25 14:23 BMI result Body Mass Index 36.2 Assessment & Plan Assessment & Plan (1) Sciatica: Code(s): M54.30 - Sciatica, unspecified side Qualifiers: Laterality: left Qualified Code(s): M54.32 - Sciatica, left side Plan: Plan Patient was informed and verbally consented to the use of an ambient scribe for clinic note documentation during this visit. Sciatica - Consider a stronger prednisone taper starting at 60 mg for 3 days, then tapering down, for a total of 10 days. - Recommend physical therapy for targeted exercises and stretching, gave her PT paper referral to go next door to schedule it. - Prescribe a different muscle relaxer to address muscle spasms as heat works so muscle relaxers may be beneficial. - Use heating pads as needed for symptomatic relief. Medications: New prednisone On days 1-3, take 3 tablets with breakfast, on days 4-6 take 2 tablets with breakfast, on days 7-10 take 1 tablet with breakfast 20 mg PO daily 19 tabs 0RF baclofen 20 mg PO BEDTIME PRN 10 tabs 0RF muscle spas M54.30 - Sciatica, unspecified side Coding Level of Care Code Est Pt Level 3 (72503) Diagnoses Sciatica of left side M54.32 Laterality: left
[2025-07-21 14:23] VITALS: BP 144/80; PULSE 77; TEMP 36.8; O2SAT 97; BMI 37.3
--- OUTSIDE RECORDS SUMMARY | 2025-07-21 21:12 | XMS_ITS | Data Portability ---
Author Organization [facility] Schmitt [facility], [address] Address [address] [place] [address] Assessment No assessment recorded. Plan of Treatment Reminders Order Date Submit Date Provider Last Modified By Organization Details Last Modified Time Details Appointments None recorded. Lab rapid strep group A, throat 2022 023 [email or web address] [facility], [address] [place] [address], [place], [address], 3 12:58:02 streptococc us group A, culture, throat 2022 023 [address] [facility], [address] [place] [address], [place], [address], 3 06:08:10 Referral None recorded. Procedures None recorded. Surgeries None recorded. Imaging None recorded. Medication Orders amoxicillin 875 mg-potassiu m clavulanate [address] [facility]/Pharmacy #[id number], [address] [facility], [place], [address], 3 12:58:05 Patient TargetsNo targets recorded. Patient Instructions Encounter Date Encounter Id Patient Instructions Last Modified By Organization Details Last Modified Time 02/11/2023 [id number] cough: care instructions [email or web address] Not available 02/11/2023 [...] care for yourself at home? Take an vnua-iax-zdkejde pain medicine. Avoid Ibuprofen, Aleve and Aspirin if . If the doctor prescribed antibiotics, take them as directed. Do not stop taking them just because you feel better. You need to take the full course of antibiotics. Be careful when taking pmtj-cer-tggwmpf cold or influenza (flu) medicines and Tylenol [...] : Negat mari Not Available [facility] ([facility]) [address] [facility], [place], [address], 02/14/2023 06:08:10 02/12/2002/11/2023 rapid strep group A, throa t Unknown Analyte Normal = Negati ve Not Available [address] [place], [address], 02/11/2023 12:46:41 02/12/2002/11/2023 rapid strep group A, throa t Unknown Analyte negati ve Not Available [facility] [address] [facility], [place], [address], 02/11/2023 12:46:41 Result Notes None recorded. Problems Name Problem SNOMED Code Status Onset Date Resolution Date Notes Provider Name and Address Organization Details Recorded Time Hyperlipidemia 33203893 Active 2022 JUDY grey PA - [facility] 3 12:16:38 Hypertensive disorder 89072932 Active 2022 JUDY grey, PA - [facility] 3 12:16:45 Diabetes mellitus 06606748 Active 2022 JUDY grey, PA - [facility] 3 12:16:50 Gastroesophage al reflux disease 407337065 Active 2022 JUDY grey, [facility] - [facility] [...] Updated DateTime 3 170.18 cm 34.5 kg/m2 49560.3 2 g 97 % 97 % 85 /min 18 /min 97.7 [degF] 166/97 mm[Hg] JUDY DIANE [facility] 12:20:05 Social History Question Answer Notes LastModified by [facility] Details LastModified Time Tobacco Smoking Status Never Smoker [facility]I Duncan [facility] 02/11/2023 12:17:17 Have You Had Direct Contact, Or Contact During Intimacy, With Monkeypox Rash, Scabs, Or Body Fluids From A Person With Monkeypox? No Information not available 02/11/2023 Have You Recently Traveled Abroad? No Information not available 02/11/2023 Are You Currently In School? No Information not available 02/11/2023 Sex: Unknown Functional Status Question Answer Note LastModified by [facility] Details LastModified Time Do you use any [...] ICD10 Code Diagnosis IMO Codes Diagnosis Note [id number] [address] [place] [address] 08/28/2017 13:58:11 08/28/2017 14:19:59 [id number] [address] [place] [address] 08/24/2015 11:15:16 08/24/2015 12:01:26 [id number] [address] [place] [address] 01/11/2018 17:22:59 01/11/2018 18:40:48 [id number] Teddy Lockhart NP [address] [place] [address] 02/11/2023 09:58:10 02/11/2023 13:02:23 Acute sinusitis 22229718 J01.90 Health Concerns Section Related Observation LastModified by Organization Detai ls LastModified Time None Recorded Concern Status LastModified by Organization Details LastModified Time None Recorded Advance Directives Directive None Recorded Payers Insurance Date Sequence Insurance Name Policy Number Policy Melton Covered Member ID Melton Member ID Guarantor Name 02/11/2023 1 [place] [facility] Lorraine Crews [id number] Lorraine Crews 02/18/2023 1 [facility] - HEALTH NET PLAN (MEDICAID HMO) CHENCHO Crews [id number] Lorraine Crews Notes Date Note Type Note [...] Lockhart NP [address] [place], [address], [place] - [facility] 02/11/2023 12:58:40 OBGyn Episode No OBEpisode recorded.
--- OUTSIDE RECORDS SUMMARY | 2025-07-21 21:12 | XMS_ITS | Clinical Summary ---
Author Organization 175 [facility] Address [address] [place] [address] Phone Care Team Providers Care Inspector And Clerk Name Role Phone Florence Leonardo MD Primary Care Provider [phone] Allergies No known active allergies Medications LORazepam [...] 3:30 PM EDT Office Visit Orthopedic Surgery [facility] [address] [address] Yandel Pritchett DPM Acquired hammer toe of right foot (Primary Dx); Dermatophytosis of nail; Metatarsalgia of both feet; Hammer toe of left foot; Diabetic mononeuropathy simplex ([facility] V24, [facility] V28); Pain in toe of left foot; Pain in toe of right foot; Type II diabetes mellitus with peripheral circulatory disorder ([facility] V24, [facility] V28); Ingrowing nail from Last [...] 3:00 PM EST Office Visit Orthopedic Surgery [place] [address] [address] Yandel Pritchett DPM [address] [phone] Health Maintenance Due Date Last Done Comments [...] Insurance MEDICARE MEDICAID - [place] Care Teams Inspector And Clerk Relationship Specialty Start Date End Date Florence Leonardo MD [address] [place] [phone] PCP - General 05/04/24
== END 2025-07-21 14:52 | disposition home or self-care (01) ==
PROVIDERS: PCP Internal Medicine; Visit Provider Physician Assistant
DX: M54.32 Sciatica, left side (principal)

== ENCOUNTER → 2025-07-21 14:15 | Outpatient (BNVA) | payer MEDICARE, MEDICAID, SELFPAY | PROVIDERS: PCP Internal Medicine; Visit Provider Physician Assistant | DX: M54.32 Sciatica, left side (principal) | CPT/HCPCS: 99212 ==

== ENCOUNTER 2025-07-28 09:09 | Outpatient (REF) | payer MEDICARE, MEDICAID, SELFPAY ==
--- OUTSIDE RECORDS SUMMARY | 2025-07-28 09:33 | XMS_ITS | Clinical Summary ---
Author Organization 175 [facility] Address [address] [place] [address] Phone Care Team Providers Care Solderer Electronic Name Role Phone Florence Leonardo MD Primary Care Provider [phone] Allergies No known active allergies Medications LORazepam [...] 3:30 PM EDT Office Visit Orthopedic Surgery [facility] [address] [address] Yandel Pritchett DPM Acquired hammer toe of right foot (Primary Dx); Dermatophytosis of nail; Metatarsalgia of both feet; Hammer toe of left foot; Diabetic mononeuropathy simplex ([facility] V24, [facility] V28); Pain in toe of left foot; Pain in toe of right foot; Type II diabetes mellitus with peripheral circulatory disorder ([facility] V24, [facility] V28); Ingrowing nail from Last 3 Months [...] 3:00 PM EST Office Visit Orthopedic Surgery [place] [address] [address] Yandel Pritchett DPM [address] [phone] Health Maintenance Due Date Last Done Comments [...] Insurance MEDICARE MEDICA[place] - [place] Care Teams Solderer Electronic Relationship Specialty Start Date End Date Florence Leonardo MD [address] [place] [phone] PCP - General 05/04/24
--- OUTSIDE RECORDS SUMMARY | 2025-07-28 09:33 | XMS_ITS | Data Portability ---
Author Organization [facility], [address] Address [address] [place] [address] Assessment No assessment recorded. Plan of Treatment Reminders Order Date Submit Date Provider Last Modified By Organization Details Last Modified Time Details Appointments None recorded. Lab rapid strep group A, throat [email or web address] [facility], [address] [place] [address], [place], [address], 3 12:58:02 streptococc us group A, culture, throat 2022 023 [place] [facility], [address] [place] [address], [place], [address], 3 06:08:10 Referral None recorded. Procedures None recorded. Surgeries None recorded. Imaging None recorded. Medication Orders amoxicillin 875 mg-potassiu m clavulanate 125 mg tablet 2022 023 [facility][id number], [address] [facility], [place], [address], 3 12:58:05 Patient TargetsNo targets recorded. Patient Instructions Encounter Date Encounter Id Patient Instructions Last Modified By Organization Details Last Modified Time 02/11/2023 [id number] cough: care instructions [email or web address] Not available 02/11/2023 [...] care for yourself at home? Take an bewl-fie-upmlesu pain medicine. Avoid Ibuprofen, Aleve and Aspirin if . If the doctor prescribed antibiotics, take them as directed. Do not stop taking them just because you feel better. You need to take the full course of antibiotics. Be careful when taking vbxv-dbo-bexgady cold or influenza (flu) medicines and Tylenol [...] Range : Negat mari Not Available [facility] ([facility]) [address] [facility], [place], [address], 02/14/2023 06:08:10 02/12/2002/11/2023 rapid strep group A, throa t Unknown Analyte Normal = Negati ve Not Available [address] [place], [address], 02/11/2023 12:46:41 02/12/2002/11/2023 rapid strep group A, throa t Unknown Analyte negati ve Not Available [address] [address] [facility], [place], [address], 02/11/2023 12:46:41 Result Notes None recorded. Problems Name Problem SNOMED Code Status Onset Date Resolution Date Notes Provider Name and Address Organization Details Recorded Time Hyperlipidemia 16743507 Active 2022 JUDY grey PA - [facility] 3 12:16:38 Hypertensive disorder 31960918 Active 2022 JUDY grey, PA - [facility] 3 12:16:45 Diabetes mellitus 31850473 Active 2022 JUDY grey, PA - [facility] 3 12:16:50 Gastroesophage al reflux disease 396925057 Active 2022 [facility] [...] mass index (BMI) Body weight Oxygen saturation Heart rate Respiratory rate Body temperature Systolic And Diastolic Provider Name and Address Organization Details Last Updated DateTime 170.18 cm 34.5 kg/m2 09063.3 2 g 97 % 85 /min 18 /min 97.7 [degF] 166/97 mm[Hg] JUDY DIANE Giveter 12:20:05 Social History Question Answer Notes LastModified by [employer] Details LastModified Time Tobacco Smoking Status Never Smoker [facility] [employer] 02/11/2023 12:17:17 Have You Had Direct Contact, Or Contact During Intimacy, With Monkeypox Rash, Scabs, Or Body Fluids From A Person With Monkeypox? No Information not available 02/11/2023 Have You Recently Traveled Abroad? No Information not available 02/11/2023 Are You Currently In School? No Information not available 02/11/2023 Sex: Unknown Functional Status Question Answer Note LastModified by [employer] Details LastModified Time Do you use any [...] 02/11/2023 12:13:28 zoster recombinant 9 completed JUDY ROBBINSND null, PA - [facility] 02/11/2023 12:13:28 COVID-19, mRNA, LNP-S, PF, 30 mcg/0.3 mL dose 1 completed JUDY ROBBINSND null, PA - [facility] 02/11/2023 12:13:28 COVID-19, mRNA, LNP-S, PF, 30 mcg/0.3 mL dose 1 completed JUDY JAINHIND null, PA - [facility] 02/11/2023 12:13:28 COVID-19, mRNA, LNP-S, PF, 30 mcg/0.3 mL dose 1 completed JUDY ROBBINSND null, PA - [facility] 02/11/2023 12:13:28 COVID-19, mRNA, LNP-S, PF, 30 mcg/0.3 mL dose, flori-sucrose 2 completed JUDY ROBBINSND null, PA - [facility] 02/11/2023 12:13:28 COVID-19, mRNA, LNP-S, bivalent, PF, 30 mcg/0.3 mL dose 2 completed JUDY GOODHIND null, PA - [facility] 02/11/2023 12:13:28 pneumococcal polysaccharide PPV23 2 completed JUDY ROBBINSND null, PA - [facility] 02/11/2023 12:13:28 pneumococcal polysaccharide PPV23 9 completed JUDY GOODCHERYLND null, PA - [facility] 02/11/2023 12:13:28 Influenza, split virus, trivalent, preservative 1 completed JUDYMARIA TERESA ROBBINSND null, PA - [facility] 02/11/2023 12:13:28 Influenza, split virus, trivalent, preservative 3 completed JUDY ROBBINSND null, PA - [facility] 02/11/2023 12:13:28 Influenza, split virus, trivalent, PF 5 completed JUDY GOODHIND null, PA - [facility] 02/11/2023 12:13:28 Influenza, split virus, quadrivalent, PF 7 completed JUDY GOODHIND null, PA - [facility] 02/11/2023 12:13:28 Influenza, split virus, quadrivalent, PF 0 completed JUDY ROBBINSND null, PA - [facility] 02/11/2023 12:13:28 Influenza, split virus, quadrivalent, PF 1 completed JUDY JAINHIND null, PA - [facility] 02/11/2023 12:13:28 Influenza, split virus, quadrivalent, PF 6 completed JUDY GOODHIND null, PA - [facility] 02/11/2023 12:13:28 Past Encounters Encounter ID Performer Location Encounter Start Date Encounter Closed Date Diagnosis/Indication Diagnosis SNOMED-CT Code Diagnosis ICD10 Code Diagnosis IMO Codes Diagnosis Note [id number] [facility] [address] [address] [place] [address] 08/28/2017 13:58:11 08/28/2017 14:19:59 [id number] [address] [facility] [place] [address] 08/24/2015 11:15:16 08/24/2015 12:01:26 [id number] [address] [place] [address] 01/11/2018 17:22:59 01/11/2018 18:40:48 [id number] Teddy Lockhart NP [address] [place] [address] 02/11/2023 09:58:10 02/11/2023 13:02:23 Acute sinusitis 87321675 J01.90 Health Concerns Section Related Observation LastModified by Organization Detai ls LastModified Time None Recorded Concern Status LastModified by Organization Details LastModified Time None Recorded Advance Directives Directive None Recorded Payers Insurance Date Sequence Insurance Name Policy Number Policy Melton Covered Member ID Melton Member ID Guarantor Name 02/11/2023 1 [place] [facility] Lorraine Crews [id number] Lorraine Crews 02/18/2023 1 [facility] HE[facility] NET PLAN (MEDICAID HMO) CHENCHO Crews [id number] Lorraine Crews Notes Date Note Type Note [...] Lockhart NP [address] [place], [address], [place] - [facility] 02/11/2023 12:58:40 OBGyn Episode No OBEpisode recorded.
[2025-07-28 10:43] LABS: Alanine Aminotransferase 17 U/L (0-31); Albumin Level 4.4 g/dL (3.5-5.0); Alkaline Phosphatase 57 U/L (39-117); Anion Gap 13 (12-20); Aspartate Amino Transferase 16 U/L (5-31); Blood Urea Nitrogen 20 mg/dL (9-16); Calcium 9.2 mg/dL (8.4-10.2); Carbon Dioxide 25 mmol/L (22-29); Chloride 107 mmol/L (96-108); Estimated Glomerular Filt Rate > 60; Potassium 4.4 mmol/L (3.3-5.1); Sodium 141 mmol/L (135-145); Total Protein 6.6 g/dL (6.5-8.0)
[2025-07-28 11:01] LABS: Microalbum/Creatinine Ratio Ur 12.3 ug/mg cr (<30)
[2025-07-28 11:55] LABS: Free T4 (Free Thyroxine) 0.83 ng/dL (0.71-1.85)
[2025-07-31 17:57] LABS: Thyroglobulin Antibodies <1 IU/mL (< or = 1)
== END 2025-07-28 09:10 | disposition home or self-care (01) ==
LOC: HO.HMGCLDS 09:09
PROVIDERS: PCP Internal Medicine; Visit Provider Internal Medicine
DX: I10 Essential (primary) hypertension (principal); E11.8 Type 2 diabetes mellitus with unspecified complications; E78.9 Disorder of lipoprotein metabolism, unspecified; K21.9 Gastro-esophageal reflux disease without esophagitis; R07.9 Chest pain, unspecified; E66.812 Obesity, class 2; Z68.36 Body mass index [BMI] 36.0-36.9, adult
CPT/HCPCS: 36415; 80053; 82043; 82570; 83036; 84439; 84443; 86800

== ENCOUNTER 2025-08-01 10:15 | Outpatient (AMB) | payer MEDICARE, MEDICAID, SELFPAY ==
[2025-08-01 10:18] VITALS: BP 132/80; PULSE 91; O2SAT 97; BMI 37.3
--- NOTE | 2025-08-01 10:18 | A.OFFPC_ITS ---
Vital Signs 08/01/25 10:18 Height 5 ft 7 in Weight 238 lb BMI 37.3 BP 132/80 Blood Pressure Location Lt brachial Position Sitting Pulse 91 Pulse Source Pulse Oximeter Pulse Oximetry (%) 97 Intake Visit Reasons: 3 month follow up Allergies No Known Allergies Allergy (Verified 08/01/25 10:18) Medication List - Last Reconciled 08/01/25 by Florence Leonardo MD aspirin (Adult Low Dose Aspirin) 81 mg PO DAILY baclofen 20 mg PO BEDTIME PRN lorazepam 1 mg PO DAILY PRN 30 days losartan 50 mg PO DAILY 90 days metformin 500 mg PO BID metoprolol succinate ER 50 mg PO DAILY montelukast 10 mg PO DAILY 90 days omeprazole 20 mg PO QAM 90 days pravastatin 80 mg PO DAILY 90 days Tobacco use date assessed: 05/03/25 Fall risk assessment: No Falls in past year Last assessed Fall Risk: 08/01/25 Dental Screening Dental Screen Date: 05/03/25 HPI HPI Comments History of Present Illness Details History of Present Illness The patient is a 65-year-old individual presenting for follow-up of left leg pain and review of lab results. Left leg pain / Sciatica: - The patient has been experiencing pain on the side of the left leg for about three weeks. - The pain is described as a burning sen sation. - The patient was seen at urgent care fo r this issue and was prescribed prednisone, which did not provide relief, and baclofen, which the patient did not take. - The patient has a history of back surg kenia around 1375-2339 and has had a steroid injection for the same side in the past. - The patient has previously tried physi laura therapy exercises without success for this recurring issue. Hypothyroidism: - Recent lab results indicate that the nereida lazo's thyroid function has worsened since April. - The patient is not currently taking an y medication for hypothyroidism. - The patient has a family history of hy pothyroidism, with a brother and sister both on medication, though the parents did not have the condition. Type 2 Diabetes Mellitus: - Recent lab work showed an A1c of 7.5, which is elevated. - The patient is currently taking Metfor min 500 mg twice daily. Weight Management: - The patient inquired about weight loss injections, specifically Wegovy, after hearing they might be covered by insurance. Anxiety: - The patient reports that seeing the re cent lab results caused the patient's anxiety to go agnes high. - The patient takes lorazepam at night a nd recently experienced confusion and delays when trying to refill the prescription at [facility]. Medical History: - Hypothyroidism, untreated - Type 2 diabetes mellitus - Essential hypertension - Hyperlipidemia - Gastroesophageal reflux disease (GERD) - Anxiety - Chronic low back pain with left-sided sciatica - Allergies - History of steroid injection for sciat ica Surgical History: - Back surgery around 8216-7528 - Eyelid surgery scheduled for September 15 Medications: - Losartan 50 mg for hypertension - Metformin 500 mg twice daily for diabe jeanette - Metoprolol 50 mg for hypertension - Montelukast for allergies - Omeprazole 20 mg for GERD - Pravastatin 80 mg for hyperlipidemia - Lorazepam at night for anxiety/sleep Social History: - The patient reports being [facility]-to-date w [facility] immunizations, including the flu vaccine. Family History: - Brother and sister have hypothyroidism . - Parents did not have hypothyroidism. - Brother has diabetes and is on insulin . - Mother had a hip replacement. Diagnostic Results: - Recent labs show Hemoglobin A1c of 7.5 %. - Recent thyroid test was abnormal and h as worsened since April. [facility] Medical History Vulvar lesion Sprain of left ankle Diverticulosis Tubular adenoma GERD (gastroesophageal reflux disease) On beta michael at home Tubular adenoma Obesity Hard of hearing Chronic otitis media of right ear Lipid disorder Dyspepsia Hypertension, essential Anxiety, generalized Diabetes 1.5, managed as type 2 Difficulty sleeping Surgical History Hx of endoscopy History of surgery History of back surgery History of colonoscopy History of appendectomy History of tubal ligation Family History Father No problems noted. 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 Cognitive needs: No Hearing needs: No Vision needs: Yes Female Reproductive History Menstrual Age of Menarche: 15 Questionnaire Thrive Questionnaire Date Thrive assessed: 10/26/24 I am a: Patient What is your living situation today?: I have a steady place to live Within the past 12 months, did the food you bought not last and you didn't have the money to get more?: Never true Within the past 12 months, did you worry whether your food would run out before you got money to buy more?: Never true Do you have trouble paying for medicines?: No Do you have trouble getting transportation to medical appointments?: No Do you have trouble paying your heating and electricity bill?: No Do you have trouble taking care of your child, family member or friend?: No Do you have trouble with day-to-day activities such as bathing, preparing meals, shopping, managing finances, etc.?: No Are you currently unemployed and looking for a job?: No Are you interested in more education?: No Please select the resources that you would like help with: None Currently or been in a relationship where the following occur: No concerns reported THRIVE Score: 0 YISEL-7 AMB Questionnaire YISEL-7 Date YISEL - 7 assessed: 05/03/25 Source: Developed by Drs. Bethel Caceres, Paige Russ, Kye Foy and colleagues, with an educational shaunna from [employer]. Review of Systems Narrative Review of Systems - General: No fever no chills - Neurological: No headaches no dizziness - Ear nose throat: No sore throat no hearing difficulty no ear pain - Cardiovascular: No syncope, no chest pain, no palpitations - Gastrointestinal: No nausea vomiting or diarrhea - Endocrine: No polyuria polydipsia no heat intolerance - Genitourinary: No dysuria , no blood in urine Physical exam (Primary Care) Vital Signs: Last Vital Signs Pulse 91 08/01/25 10:18 BP 132/80 08/01/25 10:18 Pulse Ox 97 08/01/25 10:18 BMI result Body Mass Index 37.3 Tobacco/Smoking Status: Tobacco use Status Tobacco use date assessed 05/03/25 08/01/25 10:19 Patient Tobacco Use Status Former Tobacco user 08/01/25 10:19 e-Cigarette/Vaping Use Never Used 08/01/25 10:19 Thrive Assessment: Date of Thrive Assessment Date Thrive assessed 10/26/24 08/01/25 10:19 Currently or been in a relationship where the following occur: No concerns reported Narrative Physical Exam General: No acute, distress HEENT: No acute findings Neck: Supple no thyromagaly Respiratory system: Able to talk in full sentences, no audible wheeze Cardiovascular: S1-S2 regular in rate and rhythm Gastrointestinal: No pain Extremities: 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 [employer]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: Alert awake oriented x3 motor intact Skin: Normal turgor Coding Level of Care Code Est Pt Level 5 (33800) Diagnoses Hypertension, essential I10 Diabetes 1.5, managed as type 2 E13.9 Left lumbar radiculitis M54.16 High thyroid stimulating hormone (TSH) level R79.89 Paresthesia of left leg R20.2 Lipid disorder E78.9 Class 2 severe obesity due to excess calories with serious comorbidity and body mass index (BMI) of 36.0 to 36.9 in adult E66.812; E66.01; Z68.36 Body mass index: BMI 36.0-36.9 Obesity classification: adult class 2 (BMI 35 - 39.9) Serious obesity comorbidity presence: with serious comorbidity Gastroesophageal reflux disease without esophagitis K21.9 Esophagitis presence: without esophagitis Time Spent (min) 40 Comment chart review/labs/ face to face/ coordination of care Assessment & Plan Assessment & Plan (1) Hypertension, essential: Code(s): I10 - Essential (primary) hypertension Category: Medical (2) Diabetes 1.5, managed as type 2: Code(s): E13.9 - Other specified diabetes mellitus without complications Category: Medical (3) Left lumbar radiculitis: Code(s): M54.16 - Radiculopathy, lumbar region Category: Medical (4) High thyroid stimulating hormone (TSH) level: Code(s): R79.89 - Other specified abnormal findings of blood chemistry Category: Medical (5) Paresthesia of left leg: Code(s): R20.2 - Paresthesia of skin Category: Medical (6) Lipid disorder: Code(s): E78.9 - Disorder of lipoprotein metabolism, unspecified Category: Medical (7) Obesity due to excess calories: Code(s): E66.09 - Other obesity due to excess calories Category: Medical Qualifiers: Body mass index: BMI 36.0-36.9 Obesity classification: adult class 2 (BMI 35 - 39.9) Serious obesity comorbidity presence: with serious comorbidity Qualified Code(s): E66.812 - Obesity, class 2; E66.01 - Morbid (severe) obesity due to excess calories; Z68.36 - Body mass index [BMI] 36.0-36.9, adult (8) GERD (gastroesophageal reflux disease): Code(s): K21.9 - Gastro-esophageal reflux disease without esophagitis Category: Medical Qualifiers: Esophagitis presence: without esophagitis Qualified Code(s): K21.9 - Gastro-esophageal reflux disease without esophagitis Plan Problem List - Left-sided sciatica - Type 2 diabetes mellitus with hyperglycemia - Hypothyroidism - Anxiety - Chronic low back pain - Paresthesia of left lower extremity - Obesity - Essential hypertension - Gastroesophageal reflux disease (GERD) - Hyperlipidemia - Allergies - Immunization status updated Plan - For hypothyroidism, start levothyroxine 50 mcg daily. - The patient was instructed to take levothyroxine on an empty stomach, at least one hour before breakfast, as it does not get absorbed well with other things. labs in 3 M - An order will be placed for a thyroid ultrasound. - Repeat labs, including A1c and thyroid panel, will be ordered for three months from now. - For weight management, a prescription for Wegovy will be sent to the pharmacy to assess for insurance coverage. - For left leg pain, a prescription for gabapentin will be sent, starting with 30 capsules, to be taken at night. - A prescription for lorazepam will also be sent, but the patient was explicitly instructed not to take gabapentin and lorazepam together due to the risk of excessive drowsiness and falls. - Orders will be placed for x-rays of the lumbar spine and hip, as well as a ne rve conduction study (EMG), to further evaluate the leg pain. - Awaiting paperwork from the surgeon's office for preoperative clearance for the patient's eyelid surgery scheduled on September 15. - Follow up in November. Orders: Orders Hemoglobin A1c 3 Months E13.9 - Other specified diabetes mellitus without complications, E66.01 - Morbid (severe) obesity due to excess calories, E66.812 - Obesity, class 2, E78.9 - Disorder of lipoprotein metabolism, unspecified, I10 - Essential (primary) hypertension, K21.9 - Gastro-esophageal reflux disease without esophagitis, Z68.36 - Body mass index [BMI] 36.0-36.9, adult Comprehensive Met. Panel 3 Months E13.9 - Other specified diabetes mellitus without complications, E66.01 - Morbid (severe) obesity due to excess calories, E66.812 - Obesity, class 2, E78.9 - Disorder of lipoprotein metabolism, unspecified, I10 - Essential (primary) hypertension, K21.9 - Gastro-esophageal reflux disease without esophagitis, Z68.36 - Body mass index [BMI] 36.0-36.9, adult XR lumbar spine 2-3V Today M54.16 - Radiculopathy, lumbar region TSH reflex Free T4 3 Months E13.9 - Other specified diabetes mellitus without complications, E66.01 - Morbid (severe) obesity due to excess calories, E66.812 - Obesity, class 2, E78.9 - Disorder of lipoprotein metabolism, unspecified, I10 - Essential (primary) hypertension, K21.9 - Gastro-esophageal reflux disease without esophagitis, Z68.36 - Body mass index [BMI] 36.0-36.9, adult NE nerve conduction velocity Today R20.2 - Paresthesia of skin NE electromyogram (EMG) Today R20.2 - Paresthesia of skin US thyroid Today R79.89 - Other specified abnormal findings of blood chemistry Medications: New Wegovy (semaglutide (weight loss)) administer weeks 1 through 4 of therapy 0.25 mg (0.5 mL) subcut QWEEK 2.5 mL 0RF 30 days NS levothyroxine (Synthroid) 50 mcg PO DAILY 90 tabs 0RF gabapentin 300 mg PO BEDTIME 30 caps 0RF Refilled lorazepam 1 mg PO DAILY PRN 30 tabs 2RF anxiety 30 days F41.1 - Generalized anxiety disorder, G47.9 - Sleep disorder, unspecified Discontinued baclofen Discontinued Reason: Doctor's Order 20 mg PO BEDTIME PRN 10 tabs 0RF muscle spas M54.30 - Sciatica, unspecified side
--- OUTSIDE RECORDS SUMMARY | 2025-08-01 12:32 | XMS_ITS | Clinical Summary ---
Author Organization 175 [facility] Address 175 [place] [address] Phone Care Team Providers Care Flooring Sales Manager Name Role Phone Florence Leonardo MD Primary Care Provider [phone] Allergies No known active allergies Medications LORazepam [...] 3:30 PM EDT Office Visit Orthopedic Surgery [facility] [address] [address] Yandel Pritchett DPM Acquired hammer toe of right foot (Primary Dx); Dermatophytosis of nail; Metatarsalgia of both feet; Hammer toe of left foot; Diabetic mononeuropathy simplex ([facility] V24, [facility] V28); Pain in toe of left foot; Pain in toe of right foot; Type II diabetes mellitus with peripheral circulatory disorder ([facility] V24, [facility] V28); Ingrowing nail from Last 3 Months [...] 3:00 PM EST Office Visit Orthopedic Surgery [place] [address] [address] Yandel Pritchett DPM [address] [address] Health Maintenance Due Date Last Done Comments [...] Insurance MEDICARE MEDICAID - [place] Care Teams Flooring Sales Manager Relationship Specialty Start Date End Date Florence Leonardo MD [address] [place] [phone] PCP - General 05/04/24
== END 2025-08-01 10:40 | disposition home or self-care (01) ==
LOC: HO.HMCC 10:16
PROVIDERS: PCP Internal Medicine; Visit Provider Internal Medicine
DX: I10 Essential (primary) hypertension (principal); E13.9 Other specified diabetes mellitus without complications; E66.01 Morbid (severe) obesity due to excess calories; Z68.36 Body mass index [BMI] 36.0-36.9, adult; E66.812 Obesity, class 2; R79.89 Other specified abnormal findings of blood chemistry; M54.16 Radiculopathy, lumbar region; R20.2 Paresthesia of skin; E78.9 Disorder of lipoprotein metabolism, unspecified; K21.9 Gastro-esophageal reflux disease without esophagitis

== ENCOUNTER → 2025-08-01 10:15 | Outpatient (BNVA) | payer MEDICARE, MEDICAID, SELFPAY | PROVIDERS: PCP Internal Medicine; Visit Provider Internal Medicine | DX: I10 Essential (primary) hypertension (principal); E13.9 Other specified diabetes mellitus without complications; M54.16 Radiculopathy, lumbar region; R20.2 Paresthesia of skin; E78.9 Disorder of lipoprotein metabolism, unspecified; E66.812 Obesity, class 2; E66.01 Morbid (severe) obesity due to excess calories; Z68.36 Body mass index [BMI] 36.0-36.9, adult; K21.9 Gastro-esophageal reflux disease without esophagitis | CPT/HCPCS: 99212 ==

== ENCOUNTER 2025-08-17 12:44 | Outpatient (REF) | payer MEDICARE, MEDICAID, SELFPAY ==
--- NOTE | 2025-08-17 13:28 | EMG_ITS ---
Chief complaint: Paresthesia of left leg Referred by:?Dr Florence Leonardo Procedure done: Left lower extremity NCS/EMG Left tibial and peroneal motor studies were performed with F responses and tibial H-reflex. Left superficial peroneal and sural sensory studies were performed. Needle examination was performed. Left median and lateral mixed plantars sensory studies were also performed. Findings: Left peroneal amplitude was moderately reduced at all 3 stimulation points. Superficial peroneal sensory studies did not reveal any significant abnormality. Plantars studies similarly did not reveal any significant abnormality. Tibial H-reflex was absent. Impression: Moderately severe left peroneal motor neuropathy, non entrapment type Codin 37063 1 extremity MTDD
--- OUTSIDE RECORDS SUMMARY | 2025-08-17 19:26 | XMS_ITS | Clinical Summary ---
Author Organization 175 [facility] Address 175 [place] [address] Phone Care Team Providers Care Grants Director Name Role Phone Florence Leonardo MD Primary Care Provider [phone] Allergies No known active allergies Medications LORazepam [...] day. 30 g 3 5 08/05/20 25 Encounters Date Type Department Care Team Description 07/06/2025 3:30 PM EDT Office Visit Orthopedic Surgery [facility] [address] [address] Yandel Pritchett DPM Acquired hammer toe of right foot (Primary Dx); Dermatophytosis of nail; Metatarsalgia of both feet; Hammer toe of left foot; Diabetic mononeuropathy simplex ([facility] V24, [facility] V28); Pain in toe of left foot; Pain in toe of right foot; Type II diabetes mellitus with peripheral circulatory disorder ([facility] V24, [facility] V28); Ingrowing nail from Last 3 [...] on file Sexual Orientation Not on file Last Filed Vital Signs Vital Sign Reading [...] 3:00 PM EST Office Visit Orthopedic Surgery [place] [address] [address] Yandel Pritchett DPM [address] [address] Health Maintenance Due Date Last Done Comments [...] Insurance MEDICARE [place] - [place] Care Teams Grants Director Relationship Specialty Start Date End Date Florence Leonardo MD [address] [place] [phone] PCP - General 05/04/24
== END 2025-08-17 12:45 | disposition home or self-care (01) ==
LOC: HO.NEURO 12:44
PROVIDERS: PCP Internal Medicine; Visit Provider Internal Medicine
DX: R20.2 Paresthesia of skin (principal)
CPT/HCPCS: 95886; 95910

== ENCOUNTER → 2025-08-17 13:28 | Outpatient (BNV) | payer MEDICARE, MEDICAID, SELFPAY | PROVIDERS: PCP Internal Medicine; Visit Provider Psychiatry & Neurology Neurology | DX: R20.2 Paresthesia of skin (principal); G57.32 Lesion of lateral popliteal nerve, left lower limb | CPT/HCPCS: 95886; 95909 ==

== ENCOUNTER 2025-08-18 13:35 | Outpatient (REF) | payer MEDICARE, MEDICAID, SELFPAY ==
--- NOTE | ~2025-08-18 | XR_ITS ---
EXAMINATION: XR LUMBOSACRAL SPINE CLINICAL INFORMATION: M54.16 - Radiculopathy, lumbar region COMPARISON: None available. TECHNIQUE: AP and lateral views. FINDINGS: Multilevel small marginal osteophyte formation and endplate sclerosis decreased intervertebral disc height throughout the axial skeleton pronounced at L5-S1. No acute cortical disruption or gross malalignment. Facet joint hypertrophy at L5-S1. No lytic or blastic lesions. Vascular calcifications. Loss of the physiologic lumbar lordosis which could be positional. XR/XR lumbar spine 2-3V IMPRESSION: Multilevel thoracolumbar spondylosis pronounced at L5-S1. Electronically signed by: Gary Caldwell MD 08/18/2025 01:50 PM EST
--- OUTSIDE RECORDS SUMMARY | 2025-08-18 19:02 | XMS_ITS | Data Portability ---
Author Organization [facility], [address] Address [address] [place] [address] Assessment No assessment recorded. Plan of Treatment Reminders Order Date Submit Date Provider Last Modified By Organization Details Last Modified Time Details Appointments None recorded. Lab rapid strep group A, throat 2022 023 [email or web address] [facility], [address] [place] [address], [place], [address], 3 12:58:02 streptococc us group A, culture, throat 2022 023 [place] [facility], [address] [place] [address], [place], [address], 3 06:08:10 Referral None recorded. Procedures None recorded. Surgeries None recorded. Imaging None recorded. Medication Orders amoxicillin 875 mg-potassiu m clavulanate 125 mg tablet 2022 023 [id number], [address] [facility], [place], [address], 3 12:58:05 Patient TargetsNo targets recorded. Patient Instructions Encounter Date Encounter Id Patient Instructions Last Modified By Organization Details Last Modified Time 02/11/2023 [id number] cough: care instructions [email or web address] Not available 02/11/2023 [...] care for yourself at home? Take an caqi-cnv-ifyxbzq pain medicine. Avoid Ibuprofen, Aleve and Aspirin if . If the doctor prescribed antibiotics, take them as directed. Do not stop taking them just because you feel better. You need to take the full course of antibiotics. Be careful when taking oueu-reh-ijevmoz cold or influenza (flu) medicines and Tylenol [...] Range : Negat mari Not Available [facility] ([facility]) [address] [facility], [place], [address], 02/14/2023 06:08:10 02/12/2002/11/2023 rapid strep group A, throa t Unknown Analyte Normal = Negati ve Not Available [address] [place], [address], 02/11/2023 12:46:41 02/12/2002/11/2023 rapid strep group A, throa t Unknown Analyte negati ve Not Available [address] [address] [facility], [place], [address], 02/11/2023 12:46:41 Result Notes None recorded. Problems Name Problem SNOMED Code Status Onset Date Resolution Date Notes Provider Name and Address Organization Details Recorded Time Hyperlipidemia 22482210 Active 2022 JUDY grey PA - [facility] 3 12:16:38 Hypertensive disorder 91894686 Active 2022 JUDY grey, PA - [facility] 3 12:16:45 Diabetes mellitus 65727261 Active 2022 JUDY grey, PA - [facility] 3 12:16:50 Gastroesophage al reflux disease 895575307 Active 2022 JUDY grey, PA - [facility] 3 12:16:55 Problem Notes None recorded. Procedures Surgical History Date Name Laterality Status Provider Name and Address Organization Details Recorded Time Appendectomy completed JUYD CARREON PA - [facility] 02/11/2023 12:17:34 [...] Last Updated DateTime 170.18 cm 34.5 kg/m2 91939.3 2 g 97 % 85 /min 18 /min 97.7 [degF] 166/97 mm[Hg] JUDY DIANE Adyoulike 12:20:05 Social History Question Answer Notes LastModified by Pony Zero Details LastModified Time Tobacco Smoking Status Never Smoker [facility] Duncan [facility]aya 02/11/2023 12:17:17 Have You Had Direct Contact, Or Contact During Intimacy, With Monkeypox Rash, Scabs, Or Body Fluids From A Person With Monkeypox? No Information not available 02/11/2023 Have You Recently Traveled Abroad? No Information not available 02/11/2023 Are You Currently In School? No Information not available 02/11/2023 Sex: Unknown Functional Status Question Answer Note LastModified by Pony Zero Details LastModified Time Do you use any [...] ICD10 Code Diagnosis IMO Codes Diagnosis Note [id number] [facility] [place] [address] 08/28/2017 13:58:11 08/28/2017 14:19:59 [id number] [address] [place] [address] 08/24/2015 11:15:16 08/24/2015 12:01:26 [id number] [address] [place] [address] 01/11/2018 17:22:59 01/11/2018 18:40:48 [id number] Teddy Lockhart NP [address] [place] [address] 02/11/2023 09:58:10 02/11/2023 13:02:23 Acute sinusitis [id number] J01.90 Health Concerns Section Related Observation LastModified by Organization Detai ls LastModified Time None Recorded Concern Status LastModified by Organization Details LastModified Time None Recorded Advance Directives Directive None Recorded Payers Insurance Date Sequence Insurance Name Policy Number Policy Melton Covered Member ID Melton Member ID Guarantor Name 02/11/2023 1 [place] [facility] Lorraine Crews [id number] Lorraine Crews 02/18/2023 1 [facility] HE[facility] NET PLAN (MEDICAID HMO) CHENCHO Crews [id number] Lorraine Crews Notes Date Note Type Note [...] Lockhart NP [address] [place], [address], PA - [facility] 02/11/2023 12:58:40 OBGyn Episode No OBEpisode recorded.
--- OUTSIDE RECORDS SUMMARY | 2025-08-18 19:02 | XMS_ITS | Clinical Summary ---
Author Organization 175 [facility] Address [address] [place] [address] Phone Care Team Providers Care Vaccine Customer Representative Name Role Phone Florence Leonardo MD Primary Care Provider [phone] Allergies No known active allergies Medications LORazepam [...] Visit Orthopedic Surgery - [place] [address] [address] Yandel Pritchett DPM Acquired hammer toe of right foot (Primary Dx); Dermatophytosis of nail; Metatarsalgia of both feet; Hammer toe of left foot; Diabetic mononeuropathy simplex ([facility] V24, [facility] V28); Pain in toe of left foot; Pain in toe of right foot; Type II diabetes mellitus with peripheral circulatory disorder ([facility] V24, [facility] V28); Ingrowing nail from Last [...] 3:00 PM EST Office Visit Orthopedic Surgery [place] [address] [address] Yandel Pritchett DPM [address] [address] Health Maintenance Due Date Last Done Comments [...] Insurance MEDICARE [place] - [place] Care Teams Vaccine Customer Representative Relationship Specialty Start Date End Date Florence Leonardo MD [address] [place] [phone] PCP - General 05/04/24
== END 2025-08-18 13:36 | disposition home or self-care (01) ==
LOC: HO.HMGCX 13:35
PROVIDERS: PCP Internal Medicine; Visit Provider Internal Medicine
DX: M54.16 Radiculopathy, lumbar region (principal)
CPT/HCPCS: 72100

== ENCOUNTER → 2025-08-18 13:38 | Outpatient (BNV) | payer MEDICARE, MEDICAID, SELFPAY | PROVIDERS: PCP Internal Medicine; Visit Provider Radiology Diagnostic Radiology | DX: M47.27 Other spondylosis with radiculopathy, lumbosacral region (principal) | CPT/HCPCS: 72100 ==

== ENCOUNTER 2025-08-25 | Outpatient (REF) | payer MEDICARE, MEDICAID, SELFPAY | END 2025-08-25 00:01 | disposition home or self-care (01) | LOC: CF | PROVIDERS: PCP Internal Medicine; Visit Provider Internal Medicine | DX: M54.32 Sciatica, left side (principal); M47.26 Other spondylosis with radiculopathy, lumbar region; R07.89 Other chest pain; E03.9 Hypothyroidism, unspecified; R29.898 Other symptoms and signs involving the musculoskeletal system; R20.0 Anesthesia of skin; E13.9 Other specified diabetes mellitus without complications; R79.89 Other specified abnormal findings of blood chemistry; R20.2 Paresthesia of skin; Z56.89 Other problems related to employment | CPT/HCPCS: 99212 ==

== ENCOUNTER 2025-08-25 08:45 | Outpatient (AMB) | payer MEDICARE, MEDICAID, SELFPAY ==
[2025-08-25 08:48] VITALS: BP 128/80; PULSE 82; O2SAT 97; BMI 37.3
--- NOTE | 2025-08-25 08:48 | A.OFFPC_ITS ---
Vital Signs 08/25/25 08:48 Height 5 ft 7 in Weight 238 lb BMI 37.3 BP 128/80 Blood Pressure Location Lt brachial Position Sitting Pulse 82 Pulse Source Pulse Oximeter Pulse Oximetry (%) 97 Intake Visit Reasons: foll-up lower and left leg pain Allergies No Known Allergies Allergy (Verified 08/25/25 08:48) Medication List - Last Reconciled 08/25/25 by Florence Leonardo MD aspirin (Adult Low Dose Aspirin) 81 mg PO DAILY gabapentin 300 mg PO BEDTIME levothyroxine (Synthroid) 50 mcg PO DAILY lorazepam 1 mg PO DAILY PRN 30 days losartan 50 mg PO DAILY 90 days metformin 500 mg PO BID metoprolol succinate ER 50 mg PO DAILY montelukast 10 mg PO DAILY 90 days omeprazole 20 mg PO QAM 90 days pravastatin 80 mg PO DAILY 90 days Tobacco use date assessed: 05/03/25 Fall risk assessment: No Falls in past year Last assessed Fall Risk: 08/25/25 Dental Screening Dental Screen Date: 05/03/25 HPI HPI Comments History of Present Illness Details History of Present Illness The patient is a 65 year old female presenting for a follow-up visit for left leg sciatica pain. Left Lumbar Radiculopathy: - The patient was initially seen on for a 3-week history of a burning sensation in her left leg. - Before her initial visit, she was sena yue with prednisone at an urgent care facility and was prescribed baclofen, which she did not take. - She was prescribed gabapentin 300 mg t o be taken at night, but she reports it has provided no relief for her pain. - The pain radiates down the left leg fr om the knee down and is associated with heaviness in the leg and numbness in the left foot and toes. - The pain is worst when standing in one place, such as when making dinner, and upon first getting up in the morning or trying to roll over in bed, which affects her sleep. - She notes that walking is not as bad a nd sitting does not cause pain. - The patient has a history of back surg kenia at L5 approximately 28 years ago, steroid injections on the same side, and unsuccessful physical therapy. Lumbar Spondylosis: - A lumbar spine X-ray ordered on showed multilevel thoracolumbar spondylosis, most pronounced at L5-S1, with facet joint hypertrophy at the same level. - The imaging also revealed a loss of ph ysiological lumbar lordosis with no lytic or blastic lesions noted. Type 2 Diabetes Mellitus: - The patient has a diagnosis of diabete s. - Labs from July 28 showed a hemoglo bin A1c of 7.5%. - She reports some pre-existing neuropat hy on her right side, but notes the current numbness is more significant on her left side. Hypothyroidism: - Lab work from July 28 revealed a T SH level of 5.60. - The dose of her hydroxine was increase d to 50 mcg during her last visit. - A thyroid ultrasound was ordered at last visit and is scheduled for September. Medical History: - Type 2 diabetes mellitus - Subclinical hypothyroidism - Left lumbar radiculopathy - Lumbar spondylosis - Diabetic neuropathy - History of steroid injection in the le ft lumbar region - History of unsuccessful physical thera py for back pain Surgical History: - Lumbar spine surgery at L5 approximate ly 28 years ago (circa [id number]) Social History: - Employment: The patient is employed an d expressed concern that pain medication side effects could cause her to miss work, leading to loss of pay. - Functional Status: Pain interferes wit h her ability to sleep and perform activities of daily living that require standing, such as making dinner. Diagnostic Results: - Labs (07/28): - HbA1c: 7.5% - TSH: 5.60 - Kidney function: Intact - Liver enzymes: Within normal limits - Imaging: - Lumbar Spine X-ray: Showed multilevel thoracolumbar spondylosis pronounced at L5-S1, facet joint hypertrophy at L5-S1, and loss of physiological lumbar lordosis. ON LICENSE OF [facility] Medical History Vulvar lesion Sprain of left ankle Diverticulosis Tubular adenoma GERD (gastroesophageal reflux disease) On beta michael at home Tubular adenoma Obesity Hard of hearing Chronic otitis media of right ear Lipid disorder Dyspepsia Hypertension, essential Anxiety, generalized Diabetes 1.5, managed as type 2 Difficulty sleeping Surgical History Hx of endoscopy History of surgery History of back surgery History of colonoscopy History of appendectomy History of tubal ligation Family History Father No problems noted. 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 Cognitive needs: No Hearing needs: No Vision needs: Yes Female Reproductive History Menstrual Age of Menarche: 15 Questionnaire Thrive Questionnaire Date Thrive assessed: 10/26/24 I am a: Patient What is your living situation today?: I have a steady place to live Within the past 12 months, did the food you bought not last and you didn't have the money to get more?: Never true Within the past 12 months, did you worry whether your food would run out before you got money to buy more?: Never true Do you have trouble paying for medicines?: No Do you have trouble getting transportation to medical appointments?: No Do you have trouble paying your heating and electricity bill?: No Do you have trouble taking care of your child, family member or friend?: No Do you have trouble with day-to-day activities such as bathing, preparing meals, shopping, managing finances, etc.?: No Are you currently unemployed and looking for a job?: No Are you interested in more education?: No Currently or been in a relationship where the following occur: No concerns reported THRIVE Score: 0 YISEL-7 AMB Questionnaire YISEL-7 Date YISEL - 7 assessed: 05/03/25 Source: Developed by Drs. Bethel Caceres, Paige Russ, Kye Foy and colleagues, with an educational shaunna from [employer]. Review of Systems Narrative Review of Systems - General: No fever no chills - Neurological: No headaches no dizziness - Ear nose throat: No sore throat no hearing difficulty no ear pain - Cardiovascular: No syncope, no chest pain, no palpitations - Gastrointestinal: No nausea vomiting or diarrhea Physical exam (Primary Care) Vital Signs: Last Vital Signs Pulse 82 08/25/25 08:48 BP 128/80 08/25/25 08:48 Pulse Ox 97 08/25/25 08:48 BMI result Body Mass Index 37.3 Tobacco/Smoking Status: Tobacco use Status Tobacco use date assessed 05/03/25 08/25/25 08:53 Patient Tobacco Use Status Former Tobacco user 08/25/25 08:53 e-Cigarette/Vaping Use Never Used 08/25/25 08:53 Thrive Assessment: Date of Thrive Assessment Date Thrive assessed 10/26/24 08/25/25 08:53 Currently or been in a relationship where the following occur: No concerns reported Narrative Physical Exam General: No acute distress HEENT: No acute findings Neck: Supple Respiratory system: Able to talk in full sentences, no audible wheeze Cardiovascular: S1-S2 regular in rate and rhythm Gastrointestinal: No pain Extremities: Left leg heaviness and numbness in toes, left side, motor equal, sensory diminished more left side, st leg neg both side PHARMACIST'S AIDE: Alert awake oriented x3 motor intact Skin: Normal turgor Coding Level of Care Code Est Pt Level 4 (92709) Diagnoses Left lumbar radiculitis M54.16 Leg heaviness R29.898 Numbness of left foot R20.0 Diabetes 1.5, managed as type 2 E13.9 High thyroid stimulating hormone (TSH) level R79.89 Paresthesia of left leg R20.2 Difficulty performing work activities Z56.89 Assessment & Plan Assessment & Plan (1) Left lumbar radiculitis: Code(s): M54.16 - Radiculopathy, lumbar region Category: Medical (2) Leg heaviness: Code(s): R29.898 - Other symptoms and signs involving the musculoskeletal system Category: Medical (3) Numbness of left foot: Code(s): R20.0 - Anesthesia of skin Category: Medical (4) Diabetes 1.5, managed as type 2: Code(s): E13.9 - Other specified diabetes mellitus without complications Category: Medical (5) High thyroid stimulating hormone (TSH) level: Code(s): R79.89 - Other specified abnormal findings of blood chemistry Category: Medical (6) Paresthesia of left leg: Code(s): R20.2 - Paresthesia of skin Category: Medical (7) Difficulty performing work activities: Code(s): Z56.89 - Other problems related to employment Category: Medical Plan Problem List - Left lumbar radiculopathy - Lumbar spondylosis with history of lumbar surgery - Type 2 diabetes mellitus with neuropathy - hypothyroidism Plan - An MRI of the lumbar spine will be ordered to better assess the underlying pathology and determine if repeat surgery is necessary. - A referral will be made to a painter apprentice, and the appointment will be booked proactively to avoid delays in care. - The dosage of gabapentin will be doubled to two 300 mg capsules at night. - A small quantity of Percocet will be prescribed for severe pain, with instructions to take it at night if needed. - The patient will proceed with her thyroid ultrasound, which is scheduled for September. - The patient has rescheduled her cardiology stress test to September 29 due to her inability to walk on the treadmill. Orders: Orders MR lumbar spine wo con Today M54.16 - Radiculopathy, lumbar region, R20.0 - Anesthesia of skin, R29.898 - Other symptoms and signs involving the musculoskeletal system Medications: New oxycodone-acetaminophen 5-325 mg (Percocet) Partial Fill upon patient request. 1 tab PO .qhs PRN 7 tabs 0RF pain 7 days Changed From gabapentin 300 mg PO BEDTIME 30 caps 0RF To gabapentin 600 mg (2 x 300 mg) PO BEDTIME 60 caps 0RF 30 days
--- OUTSIDE RECORDS SUMMARY | 2025-08-25 09:02 | XMS_ITS | Data Portability ---
Author Organization ROXI Schmitt [facility], [address] Address [address] [place] [address] Assessment No assessment recorded. Plan of Treatment Reminders Order Date Submit Date Provider Last Modified By Organization Details Last Modified Time Details Appointments None recorded. Lab rapid strep group A, throat 2022 023 [email or web address] [facility], [address] [place] [address], [place], [address], 3 12:58:02 streptococc us group A, culture, throat 2022 023 [place] [facility], [address] [place] [address], [place], [address], 3 06:08:10 Referral None recorded. Procedures None recorded. Surgeries None recorded. Imaging None recorded. Medication Orders amoxicillin 875 mg-potassiu m clavulanate 125 mg tablet 2022 023 [facility] #[id number], [address] [facility], [place], [address], 3 12:58:05 Patient TargetsNo targets recorded. Patient Instructions Encounter Date Encounter Id Patient Instructions Last Modified By Organization Details Last Modified Time 02/11/2023 [id number] cough: care instructions [email or web address] Not available 02/11/2023 [...] care for yourself at home? Take an sbgz-ygv-yftlpil pain medicine. Avoid Ibuprofen, Aleve and Aspirin if . If the doctor prescribed antibiotics, take them as directed. Do not stop taking them just because you feel better. You need to take the full course of antibiotics. Be careful when taking hteo-hxq-cvdntcy cold or influenza (flu) medicines and Tylenol [...] Range : Negat mari Not Available [facility] ([facility]) [address] [facility], [place], [address], 02/14/2023 06:08:10 02/12/2002/11/2023 rapid strep group A, throa t Unknown Analyte Normal = Negati ve Not Available [address] [place], [address], 02/11/2023 12:46:41 02/12/2002/11/2023 rapid strep group A, throa t Unknown Analyte negati ve Not Available [address] [address] [facility], [place], [address], 02/11/2023 12:46:41 Result Notes None recorded. Problems Name Problem SNOMED Code Status Onset Date Resolution Date Notes Provider Name and Address Organization Details Recorded Time Hyperlipidemia 75626516 Active 2022 JUDY grey PA - [facility] 3 12:16:38 Hypertensive disorder 43181954 Active 2022 JUDY grey, PA - [facility] 3 12:16:45 Diabetes mellitus 29079402 Active 2022 JUDY grey, PA - [facility] 3 12:16:50 Gastroesophage al reflux disease 713180450 Active 2022 JUD[facility] grey, [facility] - [facility] [...] Last Updated DateTime 170.18 cm 34.5 kg/m2 75127.3 2 g 97 % 85 /min 18 /min 97.7 [degF] 166/97 mm[Hg] JUDY DIANE [employer] 12:20:05 Social History Question Answer Notes LastModified by [employer] Details LastModified Time Tobacco Smoking Status Never Smoker ROXI [facility] [employer] 02/11/2023 12:17:17 Have You Had Direct Contact, Or Contact During Intimacy, With Monkeypox Rash, Scabs, Or Body Fluids From A Person With Monkeypox? No Information not available 02/11/2023 Have You Recently Traveled Abroad? No Information not available 02/11/2023 Are You Currently In School? No Information not available 02/11/2023 Sex: Unknown Functional Status Question Answer Note LastModified by [employer] Details LastModified Time Do you use any [...] ICD10 Code Diagnosis IMO Codes Diagnosis Note [id number] [address] [place] [address] 08/28/2017 13:58:11 08/28/2017 14:19:59 [id number] [address] [facility] [place] [address] 08/24/2015 11:15:16 08/24/2015 12:01:26 [id number] [address] [place] [address] 01/11/2018 17:22:59 01/11/2018 18:40:48 [id number] Teddy Lockhart NP [address] [place] [address] 02/11/2023 09:58:10 02/11/2023 13:02:23 Acute sinusitis 40631894 J01.90 Health Concerns Section Related Observation LastModified by Organization Detai ls LastModified Time None Recorded Concern Status LastModified by Organization Details LastModified Time None Recorded Advance Directives Directive None Recorded Payers Insurance Date Sequence Insurance Name Policy Number Policy Melton Covered Member ID Melton Member ID Guarantor Name 02/11/2023 1 [place] [facility] Lorraine Crews [id number] Lorraine Crews 02/18/2023 1 [facility] - HEALTH NET PLAN (MEDICAID HMO) CHENCHO Crews [id number] Lorraine Crews Notes Date Note Type Note [...] Lockhart NP [address] [place], [address], PA - [facility] 02/11/2023 12:58:40 OBGyn Episode No OBEpisode recorded.
--- OUTSIDE RECORDS SUMMARY | 2025-08-25 09:02 | XMS_ITS | Clinical Summary ---
Author Organization [facility] Address [address] [place] [address] Phone Care Team Providers Care Land Management Forester Name Role Phone Florence Leonardo MD Primary Care Provider [phone] Allergies No known active allergies Medications LORazepam [...] Visit Orthopedic Surgery - [place] [address] [address] Yandel Pritchett DPM Acquired hammer toe of right foot (Primary Dx); Dermatophytosis of nail; Metatarsalgia of both feet; Hammer toe of left foot; Diabetic mononeuropathy simplex ([facility] V24, [facility] V28); Pain in toe of left foot; Pain in toe of right foot; Type II diabetes mellitus with peripheral circulatory disorder ([facility] V24, [facility] V28); Ingrowing nail from Last 3 [...] 3:00 PM EST Office Visit Orthopedic Surgery [place] [address] [address] Yandel Pritchett DPM [address] [address] Health Maintenance Due Date Last Done Comments [...] Insurance MEDICARE MEDICAID - [place] Care Teams Land Management Forester Relationship Specialty Start Date End Date Florence Leonardo MD [address] [place] [id number] PCP - General 05/04/24
== END 2025-08-25 10:23 | disposition home or self-care (01) ==
LOC: HO.HMCC 08:46
PROVIDERS: PCP Internal Medicine; Visit Provider Internal Medicine
DX: M54.16 Radiculopathy, lumbar region (principal); R29.898 Other symptoms and signs involving the musculoskeletal system; R20.0 Anesthesia of skin; E13.9 Other specified diabetes mellitus without complications; R79.89 Other specified abnormal findings of blood chemistry; R20.2 Paresthesia of skin; Z56.89 Other problems related to employment

== ENCOUNTER 2025-09-05 13:53 | Outpatient (AMB) | payer MEDICARE, MEDICAID, SELFPAY ==
[2025-09-05 13:55] VITALS: BP 138/82; PULSE 86; RESP 17; TEMP 36.8; O2SAT 98; BMI 37.8
--- NOTE | 2025-09-05 13:55 | A.OFFPC_ITS ---
Vital Signs 09/05/25 13:55 Height 5 ft 7 in Weight 241 lb 2 oz BMI 37.8 BP 138/82 Blood Pressure Location Rt brachial Position Sitting Respiration 17 Pulse 86 Pulse Source Pulse Oximeter Temp 98.2 F Temp Source Oral Pulse Oximetry (%) 98 Intake Visit Reasons: [place] [facility] upper eyelid surgery 09/15/25 Allergies No Known Allergies Allergy (Verified 09/05/25 13:56) Medication List - Last Reconciled 09/05/25 by Florence Leonardo MD aspirin (Adult Low Dose Aspirin) 81 mg PO DAILY gabapentin 600 mg (2 x 300 mg) PO BEDTIME 30 days levothyroxine (Synthroid) 50 mcg PO DAILY losartan 50 mg PO DAILY 90 days metformin 500 mg PO BID metoprolol succinate ER 50 mg PO DAILY montelukast 10 mg PO DAILY 90 days omeprazole 20 mg PO QAM 90 days pravastatin 80 mg PO DAILY 90 days Tobacco use date assessed: 09/05/25 Fall risk assessment: 1 Fall in past year Last assessed Fall Risk: 09/05/25 Dental Screening Dental Screen Date: 09/05/25 Did you have a dental visit in the last 12 months?: Yes Did you have a dental problem in the last 6 months where you did not have access to dental care?: No Was dental information given to patient?: Patient has dentist HPI HPI Comments History of Present Illness Details History The patient is a 65 year old female presenting for a preoperative evaluation for eye surgery. Preoperative evaluation for eye surgery: - The patient suffers from bilateral guerline matochalasis, complaining of heaviness in her bilateral upper eyelids which blocks her vision. - An ophthalmology visit on August 16, 2025, revealed bilateral ptosis, bilateral brow ptosis, keratoconjunctivitis sicca, epiphora of the right eye, myopia, astigmatism, presbyopia, and bilateral nuclear sclerosis. - She is scheduled for a bilateral upper eyelid blepharoplasty, bilateral ptosis repair, and a bilateral direct brow lift on September 15, 2025, at the [facility] with Dr. [place]. Type 2 Diabetes Mellitus: - Her hemoglobin A1c was 7.5 on July 28, 2025. - She takes metformin 500 mg twice daily and gabapentin 600 mg for associated diabetic neuropathy. Atypical chest pain: - The patient saw a assembler sandal parts on 2024, for chest pain and was diagnosed with atypical chest pain with multiple risk factors for coronary artery disease. - Her symptoms have dissipated, and she no longer experiences chest pain. - An EKG during the chest pain episode s howed an incomplete right bundle branch block, but her recent EKG was normal. - A cardiac echo showedl, with a left ve ntricular ejection fraction of 60-65% and mild calcific aortic valve changes. - An exercise treadmill test scheduled or September 29 has not been completed due to her leg pain. Hypothyroidism: - The patient takes levothyroxine 50 mcg . - Her TSH was slightly off on July 092024, and is scheduled to be repeated at the end of September. 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 Medical History: - Type 2 diabetes mellitus with neuropat hy - Hypertension - Hyperlipidemia - Hypothyroidism - Gastroesophageal reflux disease (GERD) - Allergies - History of Tracey's palsy in 2019 with r esidual right-sided facial asymmetry - History of atypical chest pain - Incomplete right bundle branch block - Eye conditions: Bilateral dermatochala sis, bilateral ptosis, bilateral brow ptosis, keratoconjunctivitis sicca, epiphora OD, myopia, astigmatism, presbyopia, and bilateral nuclear sclerosis - Back and leg pain Social History: - Functional Status: The patient's activ ity is limited by back and leg pain, making her unable to run on a treadmill for a scheduled stress test. Diagnostic Results: - Labs (07/28/2025): Electrolytes within normal limits, kidney functions intact, hemoglobin A1c 7.5, stable liver enzymes, TSH slightly off. - EKG: Normal sinus rhythm; history of a n incomplete right bundle branch block during a prior chest pain episode. - Echocardiogram: Normal LV ejection fra ction of 60-65%, mild calcific aortic valve changes noted, and no pericardial effusion. Medications - Losartan 50 mg for hypertension - Metoprolol 50 mg for hypertension - Levothyroxine 50 mcg for hypothyroidis m - Gabapentin 600 mg for diabetic neuropa thy - Metformin 500 mg twice a day for diabe jeanette - Montelukast for allergies - Omeprazole 20 mg for GERD - Pravastatin 80 mg for hyperlipidemia [facility] Medical History Vulvar lesion Sprain of left ankle Diverticulosis Tubular adenoma GERD (gastroesophageal reflux disease) On beta michael at home Tubular adenoma Obesity Hard of hearing Chronic otitis media of right ear Lipid disorder Dyspepsia Hypertension, essential Anxiety, generalized Diabetes 1.5, managed as type 2 Difficulty sleeping Surgical History Hx of endoscopy History of surgery History of back surgery History of colonoscopy History of appendectomy History of tubal ligation Family History Father No problems noted. 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 Cognitive needs: No Hearing needs: No Vision needs: Yes Female Reproductive History Menstrual Age of Menarche: 15 Questionnaire Thrive Questionnaire Date Thrive assessed: 10/26/24 I am a: Patient What is your living situation today?: I have a steady place to live Within the past 12 months, did the food you bought not last and you didn't have the money to get more?: Never true Within the past 12 months, did you worry whether your food would run out before you got money to buy more?: Never true Do you have trouble paying for medicines?: No Do you have trouble getting transportation to medical appointments?: No Do you have trouble paying your heating and electricity bill?: No Do you have trouble taking care of your child, family member or friend?: No Do you have trouble with day-to-day activities such as bathing, preparing meals, shopping, managing finances, etc.?: No Are you currently unemployed and looking for a job?: No Are you interested in more education?: No Currently or been in a relationship where the following occur: No concerns reported THRIVE Score: 0 AUDIT C Alcohol Use Questionnaire (AUDIT-C) 1. How often do you have a drink containing alcohol?: 2-4 times a month 2. How many drinks containing alcohol do you have on a typical day when you are drinking?: 1 or 2 3. How often do you have six or more drinks on one occasion?: Never Total Score: 2 Score Reviewed/Action Taken: Yes YISEL-7 AMB Questionnaire YISEL-7 Date YISEL - 7 assessed: 05/03/25 Source: Developed by Drs. Bethel Caceres, Paige Russ, Kye Foy and colleagues, with an educational shaunna from [employer]. Physical exam (Primary Care) Vital Signs: Last Vital Signs Temp 98.2 F 09/05/25 13:55 Pulse 86 09/05/25 13:55 Resp 17 09/05/25 13:55 BP 138/82 09/05/25 13:55 Pulse Ox 98 09/05/25 13:55 BMI result Body Mass Index 37.8 Tobacco/Smoking Status: Tobacco use Status Tobacco use date assessed 09/05/25 09/05/25 13:58 Patient Tobacco Use Status Former Tobacco user 09/05/25 13:58 e-Cigarette/Vaping Use Never Used 09/05/25 13:58 Thrive Assessment: Date of Thrive Assessment Date Thrive assessed 10/26/24 09/05/25 13:58 Currently or been in a relationship where the following occur: No concerns reported Coding Level of Care Code Est Pt Level 5 (85661) Diagnoses Pre-op evaluation Z01.818 Dermatochalasis of both upper eyelids H02.831; H02.834 Eyelid: upper Hypertension, essential I10 Lipid disorder E78.9 Anxiety, generalized F41.1 Diabetes 1.5, managed as type 2 E13.9 High thyroid stimulating hormone (TSH) level R79.89 Cardiac risk counseling Z71.89 Aortic valve calcification I35.9 Environmental allergies Z91.09 Gastroesophageal reflux disease without esophagitis K21.9 Esophagitis presence: without esophagitis Time Spent (min) 40 Comment chart / cardio note/ echo review / coordination of care Assessment & Plan Assessment & Plan (1) Pre-op evaluation: Code(s): Z01.818 - Encounter for other preprocedural examination Category: Medical (2) Dermatochalasis of both eyelids: Code(s): H02.833 - Dermatochalasis of right eye, unspecified eyelid; H02.836 - Dermatochalasis of left eye, unspecified eyelid Category: Medical Qualifiers: Eyelid: upper Qualified Code(s): H02.831 - Dermatochalasis of right upper eyelid; H02.834 - Dermatochalasis of left upper eyelid (3) Hypertension, essential: Code(s): I10 - Essential (primary) hypertension Category: Medical (4) Lipid disorder: Code(s): E78.9 - Disorder of lipoprotein metabolism, unspecified Category: Medical (5) Anxiety, generalized: Code(s): F41.1 - Generalized anxiety disorder Category: Medical (6) Diabetes 1.5, managed as type 2: Code(s): E13.9 - Other specified diabetes mellitus without complications Category: Medical (7) High thyroid stimulating hormone (TSH) level: Code(s): R79.89 - Other specified abnormal findings of blood chemistry Category: Medical (8) Cardiac risk counseling: Code(s): Z71.89 - Other specified counseling Category: Medical (9) Aortic valve calcification: Code(s): I35.9 - Nonrheumatic aortic valve disorder, unspecified Category: Medical (10) Environmental allergies: Code(s): Z91.09 - Other allergy status, other than to drugs and biological substances Category: Medical (11) GERD (gastroesophageal reflux disease): Code(s): K21.9 - Gastro-esophageal reflux disease without esophagitis Category: Medical Qualifiers: Esophagitis presence: without esophagitis Qualified Code(s): K21.9 - Gastro-esophageal reflux disease without esophagitis Plan Problem List - Preoperative evaluation for eye surgery - Type 2 diabetes mellitus with diabetic neuropathy - Hypertension - Hyperlipidemia - Hypothyroidism - Gastroesophageal reflux disease - Allergies - Bilateral dermatochalasis and ptosis - History of Tracey's palsy - History of atypical chest pain Plan 1. Encounter for other preprocedural examination Z01.818 - Will contact the truck farmer's office to confirm if the scheduled bilateral eyelid surgery will be performed under local or general anesthesia. - If the procedure is under general anesthesia, the patient will require clearance from her assembler sandal parts. - If the procedure is under local anesthesia, the patient is considered low risk and cleared for surgery from a primary care standpoint. - A note will be sent to the surgeon with today's findings. 2. Hypothyroidism, unspecified E03.9 - TSH levels will be rechecked at the end of September. 3. Heart disease, unspecified I51.9 - The patient was advised to contact her assembler sandal parts's office to reschedule her exercise treadmill test, scheduled for September 29. - She was advised to report her back and leg pain and request an alternative, pmo-uvfwfxich-rbacz stress test. - She has a follow-up appointment with her assembler sandal parts scheduled for October 11. Medical Decision Making The patient is a 65-year-old female who presented for a preoperative evaluation for her upcoming bilateral upper eyelid blepharoplasty, ptosis repair, and brow lift. Her medical history is notable for diabetes with neuropathy, hypertension, hyperlipidemia, and a history of atypical chest pain with multiple risk factors for coronary artery disease. The primary concern for this visit is her cardiac clearance for surgery. While her recent echocardiogram was reassuring with a normal ejection fraction, she has an outstanding exercise stress test ordered by her assembler sandal parts. The patient reports an inability to perform a treadmill test due to back and leg pain, which complicates this evaluation. The plan is contingent on the type of anesthesia to be used for her eye procedure. I will contact the truck farmer's office to confirm this detail; if general anesthesia is planned, formal clearance from her assembler sandal parts will be required, necessitating completion of her cardiac stress test. If the procedure is under local anesthesia, she is at low risk and is cleared from a primary care perspective. Additionally, her recent TSH was slightly abnormal, and a repeat lab draw is scheduled for the end of September. I have instructed the patient to contact her assembler sandal parts to request a pharmacological stress test instead of a treadmill test, given her physical limitations.
--- OUTSIDE RECORDS SUMMARY | 2025-09-05 17:42 | XMS_ITS | Data Portability ---
Author Organization ROXI Schmitt [facility], [address] Address [address] [place] [address] Assessment No assessment recorded. Plan of Treatment Reminders Order Date Submit Date Provider Last Modified By Organization Details Last Modified Time Details Appointments None recorded. Lab rapid strep group A, throat 2022 023 [email or web address] [facility], [address] [place] [address], [place], [address], 3 12:58:02 streptococc us group A, culture, throat 2022 023 [place] [facility], [address] [place] [address], [place], [address], 3 06:08:10 Referral None recorded. Procedures None recorded. Surgeries None recorded. Imaging None recorded. Medication Orders amoxicillin 875 mg-potassiu m clavulanate 125 mg tablet 2022 023 [facility] #[id number], [address] [facility], [place], [address], 3 12:58:05 Patient TargetsNo targets recorded. Patient Instructions Encounter Date Encounter Id Patient Instructions Last Modified By Organization Details Last Modified Time 02/11/2023 [id number] cough: care instructions [email or web address] Not available 02/11/2023 [...] care for yourself at home? Take an nxyi-wdn-ovgazgq pain medicine. Avoid Ibuprofen, Aleve and Aspirin if . If the doctor prescribed antibiotics, take them as directed. Do not stop taking them just because you feel better. You need to take the full course of antibiotics. Be careful when taking atsk-ifo-hcyhdgb cold or influenza (flu) medicines and Tylenol [...] mari Not Available [facility] ([facility]) [address] [facility], [place], [address], 02/14/2023 06:08:10 02/12/2002/11/2023 rapid strep group A, throa t Unknown Analyte Normal = Negati ve Not Available [address] [place], [address], 02/11/2023 12:46:41 02/12/2002/11/2023 rapid strep group A, throa t Unknown Analyte negati ve Not Available [address] [facility] [address] [facility], [place], [address], 02/11/2023 12:46:41 Result Notes None recorded. Problems Name Problem SNOMED Code Status Onset Date Resolution Date Notes Provider Name and Address Organization Details Recorded Time Hyperlipidemia 21485961 Active 2022 JUDY grey PA - [facility] 3 12:16:38 Hypertensive disorder 99370771 Active 2022 JUDY grey, PA - [facility] 3 12:16:45 Diabetes mellitus 76559131 Active 2022 JUDY grey, PA - [facility] 3 12:16:50 Gastroesophage al reflux disease 580601519 Active 2022 JUDY grey, [facility] - [facility] [...] Last Updated DateTime 170.18 cm 34.5 kg/m2 88159.3 2 g 97 % 85 /min 18 /min 97.7 [degF] 166/97 mm[Hg] JUDY DIANE [employer] 12:20:05 Social History Question Answer Notes LastModified by [employer] Details LastModified Time Tobacco Smoking Status Never Smoker ROXI [employer] 02/11/2023 12:17:17 Have You Had Direct Contact, Or Contact During Intimacy, With Monkeypox Rash, Scabs, Or Body Fluids From A Person With Monkeypox? No Information not available 02/11/2023 Have You Recently Traveled Abroad? No Information not available 02/11/2023 Are You Currently In School? No Information not available 02/11/2023 Sex: Unknown Functional Status Question Answer Note LastModified by [employer] Details LastModified Time Do you use any [...] ICD10 Code Diagnosis IMO Codes Diagnosis Note [id number] [address] [address] [place] [address] 08/28/2017 13:58:11 08/28/2017 14:19:59 [id number] [address] [facility] [place] [address] 08/24/2015 11:15:16 08/24/2015 12:01:26 [id number] [address] [place] [address] 01/11/2018 17:22:59 01/11/2018 18:40:48 [id number] Teddy Lockhart NP [address] [place] [address] 02/11/2023 09:58:10 02/11/2023 13:02:23 Acute sinusitis 86884213 J01.90 Health Concerns Section Related Observation LastModified by Organization Detai ls LastModified Time None Recorded Concern Status LastModified by Organization Details LastModified Time None Recorded Advance Directives Directive None Recorded Payers Insurance Date Sequence Insurance Name Policy Number Policy Melton Covered Member ID Melton Member ID Guarantor Name 02/11/2023 1 [place] [facility] Lorraine Crews [id number] Lorraine Crews 02/18/2023 1 [facility] - HEALTH NET PLAN (MEDICAID HMO) CHENCHO Crews [id number] Lorraine Crews Notes Date Note Type Note [...] Lockhart NP [address] [place], [address], [place] - [facility] 02/11/2023 12:58:40 OBGyn Episode No OBEpisode recorded.
--- OUTSIDE RECORDS SUMMARY | 2025-09-05 17:42 | XMS_ITS | Clinical Summary ---
Author Organization [address] [facility] Address [address] [place] [address] Phone Care Team Providers Care Professor Of Voice Name Role Phone Florence Leonardo MD Primary Care Provider [phone] Allergies No known active allergies Medications LORazepam [...] mouth 1 (one) time each day. 06/23/2025 Active omeprazole (PriLOSEC) [address] capsule Take 1 capsule (20 mg total) by mouth 1 (one) time each day in the morning. 04/16/2025 Active pravastatin (PRAVACHOL) 80 mg tablet Take 1 tablet (80 mg total) by mouth 1 (one) time each day. Active naproxen (NAPROSYN) 500 mg tablet Take 1 tablet (500 mg total) by mouth 2 (two) times a day if needed. for pain 09/21/2024 Active Encounters Date Type Department Care Team Description 07/06/2025 3:30 PM EDT Office Visit Orthopedic Surgery [facility] [address] [facility] [address] [place] [address] Pritchett, Christopher M, DPM Acquired hammer toe of right foot (Primary Dx); Dermatophytosis of nail; Metatarsalgia of both feet; Hammer toe of left foot; Diabetic mononeuropathy simplex ([facility] V24, [facility] V28); Pain in toe of left foot; Pain in toe of right foot; Type II diabetes mellitus with peripheral circulatory disorder ([facility] V24, [facility] V28); Ingrowing nail from Last [...] PM EST Office Visit Orthopedic Surgery - [place] [address] [address] Yandel rPitchett, DPM [address] [phone] Health Maintenance Due Date Last Done Comments Breast Cancer Screening 1959 Colorectal Cancer Screening: Colonoscopy 1959 Diabetes: Annual GFR (Glomerular Filtration Rate) 1959 Drug Screen 1959 Non-Opioid Controlled Substance Agreement 1959 Diabetes: Annual Foot Exam 1969 Diabetes: [...] patient's age to complete [id number] [id number] MEDICARE MEDICAID - [place] Care Teams Professor Of Voice Relationship Specialty Start Date End Date Florence Leonardo MD [address] [place] [address] PCP - General 05/04/24
== END 2025-09-05 15:02 | disposition home or self-care (01) ==
LOC: HO.HMCC 13:54
PROVIDERS: PCP Internal Medicine; Visit Provider Internal Medicine
DX: E13.9 Other specified diabetes mellitus without complications (principal); Z01.818 Encounter for other preprocedural examination; H02.831 Dermatochalasis of right upper eyelid; H02.834 Dermatochalasis of left upper eyelid; I10 Essential (primary) hypertension; E78.9 Disorder of lipoprotein metabolism, unspecified; F41.1 Generalized anxiety disorder; R79.89 Other specified abnormal findings of blood chemistry; Z71.89 Other specified counseling; I35.9 Nonrheumatic aortic valve disorder, unspecified; Z91.09 Other allergy status, other than to drugs and biological substances; K21.9 Gastro-esophageal reflux disease without esophagitis

== ENCOUNTER → 2025-09-05 13:53 | Outpatient (BNVA) | payer MEDICARE, MEDICAID, SELFPAY | PROVIDERS: PCP Internal Medicine; Visit Provider Internal Medicine | DX: Z01.818 Encounter for other preprocedural examination (principal); H02.834 Dermatochalasis of left upper eyelid; H02.831 Dermatochalasis of right upper eyelid; E11.40 Type 2 diabetes mellitus with diabetic neuropathy, unspecified; I10 Essential (primary) hypertension; E78.5 Hyperlipidemia, unspecified; E03.9 Hypothyroidism, unspecified; G51.0 Bell's palsy; K21.9 Gastro-esophageal reflux disease without esophagitis; Z91.09 Other allergy status, other than to drugs and biological substances; I51.9 Heart disease, unspecified; Z71.89 Other specified counseling | CPT/HCPCS: 99212 ==